=== PATIENT | female | born 1940 | race Caucasian/White ===

== ENCOUNTER 2017-03-18 18:21 | Emergency (ER) | payer MEDICARE ==
[2017-03-18 18:31] VITALS: BP 129/72
--- NOTE | 2017-03-18 18:46 | UC ---
Throat Pain/Nasal Soham HPI - HPI Summary HPI Summary: 5 days of worseing sinus pain ear pressure and sore throat, nasal congestion - History of Current Complaint Chief Complaint: UCRespiratory Stated Complaint: SORE THROAT, EAR COMPLAINTS Time Seen by Provider: 03/18/17 18:37 Hx Obtained From: Patient ?: No Onset/Duration: Gradual Onset, Lasting Days - 5, Worse Since - daily Severity: Moderate Cough: Nonproductive Associated Signs & Symptoms: Positive: Sinus Discomfort, Nasal Discharge - Allergies/Home Medications Allergies/Adverse Reactions: Allergies Allergy/AdvReac Type Severity Reaction Status Date / Time Penicillins Allergy Severe Anaphylatic Verified 03/18/17 18:32 Shock Sulfamethoxazole Allergy Intermediate Itching Verified 03/18/17 18:32 w/Trimethoprim [From Bactrim] Vancomycin Allergy Intermediate Itching Verified 03/18/17 18:32 Iodinated Diagnostic Agents Allergy Anaphylatic Verified 03/18/17 18:32 Shock Levofloxacin [From Levaquin] Allergy See Comment Verified 03/18/17 18:32 Sulfa Antibiotics AdvReac Intermediate Nausea Verified 03/18/17 18:32 Codeine AdvReac Mild GI Upset Verified 03/18/17 18:32 IVP DYE Allergy Severe Anaphylatic Uncoded 03/18/17 18:32 Shock PMH/Surg Hx/FS Hx/Imm Hx Previously Healthy: No GI/ History: Gastroesophageal Reflux Psychological History: Anxiety Other History Of: Anticoagulant Therapy - had DVT in past. - Surgical History Surgical History: Yes Surgery Procedure, Year, and Place: RIGHT KNEE REPLACEMENT, CHOLECYSTECTOMY, APPENDECTOMY - Family History Known Family History: Positive: Other - BREAST CANCER - Social History Occupation: Retired Lives: With Family Alcohol Use: None Substance Use Type: None Smoking Status (MU): Former Smoker Type: Cigarettes Household Exposure Type: Cigarettes - Immunization History Most Recent Influenza Vaccination: unknown Most Recent Tetanus Shot: up to date Most Recent Pneumonia Vaccination: has had, unsure of year Review of Systems Constitutional: Negative Skin: Negative Eyes: Negative ENT: Sore Throat, Ear Ache, Nasal Discharge, Sinus Congestion, Sinus Pain/ Tenderness Respiratory: Negative Cardiovascular: Negative Gastrointestinal: Negative Genitourinary: Negative Motor: Negative Neurovascular: Negative Musculoskeletal: Negative Neurological: Negative Psychological: Negative All Other Systems Reviewed And Are Negative: Yes Physical Exam Triage Information Reviewed: Yes Appearance: Well-Appearing, No Pain Distress, Pain Distress - mild Vital Signs: Initial Vital Signs Temp 96.9 F 03/18/17 18:28 Pulse 82 03/18/17 18:28 Resp 12 03/18/17 18:28 BP 129/72 03/18/17 18:28 Pulse Ox 98 03/18/17 18:28 Vital Signs Reviewed: Yes Eye Exam: Normal Eyes: Positive: Conjunctiva Clear ENT Exam: Normal ENT: Positive: Normal ENT inspection, Hearing grossly normal, Pharynx normal, Nasal congestion, Nasal drainage, TMs normal. Negative: Tonsillar swelling, Tonsillar exudate, Trismus, Muffled/hoarse voice Dental Exam: Normal Neck exam: Normal Neck: Positive: Supple, Nontender, No Lymphadenopathy Respiratory Exam: Normal Respiratory: Positive: Chest non-tender, Lungs clear, Normal breath sounds, No respiratory distress, No accessory muscle use Cardiovascular Exam: Normal Cardiovascular: Positive: RRR, No Murmur, Pulses Normal, Brisk Capillary Refill Musculoskeletal Exam: Normal Musculoskeletal: Positive: Strength Intact, ROM Intact, No Edema Neurological Exam: Normal Neurological: Positive: Alert, Muscle Tone Normal, Fatigued Psychological Exam: Normal Skin Exam: Normal Throat Pain/Nasal Course/Dx - Course Assessment/Plan: flonase zithromax, increase fluids, follow with pcp - Differential Dx/Diagnosis Differential Diagnosis/HQI/PQRI: Pharyngitis, Sinusitis, URI Provider Diagnoses: Acute Rhinosinusitis Discharge - Discharge Plan Condition: Stable Disposition: HOME Prescriptions: Azithromycin TAB* [Zithromax TAB (Z-LELIA) 250 mg #6 tabs] 2 tab PO .TODAY, THEN 1 DAILY #6 tab Fluticasone NASAL SPRAY 50MCG* [Flonase NASAL SPRAY 50MCG*] 2 spray BOTH NARES DAILY #1 btl Patient Education Materials: Sinusitis (ED), How to Use Nasal [place] (ED) Referrals: Bettye Up MD [Primary Care Provider] - 2 Weeks
== END 2017-03-18 18:58 | disposition home or self-care (01) ==
LOC: UCEAST 18:21
DX: J01.90 Acute sinusitis, unspecified (principal); K21.9 Gastro-esophageal reflux disease without esophagitis; F41.9 Anxiety disorder, unspecified; Z86.718 Personal history of other venous thrombosis and embolism; Z79.01 Long term (current) use of anticoagulants; Z96.651 Presence of right artificial knee joint; Z90.49 Acquired absence of other specified parts of digestive tract; Z88.1 Allergy status to other antibiotic agents; Z88.5 Allergy status to narcotic agent; Z88.0 Allergy status to penicillin; Z88.2 Allergy status to sulfonamides; Z87.891 Personal history of nicotine dependence
CPT/HCPCS: 99212; G0463

== ENCOUNTER 2017-12-09 11:19 | Inpatient (IN) | payer MEDICARE ==
--- OUTSIDE RECORDS SUMMARY | 2017-12-09 11:44 | XMS REPORT ---
:1940 External Reference #:[id number] Author Organization [facility] [employer] Address [address] [address] Phone [phone] Care Team Providers Name Role Phone Bettye Up MD Primary Care Physician Unavailable Payers Type Date Identification Numbers Payment Provider Subscriber Medicare Primary Policy Number: Medicare Paulette Rahman [id number] Jinny PayID: [id number] [address] [place] [address] [facility] Policy Number: [facility] Paulette Stearns [id number] PayID: [id number] [address] [place] [address] Problems Date Description Provider Status Onset: 05/25/2011 Anxiety state Elin Fowler, N.PHalle Active Onset: 05/25/2011 Benign essential hypertension Elin Fowler, N.P. Active Onset: 05/25/2011 Osteoporosis Elin Fowler, N.P. Active Onset: 05/25/2011 Chronic obstructive lung disease Elin Fowler, N.P. Active Onset: 05/25/2011 Right bundle branch block Elin Fowler, N.P. Active Onset: 03/25/2015 Hyperlipidemia Margret Anne M.D. Active Onset: 03/25/2015 FH: Cardiovascular disease Margret Anne M.D. Active Family History Date Family Member(s) Problem(s) Comments General Colon Cancer : (age 75 Father due to Septic Ruptured Peptic Ulcer Years) Shock : (age 84 Mother due to CHF DM Years) Mother Coronary Artery Disease CABG and MV replacement (CAD) Children 3 Daughters - Healthy Siblings 5 3 Living Siblings with: HTN, Heart Disease, DM 1 Sister - Alzheimers age - 77 1 Brother - Lung Cancer - 79 First Brother Coronary Artery Disease [place] (CAD) Second Brother Colon Cancer Social History Type Date Description Comments Marital Status Significant Other Lives With Boyfriend Occupation Retired Cigarette Use Former Cigarette Smoker ETOH Use Denies alcohol use Smoking Patient is a former smoker Quit 2011, used to smoke 1 1/2 PPD for 37 years Recreational Drug Use Denies Drug Use Daily Caffeine Consumes on average 1 cup of regular coffee per day Exercise Type/Frequency Exercises rarely General Hx Text Lives iin [place] with s.o., no new partners, no travel or sick contacts. no pets. Allergies, Adverse Reactions, Alerts Date Description Reaction Status Severity Comments 05/01/2010 Penicillin active 05/01/2010 Codeine active 05/01/2010 Vancomycin active 06/07/2010 IV Dye Anaphylaxis active Fatal 11/03/2012 Levaquin joint pain active 05/14/2013 Sulfa Antibiotics active 03/25/2015 Crestor active GI problems 03/25/2015 Pravastatin active myalgias Medications Medication Date Status Form Strength Qnty SIG Indications Ordering Provider Keflex 12/02 Active Capsules 500mg 21cap 1 by mouth Darius s three times RADHA Pires a day for 7 days Spiriva 08/14 Active Capsules 18mcg 30cap inhale the J44.9 Darius Handihaler /2017 s contents of RADHA Pires one capsule via handihaler by mouth every day Ventolin HFA 06/10 Active Aerosol 108(90Bas 1unit 1-2 puffs J44.9 Darius e) s by mouth RADHA Pires mcg/Act every 4-6 hours as needed Omeprazole 06/[address] 20mg 60cap 1 by mouth K21.9 Darius s twice a day RADHA Pires Paxil 03/13 Active Tablets 40mg 90tab Take One s Tablet By Varn, N.P. Mouth Every Day Valium 09/21 Active Tablets 5mg 120ta 1 by mouth bs 4 times Varn, N.P. daily Imodium A-D Active Chewtabs 2mg 2 tabs by Unknown /0000 mouth as needed Align Active Capsules 1 by mouth Unknown /0000 every day Macrobid 12/02 Hx Capsules 100mg 14cap one capsule R35.0 s twice a day Pranay, WHISKEY REGAUGER - x 7 days 12/02 Carafate 06/10 Hx Suspension 1GM/10ML 420ml 10ml prior to each Pranay, WHISKEY REGAUGER - meal 10/27 Spiriva 06/10 Hx Capsules 18mcg 30cap inhale the J44.9 Darius Handihaler s contents of Pranay, WHISKEY REGAUGER - one capsule 08/14 handihaler by mouth every day Dulera 06/06 Hx Aerosol 100-5mcg/ 8.800 2 puffs Act gm twice daily Parmjit Cody M.D. 06/10 Doxycycline 05/27 Hx Capsules 100mg 20cap one tablet R35.0 Darius Hyclate s twice daily Pranay, WHISKEY REGAUGER - for 10 . Macrobid 05/24 Hx Capsules 100mg 14cap one capsule R35.0 Darius s twice a day Pranay, WHISKEY REGAUGER - x 7 days 05/27 Azithromycin 11/07 Hx Tablets 250mg 6tabs two tabs J20.9 day one, Varn, N.P. - one daily 11/17 till Azithromycin 07/17 Hx Tablets 250mg 6tabs two tabs J01.00 day one, Varn, N.P. - one daily 07/27 till Azithromycin 06/13 Hx Tablets 250mg 6tabs 2 tabs by J20.9 Darius mouth every Pranay, WHISKEY REGAUGER - day x1 day, 06/18 1 tab by /2015 mouth every day x 4 days Benzonatate 06/13 Hx Capsules 100mg 30cap take one or J20.9 Darius s two Pranay, WHISKEY REGAUGER - capsules 06/25 every hours as needed for cough. Symbicort 06/13 Hx Aerosol 160-4.5mc 6gm 2 puff J20.9 Darius g/Act inhaled Pranay, WHISKEY REGAUGER - twice a day 06/27 Keflex 12/29 Hx Capsules 500mg 21cap 1 by mouth s three times Pranay, WHISKEY REGAUGER - a day for 7 Azithromycin 12/27 Hx Tablets 250mg 6tabs 2 tabs by R05 Darius mouth every Pranay, WHISKEY REGAUGER - day x1 day, 04/16 1 tab by mouth every day x 4 days Fluticasone 12/27 Hx Suspension 50mcg/Act 16 2 R05 Darius Propionate intranasal Pranay, WHISKEY REGAUGER - puffs to 04/16 nostril as needed Nitrofurantoin 12/16 Hx Capsules 100mg 20cap 1 po bid Terrell Fowlerstal s for 10d DParmjit Gonzales M.D.,[facility] 12/26 Fluticasone 09/12 Hx Suspension 50mcg/Act 16 2 J01.90 Propionate intranasal Varn, N.P. - puffs to 09/26 nostril as needed Mupirocin 03/11 Hx Ointment 2% 22gm apply once 913.0 daily with Varn, N.P. - dressing 03/25 Terconazole 12/15 Hx Cream 0.4% 1tube one applicator Varn, N.P. - intravagina 12/16 lly at bedtime for 3 nights Keflex 12/06 Hx Capsules 500mg 21cap one by s mouth 3 Varn, N.P. - times daily 12/13 for 7 Tetracycline 12/03 Hx Capsules 500mg 40cap 1 po qid x HCL s 10 days Varn, N.P. - 12/03 Doxycycline 12/03 Hx Tablets 100mg 20tab 1 tab by Bettye Hyclate s mouth twice Cotton, - a day for M.D. 12/06 10 Macrobid 12/01 Hx Capsules 100mg 20cap 1 by mouth s twice a day Varn, N.P. - for 10 days 12/03 Aspirin 11/03 Hx Tablets 325mg 1 by mouth Darius every day Pranay, WHISKEY REGAUGER - 06/10 Azithromycin 11/03 Hx Tablets 250mg 6tabs 2 tabs by 465.9 Darius mouth every Pranay, WHISKEY REGAUGER - day x1 day, 11/07 1 tab by /2014 mouth every day x 4 days Benzonatate 08/31 Hx Capsules 200mg 30cap one by 466.0 s mouth three Varn, N.P. - times daily 11/03 as needed for cough Azithromycin 08/27 Hx Tablets 250mg 6tabs two tabs 466.0 day one, Varn, N.P. - one daily 09/06 till Benzonatate 08/27 Hx Capsules 100mg 30cap one by 466.0 s mouth three Varn, N.P. - times daily 08/31 as needed for cough Tramadol HCL 08/11 Hx Tablets 50mg 30tab 1 tablet 719.49 s three to Varn, N.P. - four times 12/27 daily needed Azithromycin 07/14 Hx Tablets 250mg 6tabs two tabs day one, Varn, N.P. - one daily 07/24 until Crestor 07/05 Hx Tablets 10mg 90tab 1 by mouth s every day Varn, N.P. - 07/29 Atorvastatin 06/04 Hx Tablets 20mg 30tab take 1 272.4 s tablet at Varn, N.P. - bedtime 07/05 Zithromax Z-Ronnie 01/02 Hx Tablets 250mg 6tabs two by mouth Faisal Morgan - initially 01/12 then one by mouth daily Aspirin Adult 11/04 Hx Chewtabs 81mg 30uni 1 by mouth Elin Low Strength ts every day Varn, N.P. - 11/03 Azithromycin 11/04 Hx Tablets 250mg 6tabs two tabs 486 day one, Varn, N.P. - one daily 11/14 till Flonase 11/04 Hx Suspension 50mcg/Act 1unit 2 461.9 Bettye /2014 s intranasal Cotton, - puffs to M.DHalle 09/12 nostril as needed Azithromycin 10/28 Hx Tablets 250mg 6tabs two tabs 466.0 day one, Varn, N.P. - one daily 11/04 until Cipro 08/05 Hx Tablets 250mg 10tab bid for 5 s days Parmjit King M.D.,[facility] 09/11 Pyridium 08/05 Hx Tablets 200mg 9tabs po tid prn for 3 days Parmjit King M.D.,[facility] 10/28 Cipro 07/18 Hx Tablets 500mg 6tabs 1 po bid Aime DHalle Parmjit Orlando M.D. 08/05 Cipro 05/05 Hx Suspension 500mg/5ML 100un 1 tsp twice Rec (10%) its a day Varn, N.P. - 05/05 Ciprofloxacin 05/05 Hx Tablets 500mg 20tab one by Elin HCL s mouth twice Varn, N.P. - daily for 05/15 Azithromycin 04/29 Hx Tablets 250mg 6tabs two tabs 466.0 day one, Varn, N.P. - one daily 05/05 till Percocet 04/21 Hx Tablets 5-325mg 30tab 1po q4-6h s prn Parmjit Nunes M.D. 07/27 Ciprofloxacin 02/20 Hx Tablets 250mg 14tab one po bid 788.41 Elin HCL s for 7 days Varn, N.P. - 02/27 Cipro 11/02 Hx Tablets 250mg 14tab one by Elin s nouth twice Varn, N.P. - daily for 7 Triamcinolone 10/27 Hx Cream 0.1% 30gm apply bid 782.1 Elin Acetonide until clear Varn, N.P. - 07/27 Sulfamethoxazol 01/24 Hx Tablets 800-160mg 20tab one po bid 788.41 Claudia e/Trimethoprim s for 10 days RICO Montaño M.D., [facility] 02/03 Ciprofloxacin 07/08 Hx Tablets 250mg 14tab 1 bid x 7 Bettye s days Jeovanny, - M.D. 08/20 Cipro 05/28 Hx Tablets 250mg 14tab one by s nouth twice [place], - daily for 7 M.D. Flonase 09/06 Hx Suspension 50mcg/Act 1unit 2 s intranasal [place], - puffs to M.D. 09/16 nostril once daily Levaquin 06/07 Hx Tablets 500mg 10tab 1 po daily s for 10 days Jeovanny, - M.D. 06/17 Tessalon Perles 05/24 Hx Capsules 100mg 30cap one po tid s prn cough Jeovanny, - M.D. 06/21 Zithromax Z-Ronnie 05/22 Hx Tablets 250mg 1Pack two po Claudia initially [place], - then one po M.D., FACP 06/07 Zithromax Z-Ronnie 03/13 Hx Tablets 250mg 1tabs Two PO Initially Cotton, - Then One PO M.D. 05/01 Chantix 02/14 Hx Tablets 1mg 1Cont 1 po bid inuin Jeovanny, - gpk M.D. 03/13 Premarin 00/ Hx Cream 0.625mg/G 3Mont 1 Bettye W/Applicator /0000 M hs application [place], - once weekly M.D. 10/27 Co Q-10 Hx Unknown /0000 - 10/27 Keflex 00 Hx Capsules 250mg 1 tab by Unknown /0000 mouth qid - 05/18 Immunizations CPT Code Status Date Vaccine Lot # [id number] Given 12/03/2016 Tdap - Tetanus/Diptheria/Acellular Pertussis [id number] 99193 Given 05/18/2016 Influenza Virus Vaccine, Quadrivalent, Split [id number] Virus, [place] Use 55717 Given 05/18/2016 Pneumococcal Conjugate Vaccine 13 Valent For [id number] Intramuscular Use 45252 Given 06/04/2014 Flu Vaccine Split Virus Preservative Free For [id number] Indiv 3Yr Older 66849 Given 07/27/2013 Flu Vaccine Split Virus Preservative Free For [id number] Indiv 3Yr Older Q2037 Given 07/11/2012 Fluvirin Im 3Yrs And Older [id number] Q2035 Given 05/25/2011 Afluria Vaccine [id number] 95221 Given 05/25/2011 Pneumonia Vaccine [id number] 69537 Given 05/25/2008 Influenza Virus 3Yrs & Over 23727 Given 05/25/2008 Influenza Virus 3Yrs & Over 17784 Given 09/03/2007 Tetanus And Diptheria (Td) For Adult Use Preservative Free 73430 Given 09/03/2007 Tetanus And Diptheria (Td) For Adult Use Preservative Free Vital Signs Date Vital Result Comment 12/02/2017 Weight 142.50 lb Heart Rate 85 /min BP Systolic 128 mmHg BP Diastolic 79 mmHg Body Temperature 96.6 F O2 % BldC Oximetry 90 % 10/28/2017 Height 63 inches 5'3" Weight 145.00 lb Heart Rate 84 /min BP Systolic Sitting 116 mmHg BP Diastolic Sitting 70 mmHg Respiratory Rate 14 /min O2 % BldC Oximetry 96 % BMI (Body Mass Index) 25.7 kg/m2 08/14/2017 Weight 147.00 lb Heart Rate 95 /min BP Systolic 110 mmHg BP Diastolic 60 mmHg Body Temperature 98.0 F O2 % BldC Oximetry 97 % 07/16/2017 Height 63 inches 5'3" Weight 147.00 lb Heart Rate 80 /min BP Systolic Sitting 100 mmHg BP Diastolic Sitting 60 mmHg Respiratory Rate 14 /min O2 % BldC Oximetry 96 % BMI (Body Mass Index) 26.0 kg/m2 Neck Circumference in inches 14 06/10/2017 Weight 156.75 lb Heart Rate 70 /min BP Systolic Sitting 120 mmHg BP Diastolic Sitting 70 mmHg O2 % BldC Oximetry 98 % 05/24/2017 Height 63 inches 5'3" Weight 154.00 lb Heart Rate 86 /min BP Systolic Sitting 118 mmHg BP Diastolic Sitting 70 mmHg O2 % BldC Oximetry 95 % BMI (Body Mass Index) 27.3 kg/m2 11/07/2016 Weight 157.00 lb with shoes Heart Rate 82 /min BP Systolic 132 mmHg BP Diastolic 74 mmHg Body Temperature 98.2 F O2 % BldC Oximetry 94 % 08/17/2016 Weight 151.00 lb Heart Rate 87 /min BP Systolic Sitting 140 mmHg BP Diastolic Sitting 72 mmHg O2 % BldC Oximetry 95 % 07/17/2016 Weight 153.00 lb Heart Rate 88 /min BP Systolic Sitting 112 mmHg BP Diastolic Sitting 60 mmHg Body Temperature 97.5 F O2 % BldC Oximetry 95 % 06/13/2016 Height 63 inches 5'3" Weight 154.00 lb Heart Rate 73 /min BP Systolic Sitting 106 mmHg BP Diastolic Sitting 64 mmHg Respiratory Rate 16 /min Body Temperature 98.9 F O2 % BldC Oximetry 94 % BMI (Body Mass Index) 27.3 kg/m2 05/18/2016 Height 63 inches 5'3" Weight 153.00 lb Heart Rate 71 /min BP Systolic Sitting 122 mmHg BP Diastolic Sitting 66 mmHg Body Temperature 98.8 F O2 % BldC Oximetry 95 % BMI (Body Mass Index) 27.1 kg/m2 04/16/2016 Height 63 inches 5'3" Weight 156.00 lb Heart Rate 93 /min BP Systolic 141 mmHg BP Diastolic 93 mmHg BMI (Body Mass Index) 27.6 kg/m2 12/28/2015 Heart Rate 89 /min BP Systolic Sitting 108 mmHg BP Diastolic Sitting 75 mmHg Body Temperature 98.7 F O2 % BldC Oximetry 94 % 12/23/2015 Height 63.75 inches 5'3.75" Weight 155.00 lb Heart Rate 64 /min BP Systolic Sitting 138 mmHg BP Diastolic Sitting 76 mmHg Respiratory Rate 16 /min Pain Level 3 BMI (Body Mass Index) 26.8 kg/m2 09/28/2015 Height 63.75 inches 5'3.75" Weight 155.00 lb Pain Level 0 BMI (Body Mass Index) 26.8 kg/m2 09/09/2015 Height 63.75 inches 5'3.75" Weight 155.00 lb Pain Level 8 BMI (Body Mass Index) 26.8 kg/m2 06/15/2015 Height 63.75 inches 5'3.75" Weight 155.00 lb Pain Level 2 BMI (Body Mass Index) 26.8 kg/m2 06/07/2015 Height 63.75 inches 5'3.75" Weight 155.00 lb Pain Level 2 BMI (Body Mass Index) 26.8 kg/m2 03/25/2015 Height 63.75 inches 5'3.75" Weight 155.00 lb w/o shoes Heart Rate 96 /min reg BP Systolic 136 mmHg Lue, reg cuff BP Diastolic 84 mmHg Lue, reg cuff BP Systolic Sitting 134 mmHg Rue, reg cuff BP Diastolic Sitting 84 mmHg Rue, reg cuff BP Systolic Standing 130 mmHg Rue BP Diastolic Standing 76 mmHg Rue Respiratory Rate 18 /min BMI (Body Mass Index) 26.8 kg/m2 03/22/2015 Heart Rate 90 /min BP Systolic Sitting 128 mmHg BP Diastolic Sitting 77 mmHg Body Temperature 98.6 F 03/11/2015 Weight 155.00 lb Heart Rate 87 /min BP Systolic Sitting 120 mmHg BP Diastolic Sitting 80 mmHg 11/03/2014 Height 64 inches 5'4" Weight 157.00 lb Heart Rate 84 /min BP Systolic 101 mmHg BP Diastolic 62 mmHg Body Temperature 99.1 F O2 % BldC Oximetry 96 % BMI (Body Mass Index) 26.9 kg/m2 08/27/2014 Weight 155.50 lb Heart Rate 78 /min BP Systolic Sitting 122 mmHg BP Diastolic Sitting 68 mmHg Body Temperature 98.6 F O2 % BldC Oximetry 98 % 08/11/2014 Height 64 inches 5'4" Weight 157.00 lb Heart Rate 78 /min BP Systolic 110 mmHg BP Diastolic 60 mmHg Body Temperature 99.2 F BMI (Body Mass Index) 26.9 kg/m2 07/30/2014 Height 64 inches 5'4" Weight 157.25 lb Heart Rate 90 /min BP Systolic Sitting 112 mmHg BP Diastolic Sitting 62 mmHg Body Temperature 98.1 F O2 % BldC Oximetry 98 % BMI (Body Mass Index) 27.0 kg/m2 06/04/2014 Weight 158.00 lb Heart Rate 92 /min BP Systolic Sitting 124 mmHg BP Diastolic Sitting 92 mmHg Body Temperature 97.1 F 01/01/2014 Weight 155.00 lb Heart Rate 84 /min BP Systolic Sitting 126 mmHg BP Diastolic Sitting 80 mmHg Body Temperature 98.7 F O2 % BldC Oximetry 94 % 11/04/2013 Weight 152.50 lb Heart Rate 84 /min BP Systolic 140 mmHg BP Diastolic 74 mmHg Respiratory Rate 18 /min Body Temperature 98.1 F 10/28/2013 Weight 156.00 lb Heart Rate 84 /min BP Systolic Sitting 138 mmHg BP Diastolic Sitting 80 mmHg Respiratory Rate 15 /min Body Temperature 98.4 F 09/11/2013 Height 63.25 inches 5'3.25" Weight 155.00 lb Heart Rate 82 /min BP Systolic Sitting 124 mmHg BP Diastolic Sitting 70 mmHg O2 % BldC Oximetry 96 % BMI (Body Mass Index) 27.2 kg/m2 07/27/2013 Weight 151.50 lb Heart Rate 84 /min BP Systolic 126 mmHg BP Diastolic 74 mmHg 05/20/2013 Weight 149.00 lb Heart Rate 64 /min BP Systolic 126 mmHg BP Diastolic 70 mmHg Body Temperature 98.7 F 05/14/2013 Weight 149.00 lb Heart Rate 60 /min BP Systolic 106 mmHg BP Diastolic 66 mmHg Body Temperature 98.2 F 05/05/2013 Weight 149.00 lb Heart Rate 88 /min BP Systolic Sitting 128 mmHg BP Diastolic Sitting 76 mmHg Body Temperature 100.5 F 04/29/2013 Weight 147.00 lb Heart Rate 88 /min BP Systolic Sitting 102 mmHg BP Diastolic Sitting 70 mmHg Body Temperature 98.8 F 04/21/2013 Height 64 inches 5'4" Weight 130.00 lb Heart Rate 106 /min BP Systolic 139 mmHg BP Diastolic 86 mmHg Body Temperature 99.0 F BMI (Body Mass Index) 22.3 kg/m2 02/20/2013 Weight 144.00 lb Heart Rate 100 /min BP Systolic Sitting 124 mmHg BP Diastolic Sitting 76 mmHg Body Temperature 98.3 F 11/04/2012 Weight 150.00 lb Heart Rate 104 /min BP Systolic Sitting 140 mmHg BP Diastolic Sitting 86 mmHg 10/27/2012 Height 64 inches 5'4" Weight 152.00 lb Heart Rate 84 /min BP Systolic Sitting 118 mmHg BP Diastolic Sitting 64 mmHg Body Temperature 98.8 F BMI (Body Mass Index) 26.1 kg/m2 07/11/2012 Height 64 inches 5'4" Weight 155.00 lb Heart Rate 74 /min BP Systolic Sitting 120 mmHg BP Diastolic Sitting 70 mmHg BMI (Body Mass Index) 26.6 kg/m2 01/25/2012 Height 64 inches 5'4" Weight 148.00 lb Heart Rate 72 /min BP Systolic Sitting 140 mmHg BP Diastolic Sitting 72 mmHg BP Systolic Recheck 130 mmHg BP Diastolic Recheck 78 mmHg BMI (Body Mass Index) 25.4 kg/m2 05/25/2011 Height 64 inches 5'4" Weight 139.00 lb Heart Rate 76 /min BP Systolic Sitting 132 mmHg BP Diastolic Sitting 82 mmHg BMI (Body Mass Index) 23.9 kg/m2 06/07/2010 Heart Rate 72 /min BP Systolic 134 mmHg BP Diastolic 76 mmHg Body Temperature 97.6 F 05/22/2010 Weight 132.50 lb Heart Rate 80 /min BP Systolic Sitting 122 mmHg BP Diastolic Sitting 70 mmHg Body Temperature 97.2 F Results Test Date Test Result H/L Range Note Ua Routine 12/02/2017 Ua Specific [place] 1010 Ua PH 5 Ua Color yellow Ua Appera cloudy Ua WBC + Ua Protein trace Ua Glucose neg Ua Ketones neg Ua Bilirubin neg Ua Urobilinogen neg Ua Nitrite neg Ua Occult Blood about 50 CBC Auto Diff 09/05/2017 White Blood Count 6.8 10^3/uL 3.5-10.8 Red Blood Count 3.87 10^6/uL Low 4.0-5.4 Hemoglobin 11.9 g/dL Low 12.0-16.0 Hematocrit 36 % 35-47 Mean Corpuscular Volume 93 fL 80-97 Mean Corpuscular Hemoglobin 31 pg 27-31 Mean Corpuscular HGB Conc 33 g/dL 31-36 Red Cell Distribution Width 16 % High 10.5-15 Platelet Count 249 10^3/uL 150-450 Mean Platelet Volume 7 um3 Low 7.4-10.4 Abs Neutrophils 4.6 10^3/uL 1.5-7.7 Abs Lymphocytes 1.4 10^3/uL 1.0-4.8 Abs Monocytes 0.6 10^3/uL 0-0.8 Abs Eosinophils 0.2 10^3/uL 0-0.6 Abs Basophils 0 10^3/uL 0-0.2 Abs Nucleated RBC 0 10^3/uL Granulocyte % 67.3 % 38-83 Lymphocyte % 21.4 % Low 25-47 Monocyte % 8.2 % 1-9 Eosinophil % 2.5 % 0-6 Basophil % 0.6 % 0-2 Nucleated Red Blood Cells % 0 Comp Metabolic Panel 09/05/2017 Sodium 139 mmol/L 133-145 Potassium 4.5 mmol/L 3.5-5.0 Chloride 105 mmol/L 101-111 Co2 Carbon Dioxide 28 mmol/L 22-32 Anion Gap 6 mmol/L 2-11 Glucose 96 mg/dL 70-100 Blood Urea Nitrogen 22 mg/dL 6-24 Creatinine 0.88 mg/dL 0.51-0.95 BUN/Creatinine Ratio 25.0 High 8-20 Calcium 9.4 mg/dL 8.6-10.3 Total Protein 7.6 g/dL 6.4-8.9 Albumin 4.0 g/dL 3.2-5.2 Globulin 3.6 g/dL 2-4 Albumin/Globulin Ratio 1.1 1-3 Total Bilirubin 0.40 mg/dL 0.2-1.0 Alkaline Phosphatase 80 U/L 34-104 Alt 16 U/L 7-52 Ast 19 U/L 13-39 Egfr Non- 62.5 >60 Egfr 80.3 >60 1 Lipid Profile (Trig/Chol/HDL) 09/05/2017 Triglycerides 161 mg/dL 2 Cholesterol 247 mg/dL 3 HDL Cholesterol 33.8 mg/dL 4 LDL Cholesterol 181 mg/dL 5 Stool Occult Blood 06/04/2017 Stool Occult Blood, SEE RESULT BELOW 6 Diag Diag Arterial Blood Gas 06/04/2017 PH Arterial 7.36 7.35-7.45 Pco2 Arterial 51 mmHg High 35-45 Po2 Arterial 53 mmHg Low 80-100 7 O2 Saturation Arterial 92.8 % Low 95-98 Base Excess Arterial 2.6 High -2.0-2.0 8 Hco3 Arterial 26.8 mmol/L Laboratory test finding 06/03/2017 Troponin-I (TnI) 0.01 ng/mL <0.04 TSH (Thyroid Stim Horm) 2.12 mcIU/mL 0.34-5.60 Comp Metabolic Panel 06/03/2017 Sodium 135 mmol/L 133-145 Chloride 104 mmol/L 101-111 Co2 Carbon Dioxide 25 mmol/L 22-32 Glucose 96 mg/dL 70-100 Blood Urea Nitrogen 24 mg/dL 6-24 Creatinine 0.94 mg/dL 0.51-0.95 BUN/Creatinine Ratio 25.5 High 8-20 Calcium 9.3 mg/dL 8.6-10.3 Total Protein 7.6 g/dL 6.4-8.9 Albumin 3.6 g/dL 3.2-5.2 Globulin 4.0 g/dL 2-4 Albumin/Globulin Ratio 0.9 Low 1-3 Total Bilirubin 0.40 mg/dL 0.2-1.0 Alkaline Phosphatase 86 U/L 34-104 Alt 12 U/L 7-52 Egfr Non- 57.9 >60 Egfr 74.5 >60 9 Potassium 4.1 mmol/L 3.5-5.0 Anion Gap 6 mmol/L 2-11 Ast 17 U/L 13-39 Laboratory test 06/03/2017 B-Type Natriuretic 261 pg/mL High 10 finding Peptide BNP CBC Auto Diff 06/03/2017 White Blood Count 6.9 10^3/uL 3.5-10.8 Red Blood Count 4.07 10^6/uL 4.0-5.4 Hemoglobin 12.1 g/dL 12.0-16.0 Hematocrit 37 % 35-47 Mean Corpuscular Volume 91 fL 80-97 Mean Corpuscular Hemoglobin 30 pg 27-31 Mean Corpuscular HGB Conc 33 g/dL 31-36 Red Cell Distribution Width 14 % 10.5-15 Platelet Count 247 10^3/uL 150-450 Mean Platelet Volume 6 um3 Low 7.4-10.4 Abs Neutrophils 4.8 10^3/uL 1.5-7.7 Abs Lymphocytes 1.3 10^3/uL 1.0-4.8 Abs Monocytes 0.5 10^3/uL 0-0.8 Abs Eosinophils 0.2 10^3/uL 0-0.6 Abs Basophils 0.1 10^3/uL 0-0.2 Abs Nucleated RBC 0 10^3/uL Granulocyte % 69.6 % 38-83 Lymphocyte % 19.1 % Low 25-47 Monocyte % 7.4 % 1-9 Eosinophil % 2.8 % 0-6 Basophil % 1.1 % 0-2 Nucleated Red Blood Cells % 0.1 Laboratory test finding 06/03/2017 Troponin-I (TnI) 0.00 ng/mL <0.04 Ua Routine 05/24/2017 Ua Specific [place] 1.015 Ua PH 5 Ua Color yellow Ua Appera cloudy Ua WBC + Ua Protein trace Ua Glucose negative Ua Ketones negative Ua Bilirubin negative Ua Urobilinogen negative Ua Nitrite positive Ua Occult Blood trace Urine Culture And Sensitivities 05/24/2017 Urine Culture SEE RESULT BELOW 11 Lipid Profile (Trig/Chol/HDL) 05/17/2016 Triglycerides 127 mg/dL 12 Cholesterol 230 mg/dL 13 HDL Cholesterol 34.9 mg/dL 14 LDL Cholesterol 170 mg/dL 15 Comp Metabolic Panel 05/17/2016 Sodium 141 mmol/L 133-145 Potassium 4.6 mmol/L 3.5-5.0 Chloride 104 mmol/L 101-111 Co2 Carbon Dioxide 31 mmol/L 22-32 Anion Gap 6 mmol/L 2-11 Glucose 108 mg/dL High 70-100 Blood Urea Nitrogen 22 mg/dL 6-24 Creatinine 0.90 mg/dL 0.51-0.95 BUN/Creatinine Ratio 24.4 High 8-20 Calcium 9.3 mg/dL 8.6-10.3 Total Protein 7.4 g/dL 6.4-8.9 Albumin 3.9 g/dL 3.2-5.2 Globulin 3.5 g/dL 2-4 Albumin/Globulin Ratio 1.1 1-3 Total Bilirubin 0.20 mg/dL 0.2-1.0 Alkaline Phosphatase 97 U/L 34-104 Alt 15 U/L 7-52 Ast 20 U/L 13-39 Egfr Non- 61.0 >60 Egfr 78.5 >60 16 CBC Auto Diff 04/07/2016 White Blood Count 6.1 10^3/uL 3.5-10.8 Red Blood Count 4.04 10^6/uL 4.0-5.4 Hemoglobin 12.3 g/dL 12.0-16.0 Hematocrit 37 % 35-47 Mean Corpuscular Volume 93 fL 80-97 Mean Corpuscular Hemoglobin 31 pg 27-31 Mean Corpuscular HGB Conc 33 g/dL 31-36 Red Cell Distribution Width 14 % 10.5-15 Platelet Count 234 10^3/uL 150-450 Mean Platelet Volume 7 um3 Low 7.4-10.4 Abs Neutrophils 4.1 10^3/uL 1.5-7.7 Abs Lymphocytes 1.4 10^3/uL 1.0-4.8 Abs Monocytes 0.5 10^3/uL 0-0.8 Abs Eosinophils 0.1 10^3/uL 0-0.6 Abs Basophils 0 10^3/uL 0-0.2 Abs Nucleated RBC 0 10^3/uL Granulocyte % 66.4 % 38-83 Lymphocyte % 22.5 % Low 25-47 Monocyte % 8.3 % 1-9 Eosinophil % 2.1 % 0-6 Basophil % 0.7 % 0-2 Nucleated Red Blood Cells % 0.1 Inr/Protime 04/07/2016 Inr 1.05 0.89-1.11 Laboratory test finding 04/07/2016 Partial Thrombo Time 28.8 seconds 26.0 -36.3 PTT D Dimer Quantitative 225 ng/mL Less Than 230 17 Lactic Acid 0.8 mmol/L 0.5-2.0 18 B-Type Natriuretic Peptide BNP 112 pg/mL High 19 Laboratory test finding 04/07/2016 TSH (Thyroid Stim 1.42 mcIU/mL 0.34- 5.60 Horm) CKMB 04/07/2016 CKMB ng/mL 2.4 ng/mL 0.6-6.3 Laboratory test finding 04/07/2016 Magnesium 1.7 mg/dL Low 1.9-2.7 Lipase 19 U/L 11.0-82.0 Creatine Kinase(CK) 61 U/L 10-223 C Reactive Protein 4.23 mg/L < 5.00 20 Troponin-I (TnI) 0.00 ng/mL <0.03 21 Comp Metabolic Panel 04/07/2016 Sodium 136 mmol/L 133-145 Potassium 4.0 mmol/L 3.5-5.0 Chloride 103 mmol/L 101-111 Co2 Carbon Dioxide 27 mmol/L 22-32 Anion Gap 6 mmol/L 2-11 Glucose 115 mg/dL High 70-100 Blood Urea Nitrogen 20 mg/dL 6-24 Creatinine 0.87 mg/dL 0.51-0.95 BUN/Creatinine Ratio 23.0 High 8-20 Calcium 9.2 mg/dL 8.6-10.3 Total Protein 7.5 g/dL 6.4-8.9 Albumin 3.8 g/dL 3.2-5.2 Globulin 3.7 g/dL 2-4 Albumin/Globulin Ratio 1.0 1-3 Total Bilirubin 0.30 mg/dL 0.2-1.0 Alkaline Phosphatase 89 U/L 34-104 Alt 19 U/L 7-52 Ast 20 U/L 13-39 Egfr Non- 63.5 >60 Egfr 81.6 >60 22 Urinalysis Profile 12/28/2015 Urine Color Yellow Urine Appearance Cloudy Urine Specific [place] 1.013 1.010-1.030 Urine pH 5.0 5-9 Urine Urobilinogen Negative Negative Urine Ketones Negative Negative Urine Protein Negative Negative Urine Leukocytes 3+ Negative Urine Blood 1+ Negative Urine Nitrite Negative Negative Urine Bilirubin Negative Negative Urine Glucose Negative Negative Urine White Blood Cell 3+(>20/hpf) Absent Urine Red Blood Cell Trace(0-2/hpf) Absent Urine Bacteria 1+ Absent Urine Culture And 12/28/2015 Urine Culture SEE RESULT BELOW 23 Sensitivities Laboratory test finding 09/09/2015 C Reactive Protein 5.66 mg/L High < 5.00 24 Erythrocyte Sed Rate 46 mm/Hr High 0-40 Laboratory test finding 03/11/2015 Vitamin D Total 25(Oh) 21.6 ng/mL Low 30-50 Comp Metabolic Panel 03/11/2015 Sodium 134 mmol/L 133-145 Potassium 4.9 mmol/L 3.5-5.0 Chloride 98 mmol/L Low 101-111 Co2 Carbon Dioxide 31 mmol/L 22-32 Anion Gap 5 mmol/L 2-11 Glucose 102 mg/dL High 70-100 Blood Urea Nitrogen 20 mg/dL 6-24 Creatinine 0.94 mg/dL 0.51-0.95 BUN/Creatinine Ratio 21.3 High 8-20 Calcium 9.3 mg/dL 8.6-10.3 Total Protein 7.6 g/dL 6.4-8.9 Albumin 4.0 g/dL 3.2-5.2 Globulin 3.6 g/dL 2-4 Albumin/Globulin Ratio 1.1 1-3 Total Bilirubin 0.30 mg/dL 0.2-1.0 Alkaline Phosphatase 98 U/L 34-104 Alt 17 U/L 7-52 Ast 20 U/L 13-39 Egfr Non- 58.4 >60 Egfr 75.1 >60 25 Lipid Profile (Trig/Chol/HDL) 03/11/2015 Triglycerides 141 mg/dL 26 Cholesterol 248 mg/dL 27 HDL Cholesterol 34.1 mg/dL 28 LDL Cholesterol 186 mg/dL 29 Urine Culture And 12/01/2014 Urine Culture (SEE NOTE) 30 Sensitivities Laboratory test finding 11/03/2014 Rapid Influenza A B (SEE NOTE) 31 Antigen Ua Routine 08/11/2014 Ua Specific [place] 1.010 Ua PH 5 Ua Color yellow Ua Appera clear Ua WBC negative Ua Protein negative\\ Ua Glucose negative Ua Ketones negative Ua Bilirubin negative Ua Urobilinogen normal Ua Nitrite negative Ua Occult Blood negative Laboratory test finding 07/30/2014 Amylase 30 U/L 29-103 Lipase 12 U/L 11.0-82.0 Troponin I 0.00 ng/mL <0.03 32 C Reactive Protein 15.59 mg/L High < 5.00 33 Comp Metabolic Panel 07/30/2014 Sodium 134 mmol/L 133-145 Potassium 4.1 mmol/L 3.5-5.0 Chloride 99 mmol/L Low 101-111 Co2 Carbon Dioxide 29 mmol/L 22-32 Anion Gap 6 mmol/L 2-11 Glucose 89 mg/dL 70-100 Blood Urea Nitrogen 16 mg/dL 6-24 Creatinine 1.03 mg/dL High 0.51-0.95 BUN/Creatinine Ratio 15.5 8-20 Calcium 9.4 mg/dL 8.6-10.3 Total Protein 7.8 g/dL 6.4-8.9 Albumin 4.1 g/dL 3.2-5.2 Globulin 3.7 g/dL 2-4 Albumin/Globulin Ratio 1.1 1-3 Total Bilirubin 0.40 mg/dL 0.2-1.0 Alkaline Phosphatase 87 U/L 34-104 Alt 15 U/L 7-52 Ast 22 U/L 13-39 Egfr Non- 52.5 >60 Egfr 67.6 >60 34 Laboratory test finding 07/30/2014 Activated Partial 31.0 seconds 24.0- 36.1 Thrombo Time Lactic Acid 0.7 mmol/L 0.5-2.2 Inr/Protime 07/30/2014 Inr 1.10 High 0.85-1.06 CBC Auto Diff 07/30/2014 White Blood Count 6.1 10^3/uL 4.8-10.8 Red Blood Count 4.19 10^6/uL 4.0-5.4 Hemoglobin 12.8 g/dL 12.0-16.0 Hematocrit 40 % 35-47 Mean Corpuscular Volume 95 fL 80-97 Mean Corpuscular Hemoglobin 31 pg 27-31 Mean Corpuscular HGB Conc 32 g/dL 31-36 Red Cell Distribution Width 13 % 10.5-15 Platelet Count 256 10^3/uL 150-450 Mean Platelet Volume 7 um3 Low 7.4-10.4 Abs Neutrophils 3.7 10^3/uL 1.5-7.7 Abs Lymphocytes 1.5 10^3/uL 1.0-4.8 Abs Monocytes 0.6 10^3/uL 0-0.8 Abs Eosinophils 0.2 10^3/uL 0-0.6 Abs Basophils 0 10^3/uL 0-0.2 Abs Nucleated RBC 0 10^3/uL Granulocyte % 61.4 % 38-83 Lymphocyte % 25.5 % 25-47 Monocyte % 9.1 % High 1-9 Eosinophil % 3.3 % 0-6 Basophil % 0.7 % 0-2 Nucleated Red Blood Cells % 0 Urine Culture And Sensitivities 07/30/2014 Urine Culture (SEE NOTE) 35 Urinalysis Profile 07/30/2014 Urine Color Straw Urine Appearance Clear Urine Specific [place] 1.006 Low 1.010-1.030 Urine pH 5.0 5-9 Urine Urobilinogen Negative Negative Urine Ketones Negative Negative Urine Protein Negative Negative Urine Leukocytes Trace Negative Urine Blood 1+ Negative Urine Nitrite Negative Negative Urine Bilirubin Negative Negative Urine Glucose Negative Negative Urine White Blood Cell Trace Absent Urine Red Blood Cell Trace Absent Urine Bacteria 1+ Absent Urine Squamous Epithelial Cell Present Absent CBC Auto Diff 06/04/2014 White Blood Count 5.5 10^3/uL 4.8-10.8 Red Blood Count 4.11 10^6/uL 4.0-5.4 Hemoglobin 12.9 g/dL 12.0-16.0 Hematocrit 39 % 35-47 Mean Corpuscular Volume 94 fL 80-97 Mean Corpuscular Hemoglobin 31 pg 27-31 Mean Corpuscular HGB Conc 34 g/dL 31-36 Red Cell Distribution Width 13 % 10.5-15 Platelet Count 291 10^3/uL 150-450 Mean Platelet Volume 7 um3 Low 7.4-10.4 Abs Neutrophils 3.1 10^3/uL 1.5-7.7 Abs Lymphocytes 1.5 10^3/uL 1.0-4.8 Abs Monocytes 0.6 10^3/uL 0-0.8 Abs Eosinophils 0.2 10^3/uL 0-0.6 Abs Basophils 0.1 10^3/uL 0-0.2 Abs Nucleated RBC 0 10^3/uL Granulocyte % 55.9 % 38-83 Lymphocyte % 28.1 % 25-47 Monocyte % 11.1 % High 1-9 Eosinophil % 3.8 % 0-6 Basophil % 1.1 % 0-2 Nucleated Red Blood Cells % 0.1 H Pylori Iga 06/04/2014 Helicobacter pylori IgA Ab Negative Negative H pylori IgA Ab Index 2.76 36 H.Pylori Igg AB 06/04/2014 Helicobacter pylori IgG Ab Negative Negative H pylori IgG AB Index 2.15 37 H.Pylori Igm AB 06/04/2014 Helicobacter pylori IgM Ab Negative Negative H pylori IgM AB Index 17.10 38 Lipid Profile (Trig/Chol/HDL) 06/01/2014 Triglycerides 208 mg/dL 39 Cholesterol 260 mg/dL 40 HDL Cholesterol 39.7 mg/dL 41 LDL Cholesterol 179 mg/dL 42 Comp Metabolic Panel 06/01/2014 Sodium 134 mmol/L 133-145 Potassium 4.6 mmol/L 3.7-5.6 Chloride 103 mmol/L 101-111 Co2 Carbon Dioxide 27 mmol/L 22-32 Anion Gap 4 mmol/L 2-11 Glucose 93 mg/dL 70-100 Blood Urea Nitrogen 25 mg/dL High 6-24 Creatinine 0.98 mg/dL High 0.51-0.95 BUN/Creatinine Ratio 25.5 High 8-20 Calcium 9.4 mg/dL 8.6-10.3 Total Protein 8.1 g/dL 6.4-8.9 Albumin 4.1 g/dL 3.2-5.2 Globulin 4.0 g/dL 2-4 Albumin/Globulin Ratio 1.0 1-3 Total Bilirubin 0.30 mg/dL 0.2-1.0 Alkaline Phosphatase 98 U/L 34-104 Alt 15 U/L 7-52 Ast 19 U/L 13-39 Egfr Non- 55.6 >60 Egfr 71.5 >60 43 Laboratory test finding 06/01/2014 TSH (Thyroid 2.22 IU/mL 0.34-5.60 Stimulating Horm) Vitamin D, 25 Hydroxy 06/01/2014 25-Hydroxy Vitamin D2 <4.0 ng/mL 25-Hydroxy Vitamin D3 26 ng/mL 25-Hydroxy Vitamin D Total 26 ng/mL 44 CBC Auto Diff 01/25/2014 White Blood Count 6.2 10^3/uL 4.8-10.8 45 Red Blood Count 3.90 10^6/uL Low 4.0-5.4 45 Hemoglobin 12.3 g/dL 12.0-16.0 45 Hematocrit 37 % 35-47 45 Mean Corpuscular Volume 94 fL 80-97 45 Mean Corpuscular Hemoglobin 32 pg High 27-31 45 Mean Corpuscular HGB Conc 34 g/dL 31-36 45 Red Cell Distribution Width 13 % 10.5-15 45 Platelet Count 270 10^3/uL 150-450 45 Mean Platelet Volume 7 um3 Low 7.4-10.4 45 Abs Neutrophils 4.1 10^3/uL 1.5-7.7 45 Abs Lymphocytes 1.2 10^3/uL 1.0-4.8 45 Abs Monocytes 0.6 10^3/uL 0-0.8 45 Abs Eosinophils 0.2 10^3/uL 0-0.6 45 Abs Basophils 0 10^3/uL 0-0.2 45 Abs Nucleated RBC 0 10^3/uL 45 Granulocyte % 66.7 % 38-83 45 Lymphocyte % 19.5 % Low 25-47 45 Monocyte % 9.6 % High 1-9 45 Eosinophil % 3.6 % 0-6 45 Basophil % 0.6 % 0-2 45 Nucleated Red Blood Cells % 0 45 Comp Metabolic Panel 01/25/2014 Sodium 135 mmol/L 133-145 45 Potassium 4.0 mmol/L 3.7-5.6 45 Chloride 101 mmol/L 101-111 45 Co2 Carbon Dioxide 30 mmol/L 22-32 45 Anion Gap 4 mmol/L 2-11 45 Glucose 99 mg/dL 70-100 45 Blood Urea Nitrogen 19 mg/dL 6-24 45 Creatinine 0.91 mg/dL 0.51-0.95 45 BUN/Creatinine Ratio 20.9 High 8-20 45 Calcium 9.3 mg/dL 8.6-10.3 45 Total Protein 7.9 g/dL 6.4-8.9 45 Albumin 4.0 g/dL 3.2-5.2 45 Globulin 3.9 g/dL 2-4 45 Albumin/Globulin Ratio 1.0 1-3 45 Total Bilirubin 0.40 mg/dL 0.2-1.0 45 Alkaline Phosphatase 102 U/L 34-104 45 Alt 17 U/L 7-52 45 Ast 23 U/L 13-39 45 Egfr Non- 60.8 >60 45 Egfr 78.1 >60 45, 46 Type & Screen 01/25/2014 Patient Blood Type O Positive 45 Antibody Screen NEGATIVE 45 Laboratory test finding 01/01/2014 Throat Beta Strep Culture (SEE NOTE) 47 Laboratory test finding 01/01/2014 Rapid Strep A neg Ua Routine 11/04/2013 Ua Specific [place] 1.010 Ua PH 5 Ua Color yellow Ua Appera cloudy Ua WBC tr Ua Protein 30+ Ua Glucose neg Ua Ketones tr Ua Bilirubin sm Ua Urobilinogen neg Ua Nitrite neg Ua Occult Blood nht Rapid Strep A 10/29/2013 Rapid Strep A (SEE NOTE) 48 Laboratory test finding 10/29/2013 Throat Beta Strep (SEE NOTE) 49 Culture CBC Auto Diff 10/29/2013 White Blood Count 12.3 10^3/uL High 4.8-10.8 Red Blood Count 4.12 10^6/uL 4.0-5.4 Hemoglobin 13.4 g/dL 12.0-16.0 Hematocrit 38 % 35-47 Mean Corpuscular Volume 93 fL 80-97 Mean Corpuscular Hemoglobin 32 pg High 27-31 Mean Corpuscular HGB Conc 35 g/dL 31-36 Red Cell Distribution Width 14 % 10.5-15 Platelet Count 227 10^3/uL 150-450 Mean Platelet Volume 7 um3 Low 7.4-10.4 50 Abs Neutrophils 10.7 10^3/uL High 1.5-7.7 Abs Lymphocytes 0.7 10^3/uL Low 1.0-4.8 Abs Monocytes 0.8 10^3/uL 0-0.8 Abs Eosinophils 0 10^3/uL 0-0.6 Abs Basophils 0 10^3/uL 0-0.2 Abs Nucleated RBC 0 10^3/uL Granulocyte % 87.4 % High 38-83 Lymphocyte % 5.7 % Low 25-47 Monocyte % 6.4 % 1-9 Eosinophil % 0.2 % 0-6 Basophil % 0.3 % 0-2 Nucleated Red Blood Cells % 0 Comp Metabolic Panel 10/29/2013 Sodium 135 mmol/L 133-145 Potassium 3.9 mmol/L 3.7-5.6 Chloride 100 mmol/L Low 101-111 Co2 Carbon Dioxide 25 mmol/L 22-32 Anion Gap 10 mmol/L 2-11 Glucose 159 mg/dL High 70-100 Blood Urea Nitrogen 16 mg/dL 6-24 Creatinine 0.86 mg/dL 0.51-0.95 BUN/Creatinine Ratio 18.6 8-20 Calcium 8.7 mg/dL 8.6-10.3 Total Protein 7.6 g/dL 6.4-8.9 Albumin 4.0 g/dL 3.2-5.2 Globulin 3.6 g/dL 2-4 Albumin/Globulin Ratio 1.1 1-3 Total Bilirubin 0.40 mg/dL 0.2-1.0 Alkaline Phosphatase 108 U/L High 34-104 Alt 20 U/L 7-52 Ast 24 U/L 13-39 Egfr Non- 64.9 >60 Egfr 83.4 >60 51 Laboratory test finding 10/29/2013 Blood Culture (SEE NOTE) 52 Comp Metabolic Panel 10/28/2013 Sodium 137 mmol/L 133-145 53 Potassium 5.4 mmol/L 3.7-5.6 53 Chloride 102 mmol/L 101-111 53 Co2 Carbon Dioxide 31 mmol/L 22-32 53 Anion Gap 4 mmol/L 2-11 53 Glucose 95 mg/dL 70-100 53 Blood Urea Nitrogen 21 mg/dL 6-24 53 Creatinine 0.88 mg/dL 0.51-0.95 53 BUN/Creatinine Ratio 23.9 High 8-20 53 Calcium 9.6 mg/dL 8.6-10.3 53 Total Protein 7.8 g/dL 6.4-8.9 53 Albumin 4.2 g/dL 3.2-5.2 53 Globulin 3.6 g/dL 2-4 53 Albumin/Globulin Ratio 1.2 1-3 53 Total Bilirubin 0.40 mg/dL 0.2-1.0 53 Alkaline Phosphatase 114 U/L High 34-104 53 Alt 20 U/L 7-52 53 Ast 22 U/L 13-39 53 Egfr Non- 63.2 >60 53 Egfr 81.2 >60 53, 54 Laboratory test 10/28/2013 TSH (Thyroid 1.46 IU/mL 0.34-5.60 53, 55 finding Stimulating Horm) Lipid Profile 10/28/2013 Triglycerides 178 mg/dL 53, 56 (Trig/Chol/HDL) Cholesterol 267 mg/dL 53, 57 HDL Cholesterol 43.3 mg/dL 53, 58 LDL Cholesterol 188 mg/dL 53, 59 Ua Routine 09/11/2013 Ua Specific [place] 1.015 Ua PH 5 Ua Color yellow Ua Appera clear Ua WBC neg Ua Protein neg Ua Glucose neg Ua Ketones neg Ua Bilirubin neg Ua Urobilinogen neg Ua Nitrite neg Ua Occult Blood hem trace HPV High Risk 09/11/2013 Human Papillomavirus Source ECTO/ENDO HPV High Risk Type 16, PCR Negative Negative HPV High Risk Type 18, PCR Negative Negative HPV Other Risk types Negative Negative 60 Laboratory test finding 09/11/2013 Cytology RUN DATE: <SEE 61 NOTE> Laboratory test finding 07/27/2013 Surgical Pathology RUN DATE: 07/30/ < SEE 62 NOTE> Urinalysis 05/22/2013 Urine Color Yellow Urine Appearance Clear Urine Specific [place] 1.013 1.010-1.030 Urine Esterase Negative Negative Urine Nitrate Negative Negative Urine Urobilinogen Negative E.U./dL Negative Urine Protein Negative mg/dL Negative Urine pH 6.0 5-9 Urine Blood Trace Negative Urine Ketones Negative mg/dL Negative Urine Bilirubin Negative Negative Urine Glucose Negative mg/dL Negative Urine Microscopic 05/22/2013 Urine WBC None Seen None Seen Urine RBC 1+ (<3 /hpf) None Seen Urine Mucus Absent /lpf Absent Bacteria Urine None Seen None Seen CBC Auto Diff 05/22/2013 White Blood Count 6.4 10^3/uL 4.8-10.8 Red Blood Count 3.84 10^6/uL Low 4.0-5.4 Hemoglobin 11.4 g/dL Low 12.0-16.0 Hematocrit 36 % 35-47 Mean Corpuscular Volume 92 fL 80-97 Mean Corpuscular Hemoglobin 30 pg 27-31 Mean Corpuscular HGB Conc 32 g/dL 31-36 Red Cell Distribution Width 14 % 10.5-15 Platelet Count 299 10^3/uL 150-450 Mean Platelet Volume 6 um3 Low 7.4-10.4 Abs Neutrophils 3.8 10^3/uL 1.5-7.7 Abs Lymphocytes 1.7 10^3/uL 1.0-4.8 Abs Monocytes 0.5 10^3/uL 0-0.8 Abs Eosinophils 0.2 10^3/uL 0-0.6 Abs Basophils 0.1 10^3/uL 0-0.2 Abs Nucleated RBC 0 10^3/uL Granulocyte % 60.4 % 38-83 Lymphocyte % 26.9 % 25-47 Monocyte % 8.0 % 1-9 Eosinophil % 3.6 % 0-6 Basophil % 1.1 % 0-2 Nucleated Red Blood Cells % 0 Inr/Protime 05/22/2013 Inr 1.02 High 0.87-0.97 Laboratory test 05/22/2013 Activated Partial 32.4 seconds 22.18-37.18 finding Thrombo Time Comp Metabolic Panel 05/22/2013 Sodium 131 mmol/L Low 133-145 Potassium 4.3 mmol/L 3.5-5.0 Chloride 97 mmol/L Low 101-111 Co2 Carbon Dioxide 29.0 mmol/L 22-32 Anion Gap 5.0 mmol/L 2-11 Glucose 93 mg/dL 70-100 Blood Urea Nitrogen 22 mg/dL 6-24 Creatinine 0.80 mg/dL 0.50-1.40 BUN/Creatinine Ratio 27.5 High 8-20 Calcium 8.8 mg/dL 8.1-9.9 Total Protein 7.8 g/dL 6.2-8.1 Albumin 3.6 g/dL 3.2-5.2 Globulin 4.2 g/dL High 2-4 Albumin/Globulin Ratio 0.9 Low 1-3 Total Bilirubin 0.5 mg/dL 0.4-1.5 Alkaline Phosphatase 102 U/L 30-110 Alt 36 U/L 14-54 Ast 34 U/L 12-42 Egfr Non- 70.5 >60 Egfr 90.7 >60 63 Laboratory test 05/22/2013 Troponin I 0 ng/mL 0-0.06 64 finding Laboratory test 05/22/2013 D Dimer Quantitative 334 ng/mL High Less Than 230 65 finding CBC Auto Diff 05/14/2013 White Blood Count 7.0 10^3/uL 4.8-10.8 Red Blood Count 3.94 10^6/uL Low 4.0-5.4 Hemoglobin 12.4 g/dL 12.0-16.0 Hematocrit 37 % 35-47 Mean Corpuscular Volume 93 fL 80-97 Mean Corpuscular Hemoglobin 31 pg 27-31 Mean Corpuscular HGB Conc 34 g/dL 31-36 Red Cell Distribution Width 13 % 10.5-15 Platelet Count 395 10^3/uL 150-450 Mean Platelet Volume 6 um3 Low 7.4-10.4 Abs Neutrophils 4.7 10^3/uL 1.5-7.7 Abs Lymphocytes 1.4 10^3/uL 1.0-4.8 Abs Monocytes 0.6 10^3/uL 0-0.8 Abs Eosinophils 0.2 10^3/uL 0-0.6 Abs Basophils 0.1 10^3/uL 0-0.2 Abs Nucleated RBC 0 10^3/uL Granulocyte % 67.3 % 38-83 Lymphocyte % 19.6 % Low 25-47 Monocyte % 8.7 % 1-9 Eosinophil % 3.5 % 0-6 Basophil % 0.9 % 0-2 Nucleated Red Blood Cells % 0 Comp Metabolic Panel 05/14/2013 Sodium 133 mmol/L 133-145 Potassium 4.6 mmol/L 3.5-5.0 Chloride 96 mmol/L Low 101-111 Co2 Carbon Dioxide 30.0 mmol/L 22-32 Anion Gap 7.0 mmol/L 2-11 Glucose 86 mg/dL 70-100 Blood Urea Nitrogen 21 mg/dL 6-24 Creatinine 0.90 mg/dL 0.50-1.40 BUN/Creatinine Ratio 23.3 High 8-20 Calcium 9.4 mg/dL 8.1-9.9 Total Protein 8.0 g/dL 6.2-8.1 Albumin 3.5 g/dL 3.2-5.2 Globulin 4.5 g/dL High 2-4 Albumin/Globulin Ratio 0.8 Low 1-3 Total Bilirubin 0.4 mg/dL 0.4-1.5 Alkaline Phosphatase 114 U/L High 30-110 Alt 56 U/L High 14-54 Ast 49 U/L High 12-42 Egfr Non- 61.5 >60 Egfr 79.2 >60 66 Laboratory test finding 05/14/2013 C Reactive Protein 3.2 mg/dL High Less than 0.5 Blood Culture (SEE NOTE) 67 Urine Culture And 05/05/2013 Urine Culture (SEE NOTE) 68 Sensitivities CBC With Manual Diff 05/05/2013 White Blood Count 15.6 10^3/uL High 4.8- 10.8 Red Blood Count 3.74 10^6/uL Low 4.0-5.4 Hemoglobin 12.1 g/dL 12.0-16.0 Hematocrit 35 % 35-47 Mean Corpuscular Volume 93 fL 80-97 Mean Corpuscular Hemoglobin 32 pg High 27-31 Mean Corpuscular HGB Conc 35 g/dL 31-36 Red Cell Distribution Width 13 % 10.5-15 Platelet Count 508 10^3/uL High 150-450 Mean Platelet Volume 6 um3 Low 7.4-10.4 Abs Neutrophils 13.1 10^3/uL High 1.5-7.7 Abs Lymphocytes 1.6 10^3/uL 1.0-4.8 Abs Monocytes 0.9 10^3/uL High 0-0.8 Abs Eosinophils 0.1 10^3/uL 0-0.6 Abs Basophils 0.1 10^3/uL 0-0.2 Abs Nucleated RBC 0 10^3/uL Neutrophil % 82 % 38-83 Lymphocytes % 14 % Low 25-47 Monocytes % 2 % 0-13 Eosinophils % 2 % 0-6 RBC Morphology Normal Normal Comp Metabolic Panel 05/05/2013 Sodium 134 mmol/L 133-145 Potassium 4.5 mmol/L 3.5-5.0 Chloride 101 mmol/L 101-111 Co2 Carbon Dioxide 25.0 mmol/L 22-32 Anion Gap 8.0 mmol/L 2-11 Glucose 107 mg/dL High 70-100 Blood Urea Nitrogen 24 mg/dL 6-24 Creatinine 0.80 mg/dL 0.50-1.40 BUN/Creatinine Ratio 30.0 High 8-20 Calcium 9.3 mg/dL 8.1-9.9 Total Protein 7.7 g/dL 6.2-8.1 Albumin 3.4 g/dL 3.2-5.2 Globulin 4.3 g/dL High 2-4 Albumin/Globulin Ratio 0.8 Low 1-3 Total Bilirubin 0.5 mg/dL 0.4-1.5 Alkaline Phosphatase 102 U/L 30-110 Alt 54 U/L 14-54 Ast 34 U/L 12-42 Egfr Non- 70.5 >60 Egfr 90.7 >60 69 Ua Routine 05/05/2013 Ua Specific [place] 1.010 Ua PH 5 Ua Color yellow Ua Appera clear Ua WBC small Ua Protein 2+ Ua Glucose neg Ua Ketones neg Ua Bilirubin small Ua Urobilinogen neg Ua Nitrite neg Ua Occult Blood small Culture Urine 04/29/2013 Urine Culture (SEE NOTE) 70 Body Fluid C&S 04/21/2013 Body Fluid Cult Gram Stain (SEE NOTE) 71 Body Fluid Cell Count 04/21/2013 Body Fluid Source Synovial Fluid Body Fluid Appearance Bloody Body Fluid Color [place] Body Fluid Volume 10 mL Body Fluid WBC 2778 Body Fluid RBC 2756 Body Fluid Polys 92 Body Fluid Band 3 Body Fluid Lymph 4 Body Fluid [place] 1 Body Fluid Total Cells Counted 100 Fluid Reviewed By MD (SEE NOTE) 72 Laboratory test finding 04/21/2013 Viral Culture Non See Comment 73 Respiratory Urine Culture And 02/20/2013 Urine Culture (SEE NOTE) 74 Sensitivities Ua Routine 02/20/2013 Ua Specific [place] 1.010 Ua PH 5 Ua Color yellow Ua Appera cloudy Ua WBC small + Ua Protein trace Ua Glucose neg Ua Ketones neg Ua Bilirubin small Ua Urobilinogen neg Ua Nitrite neg Ua Occult Blood trace Laboratory test 12/16/2012 Activated Partial 32.2 seconds 22.18-37.18 finding Thrombo Time Comp Metabolic Panel 12/16/2012 Sodium 132 mmol/L Low 133-145 Potassium 3.9 mmol/L 3.5-5.0 Chloride 100 mmol/L Low 101-111 Co2 Carbon Dioxide 25.0 mmol/L 22-32 Anion Gap 7.0 mmol/L 2-11 Glucose 174 mg/dL High 70-100 Blood Urea Nitrogen 25 mg/dL High 6-24 Creatinine 0.90 mg/dL 0.50-1.40 BUN/Creatinine Ratio 27.8 High 8-20 Calcium 8.9 mg/dL 8.1-9.9 Total Protein 7.7 g/dL 6.2-8.1 Albumin 3.7 g/dL 3.2-5.2 Globulin 4.0 g/dL 2-4 Albumin/Globulin Ratio 0.9 Low 1-3 Total Bilirubin 0.4 mg/dL 0.4-1.5 Alkaline Phosphatase 117 U/L High 30-110 Alt 38 U/L 14-54 Ast 38 U/L 12-42 Egfr Non- 61.7 >60 Egfr 79.4 >60 75 Laboratory test finding 12/16/2012 Lactic Acid 0.9 mmol/L 0.5-1.6 TSH (Thyroid Stimulating Horm) 1.25 miu/mL 0.34-5.60 Blood Culture (SEE NOTE) 76 Urinalysis 12/16/2012 Urine Color Yellow Urine Appearance Clear Urine Specific [place] 1.022 1.010-1.030 Urine Esterase Negative Negative Urine Nitrate Negative Negative Urine Urobilinogen Negative E.U./dL Negative Urine Protein Trace mg/dL Negative Urine pH 5.0 5-9 Urine Blood 1+ Negative Urine Ketones Negative mg/dL Negative Urine Bilirubin Negative Negative Urine Glucose Negative mg/dL Negative Urine Microscopic 12/16/2012 Urine WBC 1+ (<10 /hpf) None Seen Urine RBC 2+ (>3-10 /hpf) None Seen Urine Epithelial Cells 1+ Squamous /hpf None Seen Bacteria Urine 1+ None Seen Urine Culture And 12/16/2012 Urine Culture (SEE NOTE) 77 Sensitivities CBC Auto Diff 12/16/2012 White Blood Count 15.0 10^3/uL High 4.8-10.8 Red Blood Count 4.05 10^6/uL 4.0-5.4 Hemoglobin 12.3 g/dL 12.0-16.0 Hematocrit 38 % 35-47 Mean Corpuscular Volume 93 fL 80-97 Mean Corpuscular Hemoglobin 30 pg 27-31 Mean Corpuscular HGB Conc 33 g/dL 31-36 Red Cell Distribution Width 13 % 10.5-15 Platelet Count 253 10^3/uL 150-450 Mean Platelet Volume 7 um3 Low 7.4-10.4 Abs Neutrophils 13.2 10^3/uL High 1.5-7.7 Abs Lymphocytes 0.9 10^3/uL Low 1.0-4.8 Abs Monocytes 0.7 10^3/uL 0-0.8 Abs Eosinophils 0.1 10^3/uL 0-0.6 Abs Basophils 0.1 10^3/uL 0-0.2 Abs Nucleated RBC 0 10^3/uL Granulocyte % 87.6 % High 38-83 Lymphocyte % 6.0 % Low 25-47 Monocyte % 5.0 % 1-9 Eosinophil % 0.5 % 0-6 Basophil % 0.9 % 0-2 Nucleated Red Blood Cells % 0 Inr/Protime 12/16/2012 Inr 1.13 High 0.87-0.97 Surgical Pathology 11/04/2012 S RUN DATE: <SEE NOTE> Surgical Pathology 11/04/2012 S RUN DATE: <SEE NOTE> Ua Routine 10/27/2012 Ua Specific [place] 1.010 Ua PH 5 Ua Color yellow Ua Appera cloudy Ua WBC moderate Ua Protein trace Ua Glucose negative Ua Ketones negative Ua Bilirubin negative Ua Urobilinogen negative Ua Nitrite negative Ua Occult Blood nht Urine Culture And Sensitivities 10/27/2012 Urine Culture (SEE NOTE) 80 Ua Routine 07/11/2012 Ua Specific [place] 1.010 Ua PH 5 Ua Color yellow Ua Appera cloudy Ua WBC neg Ua Protein neg Ua Glucose neg Ua Ketones neg Ua Bilirubin neg Ua Urobilinogen neg Ua Nitrite neg Ua Occult Blood non hemo trace O:GNB 05/07/2012 O:GNB GRAM NEGATIVE BA 81 <SEE NOTE> Urine Culture & 01/25/2012 M 82 Sensitivi <SEE NOTE> Throat-Beta Strept 10/07/2011 M 83 <SEE NOTE> Urine Culture & 05/25/2011 Urine Culture KLEBSIELLA PNEUM 84 Sensitivi Sensitivi <SEE NOTE> Sensitivities For Urine 05/25/2011 Ampicillin 16 Culture Amikacin <=2 Ciprofloxacin <=0.25 Ceftriaxone <=1 Cefazolin <=4 Nitrofurantoin 32 Gentamicin <=1 Imipenem <=1 Levofloxacin <=0.12 Trimeth-Sulfa <=20 Ceftazidime <=1 Tigecycline <=0.5 Laboratory test finding 05/25/2011 Cytology <SEE NOTE&gt ; 85 1 Because ethnic data is not always readily available, this report includes an eGFR for both -Americans and non- Americans. The National Kidney Disease Education Program (NKDEP) does not endorse the use of the MDRD equation for patients that are not between the ages of 18 and 70, are , have extremes of body size, muscle mass, or nutritional status, or are non- or non-. According to the National Kidney Foundation, irrespective of diagnosis, the stage of the disease is based on the level of kidney function: Stage Description GFR(mL/min/1.73 m(2)) 1 Kidney damage with normal or decreased GFR 90 2 Kidney damage with mild decrease in GFR 60-89 3 Moderate decrease in GFR 30-59 4 Severe decrease in GFR 15-29 5 Kidney failure <15 (or dialysis) 2 Desirable: <150 Borderline High: 150-199 High: 200-499 Very High: >500 3 Desirable: <200 Borderline High: 200-239 High: >239 4 Low: <40 Desirable: 40-60 High: >60 5 Desirable: <100 Near Optimal: 100-129 Borderline High: 130-159 High: 160-189 Very High: >189 6 SEE RESULT BELOW Name: PAULETTE STEARNS : [address]: Valentine Felix MD Acct: [id number] Unit: [id number] AGE: 77 Location: ED Re06/04/17 SEX: F Status: REG ER SPEC: [id number] BONNIE: 06/04/[address]: Valentine Felix MD REQ: [id number] RECD: 06/04/17 STATUS: TEJAS WAGONER DR: Bettye Up MD _ SOURCE: STOOL SPDESC: ORDERED: Occult Bl, Diag Procedure Result Reported Site Stool Occult Blood (1) Final 06/04/17- 2230 ML Stool Occult Blood Negative * ML - MAIN LAB ([facility]) . END OF REPORT * ML=Testing performed at Main Lab DEPARTMENT OF PATHOLOGY, [address] [place] [address] Edinson Ingram M.D. Director [facility] # [id number] 7 Verbal to [id number] by [id number] at 2256 on 06/04/17. Results read back accurately. 8 Reference ranges based on room air. 9 Because ethnic data is not always readily available, this report includes an eGFR for both -Americans and non- Americans. The National Kidney Disease Education Program (NKDEP) does not endorse the use of the MDRD equation for patients that are not between the ages of 18 and 70, are , have extremes of body size, muscle mass, or nutritional status, or are non- or non-. According to the National Kidney Foundation, irrespective of diagnosis, the stage of the disease is based on the level of kidney function: Stage Description GFR(mL/min/1.73 m(2)) 1 Kidney damage with normal or decreased GFR 90 2 Kidney damage with mild decrease in GFR 60-89 3 Moderate decrease in GFR 30-59 4 Severe decrease in GFR 15-29 5 Kidney failure <15 (or dialysis) 10 >100 to <200 pg/mL: likely compensated congestive heart failure (CHF) 200 to 400 pg/mL: likely moderate CHF >400 pg/mL: likely moderate to severe CHF 11 SEE RESULT BELOW Name: PAULETTE STEARNS Joisah : [address]: Darius Pires NP Acct: [id number] Unit: [id number] AGE: 77 Location: [facility] Re05/24/17 SEX: F Status: REG REF SPEC: [id number] BONNIE: 05/24/[address] [facility] [address]: Darius Pires NP REQ: [id number] RECD: 05/24/17 STATUS: COMP _ SOURCE: URINE SPDESC: ORDERED: Urine Culture COMMENTS: [id number] Procedure Result Reported Site Urine Culture Final 05/26/17- 0744 ML Organism 1 KLEBSIELLA PNEUMONIAE [place] Count >100,000 (Many) CFU/ML 1. KLEBSIELLA PNEUMONIAE M.I.C. RX --------- ------ Ampicillin R Cefazolin <=4 S Cefepime <=1 S Ceftriaxone <=1 S Ciprofloxacin <=0.25 S Gentamicin <=1 S Levofloxacin <=0.12 S Meropenem <=0.25 S Nitrofurantoin 32 S Tetracycline <=1 S Pipercillin/Tazobactam <=4 S Trimethoprim/Sulfamethoxazole <=20 S Amoxicillin/Clavulanic Acid 4 S Aztreonam <=1 S Contact the Microbiology Department for any additional antibiotic reporting. * ML - MAIN LAB ([facility]) . END OF REPORT * ML=Testing performed at Main Lab DEPARTMENT OF PATHOLOGY, [address] [place] [address] Edinson Ingram M.D. Director [facility] # [id number] Desirable <150 Borderline high 150-199 High 200-499 Very High >500 13 Desirable <200 Borderline high 200-239 High >239 14 Low <40 Desirable: 40-60 High: >60 15 Desirable: <100 mg/dL Near Optimal: 100-129 mg/dL Borderline High: 130-159 mg/dL High: 160-189 mg/dL Very High: >189 mg/dL 16 Because ethnic data is not always readily available, this report includes an eGFR for both -Americans and non- Americans. The National Kidney Disease Education Program (NKDEP) does not endorse the use of the MDRD equation for patients that are not between the ages of 18 and 70, are , have extremes of body size, muscle mass, or nutritional status, or are non- or non-. According to the National Kidney Foundation, irrespective of diagnosis, the stage of the disease is based on the level of kidney function: Stage Description GFR(mL/min/1.73 m(2)) 1 Kidney damage with normal or decreased GFR 90 2 Kidney damage with mild decrease in GFR 60-89 3 Moderate decrease in GFR 30-59 4 Severe decrease in GFR 15-29 5 Kidney failure <15 (or dialysis) 17 Please note: The following may produce a false positive D Dimer test: - Rheumatoid factor greater than 60 IU/ml - Plasma hemoglobin greater than 0.05 gm/dl - Bilirubin greater than 50 mg/dl - Lipids greater than 1000 mg/dl - FDP greater than 20 ug/ml 18 Specimen hemolyzed. Result may not be valid. NDS Severe Sepsis and Septic Shock Management Bundle Measure requires all lactic acids initially measuring >2.0 mmol/L be repeated. 19 >100 to <200 pg/mL: likely compensated congestive heart failure (CHF) 200 to 400 pg/mL: likely moderate CHF >400 pg/mL: likely moderate to severe CHF 20 Acute inflammation: >10.00 21 Reference Range and Interpretation: TnI (ng/mL) Interpretation Less Than 0.03 ng/mL Not supportive of diagnosis of MO 0.03 - 0.50 ng/mL Indeterminate: suggest serial studies if clinically indicated. Greater than 0.5 ng/mL Consistent with diagnosis of MO 22 Because ethnic data is not always readily available, this report includes an eGFR for both -Americans and non- Americans. The National Kidney Disease Education Program (NKDEP) does not endorse the use of the MDRD equation for patients that are not between the ages of 18 and 70, are , have extremes of body size, muscle mass, or nutritional status, or are non- or non-. According to the National Kidney Foundation, irrespective of diagnosis, the stage of the disease is based on the level of kidney function: Stage Description GFR(mL/min/1.73 m(2)) 1 Kidney damage with normal or decreased GFR 90 2 Kidney damage with mild decrease in GFR 60-89 3 Moderate decrease in GFR 30-59 4 Severe decrease in GFR 15-29 5 Kidney failure <15 (or dialysis) 23 SEE RESULT BELOW Name: HAIM STEARNSAMITA Rahman : [address]: Darius Pires NP Acct: [id number] Unit: [id number] AGE: 75 Location: [facility] Re12/28/15 SEX: F Status: REG REF SPEC: [id number] BONNIE: 12/28/15-[address] [facility] [address]: Darius Pires NP REQ: [id number] RECD: 12/28/15 STATUS: COMP _ SOURCE: URINE SPDESC: ORDERED: Urine Culture COMMENTS: [facility] [place] [id number] Procedure Result Reported Site Urine Culture Final 12/30/15- 0825 ML Organism 1 KLEBSIELLA PNEUMONIAE [place] Count >100,000 (Many) CFU/ML 1. KLEBSIELLA PNEUMONIAE M.I.C. RX --------- ------ Ampicillin >=32 R Cefazolin <=4 S Cefepime <=1 S Ceftriaxone <=1 S Ciprofloxacin <=0.25 S Gentamicin <=1 S Levofloxacin 0.5 S Meropenem <=0.25 S Nitrofurantoin 128 R Tetracycline 2 S Pipercillin/Tazobactam <=4 S Trimethoprim/Sulfamethoxazole <=20 S Amoxicillin/Clavulanic Acid <=2 S Aztreonam <=1 S Contact the Microbiology Department for any additional antibiotic reporting. * ML - MAIN LAB ([facility]) . END OF REPORT * ML=Testing performed at Main Lab DEPARTMENT OF PATHOLOGY, [address] [place] [address] Edinson Ingram M.D. Director [facility] # [id number] 24 Acute inflammation: >10.00 25 Because ethnic data is not always readily available, this report includes an eGFR for both -Americans and non- Americans. The National Kidney Disease Education Program (NKDEP) does not endorse the use of the MDRD equation for patients that are not between the ages of 18 and 70, are , have extremes of body size, muscle mass, or nutritional status, or are non- or non-. According to the National Kidney Foundation, irrespective of diagnosis, the stage of the disease is based on the level of kidney function: Stage Description GFR(mL/min/1.73 m(2)) 1 Kidney damage with normal or decreased GFR 90 2 Kidney damage with mild decrease in GFR 60-89 3 Moderate decrease in GFR 30-59 4 Severe decrease in GFR 15-29 5 Kidney failure <15 (or dialysis) 26 Desirable <150 Borderline high 150-199 High 200-499 Very High >500 27 Desirable <200 Borderline high 200-239 High >239 28 Low <40 Desirable: 40-60 High: >60 29 Desirable: <100 mg/dL Near Optimal: 100-129 mg/dL Borderline High: 130-159 mg/dL High: 160-189 mg/dL Very High: >189 mg/dL 30 RUN DATE: 12/03/14 [facility] LAB LIVE PAGE 1 RUN TIME: [address] [place] [address] Specimen Inquiry Name: PAULETTE STEARNS : [address]: Elin Fowler NP Acct: [id number] Unit: [id number] AGE: 74 Location: LAB Re12/01/14 SEX: F Status: REG REF SPEC: [id number] BONNIE: 12/01/14-[address] [facility] [address]: Elin Fowler NP REQ: [id number] RECD: 12/01/14 STATUS: COMP _ SOURCE: URINE SPDESC: ORDERED: Urine Culture QUERIES: Provider Requisition # [id number] Procedure Result Verified Site Urine Culture Final 12/03/14- 0843 ML Organism 1 KLEBSIELLA PNEUMONIAE [place] Count >100,000 (Many) CFU/ML 1. KLEBSIELLA PNEUMONIAE M.I.C. RX --------- ------ Ampicillin >=32 R Cefazolin <=4 S Cefepime <=1 S Ceftriaxone <=1 S Ciprofloxacin <=0.25 S Gentamicin <=1 S Levofloxacin <=0.12 S Meropenem <=0.25 S Nitrofurantoin 64 I Tetracycline 2 S Pipercillin/Tazobactam 8 S Trimethoprim/Sulfamethoxazole <=20 S Amoxicillin/Clavulanic Acid 4 S Aztreonam <=1 S Contact the Microbiology Department for any additional antibiotic reporting. * ML - MAIN LAB ([facility]) . END OF REPORT * ML=Testing performed at Main Lab DEPARTMENT OF PATHOLOGY, [facility] [address] [place], [place] [address] Edinson Ingram M.D. Director [facility] # [id number] RUN DATE: 11/03/14 [facility] LAB LIVE PAGE 1 RUN TIME: 1841 [facility] [address] [place], [place] [address] Specimen Inquiry Name: STEARNSPAULETTE CARR : [address]: Darius Pires NP Acct: [id number] Unit: [id number] AGE: 74 Location: [facility] Re11/03/14 SEX: F Status: REG REF SPEC: [id number] BONNIE: 11/03/14-[address]: Darius Pires WHISKEY REGAUGER REQ: [id number] RECD: 11/03/14170 STATUS: COMP _ SOURCE: WILMAARYN SPDESC: ORDERED: Rapid Flu A B QUERIES: Provider Requisition # [id number] Procedure Result Verified Site Rapid Influenza A B Antigen Final 11/03/14- 1841 ML Organism 1 Negative Influenza A B Antigen testing by enzyme immunoassay. Cell culture testing can be performed to confirm negative test results and to assist in detecting other viruses that can produce similar clinical symptoms. Please notify Microbiology Lab if further testing is desired. * ML - MAIN LAB ([facility]) . END OF REPORT * ML=Testing performed at Main Lab DEPARTMENT OF PATHOLOGY, [address] [place] [address] Edinson Ingram M.D. Director [facility] # [id number] 32 Reference Range and Interpretation: TnI (ng/mL) Interpretation Less Than 0.03 ng/mL Not supportive of diagnosis of MO 0.03 - 0.50 ng/mL Indeterminate: suggest serial studies if clinically indicated. Greater than 0.5 ng/mL Consistent with diagnosis of MO 33 Acute inflammation: >10.00 34 Because ethnic data is not always readily available, this report includes an eGFR for both -Americans and non- Americans. The National Kidney Disease Education Program (NKDEP) does not endorse the use of the MDRD equation for patients that are not between the ages of 18 and 70, are , have extremes of body size, muscle mass, or nutritional status, or are non- or non-. According to the National Kidney Foundation, irrespective of diagnosis, the stage of the disease is based on the level of kidney function: Stage Description GFR(mL/min/1.73 m(2)) 1 Kidney damage with normal or decreased GFR 90 2 Kidney damage with mild decrease in GFR 60-89 3 Moderate decrease in GFR 30-59 4 Severe decrease in GFR 15-29 5 Kidney failure <15 (or dialysis) 35 RUN DATE: 08/01/14 [facility] LAB LIVE PAGE 1 RUN TIME: [address], [place] [address] Specimen Inquiry Name: PAULETTE STEARNS : [address]: Cayden Pfeiffer DO Acct: [id number] Unit: [id number] AGE: 74 Location: ED Re07/30/14 SEX: F Status: DEP ER SPEC: [id number] BONNIE: 07/30/[address]: Cayden Pfeiffer DO REQ: [id number] RECD: 07/30/14 STATUS: TEJAS WAGONER DR: Bettye Fowler WHISKEY REGAUGER _ SOURCE: URINE SPDESC: ORDERED: Urine Culture Procedure Result Verified Site Urine Culture Final 08/01/14- 1129 ML Organism 1 STREP GROUP B [place] Count >100,000 (Many) CFU/ML Organism 2 KLEBSIELLA PNEUMONIAE [place] Count >100,000 (Many) CFU/ML 1. STREP GROUP B M.I.C. RX --------- ------ Ampicillin <=0.25 S Penicillin <=0.12 S Levofloxacin 1 S Linezolid 2 S * Quinupristin/Dalfopristin 0.5 S Tetracycline >=16 R Tigecycline <=0.12 S Vancomycin <=0.5 S Imipenem-Deduced S * Ampicillin/Sulbactam-Deduced S Cefazolin-Deduced S 2. KLEBSIELLA PNEUMONIAE M.I.C. RX --------- ------ Ampicillin R Cefazolin <=4 S Cefepime <=1 S Ceftriaxone <=1 S Ciprofloxacin <=0.25 S CONTINUED ON NEXT PAGE * ML=Testing performed at Main Lab DEPARTMENT OF PATHOLOGY, [address] [place] [address] Edinson Ingram M.D. Director [facility] # [id number] RUN DATE: 08/01/14 [facility] LAB LIVE PAGE 2 RUN TIME: [address], [place] [address] Specimen Inquiry Patient: PAULETTE STEARNS [id number] (Continued) Specimen: [id number] Collected: 07/30/14 Received: 07/30/14 (Continued) Procedure Result Verified Site Urine Culture Final (continued) 08/01/141128 2. KLEBSIELLA PNEUMONIAE (continued) M.I.C. RX --------- ------ Gentamicin <=1 S Levofloxacin <=0.12 S Meropenem <=0.25 S Nitrofurantoin 128 R Tetracycline 2 S Pipercillin/Tazobactam <=4 S Trimethoprim/Sulfamethoxazole <=20 S Amoxicillin/Clavulanic Acid <=2 S Aztreonam <=1 S * These antibiotics are not available in the [facility] Formulary Contact the Microbiology Department for any additional antibiotic reporting. Contact the Microbiology Department for any additional antibiotic reporting. END OF REPORT * ML=Testing performed at Main Lab DEPARTMENT OF PATHOLOGY, [address] [place] [address] Edinson Ingram M.D. Director [facility] # [id number] 36 Results with Index Values of <18.00 are negative. Test Performed by: [place] [address] Civil Drafting Technician: Jose Cruz Valdivia M.D. 37 Results with Index Values of <8.95 are negative. Test Performed by: [place] [address] Civil Drafting Technician: Jose Cruz Valdivia M.D. 38 Results with Index Values of <36.00 are negative. Test Performed by: [place] [address] Civil Drafting Technician: Jose Cruz Valdivia M.D. 39 Desirable <150 Borderline high 150-199 High 200-499 Very High >500 40 Desirable <200 Borderline high 200-239 High >239 41 Low <40 Desirable: 40-60 High: >60 42 Desirable <100 Near Optimal 100-129 Borderline high 130-159 High 160-189 Very High >189 43 Because ethnic data is not always readily available, this report includes an eGFR for both -Americans and non- Americans. The National Kidney Disease Education Program (NKDEP) does not endorse the use of the MDRD equation for patients that are not between the ages of 18 and 70, are , have extremes of body size, muscle mass, or nutritional status, or are non- or non-. According to the National Kidney Foundation, irrespective of diagnosis, the stage of the disease is based on the level of kidney function: Stage Description GFR(mL/min/1.73 m(2)) 1 Kidney damage with normal or decreased GFR 90 2 Kidney damage with mild decrease in GFR 60-89 3 Moderate decrease in GFR 30-59 4 Severe decrease in GFR 15-29 5 Kidney failure <15 (or dialysis) 44 REFERENCE VALUE 25-HYDROXY D TOTAL (D2+D3) Optimum levels in the healthy population are 20-50, patients with bone disease may benefit from higher levels within this range. Test Performed by: [facility] [place] [address] Civil Drafting Technician: Jose Cruz Valdivia M.D. 45 SDS 01/28 46 Because ethnic data is not always readily available, this report includes an eGFR for both -Americans and non- Americans. The National Kidney Disease Education Program (NKDEP) does not endorse the use of the MDRD equation for patients that are not between the ages of 18 and 70, are , have extremes of body size, muscle mass, or nutritional status, or are non- or non-. According to the National Kidney Foundation, irrespective of diagnosis, the stage of the disease is based on the level of kidney function: Stage Description GFR(mL/min/1.73 m(2)) 1 Kidney damage with normal or decreased GFR 90 2 Kidney damage with mild decrease in GFR 60-89 3 Moderate decrease in GFR 30-59 4 Severe decrease in GFR 15-29 5 Kidney failure <15 (or dialysis) 47 RUN DATE: 01/03/14 [facility] LAB LIVE PAGE 1 RUN TIME: [address] [place] [address] Specimen Inquiry Name: HAIM STEARNSAMITA Rahman : [address]: Elin Fowler NP Acct: [id number] Unit: [id number] AGE: 73 Location: [facility] Re01/01/14 SEX: F Status: REG REF SPEC: [id number] BONNIE: 01/01/14-[address] [facility] [address]: Elin Fowler NP REQ: [id number] RECD: 01/01/14 STATUS: COMP _ SOURCE: THROAT SPDESC: ORDERED: Throat Beta Str QUERIES: Medent Number [id number] Procedure Result Verified Site Throat Beta Strep Culture Final 01/03/14- 0907 ML Negative For Group A Beta Streptococcus END OF REPORT * ML=Testing performed at Main Lab DEPARTMENT OF PATHOLOGY, [facility] [address] [place], [place] [address] Edinson Ingram M.D. Director [place] # [id number] RUN DATE: 10/30/13 [facility] LAB LIVE PAGE 1 RUN TIME: [address] [place] [address] Specimen Inquiry Name: PAULETTE STEARNS : [address]: Bonifacio Dillard MD Acct: [id number] Unit: [id number] AGE: 73 Location: ED Re10/29/13 SEX: F Status: REG ER SPEC: [id number] BONNIE: 10/29/[address]: Bonifacio Dillard MD REQ: [id number] RECD: 10/29/13 STATUS: RES [facility] DR: Elin Fowler WHISKEY REGAUGER _ SOURCE: THROAT SPDESC: ORDERED: Rapid Strep A, Throat Beta Str Procedure Result Verified Site Rapid Strep A Final 10/30/13- 0002 ML Organism 1 Negative Strep Group A Antigen testing by enzyme immunoassay. The environmental inspector and regulatory agencies both recommend that a throat culture for beta strep be performed if a Rapid Group A Strep assay yields a negative result. Therefore a culture will be automatically performed on all negative samples. Throat Beta Strep Culture PENDING END OF REPORT * ML=Testing performed at Main Lab DEPARTMENT OF PATHOLOGY, [address] [place] [address] Edinson Ingram M.D. Director [facility] Permit #[id number] RUN DATE: 11/01/13 [facility] LAB LIVE PAGE 1 RUN TIME: [address] [place] [address] Specimen Inquiry Name: JINNYPAULETTE : [address]: Bonifacio Dillard MD Acct: [id number] Unit: [id number] AGE: 73 Location: ED Re10/29/13 SEX: F Status: DEP ER SPEC: [id number] BONNIE: 10/29/13 [facility] [address]: Bonifacio Dillard MD REQ: [id number] RECD: 10/29/13 STATUS: TEJAS WAGONER DR: Elin Fowler WHISKEY REGAUGER _ SOURCE: THROAT SPDESC: ORDERED: Rapid Strep A, Throat Beta Str Procedure Result Verified Site Rapid Strep A Final 10/30/13- 0002 ML Organism 1 Negative Strep Group A Antigen testing by enzyme immunoassay. The environmental inspector and regulatory agencies both recommend that a throat culture for beta strep be performed if a Rapid Group A Strep assay yields a negative result. Therefore a culture will be automatically performed on all negative samples. Throat Beta Strep Culture Final 11/01/13- 0811 ML Negative For Group A Beta Streptococcus END OF REPORT * ML=Testing performed at Main Lab DEPARTMENT OF PATHOLOGY, [address] [place] [address] Edinson Ingram M.D. Director [facility] Permit #[id number] 50 Consistent with previous results. 51 Because ethnic data is not always readily available, this report includes an eGFR for both -Americans and non- Americans. The National Kidney Disease Education Program (NKDEP) does not endorse the use of the MDRD equation for patients that are not between the ages of 18 and 70, are , have extremes of body size, muscle mass, or nutritional status, or are non- or non-. According to the National Kidney Foundation, irrespective of diagnosis, the stage of the disease is based on the level of kidney function: Stage Description GFR(mL/min/1.73 m(2)) 1 Kidney damage with normal or decreased GFR 90 2 Kidney damage with mild decrease in GFR 60-89 3 Moderate decrease in GFR 30-59 4 Severe decrease in GFR 15-29 5 Kidney failure <15 (or dialysis) 52 RUN DATE: 11/03/13 [facility] LAB LIVE PAGE 1 RUN TIME: [address], [place] [address] Specimen Inquiry Name: PAULETTE STEARNS : [address]: Bonifacio Dillard MD Acct: [id number] Unit: [id number] AGE: 73 Location: ED Re10/29/13 SEX: F Status: CAREY ER SPEC: [id number] BONNIE: 10/29/13-[address] [facility] [address]: Bonifacio Dillard MD REQ: [id number] RECD: 10/29/13 STATUS: TEJAS WAGONER DR: Elin Fowler WHISKEY REGAUGER _ SOURCE: BLOOD,VENO SPDESC: ORDERED: Blood Cult Procedure Result Verified Site Aerobic Culture Bottle Final 11/03/13- 2348 ML No Growth Day 5 Anaerobic Culture Bottle Final 11/03/13- 2348 ML No Growth Day 5 END OF REPORT * ML=Testing performed at Main Lab DEPARTMENT OF PATHOLOGY, [address] [place] [address] Edinson Ingram M.D. Director [facility] Permit #[id number] FASTING 12 HOUR~Please get this done soon 54 Because ethnic data is not always readily available, this report includes an eGFR for both -Americans and non- Americans. The National Kidney Disease Education Program (NKDEP) does not endorse the use of the MDRD equation for patients that are not between the ages of 18 and 70, are , have extremes of body size, muscle mass, or nutritional status, or are non- or non-. According to the National Kidney Foundation, irrespective of diagnosis, the stage of the disease is based on the level of kidney function: Stage Description GFR(mL/min/1.73 m(2)) 1 Kidney damage with normal or decreased GFR 90 2 Kidney damage with mild decrease in GFR 60-89 3 Moderate decrease in GFR 30-59 4 Severe decrease in GFR 15-29 5 Kidney failure <15 (or dialysis) 55 FASTING 12 HOUR Please get this done soon 56 Desirable <150 Borderline high 150-199 High 200-499 Very High >500 57 Desirable <200 Borderline high 200-239 High >239 58 Low <40 Desirable: 40-60 High: >60 59 Desirable <100 Near Optimal 100-129 Borderline high 130-159 High 160-189 Very High >189 60 The following Other High Risk HPV types were not detected: 31, 33, 35, 39, 45, 51, 52, 56, 58, 59, 66, and 68 Test Performed by: [address] [address] Civil Drafting Technician: Shaheen Peguero III, M.D. 61 RUN DATE: 09/14/13 [facility] LAB LIVE PAGE 1 RUN TIME: [address] [place] [address] Specimen Inquiry Name: HAIM STEARNSAMITA Rahman : [address]: Elin Fowler NP Acct: [id number] Unit: [id number] AGE: 73 Location: [facility] Re09/11/13 SEX: F Status: REG REF SPEC: [id number] BONNIE: 09/11/13-[address]: Elin Fowler NP REQ: [id number] RECD: 09/11/13 STATUS: SOUT _ ORDERED: IMAGE ANALYSIS, HPV/Thin Prep FINAL DIAGNOSIS Negative for Intraepithelial lesion or Malignancy COMMENTS: Specimen sent to [facility] in [place], [place] on 09/14/13 by [id number] at 1153. Results will be reported separately. A. Ectocervical/Endocervical Specimen Adequacy: Satisfactory of evaluation Transformation zone component cannot be definitely identified due to presence of atrophy or other hormonal changes Patient Information: HPV: High risk HPV DNA testing regardless of pap results. Actual Specimen Date: 09/11/13 LMP If Unknown: age 53 Cautery: N Post Menopausal?: Y Previous Abnormal Pap Smears?:N Signed (signature on file) SOREN Phillips (ASCP) 09/14/13 1204 This Pap test was evaluated with the assistance of the [employer] Test Imaging System. Due to cytologic findings at the base filler operator microscope, comprehensive manual rescreening by a Lime Supervisor may be required. The Pap Smear is a screening test designed to aid in the detection of premalignant and malignant conditions of the uterine cervix. It is not a diagnostic procedure and should not be used as the sole means of detecting cervical cancer. Both false- positive and false- negative reports do occur. Depending on your risk status, a Pap smear shoudl be obtained and evaluated every 1-3 years. END OF REPORT * ML=Testing performed at Main Lab DEPARTMENT OF PATHOLOGY, [facility] [address] [place], [place] [address] Edinson Ingram M.D. Director [facility] Permit #[id number] RUN DATE: 07/30/13 [facility] LAB LIVE PAGE 1 RUN TIME: 1220 [facility] [address] [place], [place] [address] Specimen Inquiry Name: PAULETTE STEARNS : [address]: Elin Fowler NP Acct: [id number] Unit: [id number] AGE: 73 Location: [facility] Re07/27/13 SEX: F Status: REG REF SPEC: [id number] BONNIE: 07/27/[address]: Elin Fowler NP REQ: [id number] RECD: 07/27/13 STATUS: SOUT _ ORDERED: LEVEL IV FINAL DIAGNOSIS Uterus, endometrium, biopsy: A. Benign strips of atrophic endometrium and atrophic squamous mucosa. B. No evidence of hyperplasia or neoplasia. CLINICAL HISTORY No history given GROSS DESCRIPTION The specimen is received in formalin labeled Paulette Stearns, No Site Identified, and consists of a 0.3 x 0.2 x 0.1 cm. aggregate of mucus admixed with scant red blood clot and scant possible soft tissue fragments. The specimen may not survive processing. Submitted entirely, one cassette. Signed (signature on file) Eve Goodman MD 1219 END OF REPORT * ML=Testing performed at Main Lab DEPARTMENT OF PATHOLOGY, [address] [place] [address] Edinson Ingram M.D. Director [facility] Permit #[id number] 63 Because ethnic data is not always readily available, this report includes an eGFR for both -Americans and non- Americans. The National Kidney Disease Education Program (NKDEP) does not endorse the use of the MDRD equation for patients that are not between the ages of 18 and 70, are , have extremes of body size, muscle mass, or nutritional status, or are non- or non-. According to the National Kidney Foundation, irrespective of diagnosis, the stage of the disease is based on the level of kidney function: Stage Description GFR(mL/min/1.73 m(2)) 1 Kidney damage with normal or decreased GFR 90 2 Kidney damage with mild decrease in GFR 60-89 3 Moderate decrease in GFR 30-59 4 Severe decrease in GFR 15-29 5 Kidney failure <15 (or dialysis) 64 Reference Range and Interpretation: TnI (ng/mL) Interpretation Less Than 0.06 ng/mL Not supportive of diagnosis of MO 0.06 - 0.50 ng/mL Indeterminate: suggest serial studies if clinically indicated. Greater than 0.5 ng/mL Consistent with diagnosis of MO 65 Verbal to [id number] by at 1138 on 05/22/13. Results read back accurately. Please note: The following may produce a false positive D Dimer test: - Rheumatoid factor greater than 60 IU/ml - Plasma hemoglobin greater than 0.05 gm/dl - Bilirubin greater than 50 mg/dl - Lipids greater than 1000 mg/dl - FDP greater than 20 ug/ml 66 Because ethnic data is not always readily available, this report includes an eGFR for both -Americans and non- Americans. The National Kidney Disease Education Program (NKDEP) does not endorse the use of the MDRD equation for patients that are not between the ages of 18 and 70, are , have extremes of body size, muscle mass, or nutritional status, or are non- or non-. According to the National Kidney Foundation, irrespective of diagnosis, the stage of the disease is based on the level of kidney function: Stage Description GFR(mL/min/1.73 m(2)) 1 Kidney damage with normal or decreased GFR 90 2 Kidney damage with mild decrease in GFR 60-89 3 Moderate decrease in GFR 30-59 4 Severe decrease in GFR 15-29 5 Kidney failure <15 (or dialysis) 67 RUN DATE: 05/19/13 [facility] LAB LIVE PAGE 1 RUN TIME: [address] [place] [address] Specimen Inquiry Name: PAULETTE SETARNS : [address]: Aime Orlando MD Acct: [id number] Unit: [id number] AGE: 73 Location: [facility] Re05/14/13 SEX: F Status: REG REF SPEC: [id number] BONNIE: 05/14/[address]: Aime Orlando MD REQ: [id number] RECD: 05/14/13 STATUS: COMP _ SOURCE: BLOOD,VENO SPDESC: ORDERED: Blood Cult QUERIES: Medent Number [id number] Procedure Result Verified Site Aerobic Culture Bottle Final 05/19/13- 1439 ML No Growth Day 5 Anaerobic Culture Bottle Final 05/19/13- 1439 ML No Growth Day 5 END OF REPORT * ML=Testing performed at Main Lab DEPARTMENT OF PATHOLOGY, [facility] [address] [place], [place] [address] Edinson Ingram M.D. Director [facility] Permit #[id number] 68 RUN DATE: 05/10/13 [facility] LAB LIVE PAGE 1 RUN TIME: 08 [facility] [place], [place] [address] Specimen Inquiry Name: PAULETTE STEARNS : [address]: Elin Fowler NP Acct: [id number] Unit: [id number] AGE: 73 Location: [facility] Re05/05/13 SEX: F Status: REG REF SPEC: [id number] BONNIE: 05/05/13-[address]: Elin Fowler NP REQ: [id number] RECD: 05/06/13 STATUS: COMP _ SOURCE: URINE SPDESC: ORDERED: Urine Culture QUERIES: Medent Number [id number] Procedure Result Verified Site Urine Culture Final 05/10/13- 0802 ML Organism 1 NORMAL AARTI Aurora Count 25-50,000 (Moderate) CFU/ML END OF REPORT * ML=Testing performed at Main Lab DEPARTMENT OF PATHOLOGY, [facility] [address] [place], [place] [address] Edinson Ingram M.D. Director [facility] Permit #[id number] 69 Because ethnic data is not always readily available, this report includes an eGFR for both -Americans and non- Americans. The National Kidney Disease Education Program (NKDEP) does not endorse the use of the MDRD equation for patients that are not between the ages of 18 and 70, are , have extremes of body size, muscle mass, or nutritional status, or are non- or non-. According to the National Kidney Foundation, irrespective of diagnosis, the stage of the disease is based on the level of kidney function: Stage Description GFR(mL/min/1.73 m(2)) 1 Kidney damage with normal or decreased GFR 90 2 Kidney damage with mild decrease in GFR 60-89 3 Moderate decrease in GFR 30-59 4 Severe decrease in GFR 15-29 5 Kidney failure <15 (or dialysis) 70 RUN DATE: 05/01/13 [facility] LAB LIVE PAGE 1 RUN TIME: 906 [facility] [place], [place] [address] Specimen Inquiry Name: PAULETTE STEARNS : [address]: lEin Fowler NP Acct: [id number] Unit: [id number] AGE: 73 Location: [facility] Re04/29/13 SEX: F Status: REG REF SPEC: [id number] BONNIE: 04/29/13-[address]: Elin Fowler NP REQ: [id number] RECD: 04/29/13 STATUS: COMP _ SOURCE: URINE SPDESC: ORDERED: Urine Culture QUERIES: Medent Number [id number] Procedure Result Verified Site Urine Culture Final 05/01/13- 906 ML Organism 1 NORMAL AARTI Aurora Count 10-25,000 (Moderate) CFU/ML END OF REPORT * ML=Testing performed at Main Lab DEPARTMENT OF PATHOLOGY, [address] [place] [address] Edinson Ingram M.D. Director [facility] Permit #[id number] 71 RUN DATE: 04/25/13 [facility] LAB LIVE PAGE 1 RUN TIME: [address] [place] [address] Specimen Inquiry Name: PAULETTE STEARNS : [address]: Aleja VALENTIN Acct: [id number] Unit: [id number] AGE: 73 Location: [facility] Re04/21/13 SEX: F Status: REG REF SPEC: [id number] BONNIE: 04/21/13-14[address] [facility] [address]: Aleja VALENTIN REQ: [id number] RECD: 04/21/13-153 STATUS: TEJAS WAGONER DR: Axel Garcia MD _ SOURCE: JOINT FLUI SPDESC:KNEE RIGHT ORDERED: BF Tunde/BALTAZAR Procedure Result Verified Site Body Fluid Gram Stain Final 04/21/13- 1716 ML 4+ Polys No Organisms Seen Preparation By Direct Smear Body Fluid Culture Final 04/25/13- 0900 ML No Growth Day 4 END OF REPORT * ML=Testing performed at Main Lab DEPARTMENT OF PATHOLOGY, [facility] [address] [place], [place] [address] Edinson Ingram M.D. Director [facility] Permit #[id number] 72 Slide and differential reviewed. No bacteria, blasts or other malignant cells seen. Acute inflammation; recommend correlation with microbiology studies. Reviewed by Eve Goodman MD 73 SOURCE: KNEE, RIGHT KNEE FLUID TISSUE VIRAL CULTURE, NON RESPIRATORY FINAL No virus isolated. Less than 50% of the expected monolayer is present in the diploid fibroblast cell line following 14 days of incubation. False negative results may occur. Test Performed by: [address] [address] Civil Drafting Technician: Shaheen Peguero III, M.D. 74 RUN DATE: 02/22/13 [facility] LAB LIVE PAGE 1 RUN TIME: [address] [place], [place] [address] Specimen Inquiry Name: PAULETTE STEARNS : [address]: Elin Fowler NP Acct: [id number] Unit: [id number] AGE: 72 Location: [facility] Re02/20/13 SEX: F Status: REG REF SPEC: [id number] BONNIE: 02/20/13-[address]: Elin Fowler NP REQ: [id number] RECD: 02/20/13 STATUS: COMP _ SOURCE: URINE SPDESC: ORDERED: Urine Culture QUERIES: Medent Number [id number] Procedure Result Verified Site Urine Culture Final 02/22/13- 1114 ML No Growth Day 2 (<1,000 CFU/mL) END OF REPORT * ML=Testing performed at Main Lab DEPARTMENT OF PATHOLOGY, [address] [place] [address] Edinson Ingram M.D. Director [facility] Permit #[id number] 75 Because ethnic data is not always readily available, this report includes an eGFR for both -Americans and non- Americans. The National Kidney Disease Education Program (NKDEP) does not endorse the use of the MDRD equation for patients that are not between the ages of 18 and 70, are , have extremes of body size, muscle mass, or nutritional status, or are non- or non-. According to the National Kidney Foundation, irrespective of diagnosis, the stage of the disease is based on the level of kidney function: Stage Description GFR(mL/min/1.73 m(2)) 1 Kidney damage with normal or decreased GFR 90 2 Kidney damage with mild decrease in GFR 60-89 3 Moderate decrease in GFR 30-59 4 Severe decrease in GFR 15-29 5 Kidney failure <15 (or dialysis) 76 RUN DATE: 12/21/12 [facility] LAB LIVE PAGE 1 RUN TIME: [address] [place] [address] Specimen Inquiry Name: PAULETTE STEARNS : [address]: Germain Loredo MD Acct: [id number] Unit: [id number] AGE: 72 Location: ED Re12/16/12 SEX: F Status: DEP ER SPEC: [id number] BONNIE: 12/16/[address] [facility] [address]: Germain Loredo MD REQ: [id number] RECD: 12/16/12 STATUS: TEJAS WAGONER DR: Elin Fowler WHISKEY REGAUGER _ SOURCE: BLOOD,VENO [facility]: ORDERED: Blood Cult Procedure Result Verified Site Aerobic Culture Bottle Final 12/21/12- 405 ML No Growth Day 5 Anaerobic Culture Bottle Final 12/21/12405 ML No Growth Day 5 END OF REPORT * ML=Testing performed at Main Lab DEPARTMENT OF PATHOLOGY, [address] [place] [address] Edinson Ingram M.D. Director [facility] Permit #[id number] 77 RUN DATE: 12/18/12 [facility] LAB LIVE PAGE 1 RUN TIME: [address] [place], [place] [address] Specimen Inquiry Name: PAULETTE STEARNS : [address]: Germain Loredo MD Acct: [id number] Unit: [id number] AGE: 72 Location: ED Re12/16/12 SEX: F Status: DEP ER SPEC: [id number] BONNIE: 12/16/12-[address] [facility] [address]: Germain Loredo MD REQ: [id number] RECD: 12/16/12 STATUS: TEJAS WAGONER DR: Elin Fowler WHISKEY REGAUGER _ SOURCE: URINE SPDESC: ORDERED: Urine Culture Procedure Result Verified Site Urine Culture Final 12/18/12- 1013 ML No Growth Day 2 (<1,000 CFU/mL) END OF REPORT * ML=Testing performed at Main Lab DEPARTMENT OF PATHOLOGY, [facility] [address] [place], [place] [address] Edinson Ingram M.D. Director [facility] Permit #[id number] 78 RUN DATE: 11/06/12 [facility] LAB LIVE PAGE 1 RUN TIME: 5825 [facility] [place], [place] [address] Specimen Inquiry Name: PAULETTE STEARNS : [address]: Elin Fowler NP Acct: [id number] Unit: [id number] AGE: 72 Location: [facility] Re11/04/12 SEX: F Status: REG REF SPEC: [id number] BONNIE: 11/04/[address]: Elin Fowler NP REQ: [id number] RECD: 11/04/12 STATUS: SOUT _ ORDERED: LEVEL IV FINAL DIAGNOSIS Skin, right thigh, biopsy: A. 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 B. Lesion appears excised. COMMENTS: Clinical follow-up is suggested. PATHOLOGY SURGICAL CONSULT PRE-OPERATIVE DIAGNOSIS Skin tag right thigh. GROSS DESCRIPTION The specimen is received in formalin labeled Paulette Stearns, Right Thigh Biopsy, and consists of a punch biopsy measuring 0.3 x 0.3 x 0.2 cm. Specimen is bisected and submitted entirely, one cassette. Signed (signature on file) Edinson Ingram MD 1541 END OF REPORT * ML=Testing performed at Main Lab DEPARTMENT OF PATHOLOGY, [facility] [address] [place], [place] [address] Edinson Ingram M.D. Director [facility] Permit #[id number] 79 RUN DATE: 11/20/12 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 COMMENTS: After discussion with Elin Fowler NP regarding this patient, this lesion appears to be not a solitary skin tag as originally indicated but part of an acute eruptive process. This lesion is excoriated and demonstrates marked acanthosis with hyperparakeratosis and severe reactive atypia with areas of angulation at the base including myxoid stromal reaction interpreted in this context now as pseudo-invasion. The degree of nuclear atypia is severe and numerous macronucleoli are seen and scattered mitotic figures are noted. Due to the large eosinophilic macronucleoli the underlying etiology of this lesion is difficult to ascertain given the degree of excoriation. Given the cytologic atypia the following study was performed. The following immunohistochemical stains were performed at [facility] ([place], [place]) with appropriate controls and interpreted by [facility]: CMV Negative. Clinical follow-up is suggested. CONTINUED ON NEXT PAGE * ML=Testing performed at Main Lab DEPARTMENT OF PATHOLOGY, [address] [place] [address] Edinson Ingram M.D. Director [facility] Permit #[id number] RUN DATE: 11/20/12 [facility] LAB LIVE PAGE 2 RUN TIME: 1343 [facility] [place], [place] [address] Specimen Inquiry Patient: PAULETTE STEARNS W [id number] (Continued) SPECIMEN COMMENTS (Continued) PATHOLOGY SURGICAL CONSULT PRE-OPERATIVE DIAGNOSIS Skin tag right thigh. GROSS DESCRIPTION The specimen is received in formalin labeled Paulette Stearns, Right Thigh Biopsy, and consists of a punch biopsy measuring 0.3 x 0.3 x 0.2 cm. Specimen is bisected and submitted entirely, one cassette. Signed (signature on file) Edinson Ingram MD 0868 END OF REPORT * ML=Testing performed at Main Lab DEPARTMENT OF PATHOLOGY, [facility] [place], [place] [address] Edinson Ingram M.D. Director [facility] Permit #[id number] 80 RUN DATE: 10/29/12 [facility] LAB LIVE PAGE 1 RUN TIME: [address], [place] [address] Specimen Inquiry Name: PAULETTE STEARNS Josiah : [address]: Elin Fowler NP Acct: [id number] Unit: [id number] AGE: 72 Location: [facility] Re10/27/12 SEX: F Status: REG REF SPEC: [id number] BONNIE: 10/27/12-12[address] [facility] [address]: Elin Fowler NP REQ: [id number] RECD: 10/27/12-1549 STATUS: COMP _ SOURCE: URINE SPDESC: ORDERED: Urine Culture QUERIES: Medent Number [id number] Procedure Result Verified Site Urine Culture Final 10/29/12- 51 ML Organism 1 ESCHERICHIA COLI Aurora Count >100,000 (Many) CFU/ML 1. ESCHERICHIA COLI M.I.C. RX --------- ------ Ampicillin 4 S Cefazolin <=4 S Cefepime <=1 S Ceftriaxone <=1 S Ciprofloxacin <=0.25 S Gentamicin <=1 S Imipenem <=0.25 S Levofloxacin <=0.12 S Meropenem <=0.25 S Nitrofurantoin <=16 S Tetracycline <=1 S Pipercillin/Tazobactam <=4 S Trimethoprim/Sulfamethoxazole <=20 S Amoxicillin/Clavulanic Acid <=2 S Aztreonam <=1 S Contact the Microbiology Department for any additional antibiotic reporting. END OF REPORT * ML=Testing performed at Main Lab DEPARTMENT OF PATHOLOGY, [address] [place] [address] Edinson Ingram M.D. Director [facility] Permit #[id number] 81 GRAM NEGATIVE BACILLI COLONY COUNT >100,000 (Many) 82 RUN DATE: 01/27/12 [facility] NMI LIVE PAGE 1 RUN TIME: 08 Specimen Inquiry RUN USER: INTERFACE Name: PAULETTE STEARNS Josiah Status: REG REF Re01/25/12 Age/Sex: 71/F Unit#: [id number] Location: [facility] : 41 SPEC #: [id number] BONNIE: 01/25/12-1418 STATUS: COMP REQ #: [id number] RECD: 01/25/12-16[address] [facility] [address]: Elin Peguero SOURCE: URINE ENTR: 01/25/12-[address]: FRANKIE: ORDERED: URINE C S QUERIES: MEDENT REQUISITION # [id number] SPECIMEN DESCRIPTION: URINE, RANDOM Procedure Result Verified Site > URINE CULTURE SENSITIVI Final -0830 ML Organism 1 KLEBSIELLA OXYTOCA COLONY COUNT >100,000 ORGANISMS/ML (MANY) 1. KLEBSIELLA OXYTOCA RX M.I.C. ------ --------- AMIKACIN S <=2 LEVOFLOXACIN S 1 AMPICILLIN R CEFAZOLIN S <=4 CEFTRIAXONE S <=1 CIPROFLOXACIN S <=0.25 GENTAMICIN S <=1 CEFTAZIDIME S <=1 IMIPENEM S <=1 NITROFURANTOIN I 64 TRIMETH-SULFA S <=20 *These antibiotics are not available in the [facility] Formulary. Contact the Microbiology Department for any additional antibiotic reporting. - [facility] Permit #[id number] [address] [place] [address] DEPARTMENT OF PATHOLOGY, [address] [place] [address] [facility] Permit #[id number] Edinson Ingram M.D. Director Nnamdi Foster M.D. Senior Ui Software Engineer 83 RUN DATE: 10/10/11 [facility] NMI LIVE PAGE 1 RUN TIME: 1003 Specimen Inquiry RUN USER: INTERFACE Name: PAULETTE STEARNS Josiah Status: CAREY SOTO Re10/07/11 Age/Sex: 71/F Unit#: [id number] Location: : 41 SPEC #: [id number] BONNIE: 10/07/11 STATUS: TEJAS CARDENAS #: [id number] RECD: 10/08/[address]: Nicole Tyson MD SOURCE: THROAT ENTR: 10/08/[address]: Elin Peguero [facility]: ORDERED: THROAT-BETA STR ACT WKST: BS 10/10/11 #1 Procedure Result Verified Site > THROAT-BETA STREP CULTURE Final -955 ML NEGATIVE FOR GROUP A BETA STREPTOCOCCUS ML - [facility] Permit #[id number] [address] [place] [address] DEPARTMENT OF PATHOLOGY, [address] [place] [address] [facility] Permit #[id number] Edinson Ingram M.D. Director Nnamdi Foster M.D. Senior Ui Software Engineer 84 KLEBSIELLA PNEUMONIAE >100^>100,000 ORGANISMS/ML (MANY)^CCU 85 ---- RUN DATE: 05/28/11 [facility] NMI LIVE PAGE 1 RUN TIME: 6175 Specimen Inquiry RUN USER: INTERFACE -- Name: PAULETTE STEARNS Status: REG REF Re05/25/11 Age/Sex: 71/F Unit#: [id number] Location: [facility] : 41 -- Specimen: [id number] [id number] Spec Date: 05/25/[address]: Elin bey [facility] Spec Type: CYTOLOGY Received: 05/28/11-1014 Copies to: SOURCE ECTOCERVICAL/ENDOCERVICAL Thin Prep with Reflex HPV Test PATIENT INFORMATION ACTUAL COLLECTION DATE: 05/25/11 ? No POST MENOPAUSAL? No HYSTERECTOMY? No PREVIOUS ABNORMAL PAP SMEARS No PATIENT HISTORY: Last menstrual period at age 54 ADEQUACY OF SPECIMEN Satisfactory for evaluation * Transformation zone component cannot be definitely identified due to prese nce * of atrophy or other hormonal changes. * DIAGNOSIS NEGATIVE FOR INTRAEPITHELIAL LESION OR MALIGNANCY * This Pap test was evaluated with the assistance of the [place] EXTENDED STAYSP[employer] Pap Test Imaging System. The Pap Smear is a screening test designed to aid in the detection of premalign ant and malignant conditions of the uterine cervix. It is not a diagnostic procedure a nd should not be used as the sole means of detecting cervical cancer. Both false- positiv e and false-negative reports do occur. Depending on your risk status, a Pap smear jie uld be obtained and evaluated every one to three years. Final Interpretation electronically signed by: Olegario HARTLEY(ASCP) 05/28/11 145 2 -- -- DEPARTMENT OF PATHOLOGY, [address] [place] [address] [facility] Permit #[id number] Edinson Ingram M.D. Director Nnamdi Foster M.D. Bureau Director Dir chente -- Procedures Date CPT Code Description Status Comment 09/20/2017 Mammogram Completed 09/09/2017 91245 Diffusing Capacity Completed 09/09/2017 12869 Plethysmography Determination Lung Volumes Completed & Per Airway Resist 09/09/2017 59667 [facility]monary Stress [facility] Measurement Heart Completed Rate, Oximetry 08/20/2016 Mammogram Completed 09/09/2015 96614 Walking Cast Completed 08/04/2015 Mammogram Completed 06/15/2015 58370 Walking Cast Completed 06/07/2015 65657 Short Leg Cast Completed 05/25/2015 Colonoscopy Completed 04/15/2015 43695 Stress Test Completed 03/25/2015 85833 EKG Tracing & Interpretation Completed 06/01/2014 Mammogram Completed 07/27/2013 70186 Endometrial Sampling W Or W/O Endocervical BX W Completed Or W/O Cerv Dilat 05/22/2013 57246 ECHO Transthorasic Realtime 2D W Doppler & Completed Color Flow Hosp 04/21/2013 45169 Rad Exam; Knee, Ap&L Completed 04/21/2013 02222 Xray Knee 3 Views Completed 04/21/2013 48538 Xray Knee 3 Views Completed 02/27/2013 Mammogram Completed 11/04/2012 25980 Biopsy Skin Lesion Single Completed 02/01/2012 Mammogram Completed 05/25/2011 80891 EKG Tracing & Interpretation Completed 10/20/2010 Mammogram Completed 10/13/2010 Mammogram Completed 1.0 04/05/2010 Colonoscopy Completed 01/06/2009 Bone Mineral Density Test Completed 12/15/2008 92710 EKG Tracing & Interpretation Completed 03/10/2008 95407 EKG, Interpretation Only Completed 03/10/2008 07090 EKG, Interpretation Only Completed Encounters Type Date Location Provider CPT E/M Dx Office Visit 10/28/2017 [place] [address] J44.9 2:30p [facility] R09.02 Office Visit 08/14/2017 4:20p [facility] [place] [address] J02.9 [place] Office Visit 07/16/2017 11:00a [place] [address] J44.9 [facility] R09.02 Office Visit 06/10/2017 3:00p [facility] [place] [address] J44.9 [place] K20.8 Office Visit 06/06/2017 7:19a [facility],HOMERO [place] [address] R09.02 Hospitalists K21.9 J43.9 K20.8 Office Visit 06/05/2017 7:17a [facility],HOMERO [place] [address] R09.02 Hospitalists R10.13 J43.9 K21.9 Office Visit 06/04/2017 7:16a [facility],[place] [address] R09.02 Hospitalists R10.13 J43.9 K21.9 Office Visit 05/24/2017 3:00p [facility] [place] [address] Z00.00 [place] M81.0 J44.9 Z23 R35.0 Office Visit 11/07/2016 3:00p [facility] Internal Medicine Elin Fowler, N.P. [address] J20.9 - [place] Office Visit 08/17/2016 2:20p [facility] [place] [address] D48.5 - [place] Office Visit 07/17/2016 2:40p [facility] Internal Medicine Elin Fowler N.P. 51213 J01.00 - [place] Office Visit 06/13/2016 4:00p [facility] [place] [address] J20.9 - [place] Office Visit 04/16/2016 2:40p [facility] [place] [address] N39.0 - [place] Z13.220 Z13.1 Office Visit 04/09/2016 3:21p [facility], Gonzá[place] [address] N12 Hospitalists K21.9 R09.02 F41.9 Office Visit 04/08/2016 3:21p [facility], Gonzá[place] [address] R07.9 Hospitalists N30.00 R09.02 F41.9 Office Visit 04/07/2016 3:20p [facility], Gonzá[place] [address] R07.9 Hospitalists R09.02 K21.9 F41.9 Office Visit 12/28/2015 4:00p [facility] [place] [address] R05 [place] J01.90 R35.0 Office Visit 12/23/2015 1:20p [facility] [address] M19.071 Chelsea Malone Office Visit 09/28/2015 2:20p [facility] 52048 M19.071 Chelsea Malone Office Visit 09/09/2015 3:00p [facility] 91912 M19.071 Chelsea Malone Office Visit 06/24/2015 3:00p [facility] 69427 M19.071 Chelsea Malone Office Visit 06/15/2015 4:00p [facility] 13843 M19.071 Chelsea Malone Office Visit 06/07/2015 2:40p [facility], 75494 M19.071 Chelsea Malone M25.571 Office Visit 03/25/2015 2:00p [facility] Anne M.D. 74282 786.09 Wing Commander 272.4 V17.49 Office Visit 03/22/2015 4:00p [facility] [place] [address] 913.0 - [place] Office Visit 03/11/2015 3:00p [facility] Medicine Elin Fowler, N.P. 35974 913.0 - [place] 300.00 401.1 881.00 Office Visit 11/03/2014 2:00p [facility] [place] [address] 465.9 - [place] Office Visit 08/27/2014 4:20p [facility] Medicine Elin Fowler, N.P. 69218 466.0 - [place] 272.4 V15.82 Office Visit 08/11/2014 2:40p [facility] Medicine Elin Fowler, N.P. 97847 719.49 - [place] 599.89 789.07 Office Visit 07/30/2014 3:40p [facility] Bettye Up, 429[address] 789.03 - [place] M.Tom Office Visit 06/04/2014 2:00p [facility] Elin Fowler, N.P. 83457 401.1 - [place] V04.81 530.81 272.4 Office Visit 01/01/2014 2:00p [facility] Internal Medicine - Elin Fowler, N.P. 33609 462 [place] 786.50 Office Visit 11/04/2013 2:20p [facility] Internal Medicine - Elin Fowler, N.P. 01835 486 [place] 461.9 788.41 Office Visit 10/28/2013 3:00p [facility] Internal Medicine - Elin Fowler, N.P. 52142 462 [place] 466.0 401.1 Office Visit 05/20/2013 3:20p [facility] Aime [place], [address] 780.60 Infectious Diseases M.Tom Office Visit 05/14/2013 1:40p [facility] Aime [place], 6[address] 780.60 Infectious Diseases M.D. Office Visit 05/13/2013 3:30p Orthopedic Services Axel Garcia M.D. 40958 727.09 Of [place] Office Visit 05/06/2013 1:45p Orthopedic Services Bj Jaquez 11928 719.46 [place] Office Visit 05/05/2013 1:20p [facility] Internal Medicine Elin Fowler, N.P. 19893 599.70 - [place] 719.46 Office Visit 04/29/2013 1:00p [facility] Internal Medicine Elin Fowler, N.P. 42924 466.0 - [place] 599.0 Office Visit 04/27/2013 1:00p [facility]opedic Services Of Axel Garcia M.D. 60045 719.46 C.MCarlos Office Visit 04/21/2013 1:30p [facility] Services Of Aleja Toussaint, 31075 719.06 [place] RPA-C 719.46 Office Visit 02/20/2013 3:00p [facility] Internal Medicine Elin Fowler, N.P. 06609 599.0 - [place] Office Visit 10/27/2012 11:40a [facility] Internal Medicine Elin Fowler, N.P. 30118 782.1 - [place] 599.0 Office Visit 01/25/2012 1:00p [facility] Internal Medicine Elin Fowler, N.P. 41948 401.1 - [place] 724.5 599.0 V76.10 Office Visit 05/25/2011 1:20p DO Not Use [facility] Elin Fowler, 22351 V70.0 N.P. V72.31 V76.10 401.1 733.00 300.00 496 V04.81 305.1 786.2 V03.82 Office Visit 06/07/2010 4:00p DO Not Use [facility] Elin Fowler, 92896 461.9 N.P. 462 Office Visit 05/22/2010 3:00p DO Not Use [facility] Elin Varn, 20715 461.9 N.P. 466.0 Office Visit 03/13/2010 2:30p DO Not Use [facility] Elin Varn, 24147 461.9 N.P. 788.41 Office Visit 12/23/2009 1:30p DO Not Use Elin Varn, 22025 788.41 [facility] N.P. 401.1 Office Visit 11/09/2009 2:45p DO Not Use [facility] Elin Varn, 18021 461.9 N.P. 599.0 Office Visit 06/06/2009 2:00p DO Not Use [facility] Elin Varn, 24040 466.0 N.P. Office Visit 05/30/2009 2:30p DO Not Use [facility] Elin Varn, 35098 466.0 N.P. Office Visit 05/10/2009 4:30p DO Not Use [facility] Elin Varn, 74216 599.0 N.P. Office Visit 04/29/2009 3:45p DO Not Use [facility] Elin Varn, 35655 599.0 N.P. 599.70 Office Visit 12/15/2008 1:30p DO Not Use [facility] Elin Varn, 29635 V70.0 N.P. 496 726.31 401.1 300.01 Office Visit 05/25/2008 1:15p DO Not Use Elin Varn, 32410 300.00 [facility] N.P. V04.81 Office Visit 04/28/2008 1:15p DO Not Use [facility] Elin Varn, 37763 401.1 N.P. 300.00 Office Visit 03/18/2008 3:30p DO Not Use Katiuska Flores, 19299 719.96 [facility] M.D. 401.1 300.00 Office Visit 03/08/2008 4:00p DO Not Use Katiuska Flores, 95731 780.6 [facility] M.D. 719.40 Office Visit 02/23/2008 11:15a DO Not Use [facility] Elin Varn, 67869 787.6 N.P. Office Visit 10/29/2007 1:15p DO Not Use [facility] Elin Varn, 81601 401.1 N.P. 300.00 Office Visit 10/08/2007 1:30p DO Not Use [facility] Elin Varn, 89031 465.9 N.P. Office Visit 10/01/2007 1:30p DO Not Use [facility] Elin Varn, 52923 401.1 N.P. 300.00 Office Visit 09/16/2007 1:30p DO Not Use [facility] Elin Varn, 78892 401.1 N.P. 300.00 Office Visit 09/03/2007 1:15p DO Not Use Elin Varn, 91165 V72.31 [facility] N.P. 462 796.2 496 300.00 V06.5 Office Visit 05/13/2007 2:00p DO Not Use [facility] Elin Varn, 46429 466.0 N.P. Plan of Care Future Appointment(s):04/29/2018 1:30 pm - Bia Mello MD at [facility]12/02/2017 - Darius Pires, NPR53.83 Other fatigueNew Labs :CBC Auto DiffComp Metabolic PanelTSH (Thyroid Stim Horm)Vitamin X04Nvpduqi D Total 25(Oh)Hemoglobin A1c (Glyco HGB)Comments:I am ordering some lab work to evaluate your symptoms. I will notify you of the results. I recommend carrying your cane with you at all times.R63.4 Abnormal weight lossNew Labs:C Reactive ProteinErythrocyte Sed RateLDHProtein ElectrophoresisNew Xrays:Chest PA & Lat 2 VWSR35.0 Frequency of micturitionNew Medication:Macrobid 100 mgComments: Your urinalysis indicated that you most likely have a UTI. I am treating you empirically and will send your urine out for culture. If we need to change antibiotics I will notify you. Try to avoid bladder irritants: coffee, tea, cola , spicy food, alcohol.Please let me know if your symptoms worsen or persist.R10.819 Abdominal tenderness, unspecified siteNew Xrays:US Abdomen Complete
[2017-12-09 13:09] LABS: ABS Basophils 0.1 10^3/ul (0-0.2); ABS Eosinophils 0.2 10^3/ul (0-0.6); ABS Lymphocytes 0.9 10^3/ul (1.0-4.8); ABS Monocytes 0.5 10^3/ul (0-0.8); ABS Nucleated RBC 0 10^3/ul; Eosinophil % 2.6 % (0-6); Hematocrit 34 % (35-47); Hemoglobin 11.3 g/dl (12.0-16.0); Lymphocyte % 11.6 % (25-47); Mean Corpuscular HGB Conc 33 g/dl (31-36); Mean Corpuscular Hemoglobin 31 pg (27-31); Mean Corpuscular Volume 93 fL (80-97); Mean Platelet Volume 6.2 um3 (7.4-10.4); Nucleated Red Blood Cells % 0; Platelet Count 278 10^3/ul (150-450); Red Blood Count 3.65 10^6/ul (4.0-5.4); Red Cell Distribution Width 13 % (10.5-15); White Blood Count 7.6 10^3/ul (3.5-10.8)
[2017-12-09 13:36] LABS: EGFR Non-African American 12.3 (>60)
--- NOTE | 2017-12-09 13:51 | CONS ---
CC: Dr. Up * NEPHROLOGY CONSULTATION: DATE OF CONSULT: 12/09/17 HISTORY OF PRESENT ILLNESS: Ms. Stearns is a 77-year-old female with a history of COPD. She was recently complaining of progressive weakness. She recently was diagnosed with a urinary tract infection and treated with Keflex, which she did not tolerate well. She has not had fever, chills, lightheadedness or dizziness, but she has not been taking fluids or eating well. PAST MEDICAL HISTORY: Her previous medical history is significant for right bundle branch block. She has had a previous deep venous thrombosis. She has had a right total knee replacement. She is status post a cholecystectomy and appendectomy. She has had an ovarian cyst removed. MEDICATIONS: Included: 1. Diazepam 5 mg q. 6 hours. 2. Paroxetine 40 mg daily. 3. Loperamide 4 mg every 6 hours p.r.n. 4. Dulera 100/5 two puffs b.i.d. 5. Tiotropium 1 cap inhalation daily. 6. ProAir RespiClick metered-dose inhaler 8 mcg every 4 hours p.r.n. 7. Sucralfate 1 g p.o. with meals. 8. Omeprazole 20 mg daily. ALLERGIES: She is allergic to PENICILLIN, SULFA DRUGS, VANCOMYCIN, CODEINE, LEVAQUIN and IVP DYE. FAMILY HISTORY: Her mother had coronary artery disease. SOCIAL HISTORY: She is not , but she lives with her significant other. She previously was a smoker, but quit about 7 years ago with a 60-pack year history. REVIEW OF SYSTEMS: She was diagnosed with pill esophagitis last June. PHYSICAL EXAMINATION: She is a weak appearing white female, who appears to be comfortable. Her blood pressure is 120/62, she is afebrile, her pulse is 88. She has poor tissue turgor. Her mucous membranes are moist. There is jugular venous distention of about 8 cm above the right atrium. The chest is clear. The heart revealed a regular rhythm. I could not hear any murmurs. The abdomen is soft. She is a little tender to the paraumbilical fasciae bilaterally. Bowel sounds are positive. Bones, Joints, Extremities: Revealed no cyanosis, clubbing or edema. Neurologically, she moves all 4 extremities as well as she is alert, oriented, and cooperative. DIAGNOSTIC STUDIES/LAB DATA: She has no laboratory values back from the emergency room yet, but of note on a laboratory investigation she had a sodium of 136, potassium of 4.6, chloride 102, total CO2 20, BUN 70 with a creatinine of 3.59. Her creatinine in September of this year was 0.88. We do not have a urinalysis back at present. IMPRESSION AND PLAN: Acute renal failure. The etiology of which is undetermined , but I am highly suspicious that this is on a prerenal state. We will check a fractional excretion of sodium and she will be hydrated. Because of her recent urinary tract infection with intolerance of Keflex, she will probably be treated with intravenous ceftriaxone. Depending upon her response to IV fluids , we may need to embark on a more aggressive investigation. I have discussed the case with Dr. Bolanos and with Dr. Up. [id number]/[facility] #: [id number] AIRAM
[2017-12-09] MEDS ORDERED: Albuterol HFA INHALER* 8 gm MDI INH PRN (14:14)
[2017-12-09] MEDS ORDERED: NS 0.9% 1000 ML* 1,000 ML IV ONE (14:18)
[2017-12-09] MEDS ORDERED: Magnesium Hydroxide LIQ* 30 ML UDC PO PRN (14:22)
[2017-12-09] MEDS: Acetaminophen TAB* 325 MG PO PRN (15:08)
[2017-12-09] MEDS: NS 0.9% 1000 ML* 1,000 ML IV SCH ×2 (15:31→17:04)
[2017-12-09] MEDS: cefTRIAXone(*) 1 GM in NS 0.9% 50 ML* 50 ML IVPB SCH (16:06)
--- NOTE | 2017-12-09 20:31 | HP ---
CC: Dr. Up; Dr. Baldwin * HISTORY AND PHYSICAL: DATE OF ADMISSION: 12/09/17 PRIMARY CARE PROVIDER: Dr. Up. CHIEF COMPLAINT: Generalized weakness, sent to the hospital by her primary care provider. HISTORY OF PRESENT ILLNESS: Paulette Stearns is a 77-year-old female with history of recurrent UTIs, who stated that she had been feeling sick for the past 3 weeks. She stated that she usually has her UTIs when she feels lower abdominal pressure that had been ongoing for the past 3 weeks. Initially, she was placed by her primary care provider on Keflex. After a few days, it was switched to nitrofurantoin since the Keflex apparently was not a good medication for her UTI. She had lab work performed by her primary care provider 3 days ago and was noted to have a creatinine of 3 at this point. She was directed to see Dr. Baldwin in the office, but due to her marked elevation of creatinine, she was sent in the emergency department instead. Dr. Baldwin saw the patient in Nephrology consultation. She is going to be admitted with a diagnosis of acute renal failure. PAST MEDICAL HISTORY: 1. History of recurrent UTIs. 2. History of COPD, not on oxygen. 3. History of right bundle branch block. 4. Anxiety. 5. Gastroesophageal reflux disease. 6. History of DVT. 7. Tobacco abuse. PAST SURGICAL HISTORY: 1. Status post cholecystectomy. 2. History of right TKA. 3. Appendectomy. 4. Ovarian cyst removal and salpingectomy. CURRENT MEDICATIONS: Include: 1. Align 4 mg daily. 2. Imodium on a p.r.n. basis. 3. Diazepam 5 mg every 6 hours p.r.n. 4. Paxil 40 mg daily. 5. Omeprazole 20 mg b.i.d. 6. Albuterol inhaler 1 to 2 puffs every 4 hours p.r.n. 7. Spiriva 1 inhalation daily. 8. Nitrofurantoin 100 mg b.i.d. ALLERGIES: Include PENICILLIN, SULFA, VANCOMYCIN, CODEINE, LEVAQUIN and IV DYE. FAMILY HISTORY: Positive for mother with heart disease and mitral valve repair , brother with lung cancer, another brother with coronary artery disease, and sister with Alzheimer's. SOCIAL HISTORY: The patient has history of smoking 60-pack years and quit 5 years ago. She denies any alcohol or drug use. She lives with her male significant other. Both her daughter, Annelise, and her boyfriend, Kris, are her surrogates. REVIEW OF SYSTEMS: Please see history of present illness. In addition to above mentioned, the patient stated that she has been nauseated today in the morning, but she has not been vomiting. Denies abdominal pain, but complains of suprapubic pressure. Denies any dysuria. Her urine has not been looking strange or smelling funny. The patient denies any shortness of breath, chest pain. She denies leg edema. She may have lost some weight, but she could not further quantify it. Her appetite has been poor. All the remaining 12 systems were reviewed with the patient and were otherwise negative. PHYSICAL EXAMINATION GENERAL: The patient is a very pleasant 77-year-old female, who is in no acute distress. Alert, awake, and oriented x3. VITAL SIGNS: Blood pressure of 120/62, heart rate of 88 and regular, respiratory rate 16, oxygen saturation 95% on room air, temperature of 97.9. HEENT: Head: Atraumatic, normocephalic. Eyes: Pupils are equal, reactive to light and accommodation. Oropharynx clear. Mucosa dry. NECK: Supple. No JVD. No bruits bilaterally. RESPIRATORY: Clear to auscultation bilaterally. CARDIOVASCULAR: Regular rate and rhythm. No murmur. ABDOMEN: Soft. Bowel sounds are present in all 4 quadrants. There is slight tenderness actually in the suprapubic area with no rebound and no guarding. There is no CVA tenderness bilaterally. EXTREMITIES: There is no edema. Pulses are 2+ bilaterally. No clubbing or cyanosis. NEURO EVALUATION: Speech clear. Cranial nerves II through XII are grossly intact. Motor strength is 5/5 bilaterally. PSYCHIATRIC EVALUATION: Oriented x3 with no evidence of anxiety or depression. DIAGNOSTIC STUDIES/LAB DATA: Laboratory data showed white blood cell count of 7.6, hemoglobin was 11.3, hematocrit of 34, and platelets of 278,000. Sodium was 135, potassium 4.6, chloride 105, carbon dioxide 21, BUN 72, creatinine 3.59. Liver function tests were unremarkable. Magnesium level of 1.6. Abdominal and renal ultrasound obtained as an outpatient today, impression: "Cholecystectomy. Minor intrahepatic ductal dilatation. Suggest correlation with liver enzymes. Incidental small right renal cyst." The kidneys were of normal size and echogenicity and there was no hydronephrosis noted. Portable chest x-ray, impression: "Hyperinflated lung chang. Scarring is noted at the left lung base. No definite pneumonia is identified. No consolidation." The patient's urinary testing is pending at the time of dictation. ASSESSMENT AND PLAN: 1. The patient has a history of recent urinary tract infections, presented with acute renal failure. At this point, she appears to be prerenal with markedly elevated BUN. I appreciate Dr. Baldwin's consult and advice. She is going to be placed on intravenous fluids. She may still have an ongoing infection and urinalysis is going to be checked as well as urine cultures. For the time being, she is going to be placed on intravenous ceftriaxone. In the past, her cultures grew E. coli as well as Klebsiella, both of them were sensitive to third-generation cephalosporins. 2. In regards to the patient's gastroesophageal reflux disease. Due to that PPIs may actually worsen renal failure, I will discontinue her omeprazole for the time being. 3. For her history of anxiety and depression, the patient is going to be continued on her Paxil as well as Valium. 4. For DVT prophylaxis, the patient is going to be placed on heparin subcutaneously. 5. The patient's code status is full. Her surrogates are her daughter and her significant other. TIME SPENT: Approximately 70 minutes were spent on admission of this patient, more than half of that time was spent [id number] with the patient during the interview and physical exam. [id number]/[facility] #: [id number] AIRAM
[2017-12-09] MEDS: oxyCODONE/Acetamin 5/325 MG* TAB PO PRN (21:03)
[2017-12-09] MEDS: Docusate CAP* 100 MG PO SCH ×2 (21:03→21:12)
[2017-12-09] MEDS: Diazepam TAB(*) 5 MG PO PRN (21:03)
[2017-12-09] MEDS: Heparin VIAL(*) 5000 UNITS/ML VIAL (FIVE THOUSAND) SUBCUT SCH (21:04)
--- NOTE | 2017-12-10 00:07 | ED ---
Jan Wray Natalie, scribed for Valentine Felix MD on 12/09/17 at 1449 . GI/ HPI - HPI Summary HPI Summary: The pt is a 77 y/o F presenting to the ED c/o fatigue, lethargy, UTI, renal failure per HOMERO Jim starting a few days ago. She was on Keflex for 2 days and Macrobid for 3 days for UTI. In September 2017, the pt's creatinine was 0.8. Now, her creatinine is 3.59. She is in acute renal failure, and has hx of COPD. She had an abd US and CXR this morning. Pt has low abd pain, rated 2/10 in severity.She is referred to the ED for admission and further evaluation. - History of Current Complaint Chief Complaint: EDUrogenitalProblems Time Seen by Provider: 12/09/17 12:29 Stated Complaint: KIDNEY TROUBLE Hx Obtained From: Patient, Other: - HOMERO Jim Onset/Duration: Started Days Ago, Still Present Timing: Constant Severity: Moderate Current Severity: Moderate Pain Intensity: 2 Location of Pain: Suprapubic Associated Signs and Symptoms: Positive: UTI Symptoms, Other: - fatigue, lethargy,new renal failure Aggravating Factor(s): Nothing Alleviating Factor(s): Nothing - Additional Pertinent History Primary Care Physician: CARLOS - Allergy/Home Medications Allergies/Adverse Reactions: Allergies Allergy/AdvReac Type Severity Reaction Status Date / Time codeine Allergy GI Upset Verified 12/09/17 11:23 Iodinated Contrast- Oral and Allergy Anaphylatic Verified 12/09/17 12:08 IV Dye Shock levofloxacin [From Levaquin] Allergy See Comment Verified 12/09/17 11:23 Penicillins Allergy Anaphylatic Verified 12/09/17 11:23 Shock Sulfa (Sulfonamide Allergy Nausea Verified 12/09/17 11:23 Antibiotics) sulfamethoxazole Allergy Itching Verified 12/09/17 12:08 [From Bactrim] trimethoprim [From Bactrim] Allergy Itching Verified 12/09/17 12:08 vancomycin Allergy Itching Verified 12/09/17 11:23 IVP DYE Allergy Severe Anaphylatic Uncoded 06/04/17 20:52 Shock Home Medications: Home Medications Albuterol HFA INHALER* [Ventolin HFA Inhaler*] 1 - 2 puff INH .Q4-6H PRN [History Confirmed 12/09/17] Bifidobacterium Infantis [Align] 4 mg PO DAILY 12/09/17 [History Confirmed 12/09] PMH/Surg Hx/FS Hx/Imm Hx Previously Healthy: No Endocrine/Hematology History: Reports: Hx Anticoagulant Therapy - had DVT in past, takes daily ecotrin since. Denies: Hx Diabetes, Hx Thyroid Disease Cardiovascular History: Reports: Hx Deep Vein Thrombosis, Other Cardiovascular Problems/Disorders - right bundle branch block Denies: Hx Congestive Heart Failure, Hx Hypertension, Hx Pacemaker/ICD Respiratory History: Reports: Hx Chronic Obstructive Pulmonary Disease (COPD), Hx Pneumonia Denies: Hx Asthma GI History: Reports: Hx Gastroesophageal Reflux Disease, Hx Ulcer Sensory History: Reports: Hx Cataracts, Hx Contacts or Glasses Denies: Hx Hearing Aid Opthamlomology History: Reports: Hx Cataracts, Hx Contacts or Glasses Psychiatric History: Reports: Hx Anxiety - Cancer History Hx Chemotherapy: No Hx Radiation Therapy: No - Surgical History Surgery Procedure, Year, and Place: RIGHT KNEE REPLACEMENT, CHOLECYSTECTOMY, APPENDECTOMY Hx Anesthesia Reactions: No Infectious Disease History: Yes Infectious Disease History: Reports: Hx Hepatitis - Hep A Denies: Hx Human Immunodeficiency Virus (HIV), Hx of Known/Suspected MRSA, History Other Infectious Disease, Traveled Outside the [place] in Last 30 Days - Family History Known Family History: Positive: Other - BREAST CANCER, Perforated ulcer - Social History Alcohol Use: None Substance Use Type: Reports: None Hx Tobacco Use: Yes Smoking Status (MU): Former Smoker Type: Cigarettes Review of Systems Positive: Fatigue, Other - lethargy Cardiovascular: Negative Respiratory: Negative Positive: Abdominal Pain - mild suprapuic Positive: see HPI, other - UTI, renal failure Musculoskeletal: Negative Skin: Negative Neurological: Negative Psychological: Normal All Other Systems Reviewed And Are Negative: Yes Physical Exam Triage Information Reviewed: Yes Vital Signs On Initial Exam: Initial Vitals Temp Pulse Resp BP Pulse Ox 97.9 F 88 16 120/62 95 12/09/17 11:21 12/09/17 11:21 12/09/17 11:21 12/09/17 11:21 12/09/17 11:21 Vital Signs Reviewed: Yes Appearance: Positive: Well-Nourished, Ill-Appearing - mild, Pain Distress - minimal Skin: Positive: Warm, Skin Color Reflects Adequate Perfusion, Dry Head/Face: Positive: Normal Head/Face Inspection Eyes: Positive: EOMI, Conjunctiva Clear ENT: Positive: Normal ENT inspection, Hearing grossly normal Neck: Positive: Supple Respiratory/Lung Sounds: Positive: Clear to Auscultation, Breath Sounds Present Cardiovascular: Positive: RRR, Pulses are Symmetrical in both Upper and Lower Extremities Abdomen Description: Positive: No Organomegaly, Soft, Other: - min suprapubic tenderness Bowel Sounds: Positive: Present Musculoskeletal: Positive: Strength/ROM Intact Neurological: Positive: Sensory/Motor Intact, Alert, Oriented to Person Place, Time, Facial Symmetry, Speech Normal Psychiatric: Positive: Normal, Affect/Mood Appropriate Diagnostics - Vital Signs Vital Signs Temp Pulse Resp BP Pulse Ox 12/09/17 11:21 97.9 F 88 16 120/62 95 - Laboratory Result Diagrams: 12/15/17 06:28 12/16/17 06:05 Lab Statement: Any lab studies that have been ordered have been reviewed, and results considered in the medical decision making process. GIGU Course/Dx - Course Course Of Treatment: Pt's medications reviewed this visit. Allergies noted. The pt will be admitted to [facility]. Pt is agreeable with this plan. - Diagnoses Differential Diagnoses - Female: Adverse Drug Effect, Dehydration, Metabolic, Urinary Tract Infection Provider Diagnoses: UTI (urinary tract infection), Acute kidney failure, unspecified Discharge - Sign-Out/Discharge Documenting (check all that apply): Discharge/Admit/Transfer - admit - Discharge Plan Condition: Stable Disposition: ADMITTED TO [facility] - Billing Disposition and Condition Condition: STABLE Disposition: HOSP-[facility] The documentation as recorded by the Jan schafer Natalie accurately reflects the service I personally performed and the decisions made by Isidro lorenzana Barbara J, MD.
[2017-12-10] MEDS: NS 0.9% 1000 ML* 1,000 ML IV SCH (01:20)
[2017-12-10] MEDS: Acetaminophen TAB* 325 MG PO PRN (04:05)
[2017-12-10] MEDS: Heparin VIAL(*) 5000 UNITS/ML VIAL (FIVE THOUSAND) SUBCUT SCH ×3 (05:40→21:10)
[2017-12-10 06:12] LABS: EGFR Non-African American 13.7 (>60)
[2017-12-10 07:27] LABS: ABS Basophils 0.1 10^3/ul (0-0.2); ABS Eosinophils 0.2 10^3/ul (0-0.6); ABS Lymphocytes 1.1 10^3/ul (1.0-4.8); ABS Monocytes 0.6 10^3/ul (0-0.8); ABS Neutrophils 4.8 10^3/ul (1.5-7.7); ABS Nucleated RBC 0 10^3/ul; Eosinophil % 3.4 % (0-6); Hematocrit 29 % (35-47); Hemoglobin 9.5 g/dl (12.0-16.0); Lymphocyte % 16.6 % (25-47); Mean Corpuscular HGB Conc 32 g/dl (31-36); Mean Corpuscular Hemoglobin 30 pg (27-31); Mean Corpuscular Volume 94 fL (80-97); Mean Platelet Volume 6.9 um3 (7.4-10.4); Nucleated Red Blood Cells % 0; Platelet Count 221 10^3/ul (150-450); Red Blood Count 3.13 10^6/ul (4.0-5.4); Red Cell Distribution Width 13 % (10.5-15); White Blood Count 6.9 10^3/ul (3.5-10.8)
[2017-12-10] MEDS ORDERED: Magnesium Sulfate 2 GM IV* 2 GM/50 ML BAG IVPB ONE (07:34)
[2017-12-10] MEDS: PARoxetine HCL TAB* 40 MG PO SCH (08:10)
[2017-12-10] MEDS: Docusate CAP* 100 MG PO SCH (08:10)
[2017-12-10] MEDS: Tiotropium CAP.INH* CAP.INH/18 MCG (USE ORDER SET !) INH SCH (08:45)
[2017-12-10] MEDS ORDERED: Spiriva Inhaler DEVICE* 1 EACH DEVICE INH ONE (09:00)
[2017-12-10] MEDS: Ondansetron ODT TAB* 4 MG SL PRN (09:51)
[2017-12-10 10:33] LABS: Urine Appearance Clear; Urine Blood 1+ (Negative); Urine Color Straw; Urine Ketones Negative (Negative); Urine Protein Negative (Negative); Urine Specific Gravity 1.009 (1.010-1.030); Urine Urobilinogen Negative (Negative)
[2017-12-10] MEDS ORDERED: Loperamide CAP* 2 MG PO SCH ×2 (11:00→17:00)
--- NOTE | 2017-12-10 12:55 | PN ---
Subjective Date of Service: 12/10/17 Interval History: Pt c/o her abdomen being tender for several days, " maybe weeks". Very poor historian. Takes Imodium for chronic diarrhea, but usually has a BM every other day. Per RN pt had 2 loose BM's this aM. Yesterday she requested oxygen that Dr. Mello prescribed for her to use at night, today c/o feeling poor on 02 with dry mouth and tongue and requests it to be discontinued. Pt associates her dehydration with using 02 and poor appetite due to 02 and dry mouth Objective Active Medications: Acetaminophen (Tylenol Tab*) 650 mg PO Q4H PRN PRN Reason: FEVER/PAIN Last Admin: 12/10/17 04:05 Dose: 650 mg Al Hydrox/Mg Hydrox/Simethicone (Maalox Plus*) 30 ml PO Q6H PRN PRN Reason: INDIGESTION Albuterol (Ventolin Hfa Inhaler*) 2 puff INH Q4H PRN PRN Reason: SHORTNESS OF BREATH Diazepam (Valium Tab(*)) 5 mg PO QID PRN PRN Reason: ANXIETY Last Admin: 12/09/17 21:03 Dose: 5 mg Heparin Sodium (Porcine) (Heparin Vial(*)) 5,000 units SUBCUT Q8HR [facility] Last Admin: 12/10/17 05:40 Dose: 5,000 units Ceftriaxone Sodium 1 gm/ (Sodium Chloride) 50 mls @ 200 mls/hr IVPB Q24H [facility] Last Admin: 12/09/17 16:06 Dose: 200 mls/hr Lactated Ringer's (Lactated Ringers 1000 Ml Bag*) 1,000 mls @ 125 mls/hr IV PER RATE [facility] Last Admin: 12/10/17 08:08 Dose: 125 mls/hr Loperamide HCl (Imodium Cap*) 2 mg PO QPM@1700 CARLYN Magnesium Hydroxide (Milk Of Magnesia Liq*) 30 ml PO Q4H PRN PRN Reason: CONSTIPATION Ondansetron HCl (Zofran Odt Tab*) 4 mg SL Q6H PRN PRN Reason: NAUSEA/VOMITING Last Admin: 12/10/17 09:51 Dose: 4 mg Oxycodone/Acetaminophen (Percocet 5/325 Tab*) 1 tab PO Q6H PRN PRN Reason: PAIN Last Admin: 12/09/17 21:03 Dose: 1 tab Paroxetine HCl (Paxil Tab*) 40 mg PO DAILY [facility] Last Admin: 12/10/17 08:10 Dose: 40 mg Tiotropium [place] (Spiriva Cap.Inh*) 1 cap INH DAILY [facility] Last Admin: 12/10/17 08:45 Dose: 1 cap Vital Signs - 8 hr 12/10/17 12/10/17 12/10/17 07:44 08:00 08:46 Temperature 98.1 F Pulse Rate 63 76 Respiratory 18 14 16 Rate Blood Pressure 100/47 (mmHg) O2 Sat by Pulse 98 96 Oximetry 12/10/17 12/10/17 12/10/17 09:13 11:23 12:11 Temperature 97.7 F Pulse Rate 75 Respiratory 16 18 16 Rate Blood Pressure 98/52 (mmHg) O2 Sat by Pulse 95 Oximetry Oxygen Devices in Use Now: None Appearance: 77 yo f in nAD, aAOx3 Eyes: No Scleral Icterus, PERRLA Ears/Nose/Mouth/Throat: NL Teeth, Lips, Gums, Mucous Membranes Moist Neck: NL Appearance and Movements; NL JVP, Trachea Midline Respiratory: Symmetrical Chest Expansion and Respiratory Effort, Clear to Auscultation Cardiovascular: NL Sounds; No Murmurs; No JVD, RRR Abdominal: - - tender in LLQ, no rebound, no guarding, BS+ Lymphatic: No Cervical Adenopathy Extremities: No Edema, No Clubbing, Cyanosis Skin: No Rash or Ulcers, No Nodules or Sclerosis Neurological: Alert and Oriented x 3, NL Muscle Strength and Tone Result Diagrams: 12/10/17 05:39 12/10/17 05:39 Assess/Plan/Problems-Billing Assessment: 77 yo F with h/o HTN, recurrent UTI's, DVT, COPD (on 02 at night) presents with CHRISTINA - Patient Problems (1) Acute renal failure Comment: FeNa at 1,7 indicating ATN-suspect dehydration as the cause. Appreciate Dr. Baldwin's consult cont supportive tx with IVF. Renal US on 12/09/17 shows no gross abnormalities (2) Anxiety Comment: Continue Diazepam. (3) COPD (chronic obstructive pulmonary disease) Comment: not in exacerbation Pt uses 02 at night, but thinks that most of her problems of poor appetite are related to 02 use at night. Will d/c it, cont vitals as ordered (4) DVT (deep venous thrombosis) Comment: in the distant past (5) UTI (urinary tract infection) Comment: UA questionable, will await cx and tx with Ceftriaxone (6) Abdominal tenderness of left lower quadrant Comment: ? diverticulitis Pt is allergic to PO and IV contrast. Will order plain CT abd. (7) Chronic diarrhea Comment: will lower imodium to once a day and monitor (8) DVT prophylaxis Comment: HSQ Status and Disposition: inpatient
--- NOTE | 2017-12-10 15:37 | RAD ---
Indication: Diverticulitis. CT of the abdomen and pelvis was performed without oral or IV contrast administration. Coronal and sagittal reconstructed images were obtained. Comparison is made with previous exam dated June 03, 2017. Lung bases demonstrate emphysematous changes. Heart demonstrates no pericardial effusion. Liver is normal in size. No focal lesions or intrahepatic duct dilatation is noted. The patient is status post cholecystectomy. Spleen is normal in size. Pancreas demonstrates no mass effect or ductal dictation. No adrenal lesions are noted. The kidneys demonstrate no hydronephrosis. Atherosclerotic aorta is noted. No dilated loops of bowel are noted. The colon is filled with stool. Aorta and inferior vena cava are unremarkable. No dilated small bowel are noted. CT of the pelvis demonstrates no retroperitoneal or pelvic lymphadenopathy. Urinary bladder is unremarkable. The colon is filled with stool. No hernias are noted. No definite evidence of diverticulitis is noted. Atrophic uterus is noted. No adnexal masses are noted. IMPRESSION: No obstructive uropathy is noted. Residual stool is noted in the sigmoid colon with scattered diverticula. No definite evidence of diverticulitis is noted. Patient is status post cholecystectomy.
[2017-12-10] MEDS: cefTRIAXone(*) 1 GM in NS 0.9% 50 ML* 50 ML IVPB SCH (15:42)
[2017-12-10] MEDS: oxyCODONE/Acetamin 5/325 MG* TAB PO PRN (16:31)
[2017-12-11] MEDS: Heparin VIAL(*) 5000 UNITS/ML VIAL (FIVE THOUSAND) SUBCUT SCH ×3 (05:48→21:39)
[2017-12-11 06:56] LABS: ABS Basophils 0 10^3/ul (0-0.2); ABS Eosinophils 0.2 10^3/ul (0-0.6); ABS Lymphocytes 1.2 10^3/ul (1.0-4.8); ABS Monocytes 0.5 10^3/ul (0-0.8); ABS Neutrophils 4.5 10^3/ul (1.5-7.7); ABS Nucleated RBC 0 10^3/ul; Eosinophil % 2.8 % (0-6); Hematocrit 27 % (35-47); Hemoglobin 9.1 g/dl (12.0-16.0); Lymphocyte % 18.6 % (25-47); Mean Corpuscular HGB Conc 34 g/dl (31-36); Mean Corpuscular Hemoglobin 31 pg (27-31); Mean Corpuscular Volume 94 fL (80-97); Mean Platelet Volume 6.6 um3 (7.4-10.4); Nucleated Red Blood Cells % 0; Platelet Count 194 10^3/ul (150-450); Red Blood Count 2.92 10^6/ul (4.0-5.4); Red Cell Distribution Width 13 % (10.5-15); White Blood Count 6.4 10^3/ul (3.5-10.8)
[2017-12-11 07:15] LABS: EGFR Non-African American 15.8 (>60)
[2017-12-11] MEDS: oxyCODONE/Acetamin 5/325 MG* TAB PO PRN ×2 (07:30→21:26)
[2017-12-11] MEDS: PARoxetine HCL TAB* 40 MG PO SCH (07:30)
[2017-12-11] MEDS: Ondansetron ODT TAB* 4 MG SL PRN ×2 (07:54→14:06)
[2017-12-11] MEDS: Tiotropium CAP.INH* CAP.INH/18 MCG (USE ORDER SET !) INH SCH (08:50)
[2017-12-11] MEDS: Diazepam TAB(*) 5 MG PO PRN ×2 (09:12→21:27)
[2017-12-11] MEDS: Acetaminophen TAB* 325 MG PO PRN (10:40)
[2017-12-11] MEDS ORDERED: Loperamide CAP* 2 MG PO PRN (14:15)
--- NOTE | 2017-12-11 14:15 | PN ---
Subjective Date of Service: 12/11/17 Interval History: Pt c/o a sensation of "something is stuck in her throat". Vomited this AM. LLQ adm pain resolved. no BM today Objective Active Medications: Acetaminophen (Tylenol Tab*) 650 mg PO Q4H PRN PRN Reason: FEVER/PAIN Last Admin: 12/11/17 10:40 Dose: 650 mg Al Hydrox/Mg Hydrox/Simethicone (Maalox Plus*) 30 ml PO Q6H PRN PRN Reason: INDIGESTION Albuterol (Ventolin Hfa Inhaler*) 2 puff INH Q4H PRN PRN Reason: SHORTNESS OF BREATH Diazepam (Valium Tab(*)) 5 mg PO QID PRN PRN Reason: ANXIETY Last Admin: 12/11/17 09:12 Dose: 5 mg Heparin Sodium (Porcine) (Heparin Vial(*)) 5,000 units SUBCUT Q8HR [facility] Last Admin: 12/11/17 14:06 Dose: 5,000 units Lactated Ringer's (Lactated Ringers 1000 Ml Bag*) 1,000 mls @ 75 mls/hr IV PER RATE [facility] Last Admin: 12/11/17 13:58 Dose: 75 mls/hr Loperamide HCl (Imodium Cap*) 2 mg PO QPM@1700 [facility] Last Admin: 12/10/17 15:42 Dose: 2 mg Magnesium Hydroxide (Milk Of Magnesia Liq*) 30 ml PO Q4H PRN PRN Reason: CONSTIPATION Ondansetron HCl (Zofran Odt Tab*) 4 mg SL Q6H PRN PRN Reason: NAUSEA/VOMITING Last Admin: 12/11/17 14:06 Dose: 4 mg Oxycodone/Acetaminophen (Percocet 5/325 Tab*) 1 tab PO Q6H PRN PRN Reason: PAIN Last Admin: 12/11/17 07:30 Dose: 1 tab Paroxetine HCl (Paxil Tab*) 40 mg PO DAILY [facility] Last Admin: 12/11/17 07:30 Dose: 40 mg Tiotropium [place] (Spiriva Cap.Inh*) 1 cap INH DAILY [facility] Last Admin: 12/11/17 08:50 Dose: 1 cap Vital Signs - 8 hr 12/11/17 12/11/17 12/11/17 07:16 07:30 07:35 Temperature 97.9 F Pulse Rate 65 Respiratory 18 16 16 Rate Blood Pressure 108/44 (mmHg) O2 Sat by Pulse 96 Oximetry 12/11/17 12/11/17 12/11/17 08:51 09:12 10:40 Temperature Pulse Rate 76 Respiratory 17 16 16 Rate Blood Pressure (mmHg) O2 Sat by Pulse 96 Oximetry 12/11/17 12/11/17 11:18 11:43 Temperature 98.0 F Pulse Rate 68 Respiratory 16 16 Rate Blood Pressure 97/47 (mmHg) O2 Sat by Pulse 91 Oximetry Appearance: 77 yo f in nAD, aAOx3 Eyes: No Scleral Icterus, PERRLA Ears/Nose/Mouth/Throat: NL Teeth, Lips, Gums, Mucous Membranes Moist Neck: NL Appearance and Movements; NL JVP, Trachea Midline Respiratory: Symmetrical Chest Expansion and Respiratory Effort, - - distant breath sounds b/l Cardiovascular: NL Sounds; No Murmurs; No JVD, RRR Abdominal: NL Sounds; No Tenderness; No Distention, No Hepatosplenomegaly Lymphatic: No Cervical Adenopathy Extremities: No Edema, No Clubbing, Cyanosis Skin: No Nodules or Sclerosis Result Diagrams: 12/11/17 06:32 12/11/17 06:32 Assess/Plan/Problems-Billing Assessment: 77 yo F with h/o HTN, recurrent UTI's, DVT, COPD (on 02 at night) presents with CHRISTINA - Patient Problems (1) Odynophagia Comment: Pt c/o dry mouth, a sensation of food stuck in the throat, and N/V H/o pill espohagitis in 06/2017. will ask GI to see. PPI was stopped due to acute renal failure. Will restart it IV (2) Acute renal failure Comment: FeNa at 1,7 indicating ATN-suspect dehydration as the cause. Appreciate Dr. Baldwin's consult cont supportive tx with IVF. Renal US on 12/09/17 shows no gross abnormalities (3) Anxiety Comment: Continue Diazepam. (4) COPD (chronic obstructive pulmonary disease) Comment: not in exacerbation Pt uses 02 at night, but thinks that most of her problems of poor appetite are related to 02 use at night. (5) DVT (deep venous thrombosis) Comment: in the distant past (6) UTI (urinary tract infection) Comment: UA questionable, so far now evidence of infection. D/c Ceftraxone (7) Abdominal tenderness of left lower quadrant Comment: pain appears to have resolved Pt is allergic to PO and IV contrast. CT abd on 12/10/17 neg. (8) Chronic diarrhea Comment: Lowered imodium to once a day and monitor. Pt had been taking a total of 3 tabs/day for several years now. (9) ESR raised Comment: so far no evidence of acute infection. Could it be rased due to renal failure? will check AMANDO, ds DNA, ANCA panel (10) Anemia Comment: appears to be due to dilution. no evidence of bleeding (11) DVT prophylaxis Comment: HSQ Status and Disposition: inpatient
[2017-12-11] MEDS: Pantoprazole IV* 40 MG IV SCH (15:12)
[2017-12-11] MEDS: Morphine VIAL* 4 MG/ML VIAL (1 ml vial) IV PRN ×2 (15:12→19:38)
[2017-12-11] MEDS ORDERED: Polyethylene Glycol 3350* 17 GM PACKET PO PRN (21:19)
--- NOTE | 2017-12-12 01:52 | CONS ---
CC: Dr. Bettye Up GASTROENTEROLOGY CONSULTATION: DATE OF CONSULT: 12/11/17 REFERRING PHYSICIAN: Bettye Up MD HISTORY OF PRESENT ILLNESS: Thank you for asking me to see Ms. Stearns. As you know, she is a ple asant 77-year-old female, who was admitted on 12/09/17 with weakness and some lower abdominal discomf ort. The patient apparently does have a history of recurrent UTIs. She also presented with acute re nal failure with a BUN of 72, creatinine of 3.59. The patient has been seen by Nephrology. Her BUN and creatinine are down to 42 and 2.8. The patient does have a history of night oxygen- dependent CO PD and is on Spiriva at home. I am being asked to see the patient because of complaints of dysphagia , mouth and throat burning when swallowing. She states these issues began with the use of home oxyge n. The patient has had some issues with nausea and vomiting and has been placed on a full liquid t here. Of note, she was recently admitted in June of 2017 for nausea and vomiting. She did und ergo an upper endoscopy, which did reveal pill esophagitis with an ulceration noted at 36 cm from the incisors. She has been on omeprazole 20 mg b.i.d. until her admission here. The patient states her lower abdominal pain has resolved. She did undergo an abdominopelvic CAT scan, which revealed no ev idence of diverticulitis, status post cholecystectomy and no obstructive uropathy. The patient does have a normocytic normochromic anemia with hematocrit of 27, MCV of 94, MCH of 31. Hematocrit back i june was 34. She did undergo prior colonoscopy in May of 2015, which was for a family hist ory of colon cancer and again upper endoscopy in June of 2017 revealing pill esophagitis with ulc er in the distal esophagus. The patient denies any hematemesis or rectal bleeding. PAST MEDICAL HISTORY: Significant for night oxygen-dependent COPD, acid reflux disease, DVT, recurre nt UTIs, status post cholecystectomy, appendectomy, ovarian cyst resection. MEDICATIONS: In the hospital include: 1. Tylenol. 2. Albuterol. 3. Valium. 4. Morphine. 5. Zofran. 6. Percocet. 7. Pantoprazole 40 IV daily. 8. Paxil. 9. Spiriva. ALLERGIES: To CODEINE, IV CONTRAST, LEVOFLOXACIN, PENICILLIN, SULFA, VANCOMYCIN. FAMILY HISTORY: Significant for heart disease. SOCIAL HISTORY: No alcohol abuse. Prior tobacco use, quit several years ago. She lives at home. REVIEW OF SYSTEMS: Ten-point review of systems is performed and is otherwise negative. PHYSICAL EXAM: Ms. Stearns is a 77-year-old female. Temperature is 98, heart rate of 68, O2 sat 9 1% on room air, blood pressure 97/47. HEENT Exam: There is no scleral icterus. Heart is regular ra te and rhythm. Lungs have decreased breath sounds. Abdomen is soft. There is no tenderness. Bowel sounds are present. There is no distention. Skin is pale and dry. Neuro exam is grossly intact. Al ert and oriented x3. DIAGNOSTIC STUDIES/LAB DATA: Pertinent laboratory studies as described above. IMPRESSION: Ms. Stearns is having some issues with nausea and vomiting as well as odynophagia and dysphagia. She is on Spiriva. She has a history of pill esophagitis. This may represent Zehra es ophagitis or possible acid reflux induced ulceration, stricture or recurrent pill esophagitis. RECOMMENDATIONS: Continue IV Protonix 40 mg daily. Continue per Nephrology recommendations for brielle l failure. We will plan on upper endoscopy tomorrow. The patient understands and is in agreement. [id number]/[facility] #: [id number]
[2017-12-12] MEDS: Heparin VIAL(*) 5000 UNITS/ML VIAL (FIVE THOUSAND) SUBCUT SCH ×3 (05:40→21:55)
[2017-12-12 07:41] LABS: Hematocrit 27 % (35-47); Mean Corpuscular HGB Conc 34 g/dl (31-36); Mean Corpuscular Hemoglobin 32 pg (27-31); Mean Corpuscular Volume 93 fL (80-97); Mean Platelet Volume 6.5 um3 (7.4-10.4); Platelet Count 182 10^3/ul (150-450); Red Blood Count 2.87 10^6/ul (4.0-5.4); Red Cell Distribution Width 14 % (10.5-15)
[2017-12-12 07:58] LABS: EGFR Non-African American 16.7 (>60)
[2017-12-12] MEDS: Tiotropium CAP.INH* CAP.INH/18 MCG (USE ORDER SET !) INH SCH (08:07)
[2017-12-12] MEDS: Morphine VIAL* 4 MG/ML VIAL (1 ml vial) IV PRN (09:52)
[2017-12-12] MEDS: PARoxetine HCL TAB* 40 MG PO SCH (09:52)
[2017-12-12] MEDS: Diazepam TAB(*) 5 MG PO PRN ×2 (09:52→21:54)
[2017-12-12] MEDS ORDERED: Midazolam* 1 MG/ML 10 ML VIAL (10 MG) ONE (11:57)
[2017-12-12] MEDS ORDERED: fentaNYL* 50 MCG/ML 2 ML VIAL (100 MCG VIAL) ONE (11:57)
[2017-12-12] MEDS: Pantoprazole IV* 40 MG IV SCH (14:52)
--- NOTE | 2017-12-12 18:13 | PN ---
Subjective Date of Service: 12/12/17 Interval History: Pt was seen post EGD, still feels "loopy", denies abd pain Objective Active Medications: Acetaminophen (Tylenol Tab*) 650 mg PO Q4H PRN PRN Reason: FEVER/PAIN Last Admin: 12/11/17 10:40 Dose: 650 mg Al Hydrox/Mg Hydrox/Simethicone (Maalox Plus*) 30 ml PO Q6H PRN PRN Reason: INDIGESTION Albuterol (Ventolin Hfa Inhaler*) 2 puff INH Q4H PRN PRN Reason: SHORTNESS OF BREATH Diazepam (Valium Tab(*)) 5 mg PO QID PRN PRN Reason: ANXIETY Last Admin: 12/12/17 09:52 Dose: 5 mg Heparin Sodium (Porcine) (Heparin Vial(*)) 5,000 units SUBCUT Q8HR [facility] Last Admin: 12/12/17 14:52 Dose: 5,000 units Lactated Ringer's (Lactated Ringers 1000 Ml Bag*) 1,000 mls @ 75 mls/hr IV PER RATE [facility] Last Admin: 12/12/17 14:52 Dose: 75 mls/hr Magnesium Hydroxide (Milk Of Magnesia Liq*) 30 ml PO Q4H PRN PRN Reason: CONSTIPATION Morphine Sulfate (Morphine Vial*) 1 mg IV Q4H PRN PRN Reason: PAIN Last Admin: 12/12/17 09:52 Dose: 1 mg Ondansetron HCl (Zofran Odt Tab*) 4 mg SL Q6H PRN PRN Reason: NAUSEA/VOMITING Last Admin: 12/11/17 14:06 Dose: 4 mg Oxycodone/Acetaminophen (Percocet 5/325 Tab*) 1 tab PO Q6H PRN PRN Reason: PAIN Last Admin: 12/11/17 21:26 Dose: 1 tab Pantoprazole Sodium (Protonix Iv*) 40 mg IV Q24H [facility] Last Admin: 12/12/17 14:52 Dose: 40 mg Paroxetine HCl (Paxil Tab*) 40 mg PO DAILY [facility] Last Admin: 12/12/17 09:52 Dose: 40 mg Polyethylene Glycol/Electrolytes (Miralax*) 17 gm PO DAILY PRN PRN Reason: CONSTIPATION Last Admin: 12/11/17 21:35 Dose: 17 gm Tiotropium [place] (Spiriva Cap.Inh*) 1 cap INH DAILY [facility] Last Admin: 12/12/17 08:07 Dose: 1 cap Vital Signs - 8 hr 12/12/17 12/12/17 12/12/17 11:18 11:29 12:29 Temperature 98.5 F Pulse Rate 77 Respiratory 16 15 18 Rate Blood Pressure 121/58 (mmHg) O2 Sat by Pulse 92 Oximetry 12/12/17 16:48 Temperature 98.4 F Pulse Rate 78 Respiratory 18 Rate Blood Pressure 140/71 (mmHg) O2 Sat by Pulse 96 Oximetry Oxygen Devices in Use Now: None Appearance: 77 yo f in nAD, AAOx3 Eyes: No Scleral Icterus, PERRLA Ears/Nose/Mouth/Throat: NL Teeth, Lips, Gums, Mucous Membranes Moist Neck: NL Appearance and Movements; NL JVP, Trachea Midline Respiratory: Symmetrical Chest Expansion and Respiratory Effort, Clear to Auscultation Cardiovascular: NL Sounds; No Murmurs; No JVD, RRR Abdominal: NL Sounds; No Tenderness; No Distention, No Hepatosplenomegaly Lymphatic: No Cervical Adenopathy Extremities: No Edema Skin: No Rash or Ulcers, No Nodules or Sclerosis Neurological: Alert and Oriented x 3, NL Muscle Strength and Tone Result Diagrams: 12/12/17 07:26 12/12/17 07:26 Microbiology and Other Data: Microbiology 12/09/17 17:35 Urine Culture - Final Urine Corynebacterium Species Assess/Plan/Problems-Billing Assessment: 77 yo F with h/o HTN, recurrent UTI's, DVT, COPD (on 02 at night) presents with CHRISTINA - Patient Problems (1) Odynophagia Comment: Pt c/o dry mouth, a sensation of food stuck in the throat, and N/V H/o pill esophagitis in 06/2017. Today's EGD showed gastritis and esophageal ring that was dilated Will cont Protonix IV an full liquid diet (2) Acute renal failure Comment: FeNa at 1,7 indicating ATN-suspect dehydration as the cause. Appreciate Dr. Baldwin's consult cont supportive tx with IVF. Renal US on 12/09/17 shows no gross abnormalities (3) Anxiety Comment: Continue Diazepam. (4) COPD (chronic obstructive pulmonary disease) Comment: not in exacerbation Pt uses 02 at night, but thinks that most of her problems of poor appetite are related to 02 use at night. (5) DVT (deep venous thrombosis) Comment: in the distant past (6) UTI (urinary tract infection) Comment: UA questionable, so far now evidence of infection. D/c Ceftraxone (7) Abdominal tenderness of left lower quadrant Comment: pain appears to have resolved Pt is allergic to PO and IV contrast. CT abd on 12/10/17 neg. (8) Chronic diarrhea Comment: d/c'd imodium, pt c/o constipation (9) ESR raised Comment: so far no evidence of acute infection. Could it be rased due to renal failure? AMADNO, ds DNA, ANCA panel pending (10) Anemia Comment: appears to be due to dilution. no evidence of bleeding (11) DVT prophylaxis Comment: HSQ Status and Disposition: inpatient
[2017-12-12] MEDS: Acetaminophen TAB* 325 MG PO PRN (21:54)
[2017-12-13] MEDS: oxyCODONE/Acetamin 5/325 MG* TAB PO PRN ×4 (01:38→21:16)
[2017-12-13 05:00] LABS: ABS Basophils 0.1 10^3/ul (0-0.2); ABS Eosinophils 0.3 10^3/ul (0-0.6); ABS Lymphocytes 1.6 10^3/ul (1.0-4.8); ABS Monocytes 0.6 10^3/ul (0-0.8); ABS Nucleated RBC 0 10^3/ul; Eosinophil % 3.6 % (0-6); Hematocrit 28 % (35-47); Hemoglobin 9.5 g/dl (12.0-16.0); Lymphocyte % 21.7 % (25-47); Mean Corpuscular HGB Conc 33 g/dl (31-36); Mean Corpuscular Hemoglobin 31 pg (27-31); Mean Corpuscular Volume 93 fL (80-97); Mean Platelet Volume 6.4 um3 (7.4-10.4); Nucleated Red Blood Cells % 0; Platelet Count 190 10^3/ul (150-450); Red Blood Count 3.05 10^6/ul (4.0-5.4); Red Cell Distribution Width 13 % (10.5-15); White Blood Count 7.5 10^3/ul (3.5-10.8)
[2017-12-13] MEDS: Heparin VIAL(*) 5000 UNITS/ML VIAL (FIVE THOUSAND) SUBCUT SCH ×3 (05:11→20:54)
[2017-12-13 05:15] LABS: EGFR Non-African American 19.1 (>60)
[2017-12-13] MEDS ORDERED: Magnesium Sulfate 2 GM IV* 2 GM/50 ML BAG IVPB ONE (05:32)
--- NOTE | 2017-12-13 05:33 | PRO ---
CC: Bettye Up M.D. GASTROENTEROLOGY PROCEDURE NOTE: DATE OF PROCEDURE: 12/12/17 REFERRING PHYSICIAN: Bettye Up M.D. PROCEDURE PERFORMED: EGD with biopsies. PREOPERATIVE DIAGNOSES: This 77-year-old female admitted on 12/09/17 with lower abdominal discomfort , nausea and vomiting. She presented with acute renal failure due to dehydration. The patient descri bes mouth soreness as well as some dysphagia, nausea and vomiting. Prior endoscopy in June did reveal pill esophagitis with ulceration in the distal esophagus. The patient has been on omep razole 20 mg b.i.d. at home and does have a normocytic normochromic anemia. POSTOPERATIVE DIAGNOSES: 1. Distal esophageal ring dilated with the endoscope resulting in small mucosal tear. 2. Proximal erosive gastritis, biopsies obtained of the antrum for CLOtest to rule out H. pylori. 3. Normal duodenal bulb and descending duodenum. PROCEDURE MEDICATIONS: 1. Versed 4 mg IV. 2. Fentanyl 50 mcg IV. INSTRUMENT: GF-190 Olympus high definition gastroscope. PROCEDURE: Informed consent was obtained prior to performing this procedure. The instrument was int roduced into the mouth and passed to the cervical esophagus under direct visualization. The instrume nt was then advanced down the esophagus. In the distal esophagus, there was an esophageal ring. Thi s was dilated with the endoscope. No significant inflammation was noted. There was no evidence of u lceration, small mucosal tear did result. The scope was passed into the gastric cardia fundus body a nd antrum. There was evidence of proximal erosive gastritis below the GE junction. There was also ev idence of antral gastritis without erosion. Biopsies were obtained for CLOtest for H. pylori. The sc ope was then passed through the pylorus and duodenal bulb and descending duodenum, both of which were normal. The cardia was visualized in a retroflexed manner and erosive gastritis was again noted. I nstrument was withdrawn from the patient, the patient tolerated the procedure well and there were no complications. RECOMMENDATIONS: The patient should continue IV pantoprazole or Protonix 40 mg daily while in the spital. I will commence her on a full liquid diet today given the small mucosal tear in the esophagu s and may be advanced to regular diet as tolerated tomorrow. I suspect her nausea is a result of her ongoing significant medical issues, urinary tract infection and possibly secondary to narcotics. Cer tainly, the erosive gastritis may have a contributing factor to this. I will notify the patient of p athology results in 1 week. [id number]/[facility] #: [id number]
[2017-12-13] MEDS ORDERED: Magnesium Sulfate IV* 3 GM in NS 0.9% 100 ML* 100 ML IVPB ONE (07:39)
[2017-12-13] MEDS: Tiotropium CAP.INH* CAP.INH/18 MCG (USE ORDER SET !) INH SCH (08:00)
[2017-12-13] MEDS: Magnesium Oxide TAB* 400 MG PO SCH (09:09)
[2017-12-13] MEDS: PARoxetine HCL TAB* 40 MG PO SCH (09:09)
[2017-12-13] MEDS: Ondansetron ODT TAB* 4 MG SL PRN ×2 (13:54→21:14)
[2017-12-13] MEDS: Pantoprazole IV* 40 MG IV SCH (13:55)
--- NOTE | 2017-12-13 15:40 | PN ---
Subjective Date of Service: 12/13/17 Interval History: Pt is anxious and with labile mood.But when asked about depression , he denies, stating that she "always is like that". Requested Imodium because she thought she would have a AM. she had 3 "small ones "today. Yesterday she requested Miralax for constipation. Pt has had problem with urinary and bowel incontinence and has uterine prolapse. Gets anxious about going out and takes Imodium prior leaving the house. She "wants to " have a BM every other day in fear of "accidents". Today she denies abd pain, has not eaten lunch yet. Her breakfast was liquid. Objective Active Medications: Acetaminophen (Tylenol Tab*) 650 mg PO Q4H PRN PRN Reason: FEVER/PAIN Last Admin: 12/12/17 21:54 Dose: 650 mg Al Hydrox/Mg Hydrox/Simethicone (Maalox Plus*) 30 ml PO Q6H PRN PRN Reason: INDIGESTION Albuterol (Ventolin Hfa Inhaler*) 2 puff INH Q4H PRN PRN Reason: SHORTNESS OF BREATH Diazepam (Valium Tab(*)) 5 mg PO QID PRN PRN Reason: ANXIETY Last Admin: 12/12/17 21:54 Dose: 5 mg Heparin Sodium (Porcine) (Heparin Vial(*)) 5,000 units SUBCUT Q8HR [facility] Last Admin: 12/13/17 12:59 Dose: 5,000 units Lactated Ringer's (Lactated Ringers 1000 Ml Bag*) 1,000 mls @ 75 mls/hr IV PER RATE [facility] Last Admin: 12/13/17 04:17 Dose: 75 mls/hr Magnesium Hydroxide (Milk Of Magnesia Liq*) 30 ml PO Q4H PRN PRN Reason: CONSTIPATION Magnesium Oxide (Magox 400 Tab*) 400 mg PO DAILY [facility] Last Admin: 12/13/17 09:09 Dose: 400 mg Morphine Sulfate (Morphine Vial*) 1 mg IV Q4H PRN PRN Reason: PAIN Last Admin: 12/12/17 09:52 Dose: 1 mg Ondansetron HCl (Zofran Odt Tab*) 4 mg SL Q6H PRN PRN Reason: NAUSEA/VOMITING Last Admin: 12/13/17 13:54 Dose: 4 mg Oxycodone/Acetaminophen (Percocet 5/325 Tab*) 1 tab PO Q6H PRN PRN Reason: PAIN Last Admin: 12/13/17 12:55 Dose: 1 tab Pantoprazole Sodium (Protonix Iv*) 40 mg IV Q24H [facility] Last Admin: 12/13/17 13:55 Dose: 40 mg Paroxetine HCl (Paxil Tab*) 40 mg PO DAILY [facility] Last Admin: 12/13/17 09:09 Dose: 40 mg Polyethylene Glycol/Electrolytes (Miralax*) 17 gm PO DAILY PRN PRN Reason: CONSTIPATION Last Admin: 12/11/17 21:35 Dose: 17 gm Tiotropium [place] (Spiriva Cap.Inh*) 1 cap INH DAILY [facility] Last Admin: 12/13/17 08:00 Dose: 1 cap Vital Signs - 8 hr 12/13/17 12/13/17 12/13/17 08:00 11:11 12:55 Temperature 97.8 F Pulse Rate 68 85 Respiratory 17 17 16 Rate Blood Pressure 142/68 (mmHg) O2 Sat by Pulse 92 98 Oximetry 12/13/17 14:25 Temperature Pulse Rate Respiratory 16 Rate Blood Pressure (mmHg) O2 Sat by Pulse Oximetry Oxygen Devices in Use Now: None Appearance: 77 yo f in nAD, aAOx3, poor historian Eyes: No Scleral Icterus, PERRLA Ears/Nose/Mouth/Throat: NL Teeth, Lips, Gums, Mucous Membranes Moist Neck: NL Appearance and Movements; NL JVP, Trachea Midline Respiratory: Symmetrical Chest Expansion and Respiratory Effort Cardiovascular: NL Sounds; No Murmurs; No JVD, RRR Abdominal: NL Sounds; No Tenderness; No Distention Lymphatic: No Cervical Adenopathy Extremities: No Edema, No Clubbing, Cyanosis Skin: No Rash or Ulcers, No Nodules or Sclerosis Neurological: Alert and Oriented x 3, NL Muscle Strength and Tone Result Diagrams: 12/13/17 04:44 12/13/17 04:44 Microbiology and Other Data: Microbiology 12/09/17 17:35 Urine Culture - Final Urine Corynebacterium Species Assess/Plan/Problems-Billing Assessment: 77 yo F with h/o HTN, recurrent UTI's, DVT, COPD (on 02 at night) presents with CHRISTINA - Patient Problems (1) Odynophagia Comment: Pt c/o dry mouth, a sensation of food stuck in the throat, and N/V H/o pill esophagitis in 06/2017. EGD on 12/12/17 showed gastritis and esophageal ring that was dilated Will restart PPI BID, d/c Protonix IV. Reintroducing solid diet. May be able to go home in AM. (2) Acute renal failure Comment: FeNa at 1,7 indicating ATN-suspect dehydration as the cause. Appreciate Dr. Baldwin's consult Renal US on 12/09/17 shows no gross abnormalities Improving daily (3) Anxiety Comment: Continue Diazepam. (4) COPD (chronic obstructive pulmonary disease) Comment: not in exacerbation Pt uses 02 at night, but thinks that most of her problems of poor appetite are related to 02 use at night and requested to have it discontinued (5) DVT (deep venous thrombosis) Comment: in the distant past (6) UTI (urinary tract infection) Comment: UA questionable, so far now evidence of infection. (7) Abdominal tenderness of left lower quadrant Comment: pain appears to have resolved Pt is allergic to PO and IV contrast. CT abd on 12/10/17 neg. but stool noted in colon. The intermittent pain may be related to imodium overuse and constipation (8) Chronic diarrhea Comment: d/c'd imodium, pt c/o constipation (9) ESR raised Comment: so far no evidence of acute infection. Could it be raised due to renal failure? AMANDO positive. ANCA panel neg At discharge pt should follow with Dr. Cody (10) Anemia Comment: appears to be due to dilution. no evidence of bleeding (11) DVT prophylaxis Comment: HSQ Status and Disposition: inpatient
[2017-12-13] MEDS: Acetaminophen TAB* 325 MG PO PRN (18:31)
[2017-12-13] MEDS: Omeprazole CAP* 20 MG PO SCH ×2 (20:53→21:16)
[2017-12-13] MEDS: Diazepam TAB(*) 5 MG PO PRN (23:39)
[2017-12-14] MEDS: oxyCODONE/Acetamin 5/325 MG* TAB PO PRN (05:49)
[2017-12-14] MEDS: Heparin VIAL(*) 5000 UNITS/ML VIAL (FIVE THOUSAND) SUBCUT SCH ×3 (06:01→21:17)
[2017-12-14 06:57] LABS: Hematocrit 30 % (35-47); Hemoglobin 10.1 g/dl (12.0-16.0); Mean Corpuscular HGB Conc 34 g/dl (31-36); Mean Corpuscular Hemoglobin 31 pg (27-31); Mean Corpuscular Volume 93 fL (80-97); Mean Platelet Volume 6.6 um3 (7.4-10.4); Platelet Count 215 10^3/ul (150-450); Red Blood Count 3.25 10^6/ul (4.0-5.4); Red Cell Distribution Width 14 % (10.5-15); White Blood Count 7.6 10^3/ul (3.5-10.8)
[2017-12-14 07:14] LABS: EGFR Non-African American 22.9 (>60)
[2017-12-14] MEDS ORDERED: Potassium Chloride LIQUID* 20 MEQ PACKET PO ONE (07:27)
[2017-12-14] MEDS: Tiotropium CAP.INH* CAP.INH/18 MCG (USE ORDER SET !) INH SCH (07:44)
[2017-12-14] MEDS: Magnesium Oxide TAB* 400 MG PO SCH (08:22)
[2017-12-14] MEDS: PARoxetine HCL TAB* 40 MG PO SCH (08:22)
[2017-12-14] MEDS: Omeprazole CAP* 20 MG PO SCH ×2 (08:22→21:17)
[2017-12-14] MEDS: Ondansetron ODT TAB* 4 MG SL PRN (08:30)
[2017-12-14] MEDS: Morphine VIAL* 4 MG/ML VIAL (1 ml vial) IV PRN ×3 (11:31→21:18)
[2017-12-14] MEDS: Diazepam TAB(*) 5 MG PO PRN (11:31)
[2017-12-14] MEDS ORDERED: KCL 20 MEQ/100 ML IVPREMIX* 20 MEQ/100 ML BAG IV SCH (12:00)
[2017-12-14] MEDS ORDERED: Potassium Chloride IV* 40 MEQ in NS 0.9% 250 ML* 250 ML IVPB ONE (12:00)
[2017-12-14] MEDS: Al Hydrox/Mg Hydrox/Simet LIQ* 30 ML UDC PO PRN ×2 (13:41→21:17)
--- NOTE | 2017-12-14 15:48 | PN ---
Subjective Date of Service: 12/14/17 Interval History: c/o nausea and burning in throat and soreness or the throat. c/o mild abd tenderness. Denies vomiting or diarrhea. Denies chest pain or shortness of breath. Family History: Unchanged from Admission Social History: Unchanged from Admission Past Medical History: Unchanged from Admission Objective Active Medications: Acetaminophen (Tylenol Tab*) 650 mg PO Q4H PRN PRN Reason: FEVER/PAIN Last Admin: 12/13/17 18:31 Dose: 650 mg Al Hydrox/Mg Hydrox/Simethicone (Maalox Plus*) 30 ml PO Q6H PRN PRN Reason: INDIGESTION Last Admin: 12/14/17 13:41 Dose: 30 ml Albuterol (Ventolin Hfa Inhaler*) 2 puff INH Q4H PRN PRN Reason: SHORTNESS OF BREATH Diazepam (Valium Tab(*)) 5 mg PO QID PRN PRN Reason: ANXIETY Last Admin: 12/14/17 11:31 Dose: 5 mg Heparin Sodium (Porcine) (Heparin Vial(*)) 5,000 units SUBCUT Q8HR [facility] Last Admin: 12/14/17 13:41 Dose: 5,000 units Potassium Chloride 40 meq/ (Sodium Chloride) 270 mls @ 67.5 mls/hr IVPB ONCE ONE Stop: 12/14/17 15:59 Last Admin: 12/14/17 12:28 Dose: 67.5 mls/hr Magnesium Hydroxide (Milk Of Magnesia Liq*) 30 ml PO Q4H PRN PRN Reason: CONSTIPATION Magnesium Oxide (Magox 400 Tab*) 400 mg PO DAILY [facility] Last Admin: 12/14/17 08:22 Dose: 400 mg Morphine Sulfate (Morphine Vial*) 1 mg IV Q4H PRN PRN Reason: PAIN Last Admin: 12/14/17 11:31 Dose: 1 mg Omeprazole (Prilosec Cap*) 20 mg PO BID [facility] Last Admin: 12/14/17 08:22 Dose: 20 mg Ondansetron HCl (Zofran Odt Tab*) 4 mg SL Q6H PRN PRN Reason: NAUSEA/VOMITING Last Admin: 12/14/17 08:30 Dose: 4 mg Oxycodone/Acetaminophen (Percocet 5/325 Tab*) 1 tab PO Q6H PRN PRN Reason: PAIN Last Admin: 12/14/17 05:49 Dose: 1 tab Paroxetine HCl (Paxil Tab*) 40 mg PO DAILY [facility] Last Admin: 12/14/17 08:22 Dose: 40 mg Polyethylene Glycol/Electrolytes (Miralax*) 17 gm PO DAILY PRN PRN Reason: CONSTIPATION Last Admin: 12/11/17 21:35 Dose: 17 gm Tiotropium [place] (Spiriva Cap.Inh*) 1 cap INH DAILY [facility] Last Admin: 12/14/17 07:44 Dose: 1 cap Vital Signs - 8 hr 12/14/17 12/14/17 12/14/17 07:44 07:45 08:00 Temperature 97.8 F Pulse Rate 65 64 Respiratory 16 14 18 Rate Blood Pressure 112/56 (mmHg) O2 Sat by Pulse 97 96 Oximetry 12/14/17 12/14/17 12/14/17 08:32 11:19 11:31 Temperature 98.3 F Pulse Rate 77 Respiratory 18 20 18 Rate Blood Pressure 135/61 (mmHg) O2 Sat by Pulse 98 Oximetry 12/14/17 12/14/17 12/14/17 12:34 13:39 15:09 Temperature 98.2 F Pulse Rate 69 Respiratory 16 18 20 Rate Blood Pressure 124/60 (mmHg) O2 Sat by Pulse 98 Oximetry Oxygen Devices in Use Now: Nasal Cannula Appearance: appears comfortable, color pale Eyes: No Scleral Icterus Ears/Nose/Mouth/Throat: Clear Oropharnyx, Mucous Membranes Moist Neck: NL Appearance and Movements; NL JVP, Trachea Midline Respiratory: Symmetrical Chest Expansion and Respiratory Effort, Clear to Auscultation Cardiovascular: NL Sounds; No Murmurs; No JVD, No Edema Abdominal: - - NL sounds, NO distention, diffuse generalized mild tenderness with palpaiton Extremities: No Edema, No Clubbing, Cyanosis Skin: No Rash or Ulcers Neurological: Alert and Oriented x 3, NL Gait, NL Muscle Strength and Tone Result Diagrams: 12/14/17 06:30 12/14/17 17:20 Microbiology and Other Data: Microbiology 12/09/17 17:35 Urine Culture - Final Urine Corynebacterium Species Assess/Plan/Problems-Billing Assessment: 77 yo F with h/o HTN, recurrent UTI's, DVT, COPD (on 02 at night) presents with CHRISTINA - Patient Problems (1) Acute renal failure Current Visit: Yes Status: Acute Comment: ATN-suspect dehydration as the cause. Appreciate Dr. Baldwin's consult Renal US on 12/09/17 shows no gross abnormalities creatinine 2.10 today (2) Gastritis Current Visit: Yes Status: Acute Code(s): K29.70 - GASTRITIS, UNSPECIFIED, WITHOUT BLEEDING SNOMED Code(s): 3801682 Comment: upper endo - showed gastritis will add carafate as patient continues to have abd pain and nasuea. will continue omeprazole (3) Anxiety Current Visit: No Status: Acute Code(s): F41.9 - ANXIETY DISORDER, UNSPECIFIED SNOMED Code(s): 39357857 Comment: Continue Diazepam. (4) COPD (chronic obstructive pulmonary disease) Current Visit: No Status: Acute Code(s): J44.9 - CHRONIC OBSTRUCTIVE PULMONARY DISEASE, UNSPECIFIED SNOMED Code(s): 20910880 Comment: not in exacerbation (5) DVT prophylaxis Current Visit: No Status: Acute Code(s): WFV6123 - SNOMED Code(s): 011890104 Comment: HSQ (6) Hypokalemia Current Visit: Yes Status: Acute Code(s): E87.6 - HYPOKALEMIA SNOMED Code( s): 95382185 Comment: Potassium level 2.8 will give potassium 40 meq po and 40 meq IVPB- pt could not tolerate po Repeat k level at 1700 Status and Disposition: inpatient
[2017-12-15] MEDS: Diazepam TAB(*) 5 MG PO PRN ×3 (00:11→22:31)
[2017-12-15] MEDS: Sucralfate SUSP 1 GM/10 ml 10 ML UDC PO SCH ×5 (00:11→20:20)
[2017-12-15] MEDS: oxyCODONE/Acetamin 5/325 MG* TAB PO PRN ×2 (00:18→10:06)
[2017-12-15] MEDS: Acetaminophen TAB* 325 MG PO PRN ×2 (05:04→09:56)
[2017-12-15] MEDS: Heparin VIAL(*) 5000 UNITS/ML VIAL (FIVE THOUSAND) SUBCUT SCH ×3 (05:05→22:31)
[2017-12-15 06:58] LABS: ABS Basophils 0.1 10^3/ul (0-0.2); ABS Eosinophils 0.4 10^3/ul (0-0.6); ABS Lymphocytes 1.7 10^3/ul (1.0-4.8); ABS Monocytes 0.7 10^3/ul (0-0.8); ABS Neutrophils 4.4 10^3/ul (1.5-7.7); ABS Nucleated RBC 0 10^3/ul; Hematocrit 29 % (35-47); Hemoglobin 9.6 g/dl (12.0-16.0); Lymphocyte % 23.8 % (25-47); Mean Corpuscular HGB Conc 34 g/dl (31-36); Mean Corpuscular Hemoglobin 31 pg (27-31); Mean Corpuscular Volume 92 fL (80-97); Mean Platelet Volume 6.6 um3 (7.4-10.4); Nucleated Red Blood Cells % 0; Platelet Count 200 10^3/ul (150-450); Red Blood Count 3.09 10^6/ul (4.0-5.4); Red Cell Distribution Width 14 % (10.5-15); White Blood Count 7.2 10^3/ul (3.5-10.8)
[2017-12-15 07:09] LABS: EGFR Non-African American 25.7 (>60)
[2017-12-15] MEDS: Tiotropium CAP.INH* CAP.INH/18 MCG (USE ORDER SET !) INH SCH (07:44)
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
[2017-12-15] MEDS ORDERED: KCL 20 MEQ/100 ML IVPREMIX* 20 MEQ/100 ML BAG IV SCH (08:00)
[2017-12-15] MEDS ORDERED: Potassium Chloride IV* 40 MEQ in NS 0.9% 250 ML* 250 ML IVPB ONE (08:30)
[2017-12-15] MEDS: Magnesium Oxide TAB* 400 MG PO SCH (08:45)
[2017-12-15] MEDS: Omeprazole CAP* 20 MG PO SCH ×2 (08:45→20:20)
[2017-12-15] MEDS: PARoxetine HCL TAB* 40 MG PO SCH (08:45)
[2017-12-15] MEDS: Al Hydrox/Mg Hydrox/Simet LIQ* 30 ML UDC PO PRN (09:56)
[2017-12-15] MEDS: Ondansetron ODT TAB* 4 MG SL PRN (10:07)
[2017-12-16] MEDS: oxyCODONE/Acetamin 5/325 MG* TAB PO PRN (02:20)
[2017-12-16] MEDS: Heparin VIAL(*) 5000 UNITS/ML VIAL (FIVE THOUSAND) SUBCUT SCH ×2 (05:36→14:18)
[2017-12-16 06:31] LABS: EGFR Non-African American 27.2 (>60)
[2017-12-16] MEDS: Tiotropium CAP.INH* CAP.INH/18 MCG (USE ORDER SET !) INH SCH (07:54)
[2017-12-16] MEDS: Sucralfate SUSP 1 GM/10 ml 10 ML UDC PO SCH ×2 (09:11→12:38)
[2017-12-16] MEDS: Magnesium Oxide TAB* 400 MG PO SCH (09:12)
[2017-12-16] MEDS: Omeprazole CAP* 20 MG PO SCH (09:12)
[2017-12-16] MEDS: PARoxetine HCL TAB* 40 MG PO SCH (09:12)
[2017-12-16] MEDS: Diazepam TAB(*) 5 MG PO PRN (09:23)
[2017-12-16 15:18] VITALS: BP 100/57
--- NOTE | 2017-12-18 12:57 | DS ---
CC: Dr. Up * DISCHARGE SUMMARY: DATE OF ADMISSION: 12/09/17 DATE OF DISCHARGE: 12/16/17 PROVIDER: Zoey Fagan NP ATTENDING PHYSICIAN: Dr. Ac Rodriguez * (dictated by Zoey Fagan NP). PRIMARY CARE PROVIDER: Dr. Up. PRIMARY DIAGNOSES: 1. Acute renal failure. 2. Gastritis. 3. Esophageal ring stricture with dilation. SECONDARY DIAGNOSES: 1. Recurrent urinary tract infections. 2. Chronic obstructive pulmonary disease, not on oxygen. 3. Right bundle-branch block. 4. Anxiety. 5. Gastroesophageal reflux disease. 6. History of deep venous thrombosis. 7. Tobacco abuse. STUDIES COMPLETED WHILE IN THE HOSPITAL: She had a CT abdomen and pelvis on 03/22. Radiologist's impression: No obstructive uropathy is noted. Residual stool in the sigmoid colon with scattered diverticula. There is no definite evidence of diverticulitis noted. The patient is status post cholecystectomy. She had an upper endoscopy on 12/12/17. POSTOPERATIVE DIAGNOSES: 1. Distal esophageal ring dilation with the endoscope resulting in a small mucosal tear. 2. Proximal erosive gastritis. Biopsies were obtained from antrum for CLOtest to rule out Helicobacter pylori. 3. Normal duodenal bulb and descending duodenum. DISCHARGE MEDICATIONS: 1. Magnesium oxide 400 mg p.o. daily. 2. Zofran 4 mg p.o. ODT q.6 hours as needed for nausea or vomiting. 3. Carafate suspension 1 g p.o. b.i.d. Continued home medications: 1. Align 4 mg p.o. daily. 2. Imodium 4 mg p.o. q.6 hours p.r.n. 3. Diazepam 5 mg p.o. 4 times a day p.r.n. anxiety. 4. Paxil 40 mg p.o. daily. 5. Omeprazole 20 mg p.o. b.i.d. 6. Albuterol 1 to 2 puffs q.4 to 6 hours. 7. Spiriva 1 cap p.o. daily. HISTORY OF PRESENT ILLNESS AND HOSPITAL COURSE: Paulette is a 77-year-old female with a history of recurrent UTIs, who states that she has been feeling sick for the past 3 weeks. She states that she usually has UTIs when she feels sick and lower abdominal pain that has been ongoing for approximately 3 weeks, initially she was seen by her primary care and placed on Keflex. After a few days, it was switched to nitrofurantoin since the Keflex apparently was not a good medication for her UTI. She had lab work performed at her primary care provider 3 days ago, which was noted to have a creatinine of 3. At that point, she was directed to follow up with Dr. Baldwin in the office, but due to the marked elevation in her creatinine, she was sent to the emergency room for further evaluation. On admission, her creatinine was 3.59; on discharge on , her creatinine was down to 1.81. She received ceftriaxone during her hospitalization x3 doses 1 g. During hospitalization, she complained of difficulty swallowing and had an upper endoscopy, which showed severe erosive gastritis. She did have esophageal stricture that was dilated causing a small mucosal tear. The patient was started on Carafate 1 g suspension 4 times a day , which subsided her nausea and abdominal pain. She was able to tolerate solid foods without difficulty. Her abdominal pain resolved. At this time, Ms. Stearns is stable for discharge home. Ms. Stearns is stable for discharge home today. Vital signs are as follows: Temperature was 98.0, heart rate was 73, respirations 16, O2 saturation was 95% , blood pressure was 100/57. DISCHARGE PLAN: Ms. Stearns will be discharged to home. Activity as tolerated. 1. For acute renal failure, she should follow up with her primary care provider for further monitoring. Her creatinine on discharge was 1.80, down from 3.59. She should have a repeat BMP within 1 week. 2. Gastritis. The patient was found to have severe erosive gastritis on upper endoscopy. She should continue on Carafate 1 g p.o. b.i.d. for 14 days. She should also continue omeprazole 20 mg p.o. b.i.d. She should follow up with GI in 1 to 2 weeks. 3. Esophageal stricture dilation. With the dilation, she had a small mucosal tear. We started her on clear liquids, advanced her to full liquids, and then to soft solid foods and she tolerated this without difficulty. Denied any pain. 4. Intermittent diarrhea and constipation. The patient was advised not to take Imodium on a daily basis and to take Imodium only as needed. FOLLOWUP: The patient should follow up with Dr. Up next week. She should follow up with GI in 1 to 2 weeks. She should follow up with Dr. Baldwin for further evaluation of her acute renal failure. The patient was instructed to return to the emergency room with any chest pain or shortness of breath or any worsening of any of her symptoms, nausea, vomiting , unable to keep anything down. This is a summarization of her hospitalization. For further details, please see the entire medical recording including consults from Gastroenterology as well as Dr. Baldwin. TIME SPENT: Time spent on this discharge was approximately 60 minutes, greater than half that time was spent with the patient discussing discharge plans and instructions. CONDITION ON DISCHARGE: Stable. ZOEY FAGAN NP [id number]/[facility] #: [id number] ARIAM
== END 2017-12-16 14:40 | disposition home or self-care (01) | DRG 391 ==
LOC: ED 11:19 → MED 13:02
PROVIDERS: ADMIT Internal Medicine; ATTEND Internal Medicine
PROC: 0DB68ZX Excision of Stomach, Via Natural or Artificial Opening Endoscopic, Diagnostic (ICD-10-PCS; principal; 2017-12-12)
PROC: 0D738ZZ Dilation of Lower Esophagus, Via Natural or Artificial Opening Endoscopic (ICD-10-PCS; 2017-12-12)
DX: K29.00 Acute gastritis without bleeding (principal); N17.0 Acute kidney failure with tubular necrosis; K91.71 Accidental puncture and laceration of a digestive system organ or structure during a digestive system procedure; J44.9 Chronic obstructive pulmonary disease, unspecified; I45.10 Unspecified right bundle-branch block; F41.9 Anxiety disorder, unspecified; K21.9 Gastro-esophageal reflux disease without esophagitis; E87.6 Hypokalemia; R32 Unspecified urinary incontinence; K52.9 Noninfective gastroenteritis and colitis, unspecified; E86.0 Dehydration; N81.4 Uterovaginal prolapse, unspecified; R13.10 Dysphagia, unspecified; R15.9 Full incontinence of feces; D64.9 Anemia, unspecified; Z96.651 Presence of right artificial knee joint; Z86.718 Personal history of other venous thrombosis and embolism; Z87.440 Personal history of urinary (tract) infections; Z87.891 Personal history of nicotine dependence; Z79.02 Long term (current) use of antithrombotics/antiplatelets; Z79.899 Other long term (current) drug therapy; Z88.5 Allergy status to narcotic agent; Z88.0 Allergy status to penicillin; Z88.2 Allergy status to sulfonamides; Z88.1 Allergy status to other antibiotic agents; Z91.041 Radiographic dye allergy status; Z82.49 Family history of ischemic heart disease and other diseases of the circulatory system; Z80.1 Family history of malignant neoplasm of trachea, bronchus and lung; Z84.89 Family history of other specified conditions
CPT/HCPCS: 36415; 71046; 74176; 76700; 80048; 80053; 81002; 81003; 81015; 82043; 82306; 82436; 82570; 82607; 83036; 83516; 83615; 83735; 83986; 84100; 84132; 84133; 84155; 84156; 84165; 84300; 84443; 84540; 85025; 85027; 85652; 86038; 86140; 86225; 87077; 87086; 94640; 99156; 99157; 99283; A9270-GY; J0696; J1644; J2250; J2270; J3010; J3475; J3480

== ENCOUNTER 2018-07-15 13:09 | Emergency (ER) | payer MEDICARE, OTHER ==
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
[2018-07-15] MEDS ORDERED: HYDROcodone/ACETAMIN 5-325 MG* 1 TAB PO ONE (14:01)
--- OUTSIDE RECORDS SUMMARY | 2018-07-15 14:08 | XMS REPORT ---
:1940 Author Organization [facility] Address [address] [place] [address] Care Team Providers Name Role Phone Iram Mckeon Unavailable Unavailable PROBLEMS Type Condition ICD9-CM [id number] Onset Condition SNOMED Code Code Code Dates Status Problem Unspecified lump N63.21 Active 397213880388578 in the left breast, upper outer quadrant Problem Stress N39.3 Active 30986632 incontinence (female) (male) Problem Anal polyp K62.0 Active 87851738 Problem Mixed N39.46 Active 384121457 incontinence Problem Unspecified R32 Active 608686507 urinary incontinence ALLERGIES Substance Reaction Event Type Date Status Sulfa GI upset Drug Allergy Jul, Active penicillin anaphylaxis Drug Allergy Jul, Active Vancomycin rash Drug Allergy Jul, Active IVP Dye hives Drug Allergy Jul, Active Codeine hives Drug Allergy Jul, Active Levaquin hives Drug Allergy Jul, Active ENCOUNTERS Encounter Location Date Diagnosis [facility] [address] [place] [id number] [facility] [address] Jul, Mixed incontin[address] [place] [address], N39.46 ; [place] [id number] incontinence (female) (male) N39.3 and Unspecified lump in the left breast, upper outer quadrant N63.21 [facility] [address] Jun, Mixed incontinence [address] [place] [address], N39.46 [place] [id number] incontinence (female) (male) N39.3 [place] [facility] [address] Apr, [address] incontin[address] [place], (female) (male) N39.3 [place] [id number] and Mixed incontinence N39.46 [facility] [address] Apr, OBGYN [place] [id number] [facility] [address] [place], Apr, [place] [facility] [place] [id number] (female) (male) N39.3 [facility] [facility] [address] Apr, OBGYN [facility], [place] [id number] [facility] [address] Apr, Mixed incontinence OBGYN [facility], N39.46 [place] [id number] [facility] [facility] [address] Mar, OBGYN [place], [place] [id number] [place] [facility] [address] Mar, Mixed incontinence [address] [place], N39.46 [place] [id number] [place] [facility] 103 Feb, Unspecified urinary OBGYN [facility], incontinence R32 [place] [id number] [facility] [facility] [address] Jul, OBGYN [place], [place] [id number] [facility] [facility] 103 May, OBGYN [place], [place] [id number] [facility] 103 Mar, OBGYN [place] [id number] [facility] [facility] 103 Feb, OBGYN [place] [id number] [facility] [facility] 103 Feb, Unspecified urinary OBGYN [facility], incontinence R32 [place] [id number] [place] [facility] 103 Feb, Dysuria R30.0 [place]BGYN [place], [place] [id number] [facility] 103 Feb, OBGYN [place] [id number] [facility] 103 Feb, OBGYN [place], [place] [id number] [place] [facility] [address] [facility] Feb, Unspecified urinary [address] [place], incontinence R32 and [place] [id number] Anal polyp K62.0 IMMUNIZATIONS No Known Immunizations SOCIAL HISTORY Never Assessed REASON FOR REFERRAL FUNCTIONAL STATUS PLAN OF CARE Activity Details Follow Up Schedule dx L mammo/L breast US to assess L breast lump (4 mm) at 2: 00 4 cm from areola. F/u L breast CBE in 3-4 weeks. Reason: Pending Test Ultrasound : Breast, left Pending Test mammogram, diagnostic Left VITAL SIGNS Height 62 in 2018-07-10 Weight 116 lbs 2018-07-10 BMI 21.21 kg/m2 2018-07-10 Blood pressure systolic 126 mm Hg 2018-07-10 Blood pressure diastolic 80 mm Hg 2018-07-10 MEDICATIONS Medication Instructions Dosage Frequency Start Date End Date Duration Status Paxil 20 mg orally once a day 1 tab(s) 24h Active omeprazole 20 orally twice a 1 cap(s) 12h Active mg day Valium 5 mg orally QID PRN 1 tab(s) Active paroxetine 40 orally once a day 1 tab(s) 24h Active mg Align 4 mg orally once a day 1 cap(s) 24h Active colestipol 1 g orally 2 times a 2 tab(s) 12h Active day Pepto-Bismol chewed PRN Active 262 mg Aspir 81 81 mg orally once a day 1 tab(s) 24h Active Cipro 250 mg orally every 12 1 tab(s) 12h Active hours Spiriva 18 mcg inhaled once a 1 cap(s) 24h Active day PROCEDURES Procedure Date Ordered Result Body Site PT HOSPICE SRVC ANY TIME DUR MSR NE Jul 10, 2018 DOC MEDS VERIFIED W/PT OR RE Jul 10, 2018 URINE INCON PLAN DOC'D Jul 10, 2018 RESULTS No Results REASON FOR VISIT Wants to have a checkup with dr to discuss when she urinates, Pt reports a breast lump, 2:00 4cm from the areola Insurance Providers Health Health Health Health Health Member Patient Patient Patient Patient Patient Subscriber Subscriber Subscriber Group Insurance Plan Plan Plan Plan ID Relationship Address Phone Name Date of ID Name Date of No Type Insurance Insurance Insurance Coverage to Subscriber Address Phone Name Dates Medicare [phone] Medicare self [place] [id number] [place] [facility] [address] AAR [phone] AAR self [place] [id number] [facility] [phone] d MEDICAL (GENERAL) HISTORY Type Description Date Medical History Anxiety Medical History Acid reflux Surgical History appendectomy Surgical History Rt Oophorectomy Surgical History LT oophorectomy Surgical History Right total knee replacement Surgical History cholecystectomy Surgical History Solyx TOT/cysto 04/16/2018 Hospitalization History see above Hospitalization History Child Hospitalization History Acute Kidney Failure 12/2017
[2018-07-15 15:09] LABS: Urine Appearance Turbid; Urine Blood Negative (Negative); Urine Color Yellow; Urine Ketones Negative (Negative); Urine Protein 1+(30 mg/dL) (Negative); Urine Red Blood Cell Absent (Absent); Urine Specific Gravity 1.014 (1.010-1.030); Urine Urobilinogen Negative (Negative); Urine White Blood Cell 3+(>20/hpf) (Absent)
[2018-07-15 15:38] VITALS: BP 139/76
--- NOTE | 2018-07-17 05:46 | PN ---
Progress Note - Progress Note Date of Service: 07/15/18 Note: Urine culture grew Klebsiella pneumonia Patient was placed on Keflex prior to discharge We will await final sensitivities
--- NOTE | 2018-07-18 06:26 | PN ---
Progress Note - Progress Note Date of Service: 07/15/18 Note: Grew klebsiella PNA. Patient placed on keflex this sensitive to organism nothing further
== END 2018-07-15 15:37 | disposition home or self-care (01) ==
LOC: ED 13:09
DX: S39.012A Strain of muscle, fascia and tendon of lower back, initial encounter (principal); S16.1XXA Strain of muscle, fascia and tendon at neck level, initial encounter; N39.0 Urinary tract infection, site not specified; B96.1 Klebsiella pneumoniae [K. pneumoniae] as the cause of diseases classified elsewhere; M85.80 Other specified disorders of bone density and structure, unspecified site; M51.37 Other intervertebral disc degeneration, lumbosacral region; V89.2XXA Person injured in unspecified motor-vehicle accident, traffic, initial encounter; Y92.9 Unspecified place or not applicable
CPT/HCPCS: 72125; 72131; 81003; 81015; 87077; 87086; 87186; 99282

== ENCOUNTER 2019-08-16 16:54 | Emergency (ER) | payer MEDICARE ==
--- NOTE | 2019-08-16 17:02 | ED ---
Back Pain - HPI Summary HPI Summary: 79-year-old female with a significant past medical history of osteoporosis, COPD presents to emergency department today complaining of low back pain which began on Saturday after falling over and hitting her back on a table. Patient is here complaining of 10 out of 10 right lower back pain which is made worse with movement. The patient has not taken any medication prior to arrival. Patient notes she has ecchymosis to the right flank as result of her fall. Patient denies incontinence, numbness or tingling of the lower extremities, saddle paresthesia. Patient is able to and really bear weight however she doesn 't some pain. Patient otherwise feels fine and denies fever, chest pain, abdominal pain, rash, pain with urination, lightheadedness, headache. - History of Current Complaint Chief Complaint: EDBackInjuryPain Stated Complaint: FALL PER SIGNIFICANT OTHER Time Seen by Provider: 08/16/19 17:01 Hx Obtained From: Patient Onset/Duration: Sudden Onset Onset/Duration: Started Days Ago Timing: Constant Back Pain Location: Is Discrete @ Severity Initially: Severe - Right flank Severity Currently: Severe Pain Intensity: 7 Pain Scale Used: 0-10 Numeric Character: Sharp, Aching Aggravating Symptom(s): Movement, Lifting, Bending, Walking, Cough Alleviating Symptom(s): Rest Associated Signs And Symptoms: Positive: Bruising, Pain with Weight Bearing. Negative: Swelling, Redness, Fever, Weakness, Numbness, Tingling, Abdominal Pain , Bladder Incontinence, Bowel Incontinence - Allergies/Home Medications Allergies/Adverse Reactions: Allergies Allergy/AdvReac Type Severity Reaction Status Date / Time codeine Allergy GI Upset Verified 08/16/19 17:00 Iodinated Contrast Media Allergy Anaphylatic Verified 08/16/19 17:00 [Iodinated Contrast- Oral Shock and IV Dye] levofloxacin [From Levaquin] Allergy See Comment Verified 08/16/19 17:00 Penicillins Allergy Anaphylatic Verified 08/16/19 17:00 Shock Sulfa (Sulfonamide Allergy Nausea Verified 08/16/19 17:00 Antibiotics) sulfamethoxazole Allergy Itching Verified 08/16/19 17:00 [From Bactrim] trimethoprim [From Bactrim] Allergy Itching Verified 08/16/19 17:00 vancomycin Allergy Itching Verified 08/16/19 17:00 IVP DYE Allergy Severe Anaphylatic Uncoded 08/16/19 17:00 Shock Home Medications: Home Medications Lipase/Protease/Amylase [Zenpep] 1 cap PO BID WITH MEALS 08/16/19 [History Confirmed 08/16/19] PMH/Surg Hx/FS Hx/Imm Hx Endocrine/Hematology History: Reports: Hx Anticoagulant Therapy - had DVT in past, takes daily ecotrin since. 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, Hx Chronic Obstructive Pulmonary Disease (COPD), Hx Pneumonia Denies: Hx Asthma GI History: Reports: Hx Gastroesophageal Reflux Disease, Hx Ulcer History: Reports: Other Problems/Disorders - acute renal failure Musculoskeletal History: Reports: Hx Osteoporosis Sensory History: Reports: Hx Cataracts, Hx Contacts or Glasses Denies: Hx Hearing Aid, Hx Hearing Problem Opthamlomology History: Reports: Hx Cataracts, Hx Contacts or Glasses Psychiatric History: Reports: Hx Anxiety - Cancer History Hx Chemotherapy: No Hx Radiation Therapy: No - Surgical History Surgery Procedure, Year, and Place: RIGHT KNEE REPLACEMENT, CHOLECYSTECTOMY, APPENDECTOMY Hx Anesthesia Reactions: No Infectious Disease History: No Infectious Disease History: Reports: Hx Hepatitis - Hep A Denies: Hx Human Immunodeficiency Virus (HIV), Hx of Known/Suspected MRSA, History Other Infectious Disease, Traveled Outside the [place] in Last 30 Days - Family History Known Family History: Positive: Other - BREAST CANCER, Perforated ulcer Negative: Seizure Disorder - Social History Alcohol Use: None Substance Use Type: Reports: None Hx Tobacco Use: Yes Smoking Status (MU): Former Smoker Type: Cigarettes Review of Systems Constitutional: Negative Eyes: Negative ENT: Negative Cardiovascular: Negative Respiratory: Negative Gastrointestinal: Negative Genitourinary: Negative Positive: Arthralgia, Decreased ROM Positive: Bruising. Negative: Rash Neurological: Negative Psychological: Normal All Other Systems Reviewed And Are Negative: Yes Physical Exam - Summary Physical Exam Summary: Inspection of the patient's back reveals no midline tenderness throughout the cervical, thoracic, lumbar spine. Patient has no tenderness on palpation of the left paraspinal muscles. Patient has exquisite tenderness with palpation of the right paraspinal muscles and ribs. It is noted that there is 2 areas of mild ecchymosis to the right flank consistent with the patient's story of injury. Antalgic gait is noted. Patient has full sensation in the lower extremities and full range of motion. Patient independently and bear weight. Triage Information Reviewed: Yes Vital Signs On Initial Exam: Initial Vitals Temp Pulse Resp BP Pulse Ox 98.1 F 109 17 143/94 95 08/16/19 16:55 08/16/19 16:55 08/16/19 16:55 08/16/19 16:55 08/16/19 16:55 Vital Signs Reviewed: Yes Appearance: Positive: Well-Appearing, No Pain Distress, Well-Nourished Skin: Positive: Warm, Skin Color Reflects Adequate Perfusion Eyes: Positive: EOMI, NICOL ENT: Positive: Hearing grossly normal Respiratory/Lung Sounds: Positive: Clear to Auscultation, Breath Sounds Present Cardiovascular: Positive: RRR, S1, S2 Abdomen Description: Positive: Nontender, Soft Bowel Sounds: Positive: Present Musculoskeletal: Positive: Strength/ROM Intact Neurological: Positive: Sensory/Motor Intact, Alert, Oriented to Person Place, Time, Facial Symmetry, Speech Normal Psychiatric: Positive: Normal, Affect/Mood Appropriate AVPU Assessment: Alert Procedures - Sedation Patient Received Moderate/Deep Sedation with Procedure: No Diagnostics - Vital Signs Vital Signs Temp Pulse Resp BP Pulse Ox 08/16/19 16:55 98.1 F 109 17 143/94 95 - Laboratory Lab Statement: Any lab studies that have been ordered have been reviewed, and results considered in the medical decision making process. Back Pain Course/Dx - Course Course Of Treatment: Patient was evaluated in the emergency department today for low back pain. Patient seen and examined her vitals were stable and she is afebrile. X-rays were done to investigate possible lumbar spine compression fracture or possible rib fracture. Chest x-ray was difficult to appreciate obvious fracture however based on physical exam and history patient was clinically diagnosed with posterior rib fractures to the right. Patient was given 5-325 hydrocodone/acetaminophen in the emergency department as well as an outpatient prescription for further relief. She was told to take Tylenol as needed for pain with narcotic supplementation for pain unable to be managed by Tylenol alone. Patient discharged with outpatient follow-up. - Diagnoses Differential Diagnosis/HQI/PQRI: Positive: Arthritis, Cauda Equina Syndrome, Compressive Cord Syndrome, Epidural Abscess, Herniated Disc, Osteoporosis, Strain, Sprain, Other - Rib fracture, mechanical back pain Provider Diagnoses: Back pain Discharge ED - Sign-Out/Discharge Documenting (check all that apply): Patient Departure - Discharge Plan Condition: Stable Disposition: HOME Prescriptions: HYDROcodone/ACETAMIN 5-325 MG* [[place] 5-325 TAB*] 1 tab PO Q6H PRN #12 tab MDD 4 PRN Reason: Pain - Severe Patient Education Materials: Rib Fracture (ED) Referrals: Bettye Up MD [Primary Care Provider] - 5 Days Additional Instructions: You were seen in the emergency department today due to back pain. It is likely you sustained rib fractures to your right side which are causing your pain. I have given you a prescription of hydrocodone/acetaminophen which you may take for pain. Also be sure to use the incentive spirometer we have given you to prevent possible pneumonia. Please follow up with your primary care physician in 5-7 days for further evaluation and management. Please return to the emergency department immediately if you develop any new or worsening symptoms symptoms. - Billing Disposition and Condition Condition: STABLE Disposition: Home
--- OUTSIDE RECORDS SUMMARY | 2019-08-16 17:07 | XMS REPORT | Continuity of Care Document ---
:1940 External Reference #:[id number] Author Name Angela Balderas MD Address [address] [place] [id number] Care Team Providers Name Role Phone Elin Fowler NP Care Team Information Chief Scientist [phone] Bettye Up MD Care Team Information Chief Scientist [phone] Problems Active Problems Provider Date Dysphagia Chelsey Ford PA-C Onset: 06/24/2019 Diarrhea Chelsey Ford PA-C Onset: 12/31/2017 Gastroduodenitis Chelsey Ford PA-C Onset: 12/31/2017 Stricture of esophagus Chelsey Ford PA-C Onset: 12/31/2017 Internal hemorrhoids Chelsey Ford PA-C Onset: 03/05/2017 Social History Type Date Description Comments Sex Unknown ETOH Use Denies alcohol use Tobacco Use Start: Unknown End: Unknown Patient is a former smoker Smoking Status Reviewed: 08/07/19 Patient is a former smoker Allergies, Adverse Reactions, Alerts Active Allergies Reaction Severity Comments Date Penicillin 02/10/2013 Pravastatin myalgias 03/25/2015 Rosuvastatin GI problems 06/09/2019 Levaquin joint pain 11/03/2012 Sulfa Antibiotics 02/10/2013 Codeine 05/01/2010 Vancomycin 02/10/2013 Contrast Dye 02/10/2013 Medications Active Medications SIG Qnty Indications Ordering Date Provider Zenpep 2 caps PO with 270caps Angela 07/07/2019 meals and one cap MD Sherrie [id number] PO with snacks Caps DR Soriano Diazepam take one tablet by 120tabs Darius Pires FNP 11/24/2018 5mg mouth four times a Tablets day; maximum daily dose = 4 Imodium A-D 4mg as directed. 240units Unknown 10/30/2018 1mg/7.5ML Liquid Proair HFA Use 1 puff Every 6 8.5units Bia MelloFlori 10/27/2018 Hours as Needed D 108(90Base) mcg/Act Aerosol Spiriva Handihaler inahle the 30caps J44.9 Darius Pires FNP 08/14/2017 contents of one 18mcg Capsules capsule via handihaler by mouth every day Aspirin 1 by mouth every Darius Pires FNP 11/03/2014 325mg day Tablets Omeprazole Take 1 Capsule By 180caps K21.9 Darius Pires FNP 06/04/2014 20mg Mouth Twice Daily Capsules DR Paxil 1 tablet daily 90tabs Elin Fowler NP 03/13/2010 40mg Tablets Valium 1 by mouth 4 times 120tabs Elin Fowler NP 09/21/2009 5mg Tablets daily Co Q-10 Unknown 100mg Capsules Vitamin B-12 ER 1 by mouth every Unknown day 1000mcg Tablets ER Coq10 Unknown 100mg Capsules Immunizations CPT Code Status Date Vaccine Lot # [id number] Given 12/03/2016 Tetanus, Diphtheria Toxoids/Acellular Pertussis Vaccine 7 Or > 70453 Given 05/18/2016 Pneumococcal Conjugate Vaccine 13 Valent For Intramuscular Use 27757 Given 06/04/2014 Influenza Virus Vaccine Split Virus Use For Individual 3Yr Older 11561 Given 07/27/2013 Influenza Virus Vaccine Split Virus Use For Individual 3Yr Older 60492 Given 07/11/2012 Influenza Virus [place], [place] [address] Given 05/25/2011 Pneumovax 73365 Given 05/25/2011 Influenza [place] [address] Given 05/25/2008 Influenza [place] Vacc[place], [place] [address] Given 05/25/2008 Influenza Virus Vacc[place], [place] [address] Given 09/03/2007 Td Preservative Free For Use In Individuals 7 Yrs Or Older 93773 Given 09/03/2007 Td Preservative Free For Use In Individuals 7 Yrs Or Older Vital Signs Date Vital Result Comment 08/07/2019 2:42pm Height 63 inches 5'3" Weight 114.00 lb BMI (Body Mass Index) 20.2 kg/m2 06/24/2019 1:57pm Height 63 inches 5'3" Weight 114.00 lb BP Systolic 131 mmHg BP Diastolic 90 mmHg Heart Rate 90 /min BMI (Body Mass Index) 20.2 kg/m2 Results Test Acquired Date Facility Test Result H/L Range Note Surgical 07/31/2019 [facility] Surgical SEE RESULT 1 Pathology Pathology BELOW PDFReport SEE IMAGE Laboratory test 06/24/2019 [facility] Pancreatic 21 g/G Abnormal 2, 3 finding Elastase-1 Stool CBC Auto Diff 06/04/2019 N2N/CCD Import White Blood 5.7 10^3/uL 3.5-1 Count 0.8 Red Blood Count 3.66 10^6/uL Low 3.70-4.87 Hemoglobin 11.6 g/dL Low 12.0-16.0 Hematocrit 35 % 35-47 Mean Corpuscular Volume 94 fL 80-97 Mean Corpuscular Hemoglobin 32 pg High 27-31 Mean Corpuscular HGB Conc 34 g/dL 31-36 Red Cell Distribution Width 13 % 10-15 Platelet Count 306 10^3/uL 150-450 Mean Platelet Volume 6.7 fL Low 7.4-10.4 Abs Neutrophils 3.9 10^3/uL 1.5-7.7 Abs Lymphocytes 1.0 10^3/uL 1.0-4.8 Abs Monocytes 0.4 10^3/uL 0-0.8 Abs Eosinophils 0.3 10^3/uL 0-0.6 Abs Basophils 0.0 10^3/uL 0-0.2 Abs Nucleated RBC 0.0 10^3/uL Granulocyte % 69.2 % Lymphocyte % 17.1 % Monocyte % 7.8 % Eosinophil % 5.1 % Basophil % 0.8 % Nucleated Red Blood Cells % 0.0 1 Lab Results 06/04/2019 N2N/CCD Import Ferritin 49.7 ng/mL 11-307 Iron & Iron Binding Capacity 06/04/2019 N2N/CCD Import Iron 73 g/dL 50 -212 Unsaturated Iron Binding < 262 ug/dL Total Iron Binding Capacity 277 g/dL 250-450 Transferrin 198 mg/dL Low 203-362 % Iron Saturation 26 % 15-55 Vitamin B12 And 06/04/2019 N2N/CCD Import Vitamin B12 > 1450 pg/mL High 180-914 4 Folate Serum Folic Acid (Folate) 5.79 ng/mL Lab Results 06/04/2019 N2N/CCD Import Sodium 134 mmol/L Low 135-145 Potassium 4.6 mmol/L 3.5-5.0 Chloride 97 mmol/L Low 101-111 Co2 Carbon Dioxide 30 mmol/L 22-32 Anion Gap 7 mmol/L 2-11 Glucose 84 mg/dL 70-100 Blood Urea Nitrogen 8 mg/dL 6-24 Creatinine 1.29 mg/dL High 0.51-0.95 BUN/Creatinine Ratio 6.2 1 Low 8-20 Calcium 9.8 mg/dL 8.6-10.3 Total Protein 7.9 g/dL 6.4-8.9 Albumin 4.2 g/dL 3.2-5.2 Globulin 3.7 g/dL 2-4 Albumin/Globulin Ratio 1.1 1 1-3 Total Bilirubin 0.40 mg/dL 0.2-1.0 Alkaline Phosphatase 72 U/L 34-104 Alt 13 U/L 7-52 Ast 25 U/L 13-39 Egfr Non- 40.0 1 Egfr 48.4 1 5 TSH (Thyroid Stim Horm) 1.56 mcIU/mL 0.34-5.60 Lab Results 06/04/2019 N2N/CCD Import TSH (Thyroid Stim 1.56 mcIU/mL 0.34-5.60 Horm) 1 SEE RESULT BELOW Name: PAULETTE STEARNS : [address]: Angela Balderas MD Acct: [id number] Unit: [id number] AGE: 79 Location: ENDO Re07/31/19 SEX: F Status: DEP REF SPEC: [id number] BONNIE: 07/31/19-[address]: Angela Ascencio MD REQ: [id number] RECD: 07/31/197348 STATUS: JESUSITA WAGONER DR: Elin Fowler HYDROELECTRIC PRODUCTION MANAGER _ ORDERED: LEVEL 4/2 FINAL DIAGNOSIS 1. Distal esophagus, biopsy: -- Superficial squamous epithelium with nonspecific chronic inflammation and mild reactive features. -- No specific features of reflux esophagitis identified. -- No glandular component is identified. 2. Esophagus, mid, biopsies: -- Superficial squamous epithelium with nonspecific chronic inflammation and mild reactive features. -- No specific features of allergic/eosinophilic esophagitis identified -- No glandular component is identified. CLINICAL HISTORY Dysphagia POST-OPERATIVE DIAGNOSIS EGD: esophagus - no rings; normal gastroesophageal junction; mid and distal biopsy; gastric - normal; duodenum - normal GROSS DESCRIPTION 1. The specimen is received in formalin labeled, Biopsy Distal Esophagus, and consists of a 0.8 x 0.6 x 0.2 cm aggregate of chisholm-white irregular to polypoid soft tissue fragments, which is entirely submitted in one cassette. CONTINUED ON NEXT PAGE DEPARTMENT OF PATHOLOGY, [address] [place] [address] Edinson Ingram M.D. Director [facility] # [id number] 2. The specimen is received in formalin labeled, Biopsy Mid Esophagus, and consists of two meyers-tao irregular to polypoid soft tissue fragments measuring 0.5 x 0.4 x 0.1 cm and 1.0 x 0.3 x 0.2 cm, which are entirely submitted in one cassette. Signed by and Reported on: Edinson Ingram MD 1143 END OF REPORT DEPARTMENT OF PATHOLOGY, [address] [place] [address] Edinson Ingram M.D. Director [facility] # [id number] SEE RESULT BELOW Name: PAULETTE STEARNS : [address]: Angela Balderas MD Acct: [id number] Unit: [id number] AGE: 79 Location: ENDO Re07/31/19 SEX: F Status: DEP REF SPEC: [id number] BONNIE: 07/31/19-1330 [facility] DR: Angela Ascencio MD REQ: [id number] RECD: 07/31/19150 STATUS: JESUSITA WAGONER DR: Elin Fowler HYDROELECTRIC PRODUCTION MANAGER _ ORDERED: LEVEL 4/2 FINAL DIAGNOSIS 1. Distal esophagus, biopsy: -- Superficial squamous epithelium with nonspecific chronic inflammation and mild reactive features. -- No specific features of reflux esophagitis identified. -- No glandular component is identified. 2. Esophagus, mid, biopsies: -- Superficial squamous epithelium with nonspecific chronic inflammation and mild reactive features. -- No specific features of allergic/eosinophilic esophagitis identified -- No glandular component is identified. CLINICAL HISTORY Dysphagia POST-OPERATIVE DIAGNOSIS EGD: esophagus - no rings; normal gastroesophageal junction; mid and distal biopsy; gastric - normal; duodenum - normal GROSS DESCRIPTION 1. The specimen is received in formalin labeled, Biopsy Distal Esophagus, and consists of a 0.8 x 0.6 x 0.2 cm aggregate of chisholm-white irregular to polypoid soft tissue fragments, which is entirely submitted in one cassette. CONTINUED ON NEXT PAGE DEPARTMENT OF PATHOLOGY, [facility] [employer] [place] [address] Edinson Ingram M.D. Director [facility] # [id number] 2. The specimen is received in formalin labeled, Biopsy Mid Esophagus, and consists of two meyers-tao irregular to polypoid soft tissue fragments measuring 0.5 x 0.4 x 0.1 cm and 1.0 x 0.3 x 0.2 cm, which are entirely submitted in one cassette. Signed by and Reported on: Edinson Ingram MD 1143 END OF REPORT DEPARTMENT OF PATHOLOGY, [facility] [employer] [place], [place] [address] Edinson Ingram M.D. Director [facility] # [id number] SEE RESULT BELOW Name: PAULETTE STEARNS : [address]: Angela Balderas MD Acct: [id number] Unit: [id number] AGE: 79 Location: ENDO Re07/31/19 SEX: F Status: DEP REF SPEC: [id number] BONNIE: 07/31/19133 [facility] DR: Angela Ascencio MD REQ: [id number] RECD: 07/31/19 STATUS: JESUSITA WAGONER DR: Elin Fowler HYDROELECTRIC PRODUCTION MANAGER _ ORDERED: LEVEL 4/2 FINAL DIAGNOSIS 1. Distal esophagus, biopsy: -- Superficial squamous epithelium with nonspecific chronic inflammation and mild reactive features. -- No specific features of reflux esophagitis identified. -- No glandular component is identified. 2. Esophagus, mid, biopsies: -- Superficial squamous epithelium with nonspecific chronic inflammation and mild reactive features. -- No specific features of allergic/eosinophilic esophagitis identified -- No glandular component is identified. CLINICAL HISTORY Dysphagia POST-OPERATIVE DIAGNOSIS EGD: esophagus - no rings; normal gastroesophageal junction; mid and distal biopsy; gastric - normal; duodenum - normal GROSS DESCRIPTION 1. The specimen is received in formalin labeled, Biopsy Distal Esophagus, and consists of a 0.8 x 0.6 x 0.2 cm aggregate of chisholm-white irregular to polypoid soft tissue fragments, which is entirely submitted in one cassette. CONTINUED ON NEXT PAGE DEPARTMENT OF PATHOLOGY, [address] [place] [address] Edinson Ingram M.D. Director [facility] # [id number] 2. The specimen is received in formalin labeled, Biopsy Mid Esophagus, and consists of two meyers-tao irregular to polypoid soft tissue fragments measuring 0.5 x 0.4 x 0.1 cm and 1.0 x 0.3 x 0.2 cm, which are entirely submitted in one cassette. Signed by and Reported on: Edinson Ingram MD 1143 END OF REPORT DEPARTMENT OF PATHOLOGY, [address] [place] [address] Edinson Ingram M.D. Director [facility] # [id number] 2 [id number] Adult and Pediatric Reference Ranges for Pancreatic Elastase-1: Normal: >200 mcg/g Moderate Pancreatic Insufficiency: 100-200 mcg/g Severe Pancreatic Insufficiency: <100 mcg/g Elastase-1 (E-1) assay results are expressed in mcg/g, which represent mcg E1/g feces. It is not necessary to interrupt enzyme substitution therapy. Test Performed by: [facility]/[place] [address] [place] [address] 4 Normal Range 180 to 914 Indeterminate Range 145 to 180 Deficient Range <145 5 Because ethnic data is not always readily [...] 15-29 5 Kidney failure <15 (or dialysis) Procedures Date Code Description Status 07/31/2019 44083 Moderate Sedation Services; Same Phys Each Additional 15 Completed Mins 07/31/2019 09529 Moderate Sedation Services; Same Phys Each Additional 15 Completed Mins 07/31/2019 35857 EGD+Biopsy Single Or Multiple Completed 06/04/2019 11824 Influenza Virus Vaccine, Quadrivalent (Cciiv4), Derived Completed From [employer] Description No Information Available Encounters Type Date Location Provider Dx Diagnosis Office Visit 06/24/2019 Gastroenterology Chelsey Varela R13.10 Dysphagia, 2:[facility] PA-C R19.7 Diarrhea, unspecified Assessments Date Code Description Provider 08/07/2019 R13.10 Dysphagia, unspecified Angela Balderas MD 08/07/2019 R19.7 Diarrhea, unspecified Angela Balderas MD 08/07/2019 K86.81 Exocrine pancreatic insufficiency Angela Balderas MD 07/31/2019 R13.10 Dysphagia, unspecified Angela Balderas MD 06/24/2019 R13.10 Dysphagia, unspecified Chelsey Ford PA-C 06/24/2019 R19.7 Diarrhea, unspecified Chelsey Ford PA-C Plan of Treatment No Information Available Functional Status Description No Information Available Mental Status Description No Information Available Referrals Description No Information Available
--- OUTSIDE RECORDS SUMMARY | 2019-08-16 17:07 | XMS REPORT | Continuity of Care Document ---
:1940 External Reference #:[id number] Author Name Chelsey Ford PA-C Address [address] [place] [address] Care Team Providers Name Role Phone Elin Fowler NP Care Team Information Insulation Estimator [phone] Bettye Up MD Care Team Information Insulation Estimator [phone] Problems Active Problems Provider Date Dysphagia Chelsey [...] is a former smoker Smoking Status Reviewed: 06/24/19 Patient is a former smoker Allergies, Adverse Reactions, Alerts Active Allergies Reaction Severity Comments Date Penicillin 02/10/2013 Pravastatin myalgias 03/25/2015 Rosuvastatin GI problems 06/09/2019 Levaquin joint pain 11/03/2012 Sulfa Antibiotics 02/10/2013 Codeine 05/01/2010 Vancomycin 02/10/2013 Contrast Dye 02/10/2013 Medications Active Medications SIG Qnty Indications Ordering Date Provider Patt 2 caps PO with 270caps Angela 07/07/2019 meals and one cap MD Sherrie [id number] PO with snacks Caps DR Soriano Diazepam take one tablet by 120tabs PranayDarius khalil FNP 11/24/2018 5mg mouth four times a [...] CPT Code Status Date Vaccine Lot # [id number] Given 12/03/2016 Tetanus, Diphtheria Toxoids/Acellular Pertussis Vaccine 7 Or > 02184 Given 05/18/2016 Pneumococcal Conjugate Vaccine 13 Valent For Intramuscular Use 02509 Given 06/04/2014 Influenza Virus Vaccine Split Virus Use For Individual 3Yr Older 37222 Given 07/27/2013 Influenza Virus Vaccine Split Virus Use For Individual 3Yr Older 76609 Given 07/11/2012 Influenza [place], [place] [address] Given 05/25/2011 Pneumovax 41601 Given 05/25/2011 Influenza [place], [place] [address] Given 05/25/2008 Influenza [place], [place] [address] Given 05/25/2008 Influenza [place] Vacc[place], [place] [address] Given 09/03/2007 Td Preservative Free For Use In Individuals 7 Yrs Or Older 08581 Given 09/03/2007 Td Preservative Free For Use In Individuals 7 Yrs Or Older Vital Signs Date Vital Result Comment 06/24/2019 1:57pm Height 63 inches 5'3" Weight 114.00 lb BP Systolic 131 mmHg BP Diastolic 90 mmHg Heart Rate 90 /min BMI (Body Mass Index) 20.2 kg/m2 12/31/2017 1:03pm Height 63 inches 5'3" Weight 134.00 lb BP Systolic 136 mmHg BP Diastolic 80 mmHg Heart Rate 100 /min BMI (Body Mass Index) 23.7 kg/m2 Results Test Acquired Facility Test Result H/L Range Note Date Laboratory 06/24/2019 [facility] Pancreatic 21 g/G Abnormal 1, 2 test finding Elastase-1 Stool CBC Auto Diff 06/04/2019 N2N/CCD Import White Blood 5.7 3.5-10.8 Count 10^3/uL Red Blood Count 3.66 10^6/uL Low 3.70-4.87 [...] Vitamin B12 > 1450 pg/mL High 180-914 3 Folate Serum Folic Acid (Folate) 5.79 ng/mL [...] Egfr Non- 40.0 1 Egfr 48.4 1 4 TSH (Thyroid Stim Horm) 1.56 mcIU/mL 0.34-5.60 Lab Results 06/04/2019 N2N/CCD Import TSH (Thyroid Stim 1.56 mcIU/mL 0.34-5.60 Horm) 1 [id number] Adult and Pediatric Reference Ranges for Pancreatic Elastase-1: Normal: >200 mcg/g Moderate Pancreatic Insufficiency: 100-200 mcg/g Severe Pancreatic Insufficiency: <100 mcg/g Elastase-1 (E-1) assay results are expressed in mcg/g, which represent mcg E1/g feces. It is not necessary to interrupt enzyme substitution therapy. Test Performed by: [facility] [address] [place] [address] 3 Normal Range 180 to 914 Indeterminate Range 145 to 180 Deficient Range <145 4 Because ethnic data is not always readily [...] (or dialysis) Procedures Date Code Description Status 06/04/2019 13256 Influenza Virus Vaccine, Quadrivalent (Cciiv4), Derived Completed From [employer] [facility] Description No Information Available Encounters Description No Information Available Assessments Date Code Description Provider 06/24/2019 R13.10 Dysphagia, unspecified Chelsey Ford PA-C 06/24/2019 R19.7 Diarrhea, unspecified Chelsey Ford PA-C Plan of Treatment Future Appointment(s):07/31/2019 12:00 pm - [facility] - [facility] Hair13.10 Dysphagia, [id number] Diarrhea, unspecified Functional Status Description No Information Available Mental Status Description No Information Available Referrals Description No Information Available
--- OUTSIDE RECORDS SUMMARY | 2019-08-16 17:07 | XMS REPORT | Continuity of Care Document ---
:1940 External Reference #:[id number] Author Name Chelsey Ford PA-C Address [address] [place] [address] Care Team Providers Name Role Phone Elin Fowler NP Care Team Information French Folding Machine Operator [phone] Bettye Up MD Care Team Information French Folding Machine Operator [phone] Problems Active Problems Provider Date Dysphagia Chelsey [...] Medications SIG Qnty Indications Ordering Date Provider Diazepam take one tablet by 120tabs Darius [...] CPT Code Status Date Vaccine Lot # [id number] Given 12/03/2016 Tetanus, Diphtheria Toxoids/Acellular Pertussis Vaccine 7 Or > 20182 Given 05/18/2016 Pneumococcal Conjugate Vaccine 13 Valent For Intramuscular Use 00177 Given 06/04/2014 Influenza Virus Vaccine Split Virus Use For Individual 3Yr Older 11077 Given 07/27/2013 Influenza Virus Vaccine Split Virus Use For Individual 3Yr Older 40714 Given 07/11/2012 Influenza [place], [place] [address] Given 05/25/2011 Pneumovax 06186 Given 05/25/2011 Influenza [place] Vacc[place], [place] [address] Given 05/25/2008 Influenza [place], [place] [address] Given 05/25/2008 Influenza [place] Vacc[place], [place] [address] Given 09/03/2007 Td Preservative Free For Use In Individuals 7 Yrs Or Older 79421 Given 09/03/2007 Td Preservative Free For Use [...] (Thyroid Stim 1.56 mcIU/mL 0.34-5.60 Horm) 1 [id number] Adult and Pediatric Reference Ranges for Pancreatic Elastase-1: Normal: >200 mcg/g Moderate Pancreatic Insufficiency: 100-200 mcg/g Severe Pancreatic Insufficiency: <100 mcg/g Elastase-1 (E-1) assay results are expressed in mcg/g, which represent mcg E1/g feces. It is not necessary to interrupt enzyme substitution therapy. Test Performed by: [facility] [facility] [address] [place] [address] 3 Normal Range 180 to 914 Indeterminate [...] dialysis) Procedures Date Code Description Status 06/04/2019 08902 Influenza Virus Vaccine, Quadrivalent (Cciiv4), Derived Completed From [employer] Description No Information Available Encounters Description No Information Available Assessments Date Code Description Provider 06/24/2019 R13.10 Dysphagia, unspecified Chelsey Ford PA-C 06/24/2019 R19.7 Diarrhea, unspecified Chelsey Ford PA-C Plan of Treatment Future Appointment(s):07/31/2019 12:00 pm - Angela Balderas MD at [facility]06/24/2019 - DINA Hair13.10 Dysphagia, xekmiwnvrfjX74.7 Diarrhea, unspecified Functional Status Description No Information Available Mental Status Description No Information Available Referrals Description No Information Available
--- OUTSIDE RECORDS SUMMARY | 2019-08-16 17:07 | XMS REPORT | Continuity of Care Document ---
:1940 External Reference #:[id number] Author Name Bia Mello MD (transmitted by agent of provider Olesya Schmitz) Address [address], [address] [place] [id number] Problems Active Problems Provider Date Anxiety state Elin Fowler, N.P. Onset: 05/25/2011 Benign essential hypertension Elin Fowler, N.P. Onset: 05/25/2011 Osteoporosis Elin Fowler, N.P. Onset: 05/25/2011 Chronic obstructive lung disease Elin Varsotero, N.P. Onset: 05/25/2011 Right bundle branch block Elin Fowler, N.P. Onset: 05/25/2011 Hyperlipidemia Margret Anne M.D. Onset: 03/25/2015 FH: Cardiovascular disease Margret Anne M.D. Onset: 03/25/2015 Diarrhea Alexa Macdonald NP Onset: 06/06/2018 Gastroesophageal reflux disease Alexa Macdonald NP Onset: 06/06/2018 Social History Type Date Description Comments Sex Unknown Tobacco Use Start: Unknown End: Former Cigarette Smoker Unknown Smoking Status Reviewed: 06/23/19 Former Cigarette Smoker ETOH Use Denies alcohol use Tobacco Use Start: Unknown End: Patient is a former Quit 2011, used to Unknown smoker smoke 1 1/2 PPD for 37 years Recreational Drug Use Denies Drug Use Exercise Type/Frequency Exercises rarely Allergies, Adverse Reactions, Alerts Active Allergies Reaction Severity Comments Date Penicillin 05/01/2010 Codeine 05/01/2010 Vancomycin 05/01/2010 IV Dye Anaphylaxis Severe 06/07/2010 Levaquin joint pain 11/03/2012 Sulfa Antibiotics 05/14/2013 Crestor GI problems 03/25/2015 Pravastatin myalgias 03/25/2015 Medications Active Medications SIG Qnty Indications Ordering Date Provider Diazepam take one tablet by 120tabs Darius Pires NP 11/24/2018 5mg mouth four times a Tablets day; maximum daily dose = 4 Imodium A-D 4mg as directed. 240ml Alexa Macdonald NP 10/30/2018 1mg/7.5ML Liquid Proair HFA Use 1 puff Every 6 8.5units Bia Mello, 10/27/2018 Hours as Needed 108(90Base) mcg/Act Aerosol Spiriva Handihaler inahle the 30caps J44.9 Darius Pires NP 08/14/2017 contents of one 18mcg Capsules capsule via handihaler by mouth every day Omeprazole Take 1 Capsule By 180caps K21.9 Darius Pires NP 06/04/2014 20mg Mouth Twice Daily Capsules DR William take one tablet by 90tabs Darius Pires NP 03/13/2010 40mg Tablets mouth every day Align 1 by mouth every Unknown Capsules day Vitamin B12 1 by mouth every Unknown 1000mcg day Tablets ER Coq10 Unknown 100mg Capsules Immunizations CPT Code Status Date Vaccine Reaction Lot # 60534 Given 06/04/2019 Influenza Virus Vaccine, No immediate reaction [id number] Quadrivalent ([id number]), Derived From Cell 81547 Given 12/03/2016 Tdap - [id number] Tetanus/Diptheria/Acellula r Pertussis 59346 Given 05/18/2016 Influ Virus Vaccine, [id number] Quadrivalent, Split Virus, [place] [address] Given 05/18/2016 Pneumococcal Conjugate [id number] Vaccine 13 Valent For Intramuscular Use 99890 Given 06/04/2014 Flu Vaccine Split Virus [id number] Preservative Free For Indiv 3Yr Older 70599 Given 07/27/2013 Flu Vaccine Split Virus [id number] Preservative Free For Indiv 3Yr Older Q2037 Given 07/11/2012 Fluvirin Im 3Yrs And Older [id number] Q2035 Given 05/25/2011 Afluria Vaccine [id number] 51373 Given 05/25/2011 Pneumonia Vaccine [id number] 95534 Given 05/25/2008 Influenza Virus 3Yrs & Over 89183 Given 05/25/2008 Influenza Virus 3Yrs & Over 74653 Given 09/03/2007 Tetanus And Diptheria (Td) For Adult Use Preservative Free 90195 Given 09/03/2007 Tetanus And Diptheria (Td) For Adult Use Preservative Free Vital Signs Date Vital Result Comment 06/23/2019 1:39pm Height 62 inches 5'2" Weight 114.00 lb Heart Rate 87 /min BP Systolic Sitting 140 mmHg BP Diastolic Sitting 80 mmHg O2 % BldC Oximetry 97 % BMI (Body Mass Index) 20.8 kg/m2 06/04/2019 2:57pm Height 62 inches 5'2" Weight 116.00 lb Heart Rate 92 /min BP Systolic Sitting 94 mmHg BP Diastolic Sitting 77 mmHg Body Temperature 98.2 F O2 % BldC Oximetry 92 % BMI (Body Mass Index) 21.2 kg/m2 Results Test Acquired Date Facility Test Result H/L Range Note CBC Auto 06/04/2019 [facility] White Blood 5.7 10^3/uL Normal 3.5-10.[address] [place] [address] [phone] Red Blood Count 3.66 10^6/uL Low 3.70-4.87 Hemoglobin 11.6 g/dL Low 12.0-16.0 Hematocrit 35 % Normal 35-47 Mean Corpuscular Volume 94 fL Normal 80-97 Mean Corpuscular Hemoglobin 32 pg High 27-31 Mean Corpuscular HGB Conc 34 g/dL Normal 31-36 Red Cell Distribution Width 13 % Normal 10-15 Platelet Count 306 10^3/uL Normal 150-450 Mean Platelet Volume 6.7 fL Low 7.4-10.4 Abs Neutrophils 3.9 10^3/uL Normal 1.5-7.7 Abs Lymphocytes 1.0 10^3/uL Normal 1.0-4.8 Abs Monocytes 0.4 10^3/uL Normal 0-0.8 Abs Eosinophils 0.3 10^3/uL Normal 0-0.6 Abs Basophils 0.0 10^3/uL Normal 0-0.2 Abs Nucleated RBC 0.0 10^3/uL Granulocyte % 69.2 % Lymphocyte % 17.1 % Monocyte % 7.8 % Eosinophil % 5.1 % Basophil % 0.8 % Nucleated Red Blood Cells % 0.0 Laboratory test 06/04/2019 [facility] Ferritin 49.7 ng/mL Normal 11-307 finding [address] [place] [address] [phone] Iron & Iron 06/04/2019 [facility] Iron 73 g/dL Normal 50- 212 Binding Capacity [address] [place] [address] [phone] Unsaturated Iron Binding < 262 g/dL Total Iron Binding Capacity 277 g/dL Normal 250-450 Transferrin 198 mg/dL Low 203-362 % Iron Saturation 26 % Normal 15-55 Vitamin B12 06/04/2019 [facility] Vitamin B12 > 1450 pg/mL High 180-914 1 And Folate [address] [facility] [place] [address] [phone] Folic Acid (Folate) 5.79 ng/mL >3.99 Comp Metabolic Panel 06/04/2019 [facility] Sodium 134 mmol/L Low 135-145 [address] [place] [address] [phone] Potassium 4.6 mmol/L Normal 3.5-5.0 Chloride 97 mmol/L Low 101-111 Co2 Carbon Dioxide 30 mmol/L Normal 22-32 Anion Gap 7 mmol/L Normal 2-11 Glucose 84 mg/dL Normal 70-100 Blood Urea Nitrogen 8 mg/dL Normal 6-24 Creatinine 1.29 mg/dL High 0.51-0.95 BUN/Creatinine Ratio 6.2 Low 8-20 Calcium 9.8 mg/dL Normal 8.6-10.3 Total Protein 7.9 g/dL Normal 6.4-8.9 Albumin 4.2 g/dL Normal 3.2-5.2 Globulin 3.7 g/dL Normal 2-4 Albumin/Globulin Ratio 1.1 Normal 1-3 Total Bilirubin 0.40 mg/dL Normal 0.2-1.0 Alkaline Phosphatase 72 U/L Normal 34-104 Alt 13 U/L Normal 7-52 Ast 25 U/L Normal 13-39 Egfr Non- 40.0 >60 Egfr 48.4 >60 2 Laboratory 06/04/2019 [facility] TSH (Thyroid 1.56 Normal 0.34 -5.60 test finding [address] [facility] Stim Horm) mcIU/[place] [address] [phone] Normal Range 180 to 914 Indeterminate Range 145 to 180 Deficient Range <145 2 Because ethnic data is not always readily [...] (or dialysis) Procedures Date Code Description Status 10/30/2018 [id number] Mammogram Completed 07/15/2018 [id number] Mammogram Completed 09/20/2017 [id number] Mammogram Completed 08/20/2016 [id number] Mammogram Completed 08/04/2015 [id number] Mammogram Completed 05/25/2015 [id number] Colonoscopy Completed 06/01/2014 [id number] Mammogram Completed 02/27/2013 [id number] Mammogram Completed 02/01/2012 [id number] Mammogram Completed 10/20/2010 [id number] Mammogram Completed 10/13/2010 [id number] Mammogram Completed 04/05/2010 [id number] Colonoscopy Completed 01/06/2009 917596312 Bone Mineral Density Test Completed Medical Devices Description No Information Available Encounters Type Date Location Provider Dx Diagnosis Office Visit 06/04/2019 [employer] Internal Darius Pires NP R19.7 Diarrhea, 2:40p Medicine - Ccmob unspecified R53.83 Other fatigue R13.10 Dysphagia, unspecified D64.9 Anemia, unspecified M79.672 Pain in left foot Z23 Encounter for immunization Assessments Date Code Description Provider 06/23/2019 J44.9 Chronic obstructive pulmonary disease, Bia Mello MD unspecified 06/23/2019 R09.02 Hypoxemia Bia Mello MD 06/04/2019 R19.7 Diarrhea, unspecified Dariusgermania Pires NP 06/04/2019 R53.83 Other fatigue Darius Pires, RADHA 06/04/2019 R13.10 Dysphagia, unspecified Darius Pires, RADHA 06/04/2019 D64.9 Anemia, unspecified Darius Pires, RADHA 06/04/2019 M79.672 Pain in left foot Darius Pires NP 06/04/2019 Z23 Encounter for immunization Darius Pires NP Plan of Treatment Future Appointment(s):06/23/2020 2:30 pm - Rita Hudson NP [facility]06/23/2019 - Bia Mello MDJ44.9 Chronic obstructive pulmonary disease, unspecifiedFollow up:1 yearR09.02 Hypoxemia Functional Status Description No Information Available Mental Status Description No Information Available Referrals Refer to Reason for Referral Status Appt Date Angela Balderas M.D. Received Partial [address] [place] [address] [phone]
[2019-08-16] MEDS ORDERED: HYDROcodone/ACETAMIN 5-325 MG* 1 TAB PO ONE (19:11)
[2019-08-16 19:56] VITALS: BP 130/78
== END 2019-08-16 19:28 | disposition home or self-care (01) ==
LOC: ED 16:54
DX: M54.9 Dorsalgia, unspecified (principal); I45.10 Unspecified right bundle-branch block; J44.9 Chronic obstructive pulmonary disease, unspecified; K21.9 Gastro-esophageal reflux disease without esophagitis; F41.9 Anxiety disorder, unspecified; Z86.718 Personal history of other venous thrombosis and embolism; Z87.891 Personal history of nicotine dependence; Z90.49 Acquired absence of other specified parts of digestive tract; Z96.651 Presence of right artificial knee joint; Z90.89 Acquired absence of other organs; Z79.82 Long term (current) use of aspirin; Z88.5 Allergy status to narcotic agent; Z88.0 Allergy status to penicillin; Z88.2 Allergy status to sulfonamides; Z88.1 Allergy status to other antibiotic agents; Z91.041 Radiographic dye allergy status
CPT/HCPCS: 99282

== ENCOUNTER 2019-10-11 16:45 | Inpatient (IN) | payer MEDICARE ==
--- OUTSIDE RECORDS SUMMARY | 2019-10-11 16:52 | XMS REPORT ---
:1940 Author Organization [facility] Address [address] 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 Problem Unspecified R32 Active 113333114 urinary incontinence Problem Mixed incontinence N39.46 Active 039832175 Problem Stress N39.3 Active 96132762 incontinence (female) (male) Problem Unspecified lump N63.21 Active [id number] in the left breast, upper outer quadrant ALLERGIES No Information ENCOUNTERS Encounter Location Date Diagnosis [address] Sep, [facility] [address] [place] [id number] [facility] Jul, Urinary tract infection, OBGYN [facility], site not specified N[place] [id number] [facility] May, [place] [id number] [facility] May, Urinary tract infection, OBGYN [facility], site not specified [place].[address] [place] [id number] May, Mixed incontinence N39.46 [facility] [address] [place], [place] [address], ; Postmenopausal atrophic [place] [id number] vaginitis N95.2 and Frequency of micturition R35.0 [place] [facility] Apr, Urinary tract infection, OBGYN [facility], site not specified N39.0 [place] [id number] [place] [facility] [address] Apr, Unspecified urinary [address] [place] [address], incontinence R32 and [place] [id number] Urinary tract infection, site not specified N39.0 [place] [facility] Apr, Urinary tract infection, OBGYN [facility], site not specified N39.0 [place] [id number] [place] [facility] 103 Mar, Urinary tract infection, OBGYN [facility], site not specified N39.0 [place] [id number] [place] [facility] [address] Mar, Mixed incontinence N39.[address] [place] [address], ; Postmenopausal atrophic [place] [id number] vaginitis N95.2 ; Frequency of micturition R35.0 and Hematuria, unspecified R31.9 [place] [facility] Feb, [place] [id number] [place] [facility] Feb, [place] [id number] [place] [facility] [address] [facility] Feb, Dysuria R30.[address] [place] [address], [place] [id number] [place] [facility] Jan, [place] [id number] [place] [facility] [address] Jan, Mixed incontinence N39.[address] [place] [address], ; Postmenopausal atrophic [place] [id number] vaginitis N95.2 and Frequency of micturition R35.0 [place] [facility] 103 Nov, Urinary tract infection, OBGYN [facility], site not specified N39.0 [place] [id number] [place] [facility] Oct, [place] [id number] [place] [facility] [address] Oct, Mixed incontinence N39.[address] [place] [address], [place] [id number] [place] [facility] Oct, [place] [id number] [place] [facility] Oct, [place] [id number] [place] [facility] Sep, [place] [id number] [place] [facility] 103 Aug, Urinary tract infection, [facility], site not specified N39.[address] [place] [id number] [place] [facility] Aug, O[place] [id number] [place] [facility] [address] Aug, Mixed incontinence N39.[address] [place] [address], ; Stress incontinence [place] [id number] (female) (male) N39.3 and Unspecified lump in the left breast, upper outer quadrant N63.21 [place] [facility] [address] Jul, Mixed incontinence N39.[address] [place] [address], ; Stress incontinence [place] [id number] (female) (male) N39.3 and Unspecified lump in the left breast, upper outer quadrant N63.21 [place] [facility] [address] Jun, Mixed incontinence N39.[address] [place] [address], and Stress incontinence [place] [id number] (female) (male) N39.3 [place] [facility] [address] Apr, Stress incontinence [address] [place], (female) (male) N39.3 and [place] [id number] Mixed incontinence N39.46 [place] [facility] Apr, [place] [id number] [facility] [address] Apr, Stress incontinence [facility] [place] [id number] (female) (male) N39.3 [place] [facility] Apr, [place] [id number] [place] [facility] Apr, Mixed incontinence N39.46 [place] [id number] [place] [facility] Mar, O[place], [place] [id number] [place] [facility] [address] [facility] Mar, Mixed incontinence N39.[address] [facility] [address] [place], [place] [id number] [place] [facility] 103 Feb, Unspecified urinary OBGYN [facility], incontinence [address]32 [place] [id number] [place] [facility] Jul, [place], [place] [id number] [place] [facility] May, [place] [id number] [place] [facility] Mar, [place] [id number] [place] [facility] Feb, [place] [id number] [place] [facility] 103 Feb, Unspecified urinary OBGYN [facility], incontinence [address] [place] [id number] [place] [facility] 103 Feb, Dysuria R30.0 [place], [place] [id number] [place] [facility] Feb, [place] [id number] [place] [facility] Feb, OBG[place] [id number] [place] [facility] [address] Feb, Unspecified urinary [address] [place], incontinence R32 and Anal [place] [id number] polyp K62.0 IMMUNIZATIONS No Known Immunizations SOCIAL HISTORY Never Assessed REASON FOR REFERRAL FUNCTIONAL STATUS PLAN OF CARE VITAL SIGNS MEDICATIONS Unknown Medications PROCEDURES No Known procedures RESULTS No Results REASON FOR VISIT FEBRUARY 2019, february annual Insurance Providers [facility] Health Member Patient Patient Patient Patient Patient Subscriber Subscriber Subscriber Group Insurance Plan Plan Plan Plan ID Relationship Address Phone Name Date of ID Name Date of No Type Insurance Insurance Insurance Coverage to Subscriber Address Phone Name Dates Medicare [phone] Medicare self [place] [id number] [place] [facility] [address] AAR [phone] AARP self [place] [id number] [facility] [phone] d MEDICAL (GENERAL) HISTORY Type Description Date Medical History Anxiety Medical History Acid reflux Surgical History appendectomy Surgical History Rt Oophorectomy Surgical History LT oophorectomy Surgical History Right total knee replacement Surgical History cholecystectomy Surgical History Solyx TOT/cysto 04/16/2018 Hospitalization History see above Hospitalization History Child Hospitalization History Acute Kidney Failure 12/2017
--- OUTSIDE RECORDS SUMMARY | 2019-10-11 16:52 | XMS REPORT ---
:1940 Author Name Nurse, appt Care Team Providers Name Role Phone Nurse, appt Unavailable Unavailable PROBLEMS Type Condition ICD9-CM [id number] Onset Condition SNOMED Code Code Code Dates Status Problem Anal polyp K62.0 Active 81675108 Problem Urinary tract N39.0 Active 59460822 infection, site not specified Problem Postmenopausal N95.2 Active 37720936 atrophic vaginitis Problem Unspecified R32 Active 424410370 urinary incontinence Problem Mixed incontinence N39.46 Active 151888401 Problem Stress N39.3 Active 15020715 incontinence (female) (male) Problem Unspecified lump N63.21 Active [id number] in the left breast, upper outer quadrant ALLERGIES No Information ENCOUNTERS Encounter Location Date Diagnosis [address] Sep, [facility] [address] [place] [id number] [facility] Jul, Urinary tract infection, [facility], site not specified N39.0 [place] [id number] [facility] May, [place] [id number] [facility] May, Urinary tract infection, [facility], site [place] specified [place] [id number] [address] May, Mixed incontinence N39.[address] [facility] [address] [place] [address], ; Postmenopausal atrophic [place] [id number] vaginitis N95.2 and Frequency of micturition R35.0 [facility] Apr, Urinary tract infection, OBG[facility], site not specified [place]39.0 [place] [id number] [place] [facility] [address] Apr, Unspecified urinary [address] [place], incontinence R32 and [place] [id number] Urinary tract infection, site not specified N39.0 [facility] Apr, Urinary tract infection, OBG[facility], site not specified [place]39.0 [place] [id number] [facility] Mar, Urinary tract infection, OBG[facility], site not specified N39.0 [place] [id number] [place] [facility] [address] Mar, Mixed incontinence [address] [place] [address], ; Postmenopausal atrophic [place] [id number] vaginitis N95.2 ; Frequency of micturition R35.0 and Hematuria, unspecified R31.9 [facility] Feb, [place] [id number] [facility] Feb, [place] [id number] [place] [facility] [address] Feb, Dysuria R[address] [place] [id number] [facility] Jan, [place] [id number] [place] [facility] [address] Jan, Mixed incontinence N39.[address] [place] [address], ; Postmenopausal atrophic [place] [id number] vaginitis N95.2 and Frequency of micturition R35.0 [facility] Nov, Urinary tract infection, [facility], site not specified N39.0 [place] [id number] [facility] Oct, [place] [id number] [place] [facility] [address] Oct, Mixed incontinence N39[address] [place] [address], [place] [id number] [facility] Oct, [place] [id number] [facility] Oct, [place] [id number] [facility] Sep, [place] [id number] [facility] Aug, Urinary tract infection, O[facility], site not specified N39.0 [place] [id number] [facility] Aug, [place], [place] [id number] [place] [facility] [address] Aug, Mixed incontinence N39[address] [place] [address], ; Stress incontinence [place] [id number] (female) (male) N39.3 and Unspecified lump in the left breast, upper outer quadrant N63.21 [place] [facility] [address] Jul, Mixed incontinence N39[address] [place] [address], ; Stress incontinence [place] [id number] (female) (male) N39.3 and Unspecified lump in the left breast, upper outer quadrant N63.21 [place] [facility] [address] Jun, Mixed incontinence N39.[address] [place] [address], and Stress incontinence [place] [id number] (female) (male) N39.3 [place] [facility] [address] Apr, Stress incontinence [address] [place] [address], (female) (male) N39.3 and [place] [id number] Mixed incontinence N39.46 [facility] Apr, [place] [id number] [facility] [address] Apr, Stress incontinence [facility] [place] [id number] (female) (male) N39.3 [facility] Apr, [place], [place] [id number] [facility] Apr, Mixed incontinence N39.46 [place] [id number] [facility] Mar, [place], [place] [id number] [place] [facility] [address] Mar, Mixed incontinence N39.[address] [place], [place] [id number] [facility] Feb, Unspecified urinary [facility]BG[facility], incontinence R32 [place] [id number] [facility] Jul, [place] [id number] [facility] May, [place] [id number] [facility] Mar, [place] [id number] [facility] Feb, [place] [id number] [facility] Feb, Unspecified urinary OBG[facility], incontinence R32 [place] [id number] [facility] Feb, Dysuria R30.0 [place] [id number] [facility] Feb, [place], [place] [id number] [facility] Feb, [place] [id number] [place] [facility] [address] Feb, Unspecified urinary [address] [place], incontinence R32 and Anal [place] [id number] polyp K62.0 IMMUNIZATIONS No Known Immunizations SOCIAL HISTORY Never Assessed REASON FOR REFERRAL FUNCTIONAL STATUS PLAN OF CARE VITAL SIGNS MEDICATIONS Medication Instructions Dosage Frequency Start End Date Duration Status Date Spiriva 18 mcg inhaled once a day 1 cap(s) 24h Active colestipol 1 g orally 2 times a 2 tab(s) 12h Active day Aspir 81 81 mg orally once a day 1 tab(s) 24h Active Valium 5 mg orally QID PRN 1 tab(s) Active Paxil 20 mg orally once a day 1 tab(s) 24h Active Imvexxy intravaginally 2 1 ins 35 days Active Maintenance times a week Pack 10 mcg omeprazole 20 orally twice a day 1 cap(s) 12h Active mg Align 4 mg orally once a day 1 cap(s) 24h Active Pepto-Bismol chewed PRN Active 262 mg Macrobid orally 2 times a 1 cap(s) 12h 12 Mar, 7 days Active macrocrystals-m 2018 onohydrate 100 mg paroxetine 40 orally once a day 1 tab(s) 24h Active mg PROCEDURES No Known procedures RESULTS No Results REASON FOR VISIT [facility] - [place] Insurance Providers [facility] Health Member Patient Patient Patient Patient Patient Subscriber Subscriber Subscriber Group Insurance Plan Plan Plan Plan ID Relationship Address Phone Name Date of ID Name Date of No Type Insurance Insurance Insurance Coverage to Subscriber Address Phone Name Dates Medicare [phone] Medicare self [place] [id number] [facility] [place] [address] AAR [address] AAR self [place] [id number] [address] [facility] [place] [phone] d MEDICAL (GENERAL) HISTORY Type Description Date Medical History Anxiety Medical History Acid reflux Surgical History appendectomy Surgical History Rt Oophorectomy Surgical History LT oophorectomy Surgical History Right total knee replacement Surgical History cholecystectomy Surgical History Solyx TOT/cysto 04/16/2018 Hospitalization History see above Hospitalization History Child Hospitalization History Acute Kidney Failure 12/2017
--- OUTSIDE RECORDS SUMMARY | 2019-10-11 16:52 | XMS REPORT ---
:1940 Author Organization [facility] Address [address] [place] [address] Care Team Providers Name Role Phone Iram Mckeon Unavailable Unavailable PROBLEMS Type Condition ICD9-CM [id number] Onset Condition SNOMED Code Code Code Dates Status Problem Anal polyp K62.0 Active 83947137 Problem Urinary tract N39.0 Active 21583230 infection, site not specified Problem Postmenopausal N95.2 Active 84446074 atrophic vaginitis Problem Unspecified R32 Active 386510354 urinary incontinence Problem Mixed incontinence N39.46 Active 895760463 Problem Stress N39.3 Active 64209577 incontinence (female) (male) Problem Unspecified lump N63.21 Active [id number] in the left breast, upper outer quadrant ALLERGIES Substance Reaction Event Type Date Status IVP Dye hives Drug Allergy May, Active Codeine hives Drug Allergy May, Active Levaquin hives Drug Allergy May, Active Vancomycin rash Drug Allergy May, Active ENCOUNTERS Encounter Location Date Diagnosis [address] Sep, [facility] [address] [place], [place] [id number] [facility] Jul, Urinary tract infection, OBGYN [facility], site not specified N39.0 [place] [id number] [facility] May, OBGYN [place], [place] [id number] [facility] [facility] May, Urinary tract infection, OBGYN [facility], site not specified N39.0 [place] [id number] [place] [facility] [address] May, Mixed incontinence N39.[address] [place], ; Postmenopausal atrophic [place] [id number] vaginitis N95.2 and Frequency of micturition R35.0 [facility] [facility] Apr, Urinary tract infection, OBGYN [facility], site not specified N39.0 [place] [id number] [place] [facility] [address] Apr, Unspecified urinary [address] [place], incontinence R32 and [place] [id number] Urinary tract infection, site not specified N39.0 [facility] Apr, Urinary tract infection, OBGYN [facility], site not specified N39.0 [place] [id number] [facility] Mar, Urinary tract infection, OBGYN [facility], site not specified N39.0 [place] [id number] [place] [facility] [address] Mar, Mixed incontinence N39.[address] [place] [address], ; Postmenopausal atrophic [place] [id number] vaginitis N95.2 ; Frequency of micturition R35.0 and Hematuria, unspecified R31.9 [facility] Feb, OBG[place] [id number] [facility] Feb, O[place], [place] [id number] [place] [facility] [address] Feb, Dysuria R30[address] [place] [id number] [facility] Jan, OBG[place] [id number] [place] [facility] [address] Jan, Mixed incontinence N39.[address] [place] [address], ; Postmenopausal atrophic [place] [id number] vaginitis N95.2 and Frequency of micturition R35.0 [facility] Nov, Urinary tract infection, OBGYN [facility], site not specified N39.0 [place] [id number] [facility] Oct, OBG[place], [place] [id number] [place] [facility] [address] Oct, Mixed incontinence N39.[address] [place] [address], [place] [id number] [facility] Oct, [place] [id number] [facility] Oct, [place], [place] [id number] [facility] Sep, [place] [id number] [facility] Aug, Urinary tract infection, OBGYN [facility], site not specified N39.0 [place] [id number] [facility] Aug, OBG[place], [place] [id number] [place] [facility] [address] Aug, Mixed incontinence N39.[address] [place] [address], ; Stress incontinence [place] [id number] (female) (male) N39.3 and Unspecified lump in the left breast, upper outer quadrant N63.21 [place] [facility] [address] Jul, Mixed incontinence N39.[address] [place] [address], ; Stress incontinence [place] [id number] (female) (male) N39.3 and Unspecified lump in the left breast, upper outer quadrant N63.21 [place] [facility] [address] Jun, Mixed incontinence N39.[address] [place], and Stress incontinence [place] [id number] (female) (male) N39.3 [place] [facility] [address] Apr, Stress incontinence [address] [place], (female) (male) N39.3 and [place] [id number] Mixed incontinence N39.46 [place] [facility] Apr, [place], [place] [id number] [facility] [address] Apr, Stress incontinence [facility] [place] [id number] (female) (male) N39.3 [facility] Apr, [place] [id number] [facility] Apr, Mixed incontinence N39.46 [place], [place] [id number] [facility] Mar, OBG[place], [place] [id number] [place] [facility] [address] [place] [address] Mar, Mixed incontinence N39.[address] [place], [place] [id number] [facility] Feb, Unspecified urinary OBGYN [facility], incontinence R32 [place] [id number] [facility] Jul, O[place], [place] [id number] [facility] May, [place]BG[place], [place] [id number] [facility] Mar, [place] [id number] [facility] Feb, [place], [place] [id number] [facility] Feb, Unspecified urinary OBGYN [facility], incontinence R32 [place] [id number] [facility] Feb, Dysuria R30.0 [place]BG[place] [id number] [facility] Feb, OBG[place], [place] [id number] [facility] 17 Feb, 2017 OBG[place] [id number] [place] [address] [facility] 14 Feb, [address] [place], incontinence R32 and Anal [place] [id number] polyp K62.0 IMMUNIZATIONS No Known Immunizations SOCIAL HISTORY Never Assessed REASON FOR REFERRAL FUNCTIONAL STATUS PLAN OF CARE Activity Details Follow Up scheduled Reason: VITAL SIGNS Height 62 in 2019-05-14 Weight 113 lbs 2019-05-14 BMI 20.67 kg/m2 2019-05-14 Blood pressure systolic 110 mm Hg 2019-05-14 Blood pressure diastolic 60 mm Hg 2019-05-14 MEDICATIONS Medication Instructions Dosage Frequency Start End Duration Status Date Date colestipol 1 g orally 2 times a 2 tab(s) 12h Active day Pepto-Bismol 262 chewed PRN Active mg Paxil 20 mg orally once a day 1 tab(s) 24h Active Macrobid orally 2 times a 1 cap(s) 12h Mar, Active macrocrystals-mono day 2018 hydrate 100 mg omeprazole 20 mg orally twice a 1 cap(s) 12h Active day Valium 5 mg orally QID PRN 1 tab(s) Active Spiriva 18 mcg inhaled once a 1 cap(s) 24h Active day Imvexxy intravaginally 2 1 ins Active Maintenance Pack times a week 10 mcg Align 4 mg orally once a day 1 cap(s) 24h Active Nitrofurantoin orally 2 times a 1 cap(s) 12h May, days Active Monohydrate/Macroc day 2018 rystals macrocrystals-mono hydrate 100 mg paroxetine 40 mg orally once a day 1 tab(s) 24h Active Aspir 81 81 mg orally once a day 1 tab(s) 24h Active PROCEDURES Procedure Date Ordered Result Body Site URINE-NO MICRO May 14, 2019 DOC MEDS VERIFIED W/PT OR RE May 14, 2019 URINE INCON PLAN DOC'D May 14, 2019 PRES/ABSN URINE INCON ASSESS May 14, 2019 RESULTS Name Result Date Reference Range Urine dip Glucose blood 0 protein +2 Nitrite +2 Leuko 0 Urobilinogen Keytone Bilirubin pH CULTURE IF INDICATED COMMENT 2019-05-14 CULTURE IF INDICATED COMMENT CULTURE TO FOLLOW URINE CULTURE 2019-05-14 URINE CULTURE KLEBSIELLA PNEUMONIAE SUSCEPTIBILITY [id number] 2019-05-16 NITROFURANTOIN 64 TRIMETHOPRIM/SULFAMETHOXAZOLE <=20 AMPICILLIN >=32 CEFAZOLIN <=4 AMPICILLIN/SULBACTAM 8 PIPERACILLIN/TAZOBACTAM <=4 CEFTAZIDIME <=1 CEFTRIAXONE <=1 CEFEPIME <=1 LEVOFLOXACIN <=0.12 IMIPENEM <=0.25 GENTAMICIN <=1 TOBRAMYCIN <=1 URINALYSIS WITH MICROSCOPIC 2019-05-14 URINE COLOR Yellow YELLOW URINE CLARITY Slightly Cloudy CLEAR URINE GLUCOSE - DIPSTICK NEGATIVE NEGATIVE URINE BILIRUBIN - DIPSTICK NEGATIVE NEGATIVE URINE KETONE NEGATIVE NEGATIVE URINE SPECIFIC GRAVITY 1.007 1.010-1.030 URINE BLOOD SMALL 0-2 URINE PH 6.0 6.5-7.5 URINE PROTEIN - DIPSTICK TRACE NEGATIVE URINE UROBILINOGEN - DIPSTICK < 2.0 < 2.0 URINE NITRITE - DIPSTICK NEGATIVE NEGATIVE URINE LEUK ESTERASE LARGE NEGATIVE CULTURE IF INDICATED COMMENT 2019-05-14 CULTURE IF INDICATED COMMENT CULTURE TO FOLLOW REASON FOR VISIT F/u in 3 months to reassess atrophic vaginitis and incontinence, having uti symptoms Insurance Providers [facility] Member Patient Patient Patient Patient Patient Subscriber Subscriber Subscriber Group Insurance Plan Plan Plan Plan ID Relationship Address Phone Name Date of ID Name Date of No Type Insurance Insurance Insurance Coverage to Subscriber Address Phone Name Dates Medicare [phone] Medicare self [place] [id number] [facility] [place] [phone] [facility] [phone] AAR self [place] [id number] [address] [facility] [phone] d MEDICAL (GENERAL) HISTORY Type Description Date Medical History Anxiety Medical History Acid reflux Surgical History appendectomy Surgical History Rt Oophorectomy Surgical History LT oophorectomy Surgical History Right total knee replacement Surgical History cholecystectomy Surgical History Solyx TOT/cysto 04/16/2018 Hospitalization History see above Hospitalization History Child Hospitalization History Acute Kidney Failure 12/2017
--- OUTSIDE RECORDS SUMMARY | 2019-10-11 16:52 | XMS REPORT ---
:1940 Author Organization [facility] O[facility] Address [address] [place] [address] Care Team Providers Name Role Phone Iram Mckeon Unavailable Unavailable PROBLEMS Type Condition ICD9-CM [id number] Onset Condition SNOMED Code Code Code Dates Status Problem Anal polyp K62.0 Active 47291968 Problem Urinary tract N39.0 Active 53692722 infection, site not specified Problem Postmenopausal N95.2 Active 96730843 atrophic vaginitis Problem Unspecified R32 Active 742609490 urinary incontinence Problem Mixed incontinence N39.46 Active 046174224 Problem Stress N39.3 Active 66130542 incontinence (female) (male) Problem Unspecified lump N63.21 Active [id number] in the left breast, upper outer quadrant ALLERGIES No Information ENCOUNTERS Encounter Location Date Diagnosis [address] Sep, [address] [id number] [facility] 103 Jul, Urinary tract infection, OBGYN [facility], site not specified N39.0 [place] [id number] [facility] 103 May, OBGYN [place] [id number] [facility] 103 May, Urinary tract infection, OBGYN [facility], site [place] specified N39.0 [place] [id number] [address] May, Mixed incontinence [address] [place], ; Postmenopausal atrophic [place] [id number] vaginitis N95.2 and Frequency of micturition R35.0 [facility] 103 Apr, Urinary tract infection, OBGYN [facility], site not specified N39.0 [place] [id number] [place] [facility] [address] Apr, Unspecified urinary [address] [place] [address], incontinence R32 and [place] [id number] Urinary tract infection, site not specified N39.0 [facility] 103 Apr, Urinary tract infection, OBGYN [facility], site not specified N39.0 [place] [id number] [facility] 103 Mar, Urinary tract infection, OBGYN [facility], site not specified N39.0 [place] [id number] [place] [facility] [address] Mar, Mixed incontinence [address] [place] [address], ; Postmenopausal atrophic [place] [id number] vaginitis N95.2 ; Frequency of micturition R35.0 and Hematuria, unspecified R31.9 [facility] 103 Feb, [place] [id number] [facility] 103 Feb, [facility] [place] [id number] [place] [facility] [address] Feb, Dysuria R30.[address] [place] [id number] [facility] 103 Jan, OBGYN [place] [id number] [place] [facility] [address] Jan, Mixed incontinence N39[address] [place] [address], ; Postmenopausal atrophic [place] [id number] vaginitis N95.2 and Frequency of micturition R35.0 [facility] 103 Nov, Urinary tract infection, OBGYN [facility], site not specified N39.0 [place] [id number] [facility] 103 Oct, [place] [id number] [place] [facility] [address] Oct, Mixed incontinence N39.[address] [facility] [address] [place] [address], [place] [id number] [facility] 103 Oct, [place] [id number] [facility] 103 Oct, [place] [id number] [facility] 103 Sep, [place] [id number] [facility] 103 Aug, Urinary tract infection, [facility], site not specified N39.0 [place] [id number] [facility] 103 Aug, [place] [id number] [place] [facility] [address] Aug, Mixed incontinence N39[address] [place] [address], ; Stress incontinence [place] [id number] (female) (male) N39.3 and Unspecified lump in the left breast, upper outer quadrant N63.21 [place] [facility] [address] Jul, Mixed incontinence [address] [place] [address], ; Stress incontinence [place] [id number] (female) (male) N39.3 and Unspecified lump in the left breast, upper outer quadrant N63.21 [place] [facility] [address] Jun, Mixed incontinence N39.[address] [place] [address], and Stress incontinence [place] [id number] (female) (male) N39.3 [place] [facility] [address] Apr, Stress incontinence [address] [place], (female) (male) N39.3 and [place] [id number] Mixed incontinence N39.46 [facility] 103 Apr, OBG[place] [id number] [facility] [address] Apr, Stress incontinence [facility] [place] [id number] (female) (male) N39.3 [facility] 103 Apr, [place] [id number] [facility] 103 Apr, Mixed incontinence N39.46 [place] [id number] [facility] 103 Mar, OBGYN [place], [place] [id number] [place] [facility] [address] [place] [address] Mar, Mixed incontinence N39.[address] [facility] [address] [place], [place] [id number] [facility] 103 Feb, Unspecified urinary OBGYN [facility], incontinence R32 [place] [id number] [facility] 103 Jul, OBGYN [place] [id number] [facility] 103 May, OBGYN [place], [place] [id number] [facility] 103 Mar, [place] [id number] [facility] 103 Feb, OBGYN [place] [id number] [facility] 103 Feb, Unspecified urinary OBGYN [facility], incontinence R32 [place] [id number] [facility] 103 Feb, Dysuria R30.0 [place]BGYN [place] [id number] [facility] 103 Feb, OBGYN [place] [id number] [facility] 103 Feb, OBGYN [place] [id number] [place] 14 Feb, [address] [place], incontinence R32 and Anal [place] [id number] polyp K62.0 IMMUNIZATIONS No Known Immunizations SOCIAL HISTORY Never Assessed REASON FOR REFERRAL FUNCTIONAL STATUS PLAN OF CARE VITAL SIGNS MEDICATIONS Medication Instructions Dosage Frequency Start End Duration Status Date Date Nitrofurantoin orally 2 times a 1 cap(s) 12h 10 May, 7 days Active Monohydrate/Macroc day 2019 rystals macrocrystals-mono hydrate 100 mg Macrobid orally 2 times a 1 cap(s) 12h 12 Mar, 7 days Active macrocrystals-mono day 2019 hydrate 100 mg Cipro 250 mg orally every 12 1 tab(s) 12h 13 May, 3 days Active hours 2019 Spiriva 18 mcg inhaled once a 1 cap(s) 24h Active day Aspir 81 81 mg orally once a day 1 tab(s) 24h Active omeprazole 20 mg orally twice a 1 cap(s) 12h Active day Keflex 500 mg orally every 12 1 cap(s) 12h 16 May, 7 days Active hours 2019 Paxil 20 mg orally once a day 1 tab(s) 24h Active Align 4 mg orally once a day 1 cap(s) 24h Active Imvexxy intravaginally 2 1 ins Active Maintenance Pack times a week 10 mcg Pepto-Bismol 262 chewed PRN Active mg Valium 5 mg orally QID PRN 1 tab(s) Active colestipol 1 g orally 2 times a 2 tab(s) 12h Active day paroxetine 40 mg orally once a day 1 tab(s) 24h Active PROCEDURES No Known procedures RESULTS No Results REASON FOR VISIT Cipro question Insurance Providers [facility] Health Member Patient Patient Patient Patient Patient Subscriber Subscriber Subscriber Group Insurance Plan Plan Plan Plan ID Relationship Address Phone Name Date of ID Name Date of No Type Insurance Insurance Insurance Coverage to Subscriber Address Phone Name Dates AAR [phone] AAR self [place] [id number] [facility] [place] [address] d Medicare [phone] Medicare self [place] [id number] [place] [facility] [address] MEDICAL (GENERAL) HISTORY Type Description Date Medical History Anxiety Medical History Acid reflux Surgical History appendectomy Surgical History Rt Oophorectomy Surgical History LT oophorectomy Surgical History Right total knee replacement Surgical History cholecystectomy Surgical History Solyx TOT/cysto 04/16/2018 Hospitalization History see above Hospitalization History Child Hospitalization History Acute Kidney Failure 12/2017
--- OUTSIDE RECORDS SUMMARY | 2019-10-11 16:52 | XMS REPORT ---
:1940 Author Name Nurse, appt Care Team Providers Name Role Phone Nurse, appt Unavailable Unavailable PROBLEMS Type Condition ICD9-CM [id number] Onset Condition SNOMED Code Code Code Dates Status Problem Anal polyp K62.0 Active 45711710 Problem Urinary tract N39.0 Active 61374386 infection, site not specified Problem Postmenopausal N95.2 Active 85063586 atrophic vaginitis Problem Unspecified R32 Active 878660656 urinary incontinence Problem Mixed incontinence N39.46 Active 596570485 Problem Stress N39.3 Active 50302743 incontinence (female) (male) Problem Unspecified lump N63.21 Active [id number] in the left breast, upper outer quadrant ALLERGIES No Information ENCOUNTERS Encounter Location Date Diagnosis [address] Sep, [facility] [address] [place] [id number] [facility] 103 Jul, Urinary tract infection, OBGYN [facility], site not specified N39.0 [place] [id number] [facility] [facility] 103 May, OBGYN [place], [place] [id number] [facility] 103 May, Urinary tract infection, OBGYN [facility], site not specified N39.[address] [place] [id number] [address] May, Mixed incontinence N39.[address] [facility] [address] [place] [address], ; Postmenopausal atrophic [place] [id number] vaginitis N95.2 and Frequency of micturition R35.0 [facility] 103 Apr, Urinary tract infection, OBGYN [facility], site not specified N39.0 [place] [id number] [facility] [address] Apr, Unspecified urinary [address] [place], incontinence R32 and [place] [id number] Urinary tract infection, site not specified N39.0 [facility] [facility] 103 Apr, Urinary tract infection, OBGYN [facility], site not specified N39.0 [place] [id number] [facility] 103 Mar, Urinary tract infection, OBGYN [facility], site not specified N39.0 [place] [id number] [facility] [address] Mar, Mixed incontinence N39.[address] [place] [address], ; Postmenopausal atrophic [place] [id number] vaginitis N95.2 ; Frequency of micturition R35.0 and Hematuria, unspecified R31.9 [facility] 103 Feb, OBGYN [place], [place] [id number] [facility] 103 Feb, OBGYN [place], [place] [id number] [facility] [address] Feb, Dysuria R30.[address] [place] [id number] [facility] 103 Jan, OBGYN [place], [place] [id number] [facility] [address] Jan, Mixed incontinence N39.[address] [place] [address], ; Postmenopausal atrophic [place] [id number] vaginitis N95.2 and Frequency of micturition R35.0 [facility] 103 Nov, Urinary tract infection, OBGYN [facility], site not specified N39.0 [place] [id number] [facility] 103 Oct, OBGYN [place], [place] [id number] [facility] [address] Oct, Mixed incontinence N39.[address] [place] [address], [place] [id number] [facility] 103 Oct, OBGYN [place], [place] [id number] [facility] 103 Oct, OBGYN [place], [place] [id number] [facility] 103 Sep, OBGYN [place], [place] [id number] [facility] 103 Aug, Urinary tract infection, OBGYN [facility], site not specified N39.0 [place] [id number] [facility] 103 Aug, OBGYN [place], [place] [id number] [facility] [address] Aug, Mixed incontinence N39.[address] [place] [address], ; Stress incontinence [place] [id number] (female) (male) N39.3 and Unspecified lump in the left breast, upper outer quadrant N63.21 [facility] [address] Jul, Mixed incontinence [address] [place] [address], ; Stress incontinence [place] [id number] (female) (male) N39.3 and Unspecified lump in the left breast, upper outer quadrant N63.21 [facility] [address] Jun, Mixed incontinence N39.[address] [place] [address], and Stress incontinence [place] [id number] (female) (male) N39.3 [facility] [address] Apr, Stress incontinence [address] [place] [address], (female) (male) N39.3 and [place] [id number] Mixed incontinence N39.46 [facility] [facility] 103 Apr, OBGYN [place] [id number] [facility] [address] Apr, Stress incontinence [facility] [id number] (female) (male) N39.3 [facility] 103 Apr, OBGYN [place], [place] [id number] [facility] 103 Apr, Mixed incontinence N39.46 OBGYN [place], [place] [id number] [facility] 103 Mar, OBGYN [place], [place] [id number] [facility] [address] Mar, Mixed incontinence N39.[address] [place], [place] [id number] [facility] 103 Feb, Unspecified urinary OBGYN [facility], incontinence R32 [place] [id number] [facility] 103 Jul, OBGYN [place], [place] [id number] [facility] 103 May, OBGYN [place], [place] [id number] [facility] 103 Mar, OBGYN [place] [id number] [facility] 103 Feb, OBGYN [place], [place] [id number] [facility] 103 Feb, Unspecified urinary OBGYN [facility], incontinence R32 [place] [id number] [facility] 103 Feb, Dysuria R30.0 OBGYN [place], [place] [id number] [facility] 103 Feb, OBGYN [place], [place] [id number] [facility] 103 Feb, OBGYN [place], [place] [id number] [facility] [address] Feb, Unspecified urinary [address] [facility], incontinence R32 and Anal [place] [id number] polyp K62.0 IMMUNIZATIONS No Known Immunizations SOCIAL HISTORY Never Assessed REASON FOR REFERRAL FUNCTIONAL STATUS PLAN OF CARE VITAL SIGNS MEDICATIONS Unknown Medications PROCEDURES No Known procedures RESULTS No Results REASON FOR VISIT urine BRISEYDA Insurance Providers [facility] Health Member Patient Patient Patient Patient Patient Subscriber Subscriber Subscriber Group Insurance Plan Plan Plan Plan ID Relationship Address Phone Name Date of ID Name Date of No Type Insurance Insurance Insurance Coverage to Subscriber Address Phone Name Dates AARP [phone] AAR self [place] [id number] [facility] [phone] d Medicare [phone] Medicare self [place] [id number] [place] [facility] [place] [address] MEDICAL (GENERAL) HISTORY Type Description Date Medical History Anxiety Medical History Acid reflux Surgical History appendectomy Surgical History Rt Oophorectomy Surgical History LT oophorectomy Surgical History Right total knee replacement Surgical History cholecystectomy Surgical History Solyx TOT/cysto 04/16/2018 Hospitalization History see above Hospitalization History Child Hospitalization History Acute Kidney Failure 12/2017
--- OUTSIDE RECORDS SUMMARY | 2019-10-11 16:52 | XMS REPORT ---
:1940 Author Organization [facility] Address [address] [place] [address] Care Team Providers Name Role Phone Iram Mckeon Unavailable Unavailable PROBLEMS Type Condition ICD9-CM JSH43-XR Onset Condition SNOMED Code Code Code Dates Status Problem Anal polyp K62.0 Active 70583644 Problem Urinary tract N39.0 Active 40358861 infection, site not specified Problem Postmenopausal N95.2 Active 36925078 atrophic vaginitis Problem Unspecified R32 Active 920712802 urinary incontinence Problem Mixed incontinence N39.46 Active 925935585 Problem Stress N39.3 Active 03192907 incontinence (female) (male) Problem Unspecified lump N63.21 Active [id number] in the left breast, upper outer quadrant ALLERGIES Substance Reaction Event Type Date Status IVP Dye hives Drug Allergy Sep, Active Codeine hives Drug Allergy Sep, Active Levaquin hives Drug Allergy Sep, Active Vancomycin rash Drug Allergy Sep, Active ENCOUNTERS Encounter Location Date Diagnosis [address] December, [facility] [address] [place] [id number] Sep, Mixed incontinence N39.46 [facility] [address] [place] [address], ; Postmenopausal atrophic [place] [id number] vaginitis N95.2 and Frequency of micturition R35.0 [facility] 103 Jul, Urinary tract infection, OBGYN [facility], site not specified N39.0 [place] [id number] [facility] 103 May, OBGYN [facility] [id number] [facility] 103 May, Urinary tract infection, O[facility]YN [facility], site not specified N39.0 [place] [id number] [facility] [address] May, Mixed incontinence N39.[address] [place], ; Postmenopausal atrophic [place] [id number] vaginitis N95.2 and Frequency of micturition R35.0 [facility] 103 Apr, Urinary tract infection, OBGYN [facility], site not specified N39.0 [place] [id number] [facility] [address] Apr, Unspecified urinary [address] [place], incontinence R32 and [place] [id number] Urinary tract infection, site not specified N39.0 [facility] 103 Apr, Urinary tract infection, OBGYN [facility], site not specified N39.0 [place] [id number] [facility] 103 Mar, Urinary tract infection, OBGYN [facility], site not specified N39.0 [place] [id number] [place] [address] Mar, Mixed incontinence N39.[address] [place], ; Postmenopausal atrophic [place] [id number] vaginitis N95.2 ; Frequency of micturition R35.0 and Hematuria, unspecified R31.9 [facility] 103 Feb, OBGYN [place], [place] [id number] [facility] 103 Feb, OBGYN [place], [place] [id number] [place] [address] Feb, Dysuria R30.[address] [place], [place] [id number] [facility] 103 17 Jan, 2019 OBGYN [place], [place] [id number] [facility] [address] Jan, Mixed incontinence N39.[address] [facility] [address] [place] [address], ; Postmenopausal atrophic [place] [id number] vaginitis N95.2 and Frequency of micturition R35.0 [facility] 103 Nov, Urinary tract infection, OBGYN [facility], site not specified N39.0 [place] [id number] [facility] 103 Oct, OBGYN [place], [place] [id number] [place] [address] Oct, Mixed incontinence N39.46 [facility] [address] [place] [id number] [facility] 103 Oct, OBGYN [place], [place] [id number] [facility] 103 Oct, OBGYN [place], [place] [id number] [facility] 103 Sep, OBGYN [place], [place] [id number] [facility] 103 Aug, Urinary tract infection, OBGYN [facility], site not specified N39.0 [place] [id number] [facility] 103 Aug, OBGYN [place], [place] [id number] [facility] [address] 03 Aug, 2018 Mixed incontinence N39.[address] [place] [address], ; Stress incontinence [place] [id number] (female) (male) N39.3 and Unspecified lump in the left breast, upper outer quadrant N63.21 [facility] [address] 06 Jul, 2018 Mixed incontinence N39.[address] [place] [address], ; Stress incontinence [place] [id number] (female) (male) N39.3 and Unspecified lump in the left breast, upper outer quadrant N63.21 [place] [address] [facility] Jun, Mixed incontinence N39.[address] [place], and Stress incontinence [place] [id number] (female) (male) N39.3 [facility] [address] Apr, Stress incontinence [address] [place], (female) (male) N39.3 and [place] [id number] Mixed incontinence N39.46 [facility] 103 Apr, OBGYN [place], [place] [id number] [facility] [address] Apr, Stress incontinence [place], [place] [id number] (female) (male) N39.3 [facility] 103 Apr, [place]YN [place], [place] [id number] [facility] 103 Apr, Mixed incontinence N39.46 OBGYN [place], [place] [id number] [facility] 103 Mar, OBGYN [place], [place] [id number] [place] [address] Mar, Mixed incontinence N39.[address] [place], [place] [id number] [facility] 103 Feb, Unspecified urinary OBGYN [facility], incontinence R32 [place] [id number] [facility] 103 Jul, OBGYN [place], [place] [id number] [facility] 103 May, OBGYN [place], [place] [id number] [facility] 103 Mar, OBGYN [place], [place] [id number] [facility] 103 Feb, OBGYN [place], [place] [id number] [facility] 103 Feb, Unspecified urinary OBGYN [facility], incontinence R32 [place] [id number] [facility] 103 Feb, Dysuria R30.0 OBGYN [place], [place] [id number] [facility] 103 Feb, OBGYN [place], [place] [id number] [facility] 103 Feb, OBGYN [place] [id number] [address] Feb, Unspecified urinary [address]YN [address] [place], incontinence R32 and Anal [place] [id number] polyp K62.0 IMMUNIZATIONS No Known Immunizations SOCIAL HISTORY Never Assessed REASON FOR REFERRAL FUNCTIONAL STATUS PLAN OF CARE Activity Details Follow Up schedule annual exam w/Randee in next few months Reason: VITAL SIGNS Height 62 in 2019-09-10 Weight 115 lbs 2019-09-10 BMI 21.03 kg/m2 2019-09-10 Blood pressure systolic 130 mm Hg 2019-09-10 Blood pressure diastolic 80 mm Hg 2019-09-10 MEDICATIONS Medication Instructions Dosage Frequency Start End Date Duration Status Date Pepto-Bismol chewed PRN Active 262 mg paroxetine 40 orally once a day 1 tab(s) 24h Active mg Valium 5 mg orally QID PRN 1 tab(s) Active omeprazole 20 orally twice a day 1 cap(s) 12h Active mg Spiriva 18 mcg inhaled once a day 1 cap(s) 24h Active Align 4 mg orally once a day 1 cap(s) 24h Active Paxil 20 mg orally once a day 1 tab(s) 24h Active Aspir 81 81 mg orally once a day 1 tab(s) 24h Active Imvexxy intravaginally 2 1 ins 28 days Active Maintenance times a week Pack 10 mcg colestipol 1 g orally 2 times a 2 tab(s) 12h Active day PROCEDURES Procedure Date Ordered Result Body Site URINE-NO MICRO Sep 10, 2019 DOC MEDS VERIFIED W/PT OR RE Sep 10, 2019 URINE INCON PLAN DOC'D Sep 10, 2019 PRES/ABSN URINE INCON ASSESS Sep 10, 2019 RESULTS Name Result Date Reference Range Urine dip Glucose blood protein Nitrite Leuko Urobilinogen Keytone Bilirubin pH REASON FOR VISIT F/u 7 months to assess urge incont and atrophic vag, need to schedule annual. Drinking lots of water, so not sure if thats what causing more inc. Taking an enzyme but cant recall the name, Americo 15 - new pancreas med Insurance Providers [facility] Patient Patient Patient Patient Patient Subscriber Subscriber Subscriber Group Insurance Plan Plan Plan Plan ID Relationship Address Phone Name Date of ID Name Date of No Type Insurance Insurance Insurance Coverage to Subscriber Address Phone Name Dates AARP [address] AAR self [place] [id number] [facility] [id number] d Medicare [phone] Medicare self [place] [id number] [facility] [place] [phone] MEDICAL (GENERAL) HISTORY Type Description Date Medical History Anxiety Medical History Acid reflux Surgical History appendectomy Surgical History Rt Oophorectomy Surgical History LT oophorectomy Surgical History Right total knee replacement Surgical History cholecystectomy Surgical History Solyx TOT/cysto 04/16/2018 Hospitalization History see above Hospitalization History Child Hospitalization History Acute Kidney Failure 12/2017
--- OUTSIDE RECORDS SUMMARY | 2019-10-11 16:52 | XMS REPORT | Continuity of Care Document ---
:1940 External Reference #:[id number] Author Name Darius Pires NP (transmitted by agent of provider Sadia Mccracken) Address [address] [facility], [place] [address] Problems Active Problems Provider Date Anxiety state Elin Varn, N.P. Onset: 05/25/2011 Benign essential hypertension Elin [...] Former Cigarette Smoker Unknown Smoking Status Reviewed: 10/01/19 Former Cigarette Smoker ETOH Use Denies alcohol [...] SIG Qnty Indications Ordering Date Provider Zenpep Twice Daily With Unknown 08/16/[address] [id number] Soriano Hydrocodone-Acetami Q6H 12tabs Unknown 08/16/2019 nophen 5-325mg Tablets Diazepam take one tablet by 120tabs Darius Pires NP 11/24/2018 5mg mouth four times a Tablets day; maximum daily dose = 4 Imodium A-D 4mg as directed. 240ml Alexa Eve 10/30/2018 RADHA Macdonald 1mg/7.5ML Liquid Proair HFA Use 1 puff Every 6 8.5units Bia Riaz, 10/27/2018 Hours as Needed 108(90Base) mcg/Act Aerosol Spiriva Handihaler inahle the 30caps J44.9 Darius Pires NP 08/14/2017 contents of one 18mcg Capsules capsule via handihaler by mouth every day Omeprazole take 1 capsule by 180caps K21.9 Darius Pires NP 06/04/2014 20mg mouth twice daily Capsules DR Thomas take one tablet by 90tabs Darius Pires NP 03/13/2010 40mg Tablets mouth every day Align 1 by mouth every Unknown Capsules day Vitamin B12 1 by mouth every Unknown 1000mcg day Tablets ER Coq10 Unknown 100mg Capsules Immunizations CPT Code Status Date Vaccine Reaction Lot # 46901 Given 06/04/2019 Influenza Virus Vaccine, No immediate reaction [id number] Quadrivalent ([id number]), Derived From Cell 94384 Given 12/03/2016 Tdap - [id number] Tetanus/Diptheria/Acellula r Pertussis 76800 Given 05/18/2016 Influ Virus Vaccine, [id number] Quadrivalent, Split Virus, [place] [address] Given 05/18/2016 Pneumococcal Conjugate [id number] Vaccine 13 Valent For Intramuscular Use 15790 Given 06/04/2014 Flu Vaccine Split Virus [id number] Preservative Free For Indiv 3Yr Older 19912 Given 07/27/2013 Flu Vaccine Split Virus [id number] Preservative Free For Indiv 3Yr Older Q2037 Given 07/11/2012 Fluvirin Im 3Yrs And Older [id number] Q2035 Given 05/25/2011 Afluria Vaccine [id number] 20867 Given 05/25/2011 Pneumonia Vaccine [id number] 01846 Given 05/25/2008 Influenza Virus 3Yrs & Over 08004 Given 05/25/2008 Influenza Virus 3Yrs & Over 30741 Given 09/03/2007 Tetanus And Diptheria (Td) For Adult Use Preservative Free 88509 Given 09/03/2007 Tetanus And Diptheria (Td) For Adult Use Preservative Free Vital Signs Date Vital Result Comment 10/01/2019 2:09pm Height 62 inches 5'2" Weight 115.38 lb Heart Rate 83 /min BP Systolic 135 mmHg BP Diastolic 77 mmHg Body Temperature 97.9 F O2 % BldC Oximetry 94 % BMI (Body Mass Index) 21.1 kg/m2 06/23/2019 1:39pm Height 62 inches 5'2" Weight 114.00 lb Heart Rate 87 /min BP Systolic Sitting 140 mmHg BP Diastolic Sitting 80 mmHg O2 % BldC Oximetry 97 % BMI (Body Mass Index) 20.8 kg/m2 Results Test Acquired Date Facility Test Result H/L Range Note Creatinine 08/24/2019 [facility] Creatinine 1.27 mg/dL High 0.51-0.[address] [place] [address] [phone] Egfr Non- 40.7 >60 Egfr 49.2 >60 1 Surgical 07/31/2019 [facility] Surgical SEE RESULT [address] [place] [address] [phone] PDFReport SEE IMAGE CBC Auto 06/04/2019 [facility] White Blood 5.7 10^3/uL Normal 3.5-10.[address] [place] [address] [phone] Red Blood Count 3.66 10^6/uL Low 3.70-4.87 [...] Blood Cells % 0.0 Laboratory test 06/04/2019 [facility] Ferritin 49.7 ng/mL Normal 11-307 finding [address] [place] [address] [phone] Iron & Iron 06/04/2019 [facility] Iron 73 g/dL Normal 50- 212 Binding [address] [place] [address] [phone] Unsaturated Iron Binding < 262 g/dL Total Iron Binding Capacity 277 g/dL Normal 250-450 Transferrin 198 mg/dL Low 203-362 % Iron Saturation 26 % Normal 15-55 Vitamin B12 06/04/2019 [facility] Vitamin B12 > 1450 pg/mL High 180-914 3 And Folate [address] [facility] [place] [address] [phone] Folic Acid (Folate) 5.79 ng/mL >3.99 Comp Metabolic Panel 06/04/2019 [facility] Sodium 134 mmol/L Low 135-145 [address] [place] [address] [phone] Potassium 4.6 mmol/L Normal 3.5-5.0 Chloride 97 [...] Egfr Non- 40.0 >60 Egfr 48.4 >60 4 Laboratory 06/04/2019 [facility] TSH (Thyroid 1.56 Normal 0.34 -5.60 test finding [address] Stim Horm) mcIU/[place] [address] [phone] 1 Because ethnic data is not always [...] 5 Kidney failure <15 (or dialysis) 2 SEE RESULT BELOW Name: PAULETTE STEARNS : [address]: Angela Balderas MD Acct: [id number] Unit: [id number] AGE: 79 Location: ENDO Re07/31/19 SEX: F Status: DEP REF SPEC: [id number] BONNIE: 07/31/19-[address] [facility] DR: Angela Ascencio MD REQ: [id number] RECD: 07/31/198 STATUS: JESUSITA WAGONER DR: Elin Fwoler DENTAL COORDINATOR _ ORDERED: LEVEL 4/2 FINAL DIAGNOSIS 1. [...] CONTINUED ON NEXT PAGE DEPARTMENT OF PATHOLOGY, [address] [place] [address] Edinson Ingram M.D. Director [facility] # [id number] 2. The specimen is received in formalin labeled, Biopsy Mid Esophagus, and consists of two meyers-tao irregular to polypoid soft tissue fragments measuring 0.5 x 0.4 x 0.1 cm and 1.0 x 0.3 x 0.2 cm, which are entirely submitted in one cassette. Signed by and Reported on: Edinson Ingram MD 1143 END OF REPORT DEPARTMENT OF PATHOLOGY, [address] [place] [address] Edinson Ingram M.D. Director [facility] # [id number] 3 Normal Range 180 to 914 Indeterminate [...] dialysis) Procedures Date Code Description Status 10/30/2018 [id number] Mammogram Completed 07/15/2018 [id number] Mammogram Completed 09/20/2017 [id number] Mammogram Completed 08/20/2016 [id number] Mammogram Completed 08/04/2015 [id number] Mammogram Completed 05/25/2015 85496957 Colonoscopy Completed 06/01/2014 [id number] Mammogram Completed 02/27/2013 [id number] Mammogram Completed 02/01/2012 [id number] Mammogram Completed 10/20/2010 [id number] Mammogram Completed 10/13/2010 [id number] Mammogram Completed 04/05/2010 [id number] Colonoscopy Completed 01/06/2009 [id number] Bone Mineral Density Test Completed Medical Devices Description No Information Available Encounters Type Date Location Provider Dx Diagnosis Office Visit 06/23/2019 Pulmonology And Bia Mello, J44.9 Chronic obstructive 1:45p Sleep Services Of pulmonary disease, [facility] unspecified R09.02 Hypoxemia Office Visit 06/04/2019 2:40p [facility] Internal Darius Pranay, R19.7 Diarrhea, Medicine - Ccmob DENTAL COORDINATOR unspecified R53.83 Other fatigue R13.10 Dysphagia, unspecified D64.9 Anemia, unspecified M79.672 Pain in left foot Z23 Encounter for immunization Assessments Date Code Description Provider 10/01/2019 Z12.31 Encounter for screening mammogram for malignant Darius Pranay , RADHA neoplasm of breast 10/01/2019 R10.30 Lower abdominal pain, unspecified Darius Pranay, DENTAL COORDINATOR 10/01/2019 R10.824 Left lower quadrant rebound abdominal Darius Pranay, DENTAL COORDINATOR tenderness 06/23/2019 J44.9 Chronic obstructive pulmonary disease, Bia Mello MD unspecified 06/23/2019 R09.02 Hypoxemia Bia Mello MD 06/04/2019 R19.7 Diarrhea, unspecified Darius Pranay, DENTAL COORDINATOR 06/04/2019 R53.83 Other fatigue Darius Pranay, DENTAL COORDINATOR 06/04/2019 R13.10 Dysphagia, unspecified Darius Pranay, DENTAL COORDINATOR 06/04/2019 D64.9 Anemia, unspecified Darius Pranay, DENTAL COORDINATOR 06/04/2019 M79.672 Pain in left foot Darius Pranay, DENTAL COORDINATOR 06/04/2019 Z23 Encounter for immunization Dariusgermania Pires NP Plan of Treatment Future Appointment(s):10/08/2019 2:40 pm - Tonia Gentile MD at [facility] Mjtngwaihk17 /19/2020 2:30 pm - Rita Hudson NP at [facility]10/01/2019 - Darius Pires NPZ12.31 Encounter for screening mammogram for malignant neoplasm of breastNew Xrays:MG Screening Mammogram, Ordered: R10.30 Lower abdominal pain, twzpmyhmwxcR39.824 Left lower quadrant rebound abdominal tenderness Functional Status Description No Information Available Mental Status Description No Information Available Referrals Refer to Reason for Referral Status Appt Date Angela Balderas M.D. Closed 06/24/[address] [place] [address] [phone]
--- OUTSIDE RECORDS SUMMARY | 2019-10-11 16:52 | XMS REPORT ---
:1940 Author Organization [facility] Address [address] [place] [address] Care Team Providers Name Role Phone Iram Mckeon Unavailable Unavailable PROBLEMS Type Condition ICD9-CM VCA31-IM Onset Condition SNOMED Code Code Code Dates Status Problem Anal polyp K62.0 Active 73885708 Problem Urinary tract N39.0 Active 62459392 infection, site not specified Problem Postmenopausal N95.2 Active 49657872 atrophic vaginitis Problem Unspecified R32 Active 949779844 urinary incontinence Problem Mixed incontinence N39.46 Active 486815534 Problem Stress N39.3 Active 60311926 incontinence (female) (male) Problem Unspecified lump N63.21 Active [id number] in the left breast, upper outer quadrant ALLERGIES No Information ENCOUNTERS Encounter Location Date Diagnosis [address] Sep, [address] [id number] [facility] Jul, Urinary tract infection, OBGYN [facility], site not specified N39.0 [place] [id number] [facility] 103 May, OBGYN [place] [id number] [facility] 103 May, Urinary tract infection, OBGYN [facility], site not specified N39.[place] [id number] [address] May, Mixed incontinence N39.[address] [place], ; Postmenopausal atrophic [place] [id number] vaginitis N95.2 and Frequency of micturition R35.0 [facility] 103 Apr, Urinary tract infection, OBGYN [facility], site not specified N39.0 [place] [id number] [place] [facility] [address] Apr, Unspecified urinary [address] [place] [address], incontinence R32 and [place] [id number] Urinary tract infection, site not specified N39.0 [facility] 103 Apr, Urinary tract infection, OBGYN [facility], site not specified N39.0 [place] [id number] [facility] 103 Mar, Urinary tract infection, OBGYN [facility], site not specified N39.0 [place] [id number] [place] [facility] [address] Mar, Mixed incontinence N39.[address] [place] [address], ; Postmenopausal atrophic [place] [id number] vaginitis N95.2 ; Frequency of micturition R35.0 and Hematuria, unspecified R31.9 [facility] 103 Feb, [place] [id number] [facility] Feb[facility] [place] [id number] [facility] [address] Feb, Dysuria R30.[address] [place] [id number] [facility] 103 Jan, OBGYN [place] [id number] [facility] [address] Jan, Mixed incontinence N39.[address] [place] [address], ; Postmenopausal atrophic [place] [id number] vaginitis N95.2 and Frequency of micturition R35.0 [facility] 103 Nov, Urinary tract infection, OBGYN [facility], site not specified N39.0 [place] [id number] [facility] 103 Oct, [place] [id number] [facility] [address] Oct, Mixed incontinence N39.46 [facility] [address] [place] [address], [place] [id number] [facility] 103 Oct, [place] [id number] [facility] 103 Oct, [place] [id number] [facility] 103 Sep, [place] [id number] [facility] 103 Aug, Urinary tract infection, [facility], site not specified N39.0 [place] [id number] [facility] 103 Aug, [place] [id number] [facility] [address] Aug, Mixed incontinence N39.[address] [place] [address], ; Stress incontinence [place] [id number] (female) (male) N39.3 and Unspecified lump in the left breast, upper outer quadrant N63.21 [facility] [address] Jul, Mixed incontinence N39.[address] [place] [address], ; Stress incontinence [place] [id number] (female) (male) N39.3 and Unspecified lump in the left breast, upper outer quadrant N63.21 [place] [facility] [address] Jun, Mixed incontinence N39.[address] [place] [address], and Stress incontinence [place] [id number] (female) (male) N39.3 [facility] [address] Apr, Stress incontinence [address] [place], (female) (male) N39.3 and [place] [id number] Mixed incontinence N39.46 [facility] 103 Apr, [place] [id number] [facility] [address] Apr, Stress incontinence [facility] [place], [place] [id number] (female) (male) N39.3 [facility] 103 Apr, [place]BG[place] [id number] [facility] 103 Apr, Mixed incontinence N39.46 [place] [id number] [facility] 103 Mar, [place] [id number] [facility] [address] [place] [address] Mar, Mixed incontinence N39.46 [facility] [address] [place], [place] [id number] [facility] 103 Feb, Unspecified urinary OBGYN [facility], incontinence R32 [place] [id number] [facility] 103 Jul, [place] [id number] [facility] 103 May, [place]BGYN [place] [id number] [facility] 103 Mar, [place] [id number] [facility] 103 Feb, [place]BGYN [place] [id number] [facility] 103 Feb, Unspecified urinary OBGYN [facility], incontinence R32 [place] [id number] [facility] 103 Feb, Dysuria R30.0 [place] [id number] [facility] 103 Feb, [place] [id number] [facility] 103 Feb, [place] [id number] [address] 14 Feb, [address] [place], incontinence R32 and Anal [place] [id number] polyp K62.0 IMMUNIZATIONS No Known Immunizations SOCIAL HISTORY Never Assessed REASON FOR REFERRAL FUNCTIONAL STATUS PLAN OF CARE VITAL SIGNS MEDICATIONS Medication Instructions Dosage Frequency Start End Duration Status Date Date Macrobid orally 2 times a 1 cap(s) 12h 12 Mar, 7 days Active macrocrystals-mono day 2019 hydrate 100 mg Nitrofurantoin orally 2 times a 1 cap(s) 12h 10 May, 7 days Active Monohydrate/Macroc day 2019 rystals macrocrystals-mono hydrate 100 mg Cipro 250 mg orally every 12 1 tab(s) 12h 13 May, 3 days Active hours 2019 Spiriva 18 mcg inhaled once a 1 cap(s) 24h Active day Pepto-Bismol 262 chewed PRN Active mg omeprazole 20 mg orally twice a 1 cap(s) 12h Active day colestipol 1 g orally 2 times a 2 tab(s) 12h Active day Valium 5 mg orally QID PRN 1 tab(s) Active Paxil 20 mg orally once a day 1 tab(s) 24h Active Imvexxy intravaginally 2 1 ins Active Maintenance Pack times a week 10 mcg Aspir 81 81 mg orally once a day 1 tab(s) 24h Active Align 4 mg orally once a day 1 cap(s) 24h Active paroxetine 40 mg orally once a day 1 tab(s) 24h Active PROCEDURES No Known procedures RESULTS No Results REASON FOR VISIT nurse visit for urine - LMTCB 06/04/2019 Insurance Providers [facility] Patient Patient Patient Patient Patient Subscriber Subscriber Subscriber Group Insurance Plan Plan Plan Plan ID Relationship Address Phone Name Date of ID Name Date of No Type Insurance Insurance Insurance Coverage to Subscriber Address Phone Name Dates AARP [phone] AARP self [place] [id number] [facility] [place] [id number] d Medicare [id number] Medicare self [place] [phone] [facility] [phone] MEDICAL (GENERAL) HISTORY Type Description Date Medical History Anxiety Medical History Acid reflux Surgical History appendectomy Surgical History Rt Oophorectomy Surgical History LT oophorectomy Surgical History Right total knee replacement Surgical History cholecystectomy Surgical History Solyx TOT/cysto 04/16/2018 Hospitalization History see above Hospitalization History Child Hospitalization History Acute Kidney Failure 12/2017
[2019-10-11] MEDS ORDERED: NS 0.9% 1000 ML** 1,000 ML IV ONE ×2 (17:06→20:55)
--- NOTE | 2019-10-11 17:08 | ED ---
Abdominal Pain/Female - HPI Summary HPI Summary: This pt is a 79 Y/O F presenting to [facility], accompanied by her , with a CC of abdominal pain that is rated an 10/10 in severity. She states that she has had diarrhea a couple days ago and has been unable to produce anything since then. She has a decreased appetite secondary to the pain. She states that the pain radiates to her back and is aggravated by movements and palpation. She denies any fevers, chills, headaches, SOB, N/V, and CP. She reports a PMHx of COPD and a RBBB. She has no alleviating factors. - History of Current Complaint Chief Complaint: EDAbdPain Stated Complaint: ABD PAIN Time Seen by Provider: 10/11/19 16:51 Hx Obtained From: Patient, Family/Web Knitter - ?: No Onset/Duration: Sudden Onset Timing: Constant Severity Initially: Mild Severity Currently: Severe Pain Intensity: 10 Pain Scale Used: 0-10 Numeric Location: Diffuse Radiates: Yes Radiates to: Back Aggravating Factor(s): Movement, Other: - palpation Alleviating Factor(s): Nothing Associated Signs and Symptoms: Positive: Negative - chills, headaches, SOB, Constipation, Decreased Appetite, Diarrhea. Negative: Fever, Chest Pain, Nausea , Vomiting Allergies/Adverse Reactions: Allergies Allergy/AdvReac Type Severity Reaction Status Date / Time codeine Allergy GI Upset Verified 10/11/19 16:50 Iodinated Contrast Media Allergy Anaphylatic Verified 10/11/19 16:50 [Iodinated Contrast- Oral Shock and IV Dye] levofloxacin [From Levaquin] Allergy See Comment Verified 10/11/19 16:50 Penicillins Allergy Anaphylatic Verified 10/11/19 16:50 Shock Sulfa (Sulfonamide Allergy Nausea Verified 10/11/19 16:50 Antibiotics) sulfamethoxazole Allergy Itching Verified 10/11/19 16:50 [From Bactrim] trimethoprim [From Bactrim] Allergy Itching Verified 10/11/19 16:50 vancomycin Allergy Itching Verified 10/11/19 16:50 IVP DYE Allergy Severe Anaphylatic Uncoded 08/18/19 14:21 Shock Home Medications: Home Medications Diazepam TAB(*) [Valium TAB(*)] 5 mg PO QID PRN 05/07/12 [History Confirmed 03/24] PARoxetine HCL TAB* [Paxil TAB*] 40 mg PO DAILY 05/07/12 [History Confirmed 03/24] Loperamide CAP* [Imodium CAP*] 4 mg PO Q6H PRN 01/25/14 [History Confirmed 10/10] Omeprazole CAP (NF) [Prilosec CAP* 20 MG] 20 mg PO BID #60 tab 06/06/17 [Rx Confirmed 10/11/19] Tiotropium CAPSULE (NF) [Spiriva CAPSULE (NF)] 1 cap INH DAILY #30 cap.inh 06/06 [Rx Confirmed 10/11/19] Albuterol Sulfate [Proair Digihaler] 1 puff INFUSION Q6HR 07/17/19 [History Confirmed 10/11/19] Cyanocobalamin TAB* [Vitamin B12 TAB*] 1,000 mcg PO DAILY 07/17/19 [History Confirmed 10/11/19] Ubidecarenone [Co Q-10] 100 mg PO DAILY 07/17/19 [History Confirmed 10/11/19] Lipase/Protease/Amylase [Zenpep Dr 10,000 Unit Capsule] 1 cap PO BID WITH MEALS 08/16/19 [History Confirmed 10/11/19] Vitamin E (Dl,Tocopheryl Acet) [Vitamin E] 100 unit PO DAILY 10/11/19 [History Confirmed 10/11/19] Calcitonin NASAL(NF) [Fortical(NR)] 200 units ALT NARE DAILY #1 bottle 10/14/19 [Rx] Docusate CAP* [Colace Cap*] 100 mg PO BID PRN #0 cap 10/14/19 [Rx] oxyCODONE/Acetamin 5/325 MG* [Percocet 5/325 TAB*] 1 tab PO Q6H PRN #28 tab MDD 4 tabs 10/14/19 [Rx] PMH/Surg Hx/FS Hx/Imm Hx Previously Healthy: Yes Endocrine/Hematology History: Reports: Hx Anticoagulant Therapy - had DVT in past, takes daily ecotrin since. 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, Hx Chronic Obstructive Pulmonary Disease (COPD), Hx Pneumonia Denies: Hx Asthma GI History: Reports: Hx Gastroesophageal Reflux Disease, Hx Ulcer History: Reports: Other Problems/Disorders - acute renal failure Denies: Hx Renal Disease - Acute Kidney Failure Musculoskeletal History: Reports: Hx Osteoporosis Sensory History: Reports: Hx Cataracts, Hx Contacts or Glasses Denies: Hx Hearing Aid, Hx Hearing Problem Opthamlomology History: Reports: Hx Cataracts, Hx Contacts or Glasses Psychiatric History: Reports: Hx Anxiety Denies: Hx Panic Disorder - Cancer History Hx Chemotherapy: No Hx Radiation Therapy: No - Surgical History Surgical History: Yes Surgery Procedure, Year, and Place: RIGHT KNEE REPLACEMENT, CHOLECYSTECTOMY, APPENDECTOMY Hx Anesthesia Reactions: No - Immunization History Immunizations Up to Date: Yes Infectious Disease History: No Infectious Disease History: Reports: Hx Hepatitis - Hep A Denies: Hx Human Immunodeficiency Virus (HIV), Hx of Known/Suspected MRSA, History Other Infectious Disease, Traveled Outside the in Last 30 Days - Family History Known Family History: Positive: Other - BREAST CANCER, Perforated ulcer Negative: Seizure Disorder - Social History Occupation: Retired Lives: With Family Alcohol Use: None Hx Substance Use: No Substance Use Type: Reports: None Hx Tobacco Use: Yes Smoking Status (MU): Former Smoker Type: Cigarettes Review of Systems Negative: Fever, Chills Negative: Chest Pain Negative: Shortness Of Breath Positive: Abdominal Pain, Diarrhea, Other - constipation . Negative: Vomiting, Nausea Negative: Headache All Other Systems Reviewed And Are Negative: Yes Physical Exam - Summary Physical Exam Summary: VITAL SIGNS: Reviewed. GENERAL: Patient is a well-developed and nourished female who is lying comfortable in the stretcher. Patient is not in any acute respiratory distress. HEAD AND FACE: No signs of trauma. No ecchymosis, hematomas or skull depressions. No sinus tenderness. EYES: PERRLA, EOMI x 2, No injected conjunctiva, no nystagmus. EARS: Hearing grossly intact. Ear canals and tympanic membranes are within normal limits. MOUTH: Oropharynx within normal limits. NECK: Supple, trachea is midline, no adenopathy, no JVD, no carotid bruit, no c- spine tenderness, neck with full ROM. CHEST: Symmetric, no tenderness at palpation. LUNGS: Clear to auscultation bilaterally. No wheezing or crackles. CVS: Regular rate and rhythm, S1 and S2 present, no murmurs or gallops appreciated. ABDOMEN: Soft, Suprapubic tenderness with mild distension, guarding. No rebound and no masses palpated. Bowel sounds are normal. EXTREMITIES: FROM in all major joints, no edema, no cyanosis or clubbing. NEURO: Alert and oriented x 3. No acute neurological deficits. Speech is normal and follows commands. SKIN: Dry and warm. Triage Information Reviewed: Yes Vital Signs On Initial Exam: Initial Vitals Temp Pulse Resp BP Pulse Ox 97.2 F 100 18 124/89 94 10/11/19 16:45 10/11/19 16:45 10/11/19 16:45 10/11/19 16:45 10/11/19 16:45 Vital Signs Reviewed: Yes Procedures - Sedation Patient Received Moderate/Deep Sedation with Procedure: No Diagnostics - Vital Signs Vital Signs Temp Pulse Resp BP Pulse Ox 10/11/19 16:45 97.2 F 100 18 124/89 94 - Laboratory Result Diagrams: 10/14/19 03:55 10/12/19 05:36 Lab Statement: Any lab studies that have been ordered have been reviewed, and results considered in the medical decision making process. - CT CT A/P Summary of CT Findings: Mild interval worsening compression of T11. No pelvic fractures. Moderate constipation. No acute process seen in the abdomen or pelvis. ED physician has reviewed this report. Abdominal Pain Fem Course/Dx - Course Course Of Treatment: This pt is a 79 Y/O F presenting to [facility] with a CC of abdominal pain that is rated an 10/10 in severity. She states that she has had diarrhea a couple days ago and has been unable to produce anything since then. She has a decreased appetite secondary to the pain. Her PE found Suprapubic tenderness with mild distension, guarding. She has no acute abnormalities on her labratory exams. CT A/P: Mild interval worsening compression of T11. No pelvic fractures. Moderate constipation. No acute process seen in the abdomen or pelvis. Dr. Warner, Hospitalist, was consulted at 2011 and reported that the pt should be transferred since there is no neurosurgeon leguillon debeader for an extended period of time. This pt will be transferred to [facility] for further care with a Dx of a T11 fracture for neurosurgery. [facility] neurosurgery consulted back at 2044 and reported that the pt would not be accepted. The pt should be placed in a TLSO brace and discharged home. Hospitalist, Dr. Warner, was consulted again at 2047 and was informed of [facility]'s neurosurgeon's decision to provide the pt with a TLSO brace and discharge. He disagreed to admitting the pt and stated that the pt should be transferred due to lack of neurosurgery at [facility]. Tristian Frank NP, consulted at 2099 and stated that the pt needs a dedicated CT of the T spine. If there is no acute break or fracture the pt will be admitted until the morning when she can receive a TLSO brace. This pt will be a sign out to Dr. Germain Ferrer MD from Dr. Andrew Carrion DO at 219910/11/[address] interpretation and disposition. - Diagnoses Provider Diagnoses: Constipation, Compression fracture of T11 vertebra - Critical Care Time Critical Care Statement: Critical care time is provided exclusive of any time spent performing procedures. Discharge ED - Sign-Out/Discharge Documenting (check all that apply): Sign-Out Patient Signing out patient TO: Germain Ferrer - Discharge Plan Condition: Fair Disposition: ADMITTED TO [facility] - Billing Disposition and Condition Condition: FAIR Disposition: Admitted to [facility] - Attestation Statements Document Initiated by Gilmar: Yes Documenting Scribe: Harley Melendez Provider For Whom Gilmar is Documenting (Include Credential): Andrew Carrion DO Scribe Attestation: Harley Wray, scribed for Andrew Carrion DO on 11/22 at 1342. Scribe Documentation Reviewed: Yes Provider Attestation: The documentation as recorded by the gilamr, Harley Melendez accurately reflects the service I personally performed and the decisions made by Andrew lorenzana DO Status of Scribe Document: Viewed Consult Consult: Dr. Warner, Hospitalist, was consulted at 2011 and reported that the pt should be transferred since there is no neurosurgeon leguillon debeader for an extended period of time. This pt will be transferred to [facility] [address] for further care with a Dx of a T11 fracture for neurosurgery. [facility] neurosurgery consulted back at 2044 and reported that the pt would not be accepted. The pt should be placed in a TLSO brace and discharged home. Hospitalist, Dr. Warner, was consulted again at 2047 and was informed of [facility] neurosurgeon's decision to provide the pt with a TLSO brace and discharge. He disagreed to admitting the pt and stated that the pt should be transferred due to lack of neurosurgery at [facility]. Tristian Frank NP, consulted at 2099 and stated that the pt needs a dedicated CT of the T spine. If there is no acute break or fracture the pt will be admitted until the morning when she can receive a TLSO brace.
[2019-10-11 17:23] LABS: ABS Basophils 0.1 10^3/ul (0-0.2); ABS Eosinophils 0.1 10^3/ul (0-0.6); ABS Lymphocytes 0.7 10^3/ul (1.0-4.8); ABS Monocytes 0.6 10^3/ul (0-0.8); ABS Neutrophils 5.5 10^3/ul (1.5-7.7); Eosinophil % 1.6 %; Hematocrit 32 % (35-47); Hemoglobin 11.1 g/dL (12.0-16.0); Lymphocyte % 10.3 %; Mean Corpuscular HGB Conc 34 g/dL (31-36); Mean Corpuscular Hemoglobin 32 pg (27-31); Mean Corpuscular Volume 93 fL (80-97); Mean Platelet Volume 5.9 fL (7.4-10.4); Platelet Count 316 10^3/uL (150-450); Red Blood Count 3.48 10^6 /uL (3.70-4.87); Red Cell Distribution Width 13 % (10-15); White Blood Count 6.9 10^3/uL (3.5-10.8)
[2019-10-11 17:38] LABS: Albumin 3.8 g/dL (3.2-5.2); BUN/Creatinine Ratio 10.6 (8-20); C Reactive Protein 19.29 mg/L (<8.01); Calcium 9.6 mg/dL (8.6-10.3); EGFR African American 51.1 (>60); EGFR Non-African American 42.2 (>60); Globulin 3.7 g/dL (2-4); Potassium 4.2 mmol/L (3.5-5.0); Total Bilirubin 0.3 mg/dL (0.2-1.0); Total Protein 7.5 g/dL (6.4-8.9)
[2019-10-11] MEDS ORDERED: Ondansetron INJ* 2 MG/ML VIAL IV ONE (18:58)
[2019-10-11] MEDS ORDERED: Morphine 4 MG/ML VIAL (1 ml) 4 MG/ML VIAL IV ONE ×2 (18:58→20:55)
[2019-10-11 19:19] LABS: Urine Appearance Clear; Urine Bilirubin Negative (Negative); Urine Blood Negative (Negative); Urine Color Colorless; Urine Glucose Negative (Negative); Urine Ketones Negative (Negative); Urine Nitrite Negative (Negative); Urine Protein Negative (Negative); Urine Specific Gravity 1.004 (1.010-1.030); Urine Urobilinogen Negative (Negative)
[2019-10-11] MEDS ORDERED: Lidocaine Patch REMOVE* 1 NOTE MISC SCH (21:00)
--- NOTE | 2019-10-11 22:43 | ED ---
Progress - Progress Note Progress Note: Patient is received as a sign-out from Dr. Carrion at 2200 10/11/19 shift end pending Thoracic Spine CT. THORACIC SPINE CT IMPRESSION: 1. Age indeterminate T12 compression fracture and retropulsed fragments causing no canal stenosis. 2. Mild multilevel thoracic spondylopathy. THIS REPORT WAS REVIEWED BY ED PHYSICIAN. 2241 - Per Tristian Frank, CT reviewed, patient to be admitted to hospitalist services. Patient admitted to [facility]. Course/Dx - Course Course Of Treatment: Patient is received as a sign-out from Dr. Carrion at 2200 10/11/19 shift end pending Thoracic Spine CT. THORACIC SPINE CT IMPRESSION: 1. Age indeterminate T12 compression fracture and retropulsed fragments causing. no canal stenosis. 2. Mild multilevel thoracic spondylopathy. THIS REPORT WAS REVIEWED BY ED PHYSICIAN. 2241 - Per Tristian Frank, CT reviewed, patient to be admitted to hospitalist services. Patient admitted to [facility]. - Diagnoses Provider Diagnoses: Constipation, Compression fracture of T11 vertebra - Provider Notifications Discussed Care Of Patient With: Tristian Frank Time Discussed With Above Provider: 22:41 Instructed by Provider To: Other - 2241 - Per Tristian Frank, CT reviewed, patient to be admitted to hospitalist services. - Critical Care Time Critical Care Statement: Critical care time is provided exclusive of any time spent performing procedures. Discharge ED - Sign-Out/Discharge Documenting (check all that apply): Patient Departure - admit, Receiving Sign- Out Receiving patient FROM: Richard Carrion - Discharge Plan Condition: Fair Disposition: ADMITTED TO [facility] - Billing Disposition and Condition Condition: FAIR Disposition: Admitted to [facility] - Attestation Statements Document Initiated by Maya: Yes Documenting Scribe: ABHI HAWK Provider For Whom Maya is Documenting (Include Credential): TABITHA ZIMMERMAN MD Scribscotty Attestation: ABHI Wray, scribed for TABITHA ZIMMERMAN MD on 11/23/19 at 1216. Scribe Documentation Reviewed: Yes Provider Attestation: The documentation as recorded by the ABHI schafer accurately reflects the service I personally performed and the decisions made by me, TABITHA ZIMMERMAN MD Status of Scribe Document: Viewed
[2019-10-11] MEDS ORDERED: Ondansetron INJ* 2 MG/ML VIAL IV PRN (22:45)
[2019-10-11] MEDS ORDERED: Albuterol 2.5 MG/3 ML NEB.SOL* (0.083%) INH PRN (22:45)
[2019-10-11] MEDS ORDERED: Acetaminophen TAB* 325 MG PO PRN (22:45)
[2019-10-11] MEDS ORDERED: Magnesium Hydroxide LIQ* 30 ML UDC PO ONE (22:45)
[2019-10-11 23:05] LABS: ABS Eosinophils 0.1 10^3/ul (0-0.6); ABS Lymphocytes 1.1 10^3/ul (1.0-4.8); ABS Monocytes 0.5 10^3/ul (0-0.8); ABS Neutrophils 3.9 10^3/ul (1.5-7.7); Eosinophil % 1.8 %; Hematocrit 32 % (35-47); Hemoglobin 11.1 g/dL (12.0-16.0); Lymphocyte % 18.8 %; Mean Corpuscular HGB Conc 34 g/dL (31-36); Mean Corpuscular Hemoglobin 32 pg (27-31); Mean Corpuscular Volume 94 fL (80-97); Mean Platelet Volume 5.9 fL (7.4-10.4); Platelet Count 307 10^3/uL (150-450); Red Blood Count 3.45 10^6 /uL (3.70-4.87); Red Cell Distribution Width 13 % (10-15); White Blood Count 5.6 10^3/uL (3.5-10.8)
[2019-10-11 23:13] LABS: Activated Partial Thrombo Time 33.7 seconds (26.0-38.0); INR 1.16 (0.82-1.09)
--- NOTE | 2019-10-11 23:16 | HP ---
CONTINUATION ADDENDUM NOW INCLUDED ON THIS REPORT CC: Dr. Up; Darius Pires NP * HISTORY AND PHYSICAL: DATE OF ADMISSION: 10/11/19. PRIMARY CARE PROVIDERS: Dr. Up and Darius Pires NP. MY ATTENDING PHYSICIAN WHILE IN THE HOSPITAL: Dr. Warner * (report dictated by Tristian Frank NP). REASON FOR HOSPITALIST CONSULTATION: Evaluation for possible admission. HISTORY OF PRESENT ILLNESS: Mrs. Stearns is a 79-year-old female patient with a history of chronic UTI, COPD, on 2 L of oxygen at night, right bundle-branch block, anxiety, GERD, history of DVT, and tobacco abuse, who around 10/01/19 started having lower abdominal discomfort. She actually saw her primary for this on that day on 10/01/19. She was evaluated, she was noted to be tender on exam in the office. Lab work was obtained from the PCP and a CT of the abdomen and pelvis and there was possibility and concern that the patient according to the patient's , she had a UTI, she did grow Staphylococcus epidermidis. The patient was placed on ciprofloxacin and tramadol for her pain. Unfortunately, as the days went on, the patient's boyfriend was in contact with the PCP via the portal and she was not improving. She actually was getting worse. The pain was worse she could barely walk due to having lower abdominal discomfort and also having lower back pain. Any time she moved, turned, bent forward, she had worsening pain in her back. In talking with the patient, she states that the pain is in her back and it does radiate to the front of her abdomen. She denied any nausea, vomiting or diarrhea. No fevers or chills. The was concerned. In fact the primary in the interim last week on Saturday had started the patient on Eden, but despite narcotics, the pain was unbearable and she could not walk because of the pain. There was no reports of bowel or bladder incontinence. No numbness or tingling was reported. The patient was concerned, as was her significant other because of the discomfort, and she came into the hospital today. A repeat abdomen and pelvis CT was obtained, which did show mild worsening of a compression fracture of unclear chronicity. Because of these findings, we were initially asked to evaluate for admission. PAST MEDICAL HISTORY: Significant for: 1. UTI. 2. COPD. 3. Right bundle-branch block. 4. Anxiety. 5. GERD. 6. History of DVT. 7. Tobacco abuse. PAST MEDICAL HISTORY: 1. She has had a cholecystectomy. 2. Right total knee arthroplasty. 3. Appendectomy. 4. Ovarian cyst removal. 5. Bladder sling. HOME MEDICATIONS: Include: 1. Vitamin E 100 units daily. 2. Imodium 4 mg p.o. every 6 hours as needed. 3. Lipase 1 capsule p.o. b.i.d. 4. Eden 1 tablet every 6 hours as needed. 5. Valium 5 mg 4 times a day as needed. 6. Vitamin B12 of 1000 mcg p.o. daily. 7. CoQ10 of 100 mg daily. 8. Spiriva 1 capsule inhaled p.o. daily. 9. Paxil 40 mg daily. 10. Omeprazole 20 mg daily. 11. Albuterol 1 puff every 6 hours as needed. ALLERGIES TO MEDICATIONS: CODEINE, IV DYE, LEVAQUIN, BACTRIM, SULFA, PENICILLINS, VANCOMYCIN. FAMILY HISTORY: Her mother had heart disease as did her father. Her father of sepsis. Her mother had a history of mitral valve replacement. SOCIAL HISTORY: She is a former smoker. She quit about 7 years ago. She does not drink alcohol. She denies drug use. Surrogate decision maker is her daughter and her partner, Mian. REVIEW OF SYSTEMS: There is no documented fever. She denied having any significant weight change. There is no double vision. No ear discharge. No rhinorrhea. No sore throat. No thyroid enlargement. She denied any chest pain. There is no orthopnea. No nocturnal dyspnea. There was abdominal pain present. No nausea, no vomiting. No dysuria. There is no frequency. There is no seizure. No loss of consciousness. No pruritus and no skin ulcerations. Review of 14 systems completed, all others negative. PHYSICAL EXAM: Vital Signs: Blood pressure 138/77, pulse 89, respirations 18, O2 sat 94%, temperature 98.1. General: At this time, Ms. Stearns is a 79- year-old female patient. She is sitting in the ED stretcher. She does not appear to be in any acute distress. HEENT: Head: Atraumatic, normocephalic. Eyes: EOMs intact. Sclerae anicteric, not pale. Neck is supple. Throat: Oral mucosa appears to be moist. No oropharyngeal erythema. Heart sounds S1, S2. Regular rate and rhythm. No murmurs, rubs or gallops. Lungs: Diminished breath sounds. No wheezes, rales or rhonchi. Abdomen was soft and nondistended , but she was tender in the right upper and left upper quadrants. Bowel sounds are present. Extremities: Pulses were 2+ throughout. She had no peripheral edema. She had 4+ strength at the hip flexors bilaterally. She had 5/5 strength distally to the lower extremities. 5/5 strength in the upper extremities. Neurologically, she is awake. She is alert. She is oriented x3. Her speech is clear. Tongue midline. There is no facial drooping noted. Her test borer were equal. Tongue was midline. She did have abnormal reflex noted on my exam to the right patella. It seemed to be more brisk, probably 3+ to the right patella and to the left, there was 1+. There was no clonus that I observed at this point and ankle reflexes were intact bilaterally and symmetric. Negative Babinski's bilaterally. No other focal findings were noted. Skin: Grossly intact. DIAGNOSTIC STUDIES/LAB DATA: Labs: WBC of 6.9, RBC of 3.48, hemoglobin of 11.1 , hematocrit 32, platelet count of 316. Sodium 128, potassium 4.3, chloride of 93, bicarb 29, BUN 13, creatinine 1.23, glucose 105, calcium 9.6. Total bili 0.3, AST 21, ALT 14, alk phos 35. CRP 19, albumin of 3.8. Urine was negative today. She had a CT of the abdomen and pelvis, which showed impression, mild interval worsening compression of T11. No pelvic fractures. Moderate constipation. No acute process seen. Old medical records were reviewed. IMPRESSION: Mrs. Stearns is a 79-year-old female patient, coming in initially with abdominal pain; however, under further evaluation and questioning , she has been having a significant amount of back pain, which she feels radiates into her abdomen. She was found to have mild worsening of the compression fracture of unclear chronicity on CT of the abdomen and pelvis. We were asked to evaluate for admission. My recommendations at this point and I did discuss this with my attending Dr. Bolanos and I also discussed it with the artificial plastic eye maker, Dr. Warner. We unfortunately do not have Neurosurgery backup, my concern was that the reflexes were slightly abnormal. I do recommend an MRI of the thoracic spine. However, Neurosurgery is not present potentially this week , he is possibly back on Saturday afternoon. At this point, given the unclear exam and the fact that we do not have Neurosurgery backup, I do recommend transfer and my attendings were in agreement with this. I explained to the family that I certainly could do conservative therapy, pain control, and some physical therapy; however, I would like the input of a neurosurgeon to weigh in on the case regarding their recommendations from their perspective and unfortunately we cannot offer that, so I have recommended a transfer. I discussed this with Dr. Carrion. I explained to the family that most likely she will not need any surgical repair. It is most likely to be treated with conservative management, but on the off chance that the MRI was grossly abnormal or if there were any subtle abnormalities that required surgical intervention, I would not be able to offer this here and again after discussion with two of my attendings, we felt that it would be safe for the patient to be transferred. I discussed this with the family, they were in agreement. I also discussed this with Dr. Warner who is in agreement. CONTINUATION ADDENDUM: ASSESSMENT AND PLAN: 1. After discussion with the transfer center, Dr. Carrion did discuss the case with Neurosurgery lightning protection installer at [facility], they recommended not to transfer, they recommended pain control and a brace. We did get a dedicated CT of the thoracic spine which did show a T12 compression fracture with a retropulsed fragment, but however no central canal stenosis was noted. After discussing these findings that I discussed with my attending Dr. Warner, we were in agreement that we would admit the patient for the T12 compression fracture with a plan of obtaining an MRI in the morning of the spine. I do note that she had the abnormal reflex, I would like to get the MRI of the spine to see if there is any central canal stenosis. If this is not the case we may need to consider getting a neurology consult for the abnormal reflex that she did have some, again decreased strength at the hip flexors bilaterally. However, this was primarily related to pain and I think some give way strength. At this point we will get the MRI to better define the fracture. We will continue with pain control in the form of morphine and p.r.n. Percocet along with Lidoderm patch, she will be on bed rest until we can get a TLSO brace in place. We will continue with supportive care. 2. History of chronic obstructive pulmonary disease. I will go ahead and place her on her Spiriva and p.r.n. albuterol. 3. DVT prophylaxis: She is high risk, we will place her on heparin subcu. 4. Depression/anxiety. Continue with her meds as prescribed. 5. Code status: Full code. 6. Fluids, electrolytes, nutrition: She can have a regular diet. 7. Abdominal discomfort. Again I suspect this is from the compression fracture. She also does have a significant amount of constipation, I will place her on a bowel regimen. 8. Gastroesophageal reflux disease: Continue PPI therapy. TIME SPENT: Time spent on the admission again 60 minutes, greater than half the time was spent [id number] with the patient obtaining my history and physical; the other half time was spent going over the plan of care with the patient and implementing plan of care. I did discuss the plan of care with my attending Dr. Warner, he is in agreement. TRISTIAN FRANK NP [id number]/[facility] #: [id number] [id number]/[facility] #: [id number] AIRAM
[2019-10-11 23:23] LABS: Calcium 8.8 mg/dL (8.6-10.3); Potassium 4.5 mmol/L (3.5-5.0)
[2019-10-11 23:29] LABS: BUN/Creatinine Ratio 9.2 (8-20); EGFR African American 53.1 (>60); EGFR Non-African American 43.9 (>60)
[2019-10-11] MEDS: Morphine INJ* 2 MG/ML 1 ML SYRINGE (TWO MG - NEW SYRINGE VERSION) IV PRN (23:45)
--- NOTE | 2019-10-11 23:49 | HP ---
CC: Dr. Up; Darius Pires NP HISTORY AND PHYSICAL: ADDENDUM: ASSESSMENT AND PLAN: 1. After discussion with the transfer center, did discuss the case with Neurosurgery youth development professional at [facility], they recommended not to transfer, they recommended pain control and a brace. We did get a dedicated CT of the thoracic spine which did show a T12 compression fracture with a retropulsed fragment, but however no central canal stenosis was noted. After discussing these findings that I discussed with my attending Dr. Warner, we were in agreement that we would admit the patient for the T12 compression fracture with a plan of obtaining an MRI in the morning of the spine. I do note that she had the abnormal reflex, I would like to get the MRI of the spine to see if there is any central canal stenosis. If this is we may need to consider getting a neurology consult for the abnormal reflex that she did have some, again decreased strength at the hip flexors bilaterally. However, this was primarily related to pain and I think some give way strength. At this point we will get the MRI to better define the fracture. We will continue with pain control in the form of morphine and p.r.n. Percocet along with Lidoderm patch, she will be on bed rest until we can get a TLSO brace in place. We will continue with supportive care. 2. History of chronic obstructive pulmonary disease. I will go ahead and place her on her Spiriva and p.r.n. albuterol. 3. DVT prophylaxis: She is high risk, we will place her on heparin subcu. 4. Depression/anxiety. Continue with her meds as prescribed. 5. Code status: Full code. 6. Fluids, electrolytes, nutrition: She can have a regular diet. 7. Abdominal discomfort. Again I suspect this is from the compression fracture. She also does have a significant amount of constipation, I will place her on a bowel regimen. 8. Gastroesophageal reflux disease: Continue PPI therapy. TIME SPENT: Time spent on the admission again 60 minutes, greater than half the time was spent [id number] with the patient obtaining my history and physical; the other half time was spent going over the plan of care with the patient and implementing plan of care. I did discuss the plan of care with my attending Dr. Warner, he is in agreement. ROSALBA VICTORIA NP [id number]/[facility] #: [id number] AIRAM
[2019-10-12] MEDS: oxyCODONE/Acetamin 5/325 MG* TAB PO PRN ×2 (03:03→15:21)
[2019-10-12] MEDS: Heparin VIAL(*) 5000 UNITS/ML VIAL (FIVE THOUSAND) SUBCUT SCH ×3 (04:47→20:51)
[2019-10-12 05:52] LABS: ABS Eosinophils 0.1 10^3/ul (0-0.6); ABS Monocytes 0.7 10^3/ul (0-0.8); ABS Neutrophils 4.3 10^3/ul (1.5-7.7); Eosinophil % 2.3 %; Hematocrit 33 % (35-47); Hemoglobin 10.8 g/dL (12.0-16.0); Lymphocyte % 15.6 %; Mean Corpuscular HGB Conc 33 g/dL (31-36); Mean Corpuscular Hemoglobin 32 pg (27-31); Mean Corpuscular Volume 95 fL (80-97); Mean Platelet Volume 6.1 fL (7.4-10.4); Platelet Count 310 10^3/uL (150-450); Red Blood Count 3.43 10^6 /uL (3.70-4.87); Red Cell Distribution Width 13 % (10-15); White Blood Count 6.1 10^3/uL (3.5-10.8)
[2019-10-12 06:02] LABS: INR 1.2 (0.82-1.09)
[2019-10-12 06:09] LABS: BUN/Creatinine Ratio 8.6 (8-20); Calcium 9.3 mg/dL (8.6-10.3); EGFR African American 54.7 (>60); EGFR Non-African American 45.2 (>60); Potassium 4.3 mmol/L (3.5-5.0)
[2019-10-12] MEDS ORDERED: LIPASE PO SCH (08:00)
[2019-10-12] MEDS ORDERED: AMYLASE PO SCH (08:00)
[2019-10-12] MEDS ORDERED: PROTEASE PO SCH (08:00)
[2019-10-12] MEDS: Lidocaine PATCH 5%* 1 PATCH TRANSDERM SCH (08:08)
[2019-10-12] MEDS: PARoxetine HCL TAB* 40 MG PO SCH (08:11)
[2019-10-12] MEDS: Docusate CAP* 100 MG PO SCH ×2 (08:11→20:51)
[2019-10-12] MEDS: Pantoprazole TAB * 40 MG TAB PO SCH (08:11)
[2019-10-12] MEDS: SPIRIVA Respimat* (tiotropium) 2.5 mcg/inh Inhaler INH SCH (08:26)
[2019-10-12] MEDS ORDERED: Lidocaine PATCH 5%* 1 PATCH TRANSDERM SCH (09:00)
[2019-10-12] MEDS ORDERED: Pancrelipase CAP* 5,000 UNITS CAP PO PRN (13:07)
--- NOTE | 2019-10-12 15:43 | PN ---
Subjective Date of Service: 10/12/19 Interval History: Ms. Stearns states she is tired today. She reports that she fell from crouched position appx 2 mo ago, fell into wall, and injured back. She reports pain in the back since that time. She reports increased weakness, which she attributes to decreased mobility. She also c/o diffuse abdominal pain. She reports no BM in 4-7 days. No other complaints today. Objective Active Medications: Acetaminophen (Tylenol Tab*) 650 mg PO Q4H PRN PRN Reason: PAIN - MILD Albuterol (Ventolin 2.5 Mg/3 Ml Neb.Natalie*) 2.5 mg INH Q2H PRN PRN Reason: SOB/WHEEZING Docusate Sodium (Colace Cap*) 100 mg PO BID [facility] Last Admin: 10/12/19 08:11 Dose: 100 mg Heparin Sodium (Porcine) (Heparin Vial(*)) 5,000 units SUBCUT Q8HR [facility] Last Admin: 10/12/19 13:02 Dose: 5,000 units Lidocaine (Lidoderm 5% Patch*) 1 patch TRANSDERM DAILY [facility] Last Admin: 10/12/19 08:08 Dose: 1 patch Morphine Sulfate (Morphine Inj (Syringe))*) 2 mg IV Q4H PRN PRN Reason: PAIN - SEVERE Last Admin: 10/11/19 23:45 Dose: 2 mg Ondansetron HCl (Zofran Inj*) 4 mg IV Q6H PRN PRN Reason: NAUSEA Oxycodone/Acetaminophen (Percocet 5/325 Tab*) 1 tab PO Q6H PRN PRN Reason: PAIN - MODERATE Last Admin: 10/12/19 15:21 Dose: 1 tab Pancrelipase (Zenpep Delayed Cap*) 30,000 units PO TID WITH MEALS [facility] Pancrelipase (Zenpep Delayed Cap*) 15,000 units PO TID PRN PRN Reason: SNACKS Pantoprazole Sodium (Protonix Tab*) 40 mg PO DAILY [facility] Last Admin: 10/12/19 08:11 Dose: 40 mg Paroxetine HCl (Paxil Tab*) 40 mg PO DAILY [facility] Last Admin: 10/12/19 08:11 Dose: 40 mg Pharmacy Profile Note (Lidocaine Patch Remove*) 1 note N/A 2100 [facility] Senna (Senokot 8.6 Mg Tab*) 2 tab PO BEDTIME [facility] Tiotropium [place] (Spiriva Respimat 2.5 Mcg) 2 puff INH DAILY [facility] Last Admin: 10/12/19 08:26 Dose: Not Given Vital Signs: Temp Pulse Resp BP Pulse Ox 97.7 F 80 18 109/53 91 10/12/19 15:09 10/12/19 15:09 10/12/19 15:21 10/12/19 15:09 10/12/19 15:09 Oxygen Devices in Use Now: Nasal Cannula Appearance: Ms. Stearns is an elderly white female who is sitting up in bed. She appears frail and has antalgic movements and moves very infrequently. Eyes: No Scleral Icterus, PERRLA Ears/Nose/Mouth/Throat: NL Teeth, Lips, Gums, Clear Oropharnyx, Mucous Membranes Moist Neck: NL Appearance and Movements; NL JVP, Trachea Midline Respiratory: Symmetrical Chest Expansion and Respiratory Effort, Clear to Auscultation Cardiovascular: NL Sounds; No Murmurs; No JVD, RRR, No Edema Abdominal: No Hepatosplenomegaly, - - midly abdominal distention; BS normoactive ; abdomen diffusely tender to palpation Extremities: No Edema, No Clubbing, Cyanosis Neurological: Alert and Oriented x 3 Result Diagrams: 10/12/19 05:36 10/12/19 05:36 Assess/Plan/Problems-Billing Assessment: Ms. Stearns is a 79 yof PMHx COPD, RBBB, anxiety who presented to the ER after a fall 2 months ago and was found to have a T12 fracture with retropulsion and mild canal stenosis. - Patient Problems (1) T12 compression fracture Comment: -pt presents with 2 mo back pain s/p fall -acute T12 compression fracture with retropulsed fragment resulting in mild canal stenosis per L spine MRI -TLSO brace on order -neurosurgery consulted -recommend CT cervical, lumbar spine -continue pain management, bowel regimen -bed rest until neurosurgery consult (2) Abdominal discomfort Comment: -abdominal pain without n/v/d -no BM in 4-7 days -CT abd/pel shows constipation, no acute process -suspect this is the cause of abdominal pain -add on bowel regimen (3) COPD (chronic obstructive pulmonary disease) Comment: -does not appear to be in exacerbation -continue tiotropium -ventolin prn (4) GERD (gastroesophageal reflux disease) Comment: -pantoprazole (5) Depression with anxiety Comment: -paroxetine (6) DVT prophylaxis Comment: -HSQ (7) Full code status Status and Disposition: Observation. Discharge when stable. Awaiting neurosurgical consult.
[2019-10-12] MEDS ORDERED: Magnesium Hydroxide LIQ* 30 ML UDC PO PRN (15:58)
[2019-10-12] MEDS ORDERED: Docusate CAP* 100 MG PO PRN (15:58)
[2019-10-12] MEDS ORDERED: Senna TAB 8.6 mg* TAB PO PRN (15:58)
[2019-10-12] MEDS ORDERED: Polyethylene Glycol 3350* 17 GM PACKET PO PRN (15:58)
[2019-10-12] MEDS: Pancrelipase CAP* 5,000 UNITS CAP PO SCH (17:52)
[2019-10-12] MEDS: Morphine INJ* 2 MG/ML 1 ML SYRINGE (TWO MG - NEW SYRINGE VERSION) IV PRN (17:54)
[2019-10-12] MEDS: Senna TAB 8.6 mg* TAB PO SCH (20:51)
[2019-10-12] MEDS: Lidocaine Patch REMOVE* 1 NOTE MISC SCH (20:51)
[2019-10-13] MEDS: Heparin VIAL(*) 5000 UNITS/ML VIAL (FIVE THOUSAND) SUBCUT SCH ×3 (06:20→20:12)
[2019-10-13] MEDS: PARoxetine HCL TAB* 40 MG PO SCH (07:50)
[2019-10-13] MEDS: Pantoprazole TAB * 40 MG TAB PO SCH (07:50)
[2019-10-13] MEDS: oxyCODONE/Acetamin 5/325 MG* TAB PO PRN (07:50)
[2019-10-13] MEDS: Docusate CAP* 100 MG PO SCH ×2 (07:51→20:12)
[2019-10-13] MEDS: Lidocaine PATCH 5%* 1 PATCH TRANSDERM SCH (07:59)
[2019-10-13] MEDS: CMCS:Calcitonin NASAL(NF) 200 UNITS/SPRAY NASAL.SPR ALT NARE SCH (07:59)
[2019-10-13] MEDS: Pancrelipase CAP* 5,000 UNITS CAP PO SCH ×3 (08:01→17:53)
[2019-10-13] MEDS: SPIRIVA Respimat* (tiotropium) 2.5 mcg/inh Inhaler INH SCH (08:17)
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
[2019-10-13] MEDS ORDERED: Morphine INJ* 2 MG/ML 1 ML SYRINGE (TWO MG - NEW SYRINGE VERSION) IV PRN (17:32)
[2019-10-13] MEDS: Morphine INJ* 2 MG/ML 1 ML SYRINGE (TWO MG - NEW SYRINGE VERSION) IV PRN (17:49)
[2019-10-13] MEDS: Senna TAB 8.6 mg* TAB PO SCH (20:12)
[2019-10-13] MEDS: Lidocaine Patch REMOVE* 1 NOTE MISC SCH (20:13)
--- NOTE | 2019-10-14 03:52 | CONS ---
CONSULTATION REPORT: DATE OF CONSULT: 10/13/19 HISTORY OF PRESENT ILLNESS: The patient is a very pleasant 79-year-old female with history of chronic UTI; COPD, on 2 L of oxygen at night; right bundle- branch block; anxiety; GERD; history of DVT; tobacco abuse, who was recently admitted after having complaints of abdominal discomfort. The patient was diagnosed with UTI. She reported she had a fall approximately 3 weeks and she hit her back against the wall. Since then, she has been complaining of back pain. The patient had multiple studies revealing a T11 level superior endplate fracture with minimal retropulsion. Requested to see the patient by internal medicine team because of the patient's imagining findings. The patient reports that she has no neck pain. She denies loss of consciousness at the time of the fall. She has back pain. The patient reports that she has no weakness, numbness, or tingling of her extremities. She was able to ambulate to the hospital, but she has been bedrest since her recent diagnosis of fracture. The patient denies any urine or GI incontinence, although she reports that she has episodes of urinary urgency and stress incontinence, and she had a sling placed in [place]. The patient reports of hip pain. Sensation is intact. The patient is a retired, she used to be a nurse. She is . PAST MEDICAL HISTORY: UTI, COPD, right bundle-branch block, anxiety, GERD, history of DVT, tobacco abuse. PAST SURGICAL HISTORY: Cholecystectomy, right total knee arthroplasty, appendectomy, ovarian cyst removal, bladder sling. HOME MEDICATIONS: The patient is on: 1. Vitamin E. 2. Imodium. 3. Lipase. 4. [place]. 5. Valium. 6. Vitamin B12. 7. Co-enzyme Q10. 8. Spiriva. 9. Paxil. 10. Omeprazole. 11. Albuterol. ALLERGIES: The patient is allergic to CODEINE, IV DYE, LEVAQUIN, BACTRIM, SULFA , PENICILLIN, and VANCOMYCIN. FAMILY HISTORY: The patient's mother positive for heart disease. Father of sepsis and had history of heart disease. Mother had history of mitral valve replacement. SOCIAL HISTORY: Tobacco negative. The patient quit 7 years ago. Alcohol negative. Recreational drug use negative. Her surrogate decision maker is her daughter and her partner at home. PHYSICAL EXAM: The patient is not in acute distress. She is awake, alert, and oriented x3. Her pupils are equal and reactive. Cranial nerves II through XII are grossly intact. Motor 4 to 5/5 in all extremities. Sensation is grossly intact to light touch. Deep tendon reflexes are +1 bilaterally. No clonus. Babinski plus- minus bilaterally. Sarabia's negative. Straight leg raising test is negative in the supine position. The patient has no tenderness to palpation at the cervical and thoracic spine, but she does have some tenderness in the upper lumbar spine area. The patient has free range of motion of the cervical spine. DIAGNOSTIC STUDIES/LAB DATA: The patient had a CT scan of the cervical spine that revealed osteopenia without evidence of fracture. The patient had a CT scan of the thoracic spine revealing a T11 superior endplate fracture with minimal retropulsion. The patient had CT of the lumbar spine revealing similar findings. The patient had an MRI of the thoracic spine revealing again a T11 superior endplate fracture with minimal retropulsion with also suspicion of injury of the tip of the T10 spinous process. ASSESSMENT: The patient is a very pleasant 79-year-old female with multiple comorbidities including COPD, on home oxygen with a recent fall and diagnosis of an acute T11 superior endplate fracture with minimal retropulsion of the superior and posterior wall. PLAN: The patient at this point is doing quite well. We discussed about different treatment options. Because of her comorbidities and the patient's age , I think that conservative one may be the best option. Her TLICS score is 4 and I would recommend a TLSO brace with an upright standing x-ray as a trial for conservative treatment. If the patient can tolerate upright position well, then physical therapy and ambulation will be most likely the next step with hopes conservative treatment. The patient will need to have evaluation for osteoporosis and medical management as well as fall precautions. We discussed with the patient's significant other over the phone and plan was explained in details. Thank you for allowing us to participate in the care of this patient. Please do not hesitate to contact our office in case if you have any further questions or concerns regarding the care of this patient. [id number]/CPS #: [id number] MTDD
[2019-10-14 04:29] LABS: ABS Eosinophils 0.2 10^3/ul (0-0.6); ABS Lymphocytes 1.5 10^3/ul (1.0-4.8); ABS Monocytes 0.6 10^3/ul (0-0.8); ABS Neutrophils 4.9 10^3/ul (1.5-7.7); Eosinophil % 2.1 %; Hematocrit 30 % (35-47); Hemoglobin 10.2 g/dL (12.0-16.0); Lymphocyte % 21.2 %; Mean Corpuscular HGB Conc 34 g/dL (31-36); Mean Corpuscular Hemoglobin 32 pg (27-31); Mean Corpuscular Volume 93 fL (80-97); Mean Platelet Volume 6.3 fL (7.4-10.4); Platelet Count 299 10^3/uL (150-450); Red Blood Count 3.22 10^6 /uL (3.70-4.87); Red Cell Distribution Width 13 % (10-15); White Blood Count 7.2 10^3/uL (3.5-10.8)
[2019-10-14] MEDS: Heparin VIAL(*) 5000 UNITS/ML VIAL (FIVE THOUSAND) SUBCUT SCH ×2 (05:04→13:27)
[2019-10-14] MEDS: Pantoprazole TAB * 40 MG TAB PO SCH (08:31)
[2019-10-14] MEDS: PARoxetine HCL TAB* 40 MG PO SCH (08:31)
[2019-10-14] MEDS: Pancrelipase CAP* 5,000 UNITS CAP PO SCH ×2 (08:31→13:21)
[2019-10-14] MEDS: Docusate CAP* 100 MG PO SCH (08:31)
[2019-10-14] MEDS: SPIRIVA Respimat* (tiotropium) 2.5 mcg/inh Inhaler INH SCH (08:34)
[2019-10-14] MEDS: CMCS:Calcitonin NASAL(NF) 200 UNITS/SPRAY NASAL.SPR ALT NARE SCH (08:58)
[2019-10-14] MEDS: Lidocaine PATCH 5%* 1 PATCH TRANSDERM SCH (08:58)
[2019-10-14] MEDS: oxyCODONE/Acetamin 5/325 MG* TAB PO PRN (13:30)
[2019-10-14 15:04] VITALS: BP 122/71
--- NOTE | 2019-10-15 03:41 | DS ---
CC: Dr. Bettye Up; Darius Pires NP; Dr. Roger Mata * DISCHARGE SUMMARY: DATE OF ADMISSION: 10/11/19 DATE OF DISCHARGE: 10/14/19 PRIMARY CARE PROVIDERS: Dr. Bettye Up and Darius Pires NP. OTHER PROVIDER: Dr. Roger Mata. ATTENDING PHYSICIAN: Dr. Mirna Sheehan * (dictated by HOMERO Rodriguez). PRIMARY DIAGNOSES: 1. T11 vertebral compression fracture. 2. Likely osteoporosis. 3. Constipation. SECONDARY DIAGNOSES: 1. Chronic obstructive pulmonary disease. 2. Right bundle-branch block. 3. Gastroesophageal reflux disease. 4. Anxiety. 5. History of tobacco abuse. 6. History of DVT. STUDIES WHILE IN THE HOSPITAL: 1. CT abdomen and pelvis without, impression: Mild interval worsening compression of T11, no pelvic fractures, moderate constipation, no acute process seen in the abdomen or pelvis. 2. CT thoracic spine, impression: Age indeterminate T12 compression fracture and retropulsed fragments causing no canal stenosis. Mild multilevel thoracic spondylosis. 3. CT cervical spine, impression: No cervical spine fracture identified. Age appropriate degenerative changes. The bones are diffusely demineralized which limits evaluation of bony detail, emphysema. 4. CT lumbar spine, impression: Moderate T12 compression fracture with acute component increased since lumbar spine CT from 2018, but unchanged since thoracic spine CT dated 10/11/19. Diffuse bony demineralization, post cholecystectomy, diverticulosis coli. 5. MRI thoracic spine, impression: An acute T12 compression fracture results in 50% vertebral body height loss, bony retropulsion results in mild spinal canal stenosis, anteriorly directed paranasal hematoma/edema uplift the anterior longitudinal ligament by approximately 1.1 cm, mild edema about the tip of the T11 spinous process, generalized osteopenia is likely. 6. Lumbar x-ray, impression: Osteopenia, stable. Compression fracture of T11 counting from L5 as the last lumbar vertebral body, degenerative disk disease, and osteoarthritis. CONSULTATIONS WHILE IN THE HOSPITAL: Neurosurgery. Plan: The patient at this point is doing quite well. We discussed all different treatment options because of her comorbidities and the patient's age. I think that conservative one may be the best option. Her TLICS score is 4 and I would recommend a TLSO brace with an upright standing x-ray as a trial for conservative treatment. If the patient can tolerate upright position well, PT and ambulation will be most likely the next step with hopes of conservative treatment. The patient will need to have evaluation for osteoporosis and medical management as well as fall precautions. We discussed with the patient's significant other over the phone and plan was explained in detail. DISCHARGE MEDICATIONS: Home medications: 1. Albuterol sulfate 1 puff inhalation q.6 hours p.r.n. 2. Cyanocobalamin 1000 mcg p.o. daily. 3. Diazepam 5 mg p.o. q.i.d. p.r.n. 4. Zenpep DR 10,000 units 1 cap p.o. b.i.d. with meals. 5. Loperamide 4 mg p.o. q.6 hours p.r.n. 6. Omeprazole 20 mg p.o. b.i.d. 7. Paroxetine 40 mg p.o. daily. 8. Tiotropium 1 cap inhalation daily. 9. CoQ10 100 mg p.o. daily. 10. Vitamin E 100 units p.o. daily. New home medications: 1. Calcitonin 200 units alternating nares daily. 2. Oxycodone/acetaminophen 5/325 one tab p.o. q.6 hours p.r.n., MDD 4 tabs. HISTORY OF PRESENT ILLNESS/HOSPITAL COURSE: Ms. Stearns is a 79-year-old female with past medical history of COPD, right bundle-branch block, chronic UTI , anxiety, who presented to the ER on 10/11/19 with complaints of abdominal discomfort. A CT of the abdomen was obtained and revealed a T11 fracture and constipation. The patient was admitted for a thoracic vertebrae fracture. Call was made to Neurosurgery at [facility], who recommended CT of the cervical spine and TLSO brace. The patient was admitted and placed on bedrest until TLSO brace was obtained. Once this was obtained, Neurosurgery saw the patient and recommended upright films which were within normal limits. The patient was up with physical therapy and PT recommended that the patient's significant other will need to be able to assist the patient with her TLSO brace and provide supervision in order for the patient to return home safely. This was discussed with the patient and her significant other. The patient was offered discharge home versus discharge to subacute rehab. She adamantly refuses subacute rehab. When attempts were made at further discussion, she states "just send me home." She states initially that she does have concerns about going home, but will not share these concerns, again stating "just send me home." When prying more, the patient states she has no further concerns. I had a discussion with her significant other who was in the room during this conversation, and he reports that the patient does not like things being " sprung on her" and that she most likely will not respond to further questioning because of this and due to her being frustrated with the situation. We discussed if he feels that he is capable of taking care of her at home and he believes he is. VNS and home PT and OT were offered, to which both the patient and her significant other were amenable. The patient again continues to say "just send me home." She is medically stable and safe for discharge and therefore will be discharged to home today. Again she is declining subacute rehab. The patient did suffer a T11 compression fracture after a fall from the crouched position into a wall. There is concern that due to the ease with which the fracture occurred and due to the fact that the patient has bone demineralization shown on imaging, she will likely benefit from further workup for osteoporosis. She was offered alendronate prior to discharge, but has declined and states she wants to follow up with her primary care provider regarding this. She also reported abdominal pain upon admission. A CT of the abdomen shows constipation, which is the likely cause of the patient's discomfort. She reports no bowel movement in over 7 days by the time of discharge, although on the day of discharge, the patient did have a bowel movement. At this time, the patient's abdominal pain is improved. She denies chest pain, shortness of breath, cough, fever, chills, abdominal pain, nausea, vomiting, diarrhea, or constipation. She had a bowel movement today as mentioned. She does have pain in the lumbar area that is worse when her brace touches the area, but she has been up ambulating without trouble. PHYSICAL EXAMINATION: Vital Signs: Temperature 97.2 oral, heart rate 94, respiratory rate 18, oxygen saturation 95% on room air, blood pressure 122/71. General: Ms. Stearns is an elderly white female who is sitting at the edge of her bed with TLSO brace in place. She is frail and moves slowly, but appears to be moving moderately well. She is in no acute distress. She is visibly agitated at this time. Musculoskeletal: The patient has a slight hunching of the thoracic area, but is sitting upright in bed with TLSO brace in place. She appears to be moving all extremities. Neuro: The patient is awake. She is alert and oriented x3. She has a steady gait without impairment and appears to be able to move all of her extremities. The patient has declined physical exam. The above are all observations made during the patient interview but again, the patient declined physical exam. DISCHARGE PLAN: Ms. Stearns will be discharged to home. CONDITION: Fair. DIET: Heart healthy. ACTIVITY: 1. TLSO in place while upright. 2. Continue home PT/OT. EDUCATION: 1. Follow up with primary care provider in 4 to 7 days, discuss recent hospitalization, workup for osteoporosis. 2. Follow up with Dr. Mata in 1 to 2 weeks. 3. Return to the ER or nearest hospital if you experience any return or worsening of symptoms, chest pain or discomfort, shortness of breath, high fevers, chills, night sweats, dizziness, lightheadedness, loss of consciousness. Return for numbness, tingling, worsening pain. This is a summarized report of a complex medical history and hospital stay. For further details, please see the entire medical record. TIME SPENT: Approximately 40 minutes was spent on this discharge, greater than half that time was spent [id number] with the patient and her significant other discussing discharge plans and instructions. HOMERO MARINELLI [id number]/CPS #: [id number] AIRAM
== END 2019-10-14 17:00 | disposition home health service (06) | DRG 544 ==
LOC: ED 16:45 → MED 22:40 → OBSVTOIN 10-13 14:46
PROVIDERS: ADMIT Nurse Practitioner Family; ATTEND Internal Medicine
DX: M80.08XA Age-related osteoporosis with current pathological fracture, vertebra(e), initial encounter for fracture (principal); K59.00 Constipation, unspecified; J44.9 Chronic obstructive pulmonary disease, unspecified; I45.10 Unspecified right bundle-branch block; K21.9 Gastro-esophageal reflux disease without esophagitis; F41.9 Anxiety disorder, unspecified; M47.814 Spondylosis without myelopathy or radiculopathy, thoracic region; K57.90 Diverticulosis of intestine, part unspecified, without perforation or abscess without bleeding; H26.9 Unspecified cataract; M85.88 Other specified disorders of bone density and structure, other site; M51.36 Other intervertebral disc degeneration, lumbar region; Z88.5 Allergy status to narcotic agent; Z88.0 Allergy status to penicillin; Z88.2 Allergy status to sulfonamides; Z88.1 Allergy status to other antibiotic agents; Z91.041 Radiographic dye allergy status; Z87.01 Personal history of pneumonia (recurrent); Z87.891 Personal history of nicotine dependence; Z86.718 Personal history of other venous thrombosis and embolism; Z90.49 Acquired absence of other specified parts of digestive tract; W19.XXXA Unspecified fall, initial encounter; Y92.9 Unspecified place or not applicable; Z96.651 Presence of right artificial knee joint; Z86.19 Personal history of other infectious and parasitic diseases
CPT/HCPCS: 36415; 72100; 72125; 72128; 72131; 72146; 74176; 80048; 80053; 81003; 85025; 85610; 85730; 86140; 94640; 96374; 96375; 96376; 99284; A9270-GY; G0378; J1644; J2270; J2405; J3535

== ENCOUNTER 2021-09-27 13:32 | Inpatient (IN) ==
[2021-09-27] MEDS ORDERED: NS 0.9% 1000 ml BAG 1,000 ML IV.FLUID IV ONE (14:24)
[2021-09-27 14:51] LABS: Hematocrit 36 % (35-47); Hemoglobin 12.1 g/dL (12.0-16.0); Mean Corpuscular HGB Conc 33 g/dL (31-36); Mean Corpuscular Hemoglobin 31 pg (27-31); Mean Corpuscular Volume 91 fL (80-97); Mean Platelet Volume 6.9 fL (7.4-10.4); Platelet Count 330 10^3/uL (150-450); Red Blood Count 3.99 10^6 /uL (3.70-4.87); Red Cell Distribution Width 15 % (10-15); White Blood Count 15.8 10^3/uL (3.5-10.8)
[2021-09-27 15:01] LABS: ABS Eosinophils 0.1 10^3/ul (0-0.6); ABS Lymphocytes 0.6 10^3/ul (1.0-4.8); ABS Monocytes 1.3 10^3/ul (0-0.8); ABS Neutrophils 13.8 10^3/ul (1.5-7.7); Eosinophil % 0.8 %; Lymphocyte % 3.7 %; Nucleated Red Blood Cells % 0.1
[2021-09-27 15:06] LABS: Activated Partial Thrombo Time 26.3 seconds (26.0-38.0); INR 1.53 (0.86-1.15)
[2021-09-27] MEDS ORDERED: fentaNYL 100 mcg/2 ml 50 MCG/ML VIAL IV SLOW PU ONE (15:18)
[2021-09-27 15:24] LABS: ALT 29 U/L (7-52); AST 37 U/L (13-39); Albumin 3.5 g/dL (3.2-5.2); Albumin/Globulin Ratio 0.9 (1-3); Alkaline Phosphatase 94 U/L (35-149); Anion Gap 15 mmol/L (2-11); Blood Urea Nitrogen 46 mg/dL (6-24); C Reactive Protein 384.96 mg/L (<8.01); CO2 Carbon Dioxide 19 mmol/L (22-32); Calcium 9.4 mg/dL (8.6-10.3); Chloride 97 mmol/L (101-111); Globulin 3.8 g/dL (2-4); Glucose 116 mg/dL (70-100); Potassium 3.3 mmol/L (3.5-5.0); Sodium 131 mmol/L (135-145); Total Protein 7.3 g/dL (6.4-8.9); eGFR CKD-EPI 28.9 (>60)
[2021-09-27 15:40] LABS: Troponin I 0.04 ng/mL (<0.03)
[2021-09-27] MEDS ORDERED: Ondansetron 4 mg VIAL 2 MG/ML 2 ml VIAL IV ONE (15:40)
[2021-09-27] MEDS ORDERED: Ondansetron 4 mg VIAL 2 MG/ML 2 ml VIAL ONE (15:40)
[2021-09-27] MEDS ORDERED: cefTRIAXone 1 gm/50 mL NS BAG 1 GM/50 ML BAG IV ONE (15:58)
[2021-09-27 16:04] LABS: Urine Appearance Cloudy; Urine Bilirubin Negative (Negative); Urine Blood Negative (Negative); Urine Color Yellow; Urine Glucose Negative (Negative); Urine Ketones Trace (Negative); Urine Nitrite Negative (Negative); Urine Protein 1+(30 mg/dL) (Negative); Urine Specific Gravity 1.016 (1.002-1.030); Urine Urobilinogen Negative (Negative)
[2021-09-27 16:08] LABS: Urine Amorphous Crystals Present (Absent); Urine Bacteria Absent (Absent); Urine Red Blood Cell Trace(0-2/hpf) (Absent); Urine White Blood Cell Trace(0-5/hpf) (Absent)
[2021-09-27] MEDS ORDERED: HYDROcodone/ACETAMIN 5/325 mg TAB PO ONE (16:37)
[2021-09-27] MEDS ORDERED: Lactated Ringers 1000 ml BAG 1,000 ML IV SCH ×2 (19:00→20:30)
[2021-09-27 19:16] LABS: Magnesium 1.4 mg/dL (1.9-2.7)
[2021-09-27] MEDS ORDERED: Magnesium Sulfate 2 gm BAG 2 GM/50 ML BAG IVPB ONE (19:48)
[2021-09-27] MEDS ORDERED: Lactated Ringers 1000 ml BAG 1,000 ML IV STA (19:51)
[2021-09-27] MEDS ORDERED: metroNIDAZOLE IV 250 MG/50ML 50 ML IVPB SCH (20:00)
[2021-09-27] MEDS: Tiotropium Brom/Olodaterol MDI INH SCH (22:16)
[2021-09-27] MEDS: Enoxaparin 30 MG/0.3 ML SYR SUBCUT SCH (22:16)
[2021-09-27] MEDS: KCL 20 MEQ/100 ML IVPREMIX 20 MEQ/100 ML BAG IV SCH (22:17)
[2021-09-27] MEDS: metroNIDAZOLE IV 500 MG/100ML 100 ML IVPB SCH (22:17)
[2021-09-28] MEDS: KCL 20 MEQ/100 ML IVPREMIX 20 MEQ/100 ML BAG IV SCH (00:40)
[2021-09-28] MEDS: metroNIDAZOLE IV 500 MG/100ML 100 ML IVPB SCH ×3 (05:45→22:00)
[2021-09-28 05:50] LABS: Hematocrit 30 % (35-47); Hemoglobin 9.8 g/dL (12.0-16.0); Mean Corpuscular HGB Conc 33 g/dL (31-36); Mean Corpuscular Hemoglobin 30 pg (27-31); Mean Corpuscular Volume 92 fL (80-97); Platelet Count 254 10^3/uL (150-450); Red Blood Count 3.24 10^6 /uL (3.70-4.87); Red Cell Distribution Width 15 % (10-15); White Blood Count 13.7 10^3/uL (3.5-10.8)
[2021-09-28 06:05] LABS: Calcium 8.6 mg/dL (8.6-10.3); Magnesium 1.8 mg/dL (1.9-2.7); Potassium 3.8 mmol/L (3.5-5.0); eGFR CKD-EPI 38.4 (>60)
[2021-09-28] MEDS ORDERED: Magnesium Sulfate IV 3 GM in NS 0.9% 100 ml BAG 100 ML IVPB ONE (06:57)
[2021-09-28] MEDS: Tiotropium Brom/Olodaterol MDI INH SCH (07:43)
[2021-09-28] MEDS ORDERED: Lactated Ringers 1000 ml BAG 1,000 ML IV SCH (09:00)
[2021-09-28] MEDS ORDERED: Magnesium Sulfate 2 GM IV (Premix) IVPB ONE (09:00)
[2021-09-28] MEDS ORDERED: Magnesium Sulfate 1 GM IV 1 GM/100 ML BAG IV ONE (10:00)
[2021-09-28] MEDS: TERIPARATIDE SUBCUT SCH (10:32)
[2021-09-28] MEDS ORDERED: Morphine 2 MG/ML SYRINGE IV PRN (12:35)
[2021-09-28] MEDS: Enoxaparin 30 MG/0.3 ML SYR SUBCUT SCH (21:59)
[2021-09-29 05:19] LABS: ABS Eosinophils 0.3 10^3/ul (0-0.6); ABS Lymphocytes 0.6 10^3/ul (1.0-4.8); ABS Monocytes 0.8 10^3/ul (0-0.8); ABS Neutrophils 14.5 10^3/ul (1.5-7.7); Hematocrit 28 % (35-47); Hemoglobin 9.1 g/dL (12.0-16.0); Lymphocyte % 3.4 %; Mean Corpuscular HGB Conc 33 g/dL (31-36); Mean Corpuscular Hemoglobin 30 pg (27-31); Mean Corpuscular Volume 92 fL (80-97); Nucleated Red Blood Cells % 0.1; Platelet Count 263 10^3/uL (150-450); Red Blood Count 3.04 10^6 /uL (3.70-4.87); Red Cell Distribution Width 15 % (10-15); White Blood Count 16.3 10^3/uL (3.5-10.8)
[2021-09-29] MEDS: metroNIDAZOLE IV 500 MG/100ML 100 ML IVPB SCH ×3 (05:22→21:51)
[2021-09-29 05:30] LABS: C Reactive Protein 256.23 mg/L (<8.01); Magnesium 2.1 mg/dL (1.9-2.7); Phosphorus 2.2 mg/dL (2.5-5.0); Potassium 3.3 mmol/L (3.5-5.0); eGFR CKD-EPI 44.9 (>60)
[2021-09-29] MEDS ORDERED: Potassium Phosphate IV 15 MMOLE in NS 0.9% 250 ml 250 ML IVPB ONE (07:06)
[2021-09-29] MEDS ORDERED: Lactated Ringers 1000 ml BAG 1,000 ML IV SCH (08:00)
[2021-09-29] MEDS: Tiotropium Brom/Olodaterol MDI INH SCH (08:09)
[2021-09-29] MEDS ORDERED: Lactated Ringers 500 ml BAG 500 ML IV ONE (08:17)
[2021-09-29] MEDS ORDERED: Potassium Phosphate IV 10 MMOLE in NS 0.9% 250 ml 250 ML IVPB ONE (09:00)
[2021-09-29] MEDS: TERIPARATIDE SUBCUT SCH (09:30)
[2021-09-29] MEDS ORDERED: fentaNYL 100 mcg/2 ml 50 MCG/ML VIAL IV SLOW PU PRN (12:19)
[2021-09-29] MEDS: Enoxaparin 30 MG/0.3 ML SYR SUBCUT SCH (21:51)
[2021-09-30] MEDS: metroNIDAZOLE IV 500 MG/100ML 100 ML IVPB SCH ×3 (05:11→22:55)
[2021-09-30 06:59] LABS: ABS Eosinophils 0.4 10^3/ul (0-0.6); ABS Lymphocytes 0.7 10^3/ul (1.0-4.8); ABS Monocytes 0.7 10^3/ul (0-0.8); ABS Neutrophils 14.5 10^3/ul (1.5-7.7); Eosinophil % 2.6 %; Hematocrit 29 % (35-47); Hemoglobin 9.6 g/dL (12.0-16.0); Lymphocyte % 4.3 %; Mean Corpuscular HGB Conc 33 g/dL (31-36); Mean Corpuscular Hemoglobin 30 pg (27-31); Mean Corpuscular Volume 92 fL (80-97); Mean Platelet Volume 7.1 fL (7.4-10.4); Platelet Count 264 10^3/uL (150-450); Red Blood Count 3.17 10^6 /uL (3.70-4.87); Red Cell Distribution Width 15 % (10-15); White Blood Count 16.4 10^3/uL (3.5-10.8)
[2021-09-30 07:14] LABS: Calcium 8.7 mg/dL (8.6-10.3); Magnesium 1.6 mg/dL (1.9-2.7); Phosphorus 2.3 mg/dL (2.5-5.0); Potassium 2.9 mmol/L (3.5-5.0); eGFR CKD-EPI 55.6 (>60)
[2021-09-30] MEDS: Tiotropium Brom/Olodaterol MDI INH SCH (07:57)
[2021-09-30] MEDS ORDERED: Magnesium Sulf 4 GM/100 ML IV 4,000 MG/100 ML BAG IVPB ONE (08:48)
[2021-09-30] MEDS: TERIPARATIDE SUBCUT SCH (09:03)
[2021-09-30] MEDS: KCL 20 MEQ/100 ML IVPREMIX 20 MEQ/100 ML BAG IV SCH ×3 (09:17→15:45)
[2021-09-30] MEDS ORDERED: Lactated Ringers 1000 ml BAG 1,000 ML IV SCH (13:00)
[2021-09-30] MEDS ORDERED: Potassium Chlor 20 meq TAB.ER PO ONE ×2 (14:17)
[2021-09-30] MEDS ORDERED: Sodium Phosphate IV 15 MMOLE in NS 0.9% 250 ml 250 ML IV ONE (14:41)
[2021-09-30] MEDS: Enoxaparin 30 MG/0.3 ML SYR SUBCUT SCH (22:56)
[2021-10-01] MEDS: metroNIDAZOLE IV 500 MG/100ML 100 ML IVPB SCH ×3 (05:05→21:48)
[2021-10-01 06:44] LABS: Hematocrit 28 % (35-47); Hemoglobin 9.3 g/dL (12.0-16.0); Mean Corpuscular HGB Conc 33 g/dL (31-36); Mean Corpuscular Hemoglobin 30 pg (27-31); Mean Corpuscular Volume 92 fL (80-97); Mean Platelet Volume 6.9 fL (7.4-10.4); Platelet Count 279 10^3/uL (150-450); Red Blood Count 3.09 10^6 /uL (3.70-4.87); Red Cell Distribution Width 15 % (10-15)
[2021-10-01 07:06] LABS: Calcium 8.4 mg/dL (8.6-10.3); Magnesium 1.4 mg/dL (1.9-2.7); Phosphorus 2.9 mg/dL (2.5-5.0); Potassium 3.3 mmol/L (3.5-5.0); eGFR CKD-EPI 68.3 (>60)
[2021-10-01 07:29] LABS: RBC Morphology Normal (Normal)
[2021-10-01 07:30] LABS: Toxic Granulation 2+
[2021-10-01] MEDS: Tiotropium Brom/Olodaterol MDI INH SCH (08:11)
[2021-10-01] MEDS: TERIPARATIDE SUBCUT SCH (09:38)
[2021-10-01] MEDS ORDERED: Albuterol HFA INHALER 8 gm MDI INH PRN (09:54)
[2021-10-01] MEDS ORDERED: Magnesium Sulfate IV 3 GM in NS 0.9% 100 ml BAG 100 ML IVPB ONE (12:00)
[2021-10-01] MEDS ORDERED: Potassium Chlor 20 meq TAB.ER PO ONE (12:01)
[2021-10-01] MEDS ORDERED: Magnesium Sulfate 2 GM IV (Premix) IVPB ONE (13:00)
[2021-10-01] MEDS ORDERED: Magnesium Sulfate 1 GM IV 1 GM/100 ML BAG IV ONE (14:00)
[2021-10-01] MEDS: Enoxaparin 30 MG/0.3 ML SYR SUBCUT SCH (20:31)
[2021-10-02] MEDS: metroNIDAZOLE IV 500 MG/100ML 100 ML IVPB SCH ×3 (05:21→21:48)
[2021-10-02 06:14] LABS: C Reactive Protein 53.81 mg/L (<8.01); Calcium 8.1 mg/dL (8.6-10.3); Magnesium 1.9 mg/dL (1.9-2.7); Potassium 3.3 mmol/L (3.5-5.0); eGFR CKD-EPI 73.3 (>60)
[2021-10-02] MEDS ORDERED: Magnesium Sulfate 2 gm BAG 2 GM/50 ML BAG IVPB ONE (06:45)
[2021-10-02] MEDS: Tiotropium Brom/Olodaterol MDI INH SCH (07:09)
[2021-10-02 07:12] LABS: Phosphorus 2.6 mg/dL (2.5-5.0)
[2021-10-02] MEDS ORDERED: Potassium Chlor 20 meq TAB.ER PO SCH (09:00)
[2021-10-02] MEDS: TERIPARATIDE SUBCUT SCH (11:04)
[2021-10-02] MEDS ORDERED: Morphine 2 MG/ML SYRINGE IV ONE (13:46)
[2021-10-02] MEDS ORDERED: HYDROmorphone 0.5 MG/0.5 ML SYRINGE IV ONE (18:34)
[2021-10-02] MEDS ORDERED: Potassium Chlor 20 meq TAB.ER PO ONE (18:35)
[2021-10-02] MEDS ORDERED: Potassium Chloride LIQUID 20 MEQ/15 ML LIQUID PO ONE (21:00)
[2021-10-02] MEDS: Enoxaparin 30 MG/0.3 ML SYR SUBCUT SCH (21:46)
[2021-10-03 06:32] LABS: Calcium 8.3 mg/dL (8.6-10.3); Magnesium 1.9 mg/dL (1.9-2.7)
[2021-10-03 06:38] LABS: eGFR CKD-EPI 76.7 (>60)
[2021-10-03] MEDS: metroNIDAZOLE IV 500 MG/100ML 100 ML IVPB SCH ×3 (07:29→22:11)
[2021-10-03] MEDS: Tiotropium Brom/Olodaterol MDI INH SCH (08:10)
[2021-10-03] MEDS: TERIPARATIDE SUBCUT SCH (09:22)
[2021-10-03] MEDS: Enoxaparin 30 MG/0.3 ML SYR SUBCUT SCH (20:45)
[2021-10-04] MEDS ORDERED: Ondansetron 4 mg VIAL 2 MG/ML 2 ml VIAL IV ONE (02:12)
[2021-10-04] MEDS: metroNIDAZOLE IV 500 MG/100ML 100 ML IVPB SCH (05:50)
[2021-10-04] MEDS: Tiotropium Brom/Olodaterol MDI INH SCH (08:36)
[2021-10-04] MEDS: TERIPARATIDE SUBCUT SCH (09:02)
[2021-10-04 10:25] LABS: C Reactive Protein 26.34 mg/L (<8.01); Calcium 8.4 mg/dL (8.6-10.3); Magnesium 1.5 mg/dL (1.9-2.7); Potassium 3.4 mmol/L (3.5-5.0); eGFR CKD-EPI 71.2 (>60)
[2021-10-04] MEDS ORDERED: Magnesium Sulf 4 GM/100 ML IV 4,000 MG/100 ML BAG IVPB ONE (10:58)
[2021-10-04] MEDS ORDERED: Potassium Chlor 20 meq TAB.ER PO SCH (11:00)
[2021-10-04] MEDS ORDERED: Potassium Chloride LIQUID 20 MEQ/15 ML LIQUID PO SCH (12:30)
[2021-10-04] MEDS: Pancrelipase 5,000 units CAP PO SCH (17:40)
[2021-10-04] MEDS: Enoxaparin 30 MG/0.3 ML SYR SUBCUT SCH (21:28)
[2021-10-05] MEDS: TERIPARATIDE SUBCUT SCH (07:27)
[2021-10-05] MEDS: Pancrelipase 5,000 units CAP PO SCH (09:07)
[2021-10-05] MEDS: Tiotropium Brom/Olodaterol MDI INH SCH (10:58)
[2021-10-05 11:00] VITALS: BP 107/57
== END 2021-10-05 15:40 | disposition home or self-care (01) | DRG 872 ==
LOC: ED 13:32 → SUATTDRO 18:38 → EDHOLD 18:38 → MED 23:26
PROVIDERS: ADMIT Internal Medicine; ATTEND Internal Medicine

== ENCOUNTER 2021-10-20 19:46 | Inpatient (IN) ==
[2021-10-20] MEDS ORDERED: Lactated Ringers 1000 ml BAG 1,000 ML IV ONE ×2 (20:03→20:10)
[2021-10-20] MEDS ORDERED: Cefepime 1 GM in Dextrose 1 GM/50 ML BAG IV ONE (20:19)
[2021-10-20 21:27] LABS: ABS Basophils 0.1 10^3/ul (0-0.2); ABS Eosinophils 0.1 10^3/ul (0-0.6); ABS Lymphocytes 0.4 10^3/ul (1.0-4.8); ABS Monocytes 0.8 10^3/ul (0-0.8); ABS Neutrophils 10.3 10^3/ul (1.5-7.7); Eosinophil % 0.7 %; Hematocrit 33 % (35-47); Hemoglobin 10.9 g/dL (12.0-16.0); Lymphocyte % 3.7 %; Mean Corpuscular HGB Conc 33 g/dL (31-36); Mean Corpuscular Hemoglobin 30 pg (27-31); Mean Corpuscular Volume 92 fL (80-97); Mean Platelet Volume 6.5 fL (7.4-10.4); Nucleated Red Blood Cells % 0.1; Platelet Count 337 10^3/uL (150-450); Red Blood Count 3.58 10^6 /uL (3.70-4.87); Red Cell Distribution Width 16 % (10-15); White Blood Count 11.7 10^3/uL (3.5-10.8)
[2021-10-20 21:42] LABS: Albumin 3.9 g/dL (3.2-5.2); Calcium 9.5 mg/dL (8.6-10.3); Globulin 3.9 g/dL (2-4); Total Bilirubin 0.5 mg/dL (0.2-1.0); Total Protein 7.8 g/dL (6.4-8.9); eGFR CKD-EPI 46.2 (>60)
[2021-10-20 23:00] LABS: Urine Appearance Cloudy; Urine Bilirubin Negative (Negative); Urine Blood Negative (Negative); Urine Color Yellow; Urine Glucose Negative (Negative); Urine Ketones Negative (Negative); Urine Nitrite Positive (Negative); Urine Protein Negative (Negative); Urine Specific Gravity 1.011 (1.002-1.030); Urine Urobilinogen Negative (Negative)
[2021-10-20 23:14] LABS: Urine Bacteria 1+ (Absent); Urine Red Blood Cell 1+(3-5/hpf) (Absent); Urine Squamous Epithelial Cell Present (Absent); Urine White Blood Cell 3+(>20/hpf) (Absent)
[2021-10-21] MEDS ORDERED: Lactated Ringers 1000 ml BAG 1,000 ML IV ONE (01:11)
[2021-10-21] MEDS ORDERED: metroNIDAZOLE IV 500 MG/100ML - ED ONCE IVPB ONE (02:00)
[2021-10-21 02:02] LABS: C Reactive Protein 33.18 mg/L (<8.01)
[2021-10-21] MEDS ORDERED: metroNIDAZOLE IV 500 MG/100ML 500 MG/100 ML BAG IVPB SCH (03:30)
[2021-10-21] MEDS ORDERED: Enoxaparin 40 MG/0.4 ML SYR SUBCUT SCH (05:00)
[2021-10-21 05:32] LABS: ABS Eosinophils 0.1 10^3/ul (0-0.6); ABS Lymphocytes 0.8 10^3/ul (1.0-4.8); ABS Monocytes 1.1 10^3/ul (0-0.8); ABS Neutrophils 9.5 10^3/ul (1.5-7.7); Eosinophil % 0.9 %; Hematocrit 30 % (35-47); Hemoglobin 10.1 g/dL (12.0-16.0); Lymphocyte % 7.2 %; Mean Corpuscular HGB Conc 34 g/dL (31-36); Mean Corpuscular Hemoglobin 31 pg (27-31); Mean Corpuscular Volume 93 fL (80-97); Mean Platelet Volume 6.3 fL (7.4-10.4); Platelet Count 284 10^3/uL (150-450); Red Blood Count 3.25 10^6 /uL (3.70-4.87); Red Cell Distribution Width 16 % (10-15); White Blood Count 11.6 10^3/uL (3.5-10.8)
[2021-10-21 06:02] LABS: Calcium 8.8 mg/dL (8.6-10.3); Magnesium 1.1 mg/dL (1.9-2.7); eGFR CKD-EPI 54.3 (>60)
[2021-10-21] MEDS: Tiotropium Brom/Olodaterol MDI INH SCH (07:50)
[2021-10-21] MEDS: Calcium/Vitamin D TAB 250/125 TAB PO SCH (08:05)
[2021-10-21] MEDS: Pancrelipase 5,000 units CAP PO SCH ×2 (08:05→16:58)
[2021-10-21] MEDS: Enoxaparin 40 MG/0.4 ML SYR SUBCUT SCH (08:06)
[2021-10-21] MEDS ORDERED: Magnesium Sulfate IV 3 GM in NS 0.9% 100 ml BAG 100 ML IVPB ONE (08:47)
[2021-10-21] MEDS ORDERED: VITAMIN E 100 UNIT PO SCH (09:00)
[2021-10-21] MEDS ORDERED: INJECTOR SUBCUT SCH (09:00)
[2021-10-21] MEDS ORDERED: Coenzyme Q10 CAP (NF) ** ENTER STREGNTH IN LABEL DIRECTIONS PO SCH (09:00)
[2021-10-21] MEDS ORDERED: TERIPARATIDE SUBCUT SCH (09:00)
[2021-10-21] MEDS ORDERED: Magnesium Sulfate 2 GM IV (Premix) IVPB ONE (11:00)
[2021-10-21] MEDS ORDERED: Magnesium Sulfate 1 GM IV 1 GM/100 ML BAG IV ONE (12:00)
[2021-10-21] MEDS: cefTRIAXone 1 gm/50 mL NS BAG 1 GM/50 ML BAG IVPB SCH (21:45)
[2021-10-21] MEDS ORDERED: LACTATED RINGERS IV SCH (23:45)
[2021-10-22 00:20] LABS: ABS Eosinophils 0.2 10^3/ul (0-0.6); ABS Lymphocytes 0.8 10^3/ul (1.0-4.8); ABS Monocytes 1.4 10^3/ul (0-0.8); ABS Neutrophils 10.4 10^3/ul (1.5-7.7); Eosinophil % 1.2 %; Hematocrit 28 % (35-47); Hemoglobin 9.5 g/dL (12.0-16.0); Lymphocyte % 6.5 %; Mean Corpuscular HGB Conc 34 g/dL (31-36); Mean Corpuscular Hemoglobin 31 pg (27-31); Mean Corpuscular Volume 92 fL (80-97); Mean Platelet Volume 6.5 fL (7.4-10.4); Platelet Count 238 10^3/uL (150-450); Red Blood Count 3.06 10^6 /uL (3.70-4.87); Red Cell Distribution Width 16 % (10-15); White Blood Count 12.9 10^3/uL (3.5-10.8)
[2021-10-22 00:42] LABS: Albumin 3.1 g/dL (3.2-5.2); C Reactive Protein 176.44 mg/L (<8.01); Calcium 8.3 mg/dL (8.6-10.3); Globulin 3.1 g/dL (2-4); Potassium 3.9 mmol/L (3.5-5.0); Total Bilirubin 0.4 mg/dL (0.2-1.0); Total Protein 6.2 g/dL (6.4-8.9); eGFR CKD-EPI 53.7 (>60)
[2021-10-22 06:06] LABS: ABS Eosinophils 0.2 10^3/ul (0-0.6); ABS Lymphocytes 0.8 10^3/ul (1.0-4.8); ABS Monocytes 1.4 10^3/ul (0-0.8); ABS Neutrophils 9.6 10^3/ul (1.5-7.7); Eosinophil % 1.6 %; Hematocrit 27 % (35-47); Hemoglobin 9.2 g/dL (12.0-16.0); Lymphocyte % 6.8 %; Mean Corpuscular HGB Conc 34 g/dL (31-36); Mean Corpuscular Hemoglobin 31 pg (27-31); Mean Corpuscular Volume 92 fL (80-97); Mean Platelet Volume 6.6 fL (7.4-10.4); Platelet Count 241 10^3/uL (150-450); Red Blood Count 2.95 10^6 /uL (3.70-4.87); Red Cell Distribution Width 16 % (10-15)
[2021-10-22 06:41] LABS: Calcium 8.1 mg/dL (8.6-10.3); Magnesium 1.8 mg/dL (1.9-2.7); Potassium 3.7 mmol/L (3.5-5.0); eGFR CKD-EPI 62.1 (>60)
[2021-10-22] MEDS: Tiotropium Brom/Olodaterol MDI INH SCH (07:32)
[2021-10-22] MEDS: Pancrelipase 5,000 units CAP PO SCH ×2 (08:43→17:12)
[2021-10-22] MEDS: Calcium/Vitamin D TAB 250/125 TAB PO SCH (08:43)
[2021-10-22] MEDS: Enoxaparin 40 MG/0.4 ML SYR SUBCUT SCH (08:43)
[2021-10-22] MEDS: Ondansetron 4 mg VIAL 2 MG/ML 2 ml VIAL IV PRN (10:19)
[2021-10-22] MEDS: cefTRIAXone 1 gm/50 mL NS BAG 1 GM/50 ML BAG IVPB SCH (21:47)
[2021-10-23 04:53] LABS: ABS Eosinophils 0.6 10^3/ul (0-0.6); ABS Monocytes 1.1 10^3/ul (0-0.8); ABS Neutrophils 9.4 10^3/ul (1.5-7.7); Eosinophil % 5.2 %; Hematocrit 26 % (35-47); Hemoglobin 8.7 g/dL (12.0-16.0); Lymphocyte % 8.3 %; Mean Corpuscular HGB Conc 33 g/dL (31-36); Mean Corpuscular Hemoglobin 31 pg (27-31); Mean Corpuscular Volume 93 fL (80-97); Mean Platelet Volume 6.6 fL (7.4-10.4); Platelet Count 240 10^3/uL (150-450); Red Blood Count 2.83 10^6 /uL (3.70-4.87); Red Cell Distribution Width 16 % (10-15); White Blood Count 12.2 10^3/uL (3.5-10.8)
[2021-10-23 05:13] LABS: Anion Gap 6 mmol/L (2-11); Blood Urea Nitrogen 15 mg/dL (6-24); CO2 Carbon Dioxide 27 mmol/L (22-32); Calcium 8.3 mg/dL (8.6-10.3); Chloride 97 mmol/L (101-111); Glucose 98 mg/dL (70-100); Magnesium 1.8 mg/dL (1.9-2.7); Potassium 3.5 mmol/L (3.5-5.0); Sodium 130 mmol/L (135-145); eGFR CKD-EPI 54.3 (>60)
[2021-10-23] MEDS: Tiotropium Brom/Olodaterol MDI INH SCH (07:10)
[2021-10-23] MEDS: Enoxaparin 40 MG/0.4 ML SYR SUBCUT SCH (08:39)
[2021-10-23] MEDS: Calcium/Vitamin D TAB 250/125 TAB PO SCH (08:40)
[2021-10-23] MEDS: Pancrelipase 5,000 units CAP PO SCH ×2 (08:40→15:53)
[2021-10-23 09:30] LABS: Total Iron Binding Capacity 183 mcg/dL (250-450); Transferrin 131 mg/dL (203-362)
[2021-10-23 09:35] LABS: % Iron Saturation 11 % (15-55); Iron < 20 ug/dL (50-212); Unsaturated Iron Binding 163 ug/dL
[2021-10-23 09:51] LABS: Ferritin 127.1 ng/mL (11-307)
[2021-10-23 09:56] LABS: Folate 3.84 ng/mL (5.90-24.80)
[2021-10-23] MEDS: Ondansetron 4 mg VIAL 2 MG/ML 2 ml VIAL IV PRN (15:56)
[2021-10-23] MEDS: Lactated Ringers 1000 ml BAG 1,000 ML IV SCH (15:58)
[2021-10-23] MEDS: cefTRIAXone 1 gm/50 mL NS BAG 1 GM/50 ML BAG IVPB SCH (20:29)
[2021-10-24] MEDS: Lactated Ringers 1000 ml BAG 1,000 ML IV SCH ×3 (00:50→15:49)
[2021-10-24] MEDS: Tiotropium Brom/Olodaterol MDI INH SCH (07:28)
[2021-10-24 08:09] LABS: ABS Eosinophils 0.5 10^3/ul (0-0.6); ABS Monocytes 0.6 10^3/ul (0-0.8); Eosinophil % 6.3 %; Hematocrit 26 % (35-47); Hemoglobin 8.6 g/dL (12.0-16.0); Lymphocyte % 12.1 %; Mean Corpuscular HGB Conc 33 g/dL (31-36); Mean Corpuscular Hemoglobin 31 pg (27-31); Mean Corpuscular Volume 93 fL (80-97); Mean Platelet Volume 6.7 fL (7.4-10.4); Platelet Count 237 10^3/uL (150-450); Red Blood Count 2.79 10^6 /uL (3.70-4.87); Red Cell Distribution Width 16 % (10-15); White Blood Count 8.1 10^3/uL (3.5-10.8)
[2021-10-24] MEDS: Pancrelipase 5,000 units CAP PO SCH ×3 (08:29→17:42)
[2021-10-24] MEDS: Enoxaparin 30 MG/0.3 ML SYR SUBCUT SCH (08:29)
[2021-10-24] MEDS: Calcium/Vitamin D TAB 250/125 TAB PO SCH (08:29)
[2021-10-24 08:40] LABS: Calcium 8.1 mg/dL (8.6-10.3); Magnesium 1.6 mg/dL (1.9-2.7); Potassium 3.7 mmol/L (3.5-5.0); eGFR CKD-EPI 62.1 (>60)
[2021-10-24] MEDS ORDERED: Magnesium Sulfate 2 gm BAG 2 GM/50 ML BAG IVPB ONE (09:04)
[2021-10-24] MEDS ORDERED: Potassium Chlor 20 meq TAB.ER PO ONE (09:05)
[2021-10-24] MEDS: Ondansetron 4 mg VIAL 2 MG/ML 2 ml VIAL IV PRN (21:50)
[2021-10-24] MEDS: cefTRIAXone 1 gm/50 mL NS BAG 1 GM/50 ML BAG IVPB SCH (21:51)
[2021-10-25 06:42] LABS: ABS Eosinophils 0.5 10^3/ul (0-0.6); ABS Lymphocytes 0.8 10^3/ul (1.0-4.8); ABS Monocytes 0.6 10^3/ul (0-0.8); ABS Neutrophils 5.4 10^3/ul (1.5-7.7); Eosinophil % 6.4 %; Hematocrit 25 % (35-47); Hemoglobin 8.2 g/dL (12.0-16.0); Mean Corpuscular HGB Conc 33 g/dL (31-36); Mean Corpuscular Hemoglobin 31 pg (27-31); Mean Corpuscular Volume 93 fL (80-97); Mean Platelet Volume 6.8 fL (7.4-10.4); Platelet Count 241 10^3/uL (150-450); Red Blood Count 2.64 10^6 /uL (3.70-4.87); Red Cell Distribution Width 16 % (10-15); White Blood Count 7.4 10^3/uL (3.5-10.8)
[2021-10-25 06:59] LABS: Magnesium 1.7 mg/dL (1.9-2.7); eGFR CKD-EPI 72.3 (>60)
[2021-10-25] MEDS: Tiotropium Brom/Olodaterol MDI INH SCH (07:11)
[2021-10-25] MEDS: Pancrelipase 5,000 units CAP PO SCH ×3 (08:02→16:07)
[2021-10-25] MEDS ORDERED: Magnesium Sulfate 2 gm BAG 2 GM/50 ML BAG IVPB ONE (08:58)
[2021-10-25] MEDS: Enoxaparin 30 MG/0.3 ML SYR SUBCUT SCH (10:09)
[2021-10-25] MEDS: Calcium/Vitamin D TAB 250/125 TAB PO SCH (10:10)
[2021-10-25] MEDS ORDERED: Furosemide 20 mg/2 ml IV VIAL IV SLOW PU ONE (17:36)
[2021-10-25] MEDS: cefTRIAXone 1 gm/50 mL NS BAG 1 GM/50 ML BAG IVPB SCH (21:42)
[2021-10-26 05:59] LABS: ABS Eosinophils 0.4 10^3/ul (0-0.6); ABS Lymphocytes 0.8 10^3/ul (1.0-4.8); ABS Monocytes 0.9 10^3/ul (0-0.8); ABS Neutrophils 6.4 10^3/ul (1.5-7.7); Eosinophil % 5.1 %; Hematocrit 26 % (35-47); Hemoglobin 8.6 g/dL (12.0-16.0); Lymphocyte % 9.3 %; Mean Corpuscular HGB Conc 34 g/dL (31-36); Mean Corpuscular Hemoglobin 31 pg (27-31); Mean Corpuscular Volume 92 fL (80-97); Mean Platelet Volume 6.8 fL (7.4-10.4); Platelet Count 287 10^3/uL (150-450); Red Blood Count 2.79 10^6 /uL (3.70-4.87); Red Cell Distribution Width 16 % (10-15); White Blood Count 8.6 10^3/uL (3.5-10.8)
[2021-10-26 06:27] LABS: Calcium 8.1 mg/dL (8.6-10.3); Magnesium 1.6 mg/dL (1.9-2.7); Potassium 3.7 mmol/L (3.5-5.0); eGFR CKD-EPI 71.2 (>60)
[2021-10-26] MEDS: Tiotropium Brom/Olodaterol MDI INH SCH (07:00)
[2021-10-26] MEDS ORDERED: Potassium Chlor 20 meq TAB.ER PO ONE (08:41)
[2021-10-26] MEDS ORDERED: Magnesium Sulfate 2 gm BAG 2 GM/50 ML BAG IVPB ONE (08:41)
[2021-10-26] MEDS: Pancrelipase 5,000 units CAP PO SCH ×3 (09:55→17:37)
[2021-10-26] MEDS: Calcium/Vitamin D TAB 250/125 TAB PO SCH (09:56)
[2021-10-26] MEDS: Enoxaparin 30 MG/0.3 ML SYR SUBCUT SCH (09:59)
[2021-10-26 16:56] VITALS: BP 145/77
[2021-10-26] MEDS ORDERED: cefTRIAXone 1 gm/50 mL D5W 1 GM/50 ML BAG IV SCH (21:00)
== END 2021-10-26 18:14 | disposition home or self-care (01) | DRG 872 ==
LOC: ED 19:46 → SUATTDRO 23:53 → EDHOLD 23:53 → MEDTELE 10-21 02:40
PROVIDERS: ADMIT Internal Medicine; ATTEND Internal Medicine

== ENCOUNTER 2021-10-29 06:07 | Inpatient (IN) ==
[2021-10-29] MEDS ORDERED: Lactated Ringers 1000 ml BAG 1,000 ML IV ONE (06:20)
[2021-10-29] MEDS ORDERED: Albuterol/Ipratropium NEB.SOL (2.5/0.5 MG) 3 ML NEB.SOLN INH ONE ×3 (06:24→07:24)
[2021-10-29] MEDS ORDERED: methylPREDNISolone 125 mg 2 ML VIAL IV ONE (06:24)
[2021-10-29] MEDS ORDERED: Azithromycin 500 mg/250 ml NS 500 MG/250 ML BAG IVPB ONE ×2 (06:29→06:45)
[2021-10-29] MEDS ORDERED: Cefepime 2 GM in Dextrose 2 GM/50 ML BAG IV ONE ×2 (06:29→06:45)
[2021-10-29] MEDS ORDERED: Lactated Ringers 1000 ml BAG 1,500 ML IV ONE (06:32)
[2021-10-29 06:46] LABS: Hematocrit 32 % (35-47); Mean Corpuscular HGB Conc 31 g/dL (31-36); Mean Corpuscular Hemoglobin 30 pg (27-31); Mean Corpuscular Volume 96 fL (80-97); Mean Platelet Volume 6.6 fL (7.4-10.4); Platelet Count 526 10^3/uL (150-450); Red Blood Count 3.32 10^6 /uL (3.70-4.87); Red Cell Distribution Width 17 % (10-15); White Blood Count 29.8 10^3/uL (3.5-10.8)
[2021-10-29 06:55] LABS: Activated Partial Thrombo Time 26.1 seconds (26.0-38.0); INR 1.23 (0.86-1.15)
[2021-10-29 06:57] LABS: PCO2 Arterial 64 mmHg (35-45); PO2 Arterial 99 mmHg (80-100)
[2021-10-29 07:03] LABS: Polychromasia 1+
[2021-10-29 07:04] LABS: ABS Basophils 0.3 10^3/ul (0-0.2); ABS Eosinophils 0.3 10^3/ul (0-0.6); ABS Lymphocytes 4.5 10^3/ul (1.0-4.8); ABS Neutrophils 23.8 10^3/ul (1.5-7.7); ABS Nucleated RBC 0.1 10^3/ul; Eosinophil % 1.1 %; Lymphocyte % 15.1 %; Nucleated Red Blood Cells % 0.2
[2021-10-29 07:24] LABS: Albumin 3.5 g/dL (3.2-5.2); Albumin/Globulin Ratio 0.9 (1-3); C Reactive Protein 51.92 mg/L (<8.01); Calcium 9.1 mg/dL (8.6-10.3); Globulin 3.8 g/dL (2-4); Potassium 4.7 mmol/L (3.5-5.0); Total Bilirubin 0.5 mg/dL (0.2-1.0); Total Protein 7.3 g/dL (6.4-8.9); eGFR CKD-EPI 46.2 (>60)
[2021-10-29 07:53] LABS: Urine Appearance Clear; Urine Bilirubin Negative (Negative); Urine Blood Negative (Negative); Urine Color Yellow; Urine Glucose 1+(50 mg/dL) (Negative); Urine Ketones Negative (Negative); Urine Nitrite Negative (Negative); Urine Protein 2+(100 mg/dL) (Negative); Urine Specific Gravity 1.011 (1.002-1.030); Urine Urobilinogen Negative (Negative)
[2021-10-29 08:01] LABS: Urine Bacteria Absent (Absent); Urine Red Blood Cell Trace(0-2/hpf) (Absent); Urine White Blood Cell Trace(0-5/hpf) (Absent)
[2021-10-29 08:09] LABS: High Sensitivity Troponin 1 Hr 449 pg/mL (<15)
[2021-10-29] MEDS ORDERED: Ondansetron 4 mg VIAL 2 MG/ML 2 ml VIAL IV ONE (08:29)
[2021-10-29 08:34] LABS: PCO2 Arterial 47 mmHg (35-45); PO2 Arterial 111 mmHg (80-100)
[2021-10-29] MEDS ORDERED: Norepinephrine 16MCG/ML BAG NS 4,000 MCG/250 ML BAG IV ONE (08:40)
[2021-10-29] MEDS ORDERED: Norepinephrine 16MCG/ML BAG NS 4,000 MCG/250 ML BAG IV SCH (09:00)
[2021-10-29] MEDS ORDERED: Furosemide 40 mg/4 ml IV VIAL IV ONE (09:51)
[2021-10-29] MEDS: Enoxaparin 30 MG/0.3 ML SYR SUBCUT SCH (10:15)
[2021-10-29] MEDS: metroNIDAZOLE IV 500 MG/100ML 500 MG/100 ML BAG IVPB SCH ×3 (10:24→22:15)
[2021-10-29] MEDS ORDERED: Zosyn per Pharmacy NOTE FOLLOW UP SCH (11:00)
[2021-10-29] MEDS: Budesonide NEB 0.25 MG/2 ML NEB.SOLN INH SCH ×2 (11:14→19:48)
[2021-10-29] MEDS: DOXYcycline 100 MG in NS 0.9% 250 ml 250 ML IVPB SCH ×2 (11:38→23:29)
[2021-10-29 16:12] LABS: Hematocrit 26 % (35-47); Hemoglobin 8.3 g/dL (12.0-16.0); Mean Corpuscular HGB Conc 32 g/dL (31-36); Mean Corpuscular Hemoglobin 30 pg (27-31); Mean Corpuscular Volume 93 fL (80-97); Mean Platelet Volume 6.8 fL (7.4-10.4); Platelet Count 287 10^3/uL (150-450); Red Blood Count 2.74 10^6 /uL (3.70-4.87); Red Cell Distribution Width 16 % (10-15); White Blood Count 17.4 10^3/uL (3.5-10.8)
[2021-10-29 16:48] LABS: ABS Basophils 0.1 10^3/ul (0-0.2); ABS Lymphocytes 0.6 10^3/ul (1.0-4.8); ABS Monocytes 0.3 10^3/ul (0-0.8); ABS Neutrophils 16.4 10^3/ul (1.5-7.7); Eosinophil % 0.1 %; Lymphocyte % 3.2 %
[2021-10-29 17:10] LABS: Calcium 7.9 mg/dL (8.6-10.3); Potassium 3.9 mmol/L (3.5-5.0); Total Bilirubin 0.4 mg/dL (0.2-1.0); eGFR CKD-EPI 46.2 (>60)
[2021-10-29] MEDS: Pancrelipase 5,000 units CAP PO SCH (17:34)
[2021-10-30] MEDS: metroNIDAZOLE IV 500 MG/100ML 500 MG/100 ML BAG IVPB SCH ×4 (04:32→21:52)
[2021-10-30 05:18] LABS: Albumin 2.8 g/dL (3.2-5.2); Albumin/Globulin Ratio 1.1 (1-3); Calcium 7.5 mg/dL (8.6-10.3); Globulin 2.6 g/dL (2-4); Magnesium 1.3 mg/dL (1.9-2.7); Potassium 4.1 mmol/L (3.5-5.0); Total Bilirubin 0.3 mg/dL (0.2-1.0); Total Protein 5.4 g/dL (6.4-8.9); eGFR CKD-EPI 41.2 (>60)
[2021-10-30] MEDS ORDERED: Cefepime 2 GM in Dextrose 2 GM/50 ML BAG IV SCH (06:00)
[2021-10-30 06:18] LABS: ABS Lymphocytes 0.9 10^3/ul (1.0-4.8); ABS Monocytes 0.6 10^3/ul (0-0.8); ABS Neutrophils 9.2 10^3/ul (1.5-7.7); Eosinophil % 0.1 %; Hematocrit 22 % (35-47); Hemoglobin 7.3 g/dL (12.0-16.0); Mean Corpuscular HGB Conc 33 g/dL (31-36); Mean Corpuscular Hemoglobin 31 pg (27-31); Mean Corpuscular Volume 93 fL (80-97); Mean Platelet Volume 7.1 fL (7.4-10.4); Nucleated Red Blood Cells % 0.3; Platelet Count 248 10^3/uL (150-450); Red Blood Count 2.36 10^6 /uL (3.70-4.87); Red Cell Distribution Width 16 % (10-15); White Blood Count 10.8 10^3/uL (3.5-10.8)
[2021-10-30] MEDS: Budesonide NEB 0.25 MG/2 ML NEB.SOLN INH SCH (07:23)
[2021-10-30] MEDS ORDERED: Magnesium Sulf 4 GM/100 ML IV 4,000 MG/100 ML BAG IVPB ONE (08:01)
[2021-10-30] MEDS: Pancrelipase 5,000 units CAP PO SCH ×3 (08:30→16:50)
[2021-10-30] MEDS: Enoxaparin 30 MG/0.3 ML SYR SUBCUT SCH (08:30)
[2021-10-30] MEDS: DOXYcycline 100 MG in NS 0.9% 250 ml 250 ML IVPB SCH (13:56)
[2021-10-30] MEDS: Tiotropium Brom/Olodaterol MDI INH SCH (20:34)
[2021-10-31] MEDS: DOXYcycline 100 MG in NS 0.9% 250 ml 250 ML IVPB SCH ×3 (00:55→21:52)
[2021-10-31] MEDS: metroNIDAZOLE IV 500 MG/100ML 500 MG/100 ML BAG IVPB SCH (05:03)
[2021-10-31] MEDS: Tiotropium Brom/Olodaterol MDI INH SCH (08:00)
[2021-10-31] MEDS: Ondansetron 4 mg VIAL 2 MG/ML 2 ml VIAL IV PRN ×2 (08:13→13:30)
[2021-10-31] MEDS: Enoxaparin 30 MG/0.3 ML SYR SUBCUT SCH (08:13)
[2021-10-31] MEDS: Pancrelipase 5,000 units CAP PO SCH ×3 (08:23→18:13)
[2021-10-31 14:36] LABS: ABS Lymphocytes 0.4 10^3/ul (1.0-4.8); ABS Monocytes 0.4 10^3/ul (0-0.8); ABS Neutrophils 19.6 10^3/ul (1.5-7.7); Hematocrit 27 % (35-47); Hemoglobin 8.7 g/dL (12.0-16.0); Lymphocyte % 2.2 %; Mean Corpuscular HGB Conc 32 g/dL (31-36); Mean Corpuscular Hemoglobin 30 pg (27-31); Mean Corpuscular Volume 94 fL (80-97); Mean Platelet Volume 6.9 fL (7.4-10.4); Platelet Count 398 10^3/uL (150-450); Red Cell Distribution Width 17 % (10-15); White Blood Count 20.5 10^3/uL (3.5-10.8)
[2021-10-31 15:05] LABS: Calcium 8.1 mg/dL (8.6-10.3); Potassium 4.1 mmol/L (3.5-5.0); eGFR CKD-EPI 50.8 (>60)
[2021-10-31] MEDS ORDERED: Lorazepam PYXIS KEY PRN (16:43)
[2021-10-31] MEDS: LORazepam 2 mg VIAL 1 ml IV PUSH PRN (18:13)
[2021-11-01 06:41] LABS: ABS Lymphocytes 1.3 10^3/ul (1.0-4.8); ABS Monocytes 0.7 10^3/ul (0-0.8); ABS Neutrophils 11.8 10^3/ul (1.5-7.7); ABS Nucleated RBC 0.1 10^3/ul; Eosinophil % 0.1 %; Hematocrit 25 % (35-47); Hemoglobin 8.2 g/dL (12.0-16.0); Lymphocyte % 9.7 %; Mean Corpuscular HGB Conc 33 g/dL (31-36); Mean Corpuscular Hemoglobin 31 pg (27-31); Mean Corpuscular Volume 94 fL (80-97); Nucleated Red Blood Cells % 0.4; Platelet Count 333 10^3/uL (150-450); Red Blood Count 2.65 10^6 /uL (3.70-4.87); Red Cell Distribution Width 17 % (10-15); White Blood Count 13.9 10^3/uL (3.5-10.8)
[2021-11-01 06:54] LABS: Calcium 8.2 mg/dL (8.6-10.3); Magnesium 1.8 mg/dL (1.9-2.7); Potassium 3.8 mmol/L (3.5-5.0); eGFR CKD-EPI 47.7 (>60)
[2021-11-01] MEDS: Enoxaparin 30 MG/0.3 ML SYR SUBCUT SCH (08:35)
[2021-11-01] MEDS: Pancrelipase 5,000 units CAP PO SCH ×3 (08:35→17:03)
[2021-11-01] MEDS: DOXYcycline 100 MG in NS 0.9% 250 ml 250 ML IVPB SCH ×2 (08:40→21:26)
[2021-11-01] MEDS: Tiotropium Brom/Olodaterol MDI INH SCH (09:53)
[2021-11-01] MEDS: Albuterol HFA INHALER 8 gm MDI INH PRN (13:26)
[2021-11-01] MEDS ORDERED: Furosemide 20 mg/2 ml IV VIAL IV SLOW PU ONE (13:49)
[2021-11-01] MEDS ORDERED: Magnesium Sulfate IV 3 GM in NS 0.9% 100 ml BAG 100 ML IVPB ONE (13:49)
[2021-11-01] MEDS ORDERED: Magnesium Sulfate 2 GM IV (Premix) IVPB ONE (14:00)
[2021-11-01] MEDS: LORazepam 2 mg VIAL 1 ml IV PUSH PRN ×2 (14:04→21:26)
[2021-11-01] MEDS ORDERED: Magnesium Sulfate 1 GM IV 1 GM/100 ML BAG IV ONE (15:00)
[2021-11-02 06:50] LABS: Hematocrit 25 % (35-47); Hemoglobin 8.3 g/dL (12.0-16.0); Mean Corpuscular HGB Conc 33 g/dL (31-36); Mean Corpuscular Hemoglobin 31 pg (27-31); Mean Corpuscular Volume 94 fL (80-97); Mean Platelet Volume 7.1 fL (7.4-10.4); Platelet Count 355 10^3/uL (150-450); Red Cell Distribution Width 17 % (10-15); White Blood Count 11.5 10^3/uL (3.5-10.8)
[2021-11-02 07:02] LABS: Calcium 8.2 mg/dL (8.6-10.3); Magnesium 2.2 mg/dL (1.9-2.7); eGFR CKD-EPI 53.7 (>60)
[2021-11-02] MEDS ORDERED: Magnesium Hydroxide LIQ 30 ML UDC PO PRN (08:11)
[2021-11-02] MEDS: Pancrelipase 5,000 units CAP PO SCH ×2 (08:41→15:12)
[2021-11-02] MEDS: Enoxaparin 30 MG/0.3 ML SYR SUBCUT SCH (08:41)
[2021-11-02] MEDS: DOXYcycline 100 MG in NS 0.9% 250 ml 250 ML IVPB SCH (08:53)
[2021-11-02] MEDS: LORazepam 2 mg VIAL 1 ml IV PUSH PRN ×2 (08:57→16:25)
[2021-11-02] MEDS ORDERED: Senna TAB 8.6 mg TAB PO SCH (09:00)
[2021-11-02] MEDS: Tiotropium Brom/Olodaterol MDI INH SCH (09:18)
[2021-11-02] MEDS: Albuterol HFA INHALER 8 gm MDI INH PRN ×2 (12:06→16:25)
[2021-11-02 15:33] VITALS: BP 139/89
== END 2021-11-02 16:45 | disposition home or self-care (01) | DRG 871 ==
LOC: ED 06:07 → EDHOLD 08:23 → SUATTDRO 08:23 → ICU 09:10 → MEDTELE 10-30 14:18
PROVIDERS: ADMIT Physician Assistant; ATTEND Hospitalist

== ENCOUNTER 2023-06-28 18:44 | Inpatient (IN) ==
[2023-06-28] MEDS ORDERED: methylPREDNISolone SOD SUCC 125 mg 2 ML VIAL IV ONE (19:08)
[2023-06-28 19:39] LABS: ABS Eosinophils 0.1 10^3/uL (0.0-0.5); ABS Lymphocytes 1.7 10^3/uL (1.0-4.8); ABS Neutrophils 6.9 10^3/uL (1.5-7.6); ABS Nucleated RBC 0.01 10^3/ul; Eosinophil % 0.9 %; Hematocrit 32.9 % (35-45); Lymphocyte % 17.3 %; Mean Corpuscular Hemoglobin 32.5 pg (27-33); Mean Corpuscular Hgb Conc 33.5 g/dL (31-36); Mean Corpuscular Volume 97.2 fL (80-97); Mean Platelet Volume 6.5 fL (7.5-11.2); Nucleated Red Blood Cells % 0.1 %/100WBC (0.0-0.8); Platelet Count 234 10^3/uL (150-450); Red Blood Count 3.38 10^6/uL (3.63-4.92); Red Cell Distribution Width 13.2 % (12-17); White Blood Count 9.7 10^3/uL (3.8-11.8)
[2023-06-28 20:01] LABS: Albumin 3.7 g/dL (3.2-5.2); Calcium 9.4 mg/dL (8.6-10.3); Creatinine, Serum 1.43 mg/dL (0.51-0.95); Globulin 3.6 g/dL (2-4); Potassium 3.9 mmol/L (3.5-5.0); Total Bilirubin 0.4 mg/dL (0.2-1.0); Total Protein 7.3 g/dL (6.4-8.9); eGFR CKD-EPI 36.6 (>60)
[2023-06-28] MEDS ORDERED: Albuterol 2.5mg/3 ml (0.083%) NEB.SOLN INH ONE (20:29)
[2023-06-28 20:59] LABS: Urine Appearance Clear; Urine Bilirubin Negative (Negative); Urine Blood Negative (Negative); Urine Color Yellow; Urine Glucose Negative (Negative); Urine Ketones Trace (Negative); Urine Nitrite Negative (Negative); Urine Protein 2+(100 mg/dL) (Negative); Urine Specific Gravity 1.019 (1.002-1.030); Urine Urobilinogen Negative (Negative)
[2023-06-28 21:02] LABS: Urine Bacteria Absent (Absent); Urine Red Blood Cell Trace(0-2/hpf) (Absent); Urine Squamous Epithelial Cell Present (Absent); Urine White Blood Cell 2+(11-20/hpf) (Absent)
[2023-06-28 21:16] LABS: High Sensitivity Troponin 1 Hr 27 pg/mL (<15)
[2023-06-28] MEDS ORDERED: cefTRIAXone 1 gm/50 mL D5W 1 GM/50 ML BAG IV ONE (22:43)
[2023-06-28] MEDS ORDERED: Azithromycin 500 mg/250 ml NS 500 MG/250 ML BAG IVPB ONE (22:43)
[2023-06-29] MEDS ORDERED: Albuterol/Ipratropium NEB.SOL (2.5/0.5 MG) 3 ML NEB.SOLN INH PRN ×2 (02:53→11:00)
[2023-06-29] MEDS: Enoxaparin 30 MG/0.3 ML SYR SUBCUT SCH (04:32)
[2023-06-29] MEDS: methylPREDNISolone SOD SUCC 40 mg/ml 1 ml VIAL IV SCH ×3 (04:32→20:46)
[2023-06-29 07:09] LABS: Calcium 9.1 mg/dL (8.6-10.3); Creatinine, Serum 1.45 mg/dL (0.51-0.95); Potassium 4.7 mmol/L (3.5-5.0)
[2023-06-29] MEDS: Albuterol/Ipratropium NEB.SOL (2.5/0.5 MG) 3 ML NEB.SOLN INH SCH ×4 (07:36→20:46)
[2023-06-29] MEDS: Mometasone/Formoter 100/5 MDI INH SCH ×3 (07:37→17:56)
[2023-06-29] MEDS: PANCRELIPASE PO SCH ×2 (08:40→17:09)
[2023-06-29] MEDS: Calcium/Vitamin D TAB 250/125 TAB PO SCH (08:41)
[2023-06-29] MEDS ORDERED: methylPREDNISolone SOD SUCC 40 mg/ml 1 ml VIAL IV SCH (09:00)
[2023-06-29] MEDS ORDERED: Tiotropium Brom/Olodaterol MDI (ACUTE) INH SCH (09:00)
[2023-06-29] MEDS: cefTRIAXone 1 gm/50 mL D5W 1 GM/50 ML BAG IV SCH (22:56)
[2023-06-30] MEDS: methylPREDNISolone SOD SUCC 40 mg/ml 1 ml VIAL IV SCH ×3 (04:15→22:05)
[2023-06-30] MEDS: Enoxaparin 30 MG/0.3 ML SYR SUBCUT SCH (06:36)
[2023-06-30] MEDS: Mometasone/Formoter 100/5 MDI INH SCH (08:24)
[2023-06-30 08:47] LABS: Hematocrit 28.7 % (35-45); Hemoglobin 9.8 g/dL (11.5-14.3); Mean Corpuscular Hemoglobin 32.5 pg (27-33); Mean Corpuscular Volume 95.4 fL (80-97); Platelet Count 271 10^3/uL (150-450); White Blood Count 13.3 10^3/uL (3.8-11.8)
[2023-06-30 08:53] LABS: Calcium 9.7 mg/dL (8.6-10.3); Creatinine, Serum 1.26 mg/dL (0.51-0.95); Magnesium 1.8 mg/dL (1.9-2.7); Potassium 4.4 mmol/L (3.5-5.0); eGFR CKD-EPI 42.6 (>60)
[2023-06-30] MEDS: Albuterol/Ipratropium NEB.SOL (2.5/0.5 MG) 3 ML NEB.SOLN INH SCH ×5 (09:43→21:43)
[2023-06-30] MEDS ORDERED: Tiotropium Brom/Olodaterol MDI (ACUTE) INH SCH (10:00)
[2023-06-30 10:35] LABS: ABS Basophils 0.1 10^3/uL (0.0-0.1); ABS Lymphocytes 0.8 10^3/uL (1.0-4.8); ABS Monocytes 0.4 10^3/uL (0.0-0.9); ABS Nucleated RBC 0.01 10^3/ul; Eosinophil % 0.3 %; Lymphocyte % 6.1 %; Nucleated Red Blood Cells % 0.1 %/100WBC (0.0-0.8)
[2023-06-30] MEDS: Calcium/Vitamin D TAB 250/125 TAB PO SCH (10:35)
[2023-06-30] MEDS: PANCRELIPASE PO SCH ×2 (10:46→20:16)
[2023-06-30] MEDS ORDERED: Lactated Ringers 1000 ml BAG 1,000 ML IV ONE (17:53)
[2023-06-30] MEDS: cefTRIAXone 1 gm/50 mL D5W 1 GM/50 ML BAG IV SCH (22:46)
[2023-06-30] MEDS ORDERED: Calcium Carb (TUMS) 500 mg CHEW TAB PO ONE (23:40)
[2023-07-01] MEDS ORDERED: Magnesium Hydroxide LIQ 30 ML UDC PO PRN ×2 (05:45→13:50)
[2023-07-01] MEDS ORDERED: Senna TAB 8.6 mg TAB PO PRN ×2 (05:45→13:50)
[2023-07-01] MEDS: Enoxaparin 30 MG/0.3 ML SYR SUBCUT SCH (06:18)
[2023-07-01 06:41] LABS: Hematocrit 30.5 % (35-45); Hemoglobin 10.2 g/dL (11.5-14.3); Mean Corpuscular Hemoglobin 32.2 pg (27-33); Mean Corpuscular Hgb Conc 33.5 g/dL (31-36); Mean Platelet Volume 6.7 fL (7.5-11.2); Platelet Count 331 10^3/uL (150-450); Red Blood Count 3.18 10^6/uL (3.63-4.92); Red Cell Distribution Width 13.2 % (12-17); White Blood Count 20.6 10^3/uL (3.8-11.8)
[2023-07-01 07:51] LABS: ABS Lymphocytes 0.9 10^3/uL (1.0-4.8); ABS Monocytes 0.9 10^3/uL (0.0-0.9); ABS Neutrophils 18.8 10^3/uL (1.5-7.6); ABS Nucleated RBC 0.03 10^3/ul; Lymphocyte % 4.2 %; Nucleated Red Blood Cells % 0.1 %/100WBC (0.0-0.8); Polychromasia 1+
[2023-07-01] MEDS: Albuterol/Ipratropium NEB.SOL (2.5/0.5 MG) 3 ML NEB.SOLN INH SCH ×2 (08:10→18:50)
[2023-07-01] MEDS: Calcium/Vitamin D TAB 250/125 TAB PO SCH (08:21)
[2023-07-01] MEDS: PANCRELIPASE PO SCH ×2 (08:22→17:07)
[2023-07-01] MEDS: Lactated Ringers 1000 ml BAG 1,000 ML IV SCH ×2 (08:31→19:46)
[2023-07-01 09:08] LABS: C Reactive Protein 111.33 mg/L (<8.01); Calcium 9.9 mg/dL (8.6-10.3); Creatinine, Serum 1.21 mg/dL (0.51-0.95); Magnesium 1.7 mg/dL (1.9-2.7); Phosphorus 2.7 mg/dL (2.5-5.0); Potassium 4.1 mmol/L (3.5-5.0); eGFR CKD-EPI 44.7 (>60)
[2023-07-01] MEDS: methylPREDNISolone SOD SUCC 40 mg/ml 1 ml VIAL IV SCH ×2 (10:06→17:45)
[2023-07-01] MEDS: Mometasone/Formoter 200/5 MDI INH SCH ×3 (11:12→18:50)
[2023-07-01] MEDS ORDERED: Polyethylene Glycol 3350 17 GM PACKET PO PRN (13:50)
[2023-07-01] MEDS ORDERED: Magnesium Sulfate IV 1GM/100ML 1 GM/100 ML BAG IV ONE (16:25)
[2023-07-01] MEDS ORDERED: Zosyn per Pharmacy NOTE FOLLOW UP SCH (18:00)
[2023-07-01] MEDS: Magnesium Hydroxide LIQ 30 ML UDC PO SCH (19:47)
[2023-07-01] MEDS: Cefepime 1 GM in Dextrose 1 GM/50 ML BAG IV SCH (20:20)
[2023-07-02] MEDS: methylPREDNISolone SOD SUCC 40 mg/ml 1 ml VIAL IV SCH ×3 (02:53→17:28)
[2023-07-02] MEDS: Enoxaparin 30 MG/0.3 ML SYR SUBCUT SCH (05:30)
[2023-07-02] MEDS: Lactated Ringers 1000 ml BAG 1,000 ML IV SCH (05:31)
[2023-07-02 05:43] LABS: Hematocrit 27.9 % (35-45); Hemoglobin 9.3 g/dL (11.5-14.3); Mean Corpuscular Hemoglobin 31.6 pg (27-33); Mean Corpuscular Hgb Conc 33.2 g/dL (31-36); Mean Corpuscular Volume 95.3 fL (80-97); Mean Platelet Volume 6.4 fL (7.5-11.2); Platelet Count 267 10^3/uL (150-450); Red Blood Count 2.93 10^6/uL (3.63-4.92); Red Cell Distribution Width 13.5 % (12-17); White Blood Count 14.8 10^3/uL (3.8-11.8)
[2023-07-02 06:45] LABS: Calcium 9.4 mg/dL (8.6-10.3); Creatinine, Serum 1.11 mg/dL (0.51-0.95); Magnesium 2.3 mg/dL (1.9-2.7); Phosphorus 2.5 mg/dL (2.5-5.0); Potassium 4.1 mmol/L (3.5-5.0); eGFR CKD-EPI 49.6 (>60)
[2023-07-02 07:35] LABS: ABS Lymphocytes 0.7 10^3/uL (1.0-4.8); ABS Monocytes 0.7 10^3/uL (0.0-0.9); ABS Neutrophils 13.4 10^3/uL (1.5-7.6); ABS Nucleated RBC 0.01 10^3/ul; Lymphocyte % 4.6 %; RBC Morphology Normal (Normal)
[2023-07-02] MEDS: PANCRELIPASE PO SCH ×2 (08:38→17:28)
[2023-07-02] MEDS: Calcium/Vitamin D TAB 250/125 TAB PO SCH (08:40)
[2023-07-02] MEDS ORDERED: Furosemide 40 mg/4 ml IV VIAL IV ONE (08:58)
[2023-07-02] MEDS: Magnesium Hydroxide LIQ 30 ML UDC PO SCH (08:59)
[2023-07-02] MEDS: Albuterol/Ipratropium NEB.SOL (2.5/0.5 MG) 3 ML NEB.SOLN INH SCH ×2 (09:11→19:14)
[2023-07-02] MEDS: Mometasone/Formoter 200/5 MDI INH SCH ×2 (09:12→19:15)
[2023-07-02] MEDS: Cefepime 1 GM in Dextrose 1 GM/50 ML BAG IV SCH ×2 (09:36→21:48)
[2023-07-03] MEDS: Enoxaparin 30 MG/0.3 ML SYR SUBCUT SCH (05:47)
[2023-07-03] MEDS: methylPREDNISolone SOD SUCC 40 mg/ml 1 ml VIAL IV SCH ×2 (05:47→16:16)
[2023-07-03 06:22] LABS: Hematocrit 28.4 % (35-45); Hemoglobin 9.5 g/dL (11.5-14.3); Mean Corpuscular Hemoglobin 31.9 pg (27-33); Mean Corpuscular Hgb Conc 33.5 g/dL (31-36); Mean Corpuscular Volume 95.2 fL (80-97); Mean Platelet Volume 6.8 fL (7.5-11.2); Platelet Count 324 10^3/uL (150-450); Red Blood Count 2.99 10^6/uL (3.63-4.92); Red Cell Distribution Width 13.3 % (12-17)
[2023-07-03 06:43] LABS: Calcium 9.3 mg/dL (8.6-10.3); Creatinine, Serum 1.22 mg/dL (0.51-0.95); Phosphorus 2.8 mg/dL (2.5-5.0); Potassium 3.5 mmol/L (3.5-5.0); eGFR CKD-EPI 44.3 (>60)
[2023-07-03 06:47] LABS: ABS Lymphocytes 1.4 10^3/uL (1.0-4.8); ABS Neutrophils 13.6 10^3/uL (1.5-7.6); ABS Nucleated RBC 0.13 10^3/ul; Eosinophil % 0.1 %; Lymphocyte % 8.8 %; Nucleated Red Blood Cells % 0.8 %/100WBC (0.0-0.8)
[2023-07-03] MEDS: Albuterol/Ipratropium NEB.SOL (2.5/0.5 MG) 3 ML NEB.SOLN INH SCH (07:46)
[2023-07-03] MEDS: Mometasone/Formoter 200/5 MDI INH SCH (07:46)
[2023-07-03] MEDS: Calcium/Vitamin D TAB 250/125 TAB PO SCH (08:59)
[2023-07-03] MEDS: PANCRELIPASE PO SCH (09:00)
[2023-07-03] MEDS: Cefepime 1 GM in Dextrose 1 GM/50 ML BAG IV SCH (09:01)
[2023-07-03 14:30] VITALS: BP 138/79
[2023-07-03] MEDS ORDERED: Magic MouthWash2-BEN/MAAL/LIDO/NYST 240 ML BTL (alt formulation) SWISH SPIT ONE (15:31)
== END 2023-07-03 17:05 | disposition home or self-care (01) | DRG 871 ==
LOC: ED 18:44 → EDHOLD 18:44 → SUATTDRO 06-29 02:43 → MEDTELE 06-30 14:34
PROVIDERS: ADMIT Internal Medicine; ATTEND Internal Medicine

== ENCOUNTER 2024-07-22 13:31 | Observation (INO) ==
[2024-07-22 14:19] LABS: ABS Eosinophils 0.6 10^3/uL (0.0-0.5); ABS Lymphocytes 0.7 10^3/uL (1.0-4.8); ABS Monocytes 0.8 10^3/uL (0.0-0.9); ABS Neutrophils 4.6 10^3/uL (1.5-7.6); Eosinophil % 9.1 %; Hematocrit 33.9 % (35-45); Hemoglobin 11.4 g/dL (11.5-14.3); Lymphocyte % 9.8 %; Mean Corpuscular Hemoglobin 31.7 pg (27-33); Mean Corpuscular Hgb Conc 33.5 g/dL (31-36); Mean Corpuscular Volume 94.5 fL (80-97); Mean Platelet Volume 6.3 fL (7.5-11.2); Platelet Count 298 10^3/uL (150-450); Red Blood Count 3.59 10^6/uL (3.63-4.92); Red Cell Distribution Width 13.5 % (12-17); White Blood Count 6.7 10^3/uL (3.8-11.8)
[2024-07-22 15:14] LABS: Albumin 4.1 g/dL (3.5-5.7); Albumin/Globulin Ratio 1.2 (1-3); C Reactive Protein 66.49 mg/L (<8.01); Calcium 10.1 mg/dL (8.6-10.3); Creatinine, Serum 1.4 mg/dL (0.51-0.95); Globulin 3.3 g/dL (2-4); Potassium 4.5 mmol/L (3.5-5.0); Total Bilirubin 0.3 mg/dL (0.2-1.0); Total Protein 7.4 g/dL (6.4-8.9); eGFR CKD-EPI 37.3 (>60)
[2024-07-22] MEDS: cefTRIAXone 1 gm/50 mL D5W 1 GM/50 ML BAG IV ONE (15:58)
[2024-07-22] MEDS ORDERED: Senna TAB 8.6 mg TAB PO PRN (16:16)
[2024-07-22] MEDS: Azithromycin 500 mg/250 ml NS 500 MG/250 ML BAG IVPB ONE (16:21)
[2024-07-22] MEDS ORDERED: Albuterol/Ipratropium RESP(NF) MDI (Combivent Respimat) INH PRN (16:22)
[2024-07-22 17:58] LABS: Urine Appearance Turbid; Urine Bilirubin Negative (Negative); Urine Blood Negative (Negative); Urine Color Colorless; Urine Glucose Negative (Negative); Urine Ketones Negative (Negative); Urine Nitrite 1+ (Negative); Urine Protein Negative (Negative); Urine Specific Gravity 1.019 (1.002-1.030); Urine Urobilinogen Negative (Negative)
[2024-07-22 18:02] LABS: Urine Bacteria Absent /HPF (Absent); Urine Red Blood Cell Trace(0-2/hpf) /HPF (0-Trace); Urine White Blood Cell Trace(0-5/hpf) /HPF (0-Trace)
[2024-07-22] MEDS: Tiotropium Brom/Olodaterol MDI (ACUTE) INH SCH (20:24)
[2024-07-22] MEDS: Pancrelipase 5,000 units CAP PO SCH (21:26)
[2024-07-22] MEDS: Heparin 5000 UNITS/ML 1 mL VIAL SUBCUT SCH (21:41)
[2024-07-23 06:39] LABS: Hematocrit 32.1 % (35-45); Hemoglobin 10.7 g/dL (11.5-14.3); Mean Corpuscular Hemoglobin 31.6 pg (27-33); Mean Corpuscular Hgb Conc 33.4 g/dL (31-36); Mean Corpuscular Volume 94.7 fL (80-97); Mean Platelet Volume 6.7 fL (7.5-11.2); Platelet Count 299 10^3/uL (150-450); Red Blood Count 3.39 10^6/uL (3.63-4.92); Red Cell Distribution Width 13.2 % (12-17); White Blood Count 4.1 10^3/uL (3.8-11.8)
[2024-07-23 06:42] LABS: Calcium 9.2 mg/dL (8.6-10.3); Creatinine, Serum 1.17 mg/dL (0.51-0.95); Potassium 4.9 mmol/L (3.5-5.0); eGFR CKD-EPI 46.3 (>60)
[2024-07-23] MEDS: Azithromycin 500 mg/250 ml NS 500 MG/250 ML BAG IVPB SCH (15:12)
[2024-07-23] MEDS: cefTRIAXone 1 gm/50 mL D5W 1 GM/50 ML BAG IV SCH (16:40)
[2024-07-24 17:25] VITALS: BP 145/73
== END 2024-07-24 18:00 | disposition home or self-care (01) ==
LOC: ED 13:31 → EDHOLD 13:31 → MED 20:11
PROVIDERS: ADMIT Internal Medicine; ATTEND Internal Medicine